=== PATIENT | male | born 1945 | race Caucasian/White ===

== ENCOUNTER 2020-01-19 17:42 | Emergency (ER) | payer MEDICARE, OTHER ==
[2020-01-19] MEDS ORDERED: Ondansetron 4 MG Tab.DIS PO ONE (18:30)
[2020-01-19] MEDS ORDERED: HYDROmorphone 0.5 MG/0.5 ML Syringe IM ONE (18:44)
--- NOTE | 2020-01-19 18:51 | EDM.PDOC ---
ED HPI GENERAL MEDICAL PROBLEM - General Chief Complaint: Gastrointestinal Problem Stated Complaint: VOMITING Time Seen by Provider: 01/19/20 18:29 Source of Information: Reports: Patient, RN Notes Reviewed History Limitations: Reports: No Limitations - History of Present Illness INITIAL COMMENTS - FREE TEXT/NARRATIVE: Patient is a 74-year-old male who presents to the ED for his dizziness and vomiting. Patient was in [place] and had a prostate biopsy done by Dr. Ann today. He states that he ate a little bit of food on the way home, and then developed nausea and a sense of dizziness, so he laid himself back into the seat, and he must have vomited. He did not know that he actively vomited, he states when he woke up, he had vomit in his lap. He states he had another episode of vomiting shortly after that. He notes that the biopsy must have went well, he has no fevers or chills, cough or shortness of breath. He notes he has some pain in his rectum from the prostate biopsy site, and there is some blood present. Rectal Pain Score (Numeric/FACES): 7 - Related Data Allergies Allergy/AdvReac Type Severity Reaction Status Date / Time animal dander Allergy Cannot Verified 01/19/20 18:26 Remember apple Allergy Cannot Verified 01/19/20 18:26 Remember banana Allergy Swelling Verified 01/19/20 18:26 bee pollen Allergy Cannot Verified 01/19/20 18:26 Remember kiwi Allergy Swelling Verified 01/19/20 18:26 lisinopril Allergy Cough Verified 01/19/20 18:14 Home Meds: Home Meds Acetaminophen/HYDROcodone [[place] 325-5 MG] 2 tab PO Q6H PRN 01/19/20 [History] Aspirin [Ecotrin EC] 81 mg PO DAILY 01/19/20 [History] Cholecalciferol (Vitamin D3) [Vitamin D3] 2,000 unit PO DAILY 01/19/20 [History] Doxazosin Mesylate [Cardura] 6 mg PO DAILY 01/19/20 [History] Hydrocodone/Acetaminophen [Hydrocodone-Acetamin 5-325 mg] 1 each PO Q6H PRN #12 tablet 01/19/20 [Rx] Ibuprofen [Motrin] 800 mg PO TID 01/19/20 [History] Ondansetron [Zofran ODT] 4 mg PO Q8H PRN #15 tab.dis 01/19/20 [Rx] Pantoprazole Sodium [Protonix] 20 mg PO DAILY 01/19/20 [History] atorvaSTATin Calcium [Atorvastatin Calcium] 10 mg PO DAILY 01/19/20 [History] Past Medical History HEENT History: Reports: Impaired Vision Cardiovascular History: Reports: High Cholesterol, Stents Gastrointestinal History: Reports: GERD Genitourinary History: Reports: Other (See Below) Other Genitourinary History: prostate biopsy on 01-19-20 - Infectious Disease History Infectious Disease History: Reports: Measles, Mumps - Past Surgical History Cardiovascular Surgical History: Reports: Coronary Artery Stent Male Surgical History: Reports: Prostate Biopsy (01/19/2020) Social & Family History - Tobacco Use Tobacco Use Status *Q: Never Tobacco User - Caffeine Use Caffeine Use: Reports: Coffee, Tea - Recreational Drug Use Recreational Drug Use: No ED ROS GENERAL - Review of Systems Review Of Systems: Comprehensive ROS is negative, except as noted in HPI. ED EXAM, GI/ABD - Physical Exam Exam: See Below Exam Limited By: No Limitations General Appearance: Alert, WD/WN, No Apparent Distress Eyes: Bilateral: Normal Appearance Respiratory/Chest: No Respiratory Distress, Lungs Clear, Normal Breath Sounds, No Accessory Muscle Use, Chest Non-Tender Cardiovascular: Normal Peripheral Pulses, Regular Rate, Rhythm, No Murmur GI/Abdominal Exam: Normal Bowel Sounds, Soft, Non-Tender, No Distention, No Mass Rectal (Males) Exam: Deferred (reports there is some blood in underwear) Neurological: Alert, Oriented, Normal Cognition, No Motor/Sensory Deficits Psychiatric: Normal Affect, Normal Mood Skin Exam: Warm, Dry, Intact, Normal Color, No Rash Course - Vital Signs Last Recorded V/S: Last Vital Signs Temp 96.5 F L 01/19/20 18:17 Pulse 52 L 01/19/20 18:17 Resp 18 01/19/20 18:17 BP 138/78 01/19/20 18:17 Pulse Ox 94 L 01/19/20 18:17 - Orders/Labs/Meds Orders: Active Orders 24 hr Category Date Time Status Influenza Vaccine Charge [RC] .DISCHARGE Care 01/19/20 18:23 Active CBC WITH AUTO DIFF [HEME] Stat Lab 01/19/20 18:44 Ordered Labs: Laboratory Tests 01/19/20 01/19/20 Range/Units 19:20 19:20 WBC 12.73 H (4.23-9.07) K/mm3 RBC 4.90 (4.63-6.08) M/mm3 Hgb 14.2 (13.7-17.5) gm/dl Hct 42.8 (40.1-51.0) % MCV 87.3 (79.0-92.2) fl MCH 29.0 (25.7-32.2) pg MCHC 33.2 (32.2-35.5) g/dl RDW Std Deviation 43.6 (35.1-43.9) fL Plt Count 210 (163-337) K/mm3 MPV 9.8 (9.4-12.3) fl Neut % (Auto) 88.7 H (34.0-67.9) % Lymph % (Auto) 4.9 L (21.8-53.1) % [place] % (Auto) 5.8 (5.3-12.2) % Eos % (Auto) 0.2 L (0.8-7.0) Baso % (Auto) 0.2 (0.1-1.2) % Neut # (Auto) 11.28 H (1.78-5.38) K/mm3 Lymph # (Auto) 0.63 L (1.32-3.57) K/mm3 [place] # (Auto) 0.74 (0.30-0.82) K/mm3 Eos # (Auto) 0.03 L (0.04-0.54) K/mm3 Baso # (Auto) 0.03 (0.01-0.08) K/mm3 Sodium 141 (136-145) mEq/L Potassium 4.1 (3.5-5.1) mEq/L Chloride 106 (98-107) mEq/L Carbon Dioxide 27 (21-32) mEq/L Anion Gap 12.1 (5-15) BUN 14 (7-18) mg/dL Creatinine 1.3 (0.7-1.3) mg/dL Est Cr Clr Drug Dosing 53.10 mL/min Estimated GFR (MDRD) 54 (>60) mL/min BUN/Creatinine Ratio 10.8 L (14-18) Glucose 135 H (83-115) mg/dL Calcium 8.6 (8.5-10.1) mg/dL Total Bilirubin 0.6 (0.2-1.0) mg/dL AST 21 (15-37) U/L ALT 30 (16-63) U/L Alkaline Phosphatase 106 (46-116) U/L Total Protein 6.7 (6.4-8.2) g/dl Albumin 3.4 (3.4-5.0) g/dl Globulin 3.3 gm/dL Albumin/Globulin Ratio 1.0 (1-2) Meds: Medications Discontinued Medications Generic Name Dose Route Start Last Admin Trade Name Freq PRN Reason Stop Dose Admin Hydromorphone HCl 0.5 mg 01/19/20 18:44 01/19/20 18:56 Dilaudid IM 01/19/20 18:45 0.5 mg ONETIME ONE Administration Influenza Virus Vaccine 1 each 01/19/20 18:23 Pharmacy To Dose - Influenza Vaccine IM 01/19/20 18:24 ONETIME ONE Influenza Virus Vaccine 240 mcg 01/19/20 19:00 01/19/20 18:54 Fluzone High-Dose Quad 2020-21 IM 01/19/20 19:01 240 mcg .ONCE ONE Administration Ondansetron HCl 4 mg 01/19/20 18:30 01/19/20 18:35 Zofran Odt PO 01/19/20 18:31 4 mg ONETIME ONE Administration - Re-Assessments/Exams Free Text/Narrative Re-Assessment/Exam: 01/19/20 18:50 Patient presents to the ED for evaluation of his nausea and vomiting after a surgical procedure today. We will give him some Zofran, and 0.5 mg of IM Dilaudid, get some basic labs to evaluate electrolytes, and hopefully get him discharged home with general recommendations. I will likely send him home with a few tablets of pain medication along with some nausea medication. 01/19/20 19:58 The patient states he is feeling better. We will get him a prescription for nausea medications and pain medications, I did educate him on return precautions due to the recent prostate biopsy. He verbalized understanding. Departure - Departure Time of Disposition: 19:58 Disposition: Home, Self-Care 01 Condition: Good Clinical Impression: Nausea and vomiting Qualifiers: Vomiting type: unspecified Vomiting Intractability: non-intractable Qualified Code(s): R11.2 - Nausea with vomiting, unspecified - Discharge Information *PRESCRIPTION DRUG MONITORING PROGRAM REVIEWED*: Yes *COPY OF PRESCRIPTION DRUG MONITORING REPORT IN PATIENT STEVEN: No Prescriptions: Hydrocodone/Acetaminophen [Hydrocodone-Acetamin 5-325 mg] 1 each PO Q6H PRN #12 tablet PRN Reason: Pain Ondansetron [Zofran ODT] 4 mg PO Q8H PRN #15 tab.dis PRN Reason: Nausea Instructions: Nausea and Vomiting, Adult, [id number] Referrals: Nano Guzman [employer] INFORMATION SYSTEMS DIRECTOR [Primary Care Provider] - Forms: ED Department Discharge Additional Instructions: You were evaluated in the ER today for your nausea and vomiting. Your labs were unremarkable, there are no electrolyte abnormalities that would have been the cause of this at today's visit. You were given a dose of antinausea medications and pain medications, this seemed to help relieve most of your symptoms. You were given a prescription for a strong pain medication, hydrocodone/acetaminophen 5/325 mg, please take 1 tab every 6 hours as needed for pain not relieved by Tylenol or ibuprofen alone. Please note this medication does contain Tylenol in it, so do not take more than 4000 mg in a 24- hour time span. These medications can be addictive, so please take as few as possible to achieve adequate pain control. These meds can also be quite constipating, recommend that you increase your oral fluid intake and take a stool softener like MiraLAX while taking these medications. Do not drive while taking this medication. You were also given a prescription for Zofran you will need to take 1 tablet dissolvable under your tongue every 8 hours as needed for further nausea symptoms. Please continue to monitor the bleeding from the biopsy today, if you notice an increase in red blood in your underwear, or while having bowel movements, and you begin to feel dizzy/lightheaded, or notice a more pale color in your skin tone, this to be cause for concern to return to the ER for further management. Otherwise please continue to increase your oral fluid intake, I would recommend small, bland meals for the next 24 to 48 hours to make sure that you do not get sick again. Highly recommend that you start using a stool softener to soften your stools as I expect that the hard stools will not feel well passing after the prostate biopsy. Sepsis Event Note (ED) - Evaluation Sepsis Screening Result: No Definite Risk - Focused Exam Vital Signs: Vital Signs Temp Pulse Resp BP Pulse Ox 01/19/20 18:17 96.5 F L 52 L 18 138/78 94 L - My Orders Last 24 Hours: My Active Orders 01/19/20 18:23 Influenza Vaccine Charge [RC] .DISCHARGE 01/19/20 18:44 CBC WITH AUTO DIFF [HEME] Stat - Assessment/Plan Last 24 Hours: My Active Orders 01/19/20 18:23 Influenza Vaccine Charge [RC] .DISCHARGE 01/19/20 18:44 CBC WITH AUTO DIFF [HEME] Stat
[2020-01-19] MEDS ORDERED: FLU Vacc QV2020-21(65YR UP)/PF 240 MCG/0.7 ML Syringe IM ONE (19:00)
== END 2020-01-19 20:15 | disposition home or self-care (01) ==
LOC: JD.ED 17:42
DX: R11.2 Nausea with vomiting, unspecified (principal); E78.00 Pure hypercholesterolemia, unspecified; K21.9 Gastro-esophageal reflux disease without esophagitis; Z79.82 Long term (current) use of aspirin; Z79.899 Other long term (current) drug therapy; Z23 Encounter for immunization; Z91.048 Other nonmedicinal substance allergy status; Z91.030 Bee allergy status; Z91.018 Allergy to other foods; Z88.8 Allergy status to other drugs, medicaments and biological substances
CPT/HCPCS: 36415; 80053; 85025; 90662; 96372; 99284; A9270-GY; G0008; J1170

== ENCOUNTER 2020-04-25 10:48 | Inpatient (IN) | payer MEDICARE, OTHER ==
[2020-04-25] MEDS ORDERED: Sodium Chloride 0.9% 10 ML Syringe FLUSH PRN (11:14)
[2020-04-25] MEDS ORDERED: Dexamethasone 4 MG Tab PO ONE (11:56)
--- NOTE | 2020-04-25 12:18 | EDM.PDOC ---
ED HPI GENERAL MEDICAL PROBLEM - General Chief Complaint: Respiratory Problem Stated Complaint: [facility] Time Seen by Provider: 04/25/20 11:15 Source of Information: Reports: Patient, RN Notes Reviewed History Limitations: Reports: No Limitations - History of Present Illness INITIAL COMMENTS - FREE TEXT/NARRATIVE: Patient is a 74-year-old female presenting to the emergency department by [facility] with complaints of cough and shortness of breath with a known diagnosis of COVID-19. He states his symptoms began on April 15 with headache and generalized body aches. He developed cough and shortness of breath on April 17. He was diagnosed as Covid positive on April 22. He complains of intense cough, body aches, headache, and shortness of breath. Denies any chest pain. He feels that he has been febrile, however he does not have a working thermometer at home. Denies any nausea, vomiting, or diarrhea. He has been using ibuprofen to treat the symptoms. Patient has a past medical history significant for DE with stents. Denies any underlying lung pathology. He is not diabetic. Chest Pain Score (Numeric/FACES): 6 - Related Data Allergies Allergy/AdvReac Type Severity Reaction Status Date / Time animal dander Allergy Severe Cannot Verified 04/25/20 10:58 Remember apple Allergy Severe Cannot Verified 04/25/20 10:58 Remember banana Allergy Severe Swelling Verified 04/25/20 10:58 bee pollen Allergy Severe Cannot Verified 04/25/20 10:58 Remember kiwi Allergy Severe Swelling Verified 04/25/20 10:58 lisinopril Allergy Severe Cough Verified 04/25/20 10:58 Home Meds: Home Meds Acetaminophen/HYDROcodone [[place] 325-5 MG] 2 tab PO Q6H PRN 01/19/20 [History] Aspirin [Ecotrin EC] 81 mg PO DAILY 01/19/20 [History] Cholecalciferol (Vitamin D3) [Vitamin D3] 2,000 unit PO DAILY 01/19/20 [History] Doxazosin Mesylate [Cardura] 6 mg PO DAILY 01/19/20 [History] Hydrocodone/Acetaminophen [Hydrocodone-Acetamin 5-325 mg] 1 each PO Q6H PRN #12 tablet 01/19/20 [Rx] Ibuprofen [Motrin] 800 mg PO TID 01/19/20 [History] Ondansetron [Zofran ODT] 4 mg PO Q8H PRN #15 tab.dis 01/19/20 [Rx] Pantoprazole Sodium [Protonix] 20 mg PO DAILY 01/19/20 [History] atorvaSTATin Calcium [Atorvastatin Calcium] 10 mg PO DAILY 01/19/20 [History] Past Medical History HEENT History: Reports: Impaired Vision Cardiovascular History: Reports: High Cholesterol, Hypertension, Stents Gastrointestinal History: Reports: GERD Genitourinary History: Reports: Other (See Below) Other Genitourinary History: prostate biopsy on 01-19-20 - Infectious Disease History Infectious Disease History: Reports: Measles, Mumps, Novel Coronavirus - Past Surgical History Cardiovascular Surgical History: Reports: Coronary Artery Stent Male Surgical History: Reports: Prostate Biopsy Social & Family History - Tobacco Use Tobacco Use Status *Q: Never Tobacco User - Caffeine Use Caffeine Use: Reports: Coffee - Recreational Drug Use Recreational Drug Use: No ED ROS GENERAL - Review of Systems Review Of Systems: See Below Constitutional: Reports: Fever, Fatigue HEENT: Reports: No Symptoms Respiratory: Reports: Shortness of Breath, Cough. Denies: Wheezing Cardiovascular: Reports: No Symptoms. Denies: Chest Pain, Lightheadedness, Palpitations, Syncope Endocrine: Reports: No Symptoms GI/Abdominal: Reports: No Symptoms. Denies: Abdominal Pain, Diarrhea, Nausea, Vomiting : Reports: No Symptoms Musculoskeletal: Reports: Other (Generalized body aches) Skin: Reports: No Symptoms Neurological: Reports: Headache. Denies: Confusion, Dizziness Psychiatric: Reports: No Symptoms Hematologic/Lymphatic: Reports: No Symptoms Immunologic: Reports: No Symptoms ED EXAM, GENERAL - Physical Exam Exam: See Below Exam Limited By: No Limitations General Appearance: Alert, WD/WN, No Apparent Distress Respiratory/Chest: No Respiratory Distress, Lungs Clear, Normal Breath Sounds, No Accessory Muscle Use, Chest Non-Tender Cardiovascular: Normal Peripheral Pulses, Regular Rate, Rhythm, No Edema, No Gallop, No JVD, No Murmur, No Rub Neurological: Alert, Oriented, CN II-XII Intact, Normal Cognition, Normal Gait, Normal Reflexes, No Motor/Sensory Deficits Psychiatric: Normal Affect, Normal Mood Skin Exam: Warm, Dry, Intact, Normal Color, No Rash #1 Interpretation EKG Date: 04/25/20 Time: 11:01 Rhythm: NSR Rate (Beats/Min): 68 [place]: Normal P-Wave: Present QRS: RBBB ST-T: Normal QT: Normal Course - Vital Signs Last Recorded V/S: Last Vital Signs Temp 97.4 F 04/25/20 10:54 Pulse 65 04/25/20 14:18 Resp 20 04/25/20 13:43 BP 136/85 04/25/20 13:43 Pulse Ox 92 L 04/25/20 14:18 - Orders/Labs/Meds Orders: Active Orders 24 hr Category Date Time Status EKG Documentation Completion [RC] STAT Care 04/25/20 11:15 Active Peripheral IV Care [RC] . DIRECTED Care 04/25/20 11:15 Active Azithromycin [Zithromax] 500 mg Med 04/25/20 14:47 Active Sodium Chloride 0.9% [Normal Saline (AdvBag)] 250 ml IV ONETIME Sodium Chloride 0.9% [Normal Saline] 100 ml Med 04/25/20 13:15 Active IV ASDIRECTED Sodium Chloride 0.9% [Saline Flush] Med 04/25/20 11:14 Active 10 ml FLUSH ASDIRECTED PRN Peripheral IV Insertion Adult [OM.PC] Stat Oth 04/25/20 11:14 Ordered Labs: Laboratory Tests 04/25/20 04/25/20 04/25/20 Range/Units 11:08 11:08 11:08 WBC 4.97 (4.23-9.07) K/mm3 RBC 5.12 (4.63-6.08) M/mm3 Hgb 14.4 (13.7-17.5) gm/dl Hct 44.3 (40.1-51.0) % MCV 86.5 (79.0-92.2) fl MCH 28.1 (25.7-32.2) pg MCHC 32.5 (32.2-35.5) g/dl RDW Std Deviation 44.0 H (35.1-43.9) fL Plt Count 179 (163-337) K/mm3 MPV 10.5 (9.4-12.3) fl Neut % (Auto) 82.9 H (34.0-67.9) % Lymph % (Auto) 9.3 L (21.8-53.1) % [place] % (Auto) 7.8 (5.3-12.2) % Eos % (Auto) 0 L (0.8-7.0) Baso % (Auto) 0.0 L (0.1-1.2) % Neut # (Auto) 4.12 (1.78-5.38) K/mm3 Lymph # (Auto) 0.46 L (1.32-3.57) K/mm3 [place] # (Auto) 0.39 (0.30-0.82) K/mm3 Eos # (Auto) 0.00 L (0.04-0.54) K/mm3 Baso # (Auto) 0.00 L (0.01-0.08) K/mm3 Manual Slide Review Abnormal smear D-Dimer, Quantitative 1.48 H (0.19-0.50) mg/L Puncture Site ABG pH (7.35-7.45) ABG pCO2 (35.0-45.0) mmHg ABG pO2 (80.0-100.0) mmHg ABG HCO3 (22.0-26.0) meq/L ABG O2 Saturation (96.0-97.0) % ABG Base Excess (-2-2.0) Tree Test O2 Delivery Device Oxygen Flow Rate Sodium 144 (136-145) mEq/L Potassium 3.5 (3.5-5.1) mEq/L Chloride 105 (98-107) mEq/L Carbon Dioxide 26 (21-32) mEq/L Anion Gap 16.5 H (5-15) BUN 19 H (7-18) mg/dL Creatinine 1.3 (0.7-1.3) mg/dL Est Cr Clr Drug Dosing 53.10 mL/min Estimated GFR (MDRD) 54 (>60) mL/min BUN/Creatinine Ratio 14.6 (14-18) Glucose 101 (83-115) mg/dL Lactic Acid (0.4-2.0) mmol/L Calcium 8.5 (8.5-10.1) mg/dL Total Bilirubin 0.6 (0.2-1.0) mg/dL AST 48 H (15-37) U/L ALT 34 (16-63) U/L Alkaline Phosphatase 135 H (46-116) U/L Troponin I < 0.017 (0.00-0.056) ng/mL C-Reactive Protein 11.3 H* (<1.0) mg/dL Total Protein 6.8 (6.4-8.2) g/dl Albumin 2.9 L (3.4-5.0) g/dl Globulin 3.9 gm/dL Albumin/Globulin Ratio 0.7 L (1-2) 04/25/20 04/25/20 04/25/20 Range/Units 11:08 11:29 13:28 WBC (4.23-9.07) K/mm3 RBC (4.63-6.08) M/mm3 Hgb (13.7-17.5) gm/dl Hct (40.1-51.0) % MCV (79.0-92.2) fl MCH (25.7-32.2) pg MCHC (32.2-35.5) g/dl RDW Std Deviation (35.1-43.9) fL Plt Count (163-337) K/mm3 MPV (9.4-12.3) fl Neut % (Auto) (34.0-67.9) % Lymph % (Auto) (21.8-53.1) % [place] % (Auto) (5.3-12.2) % Eos % (Auto) (0.8-7.0) Baso % (Auto) (0.1-1.2) % Neut # (Auto) (1.78-5.38) K/mm3 Lymph # (Auto) (1.32-3.57) K/mm3 [place] # (Auto) (0.30-0.82) K/mm3 Eos # (Auto) (0.04-0.54) K/mm3 Baso # (Auto) (0.01-0.08) K/mm3 Manual Slide Review D-Dimer, Quantitative (0.19-0.50) mg/L Puncture Site Rt radial ABG pH 7.45 7.45 (7.35-7.45) ABG pCO2 30.3 L 30.2 L (35.0-45.0) mmHg ABG pO2 78.0 L 57.0 L (80.0-100.0) mmHg ABG HCO3 20.7 L 20.8 L (22.0-26.0) meq/L ABG O2 Saturation 96.7 90.3 L (96.0-97.0) % ABG Base Excess -1.8 -1.6 (-2-2.0) Tree Test Positive Positive O2 Delivery Device Nasal cannula Room air Oxygen Flow Rate 1.0 Sodium (136-145) mEq/L Potassium (3.5-5.1) mEq/L Chloride (98-107) mEq/L Carbon Dioxide (21-32) mEq/L Anion Gap (5-15) BUN (7-18) mg/dL Creatinine (0.7-1.3) mg/dL Est Cr Clr Drug Dosing mL/min Estimated GFR (MDRD) (>60) mL/min BUN/Creatinine Ratio (14-18) Glucose (83-115) mg/dL Lactic Acid 1.4 (0.4-2.0) mmol/L Calcium (8.5-10.1) mg/dL Total Bilirubin (0.2-1.0) mg/dL AST (15-37) U/L ALT (16-63) U/L Alkaline Phosphatase (46-116) U/L Troponin I (0.00-0.056) ng/mL C-Reactive Protein (<1.0) mg/dL Total Protein (6.4-8.2) g/dl Albumin (3.4-5.0) g/dl Globulin gm/dL Albumin/Globulin Ratio (1-2) - Re-Assessments/Exams Free Text/Narrative Re-Assessment/Exam: Patient is a 74-year-old female presenting to the emergency department via [facility] with complaints of cough and shortness of breath with a known diagnosis of COVID-19. His symptoms began on 15 April and he developed cough and shortness of breath on 17 April. He tested positive for Covid on April 22. Today, the cough and shortness of breath worsened causing him to summon EMS. He denies any underlying respiratory conditions but states he does have a history of DE with stents. He denies any significant chest pain. On arrival to ER, he was found to be 85% on room air. Is currently on 2 L of O2 satting in the mid to upper 90s. On exam, he does have some very faint crackles to the bilateral bases but lung sounds are otherwise clear. There is no audible wheezing. I have ordered blood work including CBC, CMP, CRP, troponin, D-dimer, EKG, chest x-ray. I will also plan to remove the patient from O2 and complete an ABG on room air. I will order dexamethasone 6 mg p.o. to be given. 04/25/20 1300 Hematology is significant for D-dimer elevated at 1.48, anion gap 16.5, BUN 19, AST 48, alkaline phosphatase 135, CRP 11.3. Troponin is negative. ABG was unfortunately collected while he was on 1 L of O2. On 1 L of oxygen, his PCO2 was 30.3, PO2 78, HCO3 20.7. Chest x-ray is read as minimal areas of presumed scarring and atelectasis, heart size is slightly prominent, no other acute findings.I have ordered a CT angiogram of the chest. I will also have nursing take him off of O2 and we will repeat the ABG once he has been on room air for at least 15 minutes. 04/25/20 15:01 CT angiogram of the chest impression as follows: 1. No findings of pulmonary embolism. 2. Diffuse interstitial changes seen within the upper and lower lungs which has the appearance of diffuse interstitial fibrosis. 3. Mild emphysematous changes present. 3. Stable cardiomegaly. 4. Slightly prominent right hilar lymph nodes which are most likely incidental given that no abnormal lymph nodes are seen within the mediastinum. ABG completed on room air shows pH of 7.45, PCO2 is low at 30.2, PO2 low at 57, bicarb low at 20.8, ABG O2 saturation 90.3. ABG is consistent with a fully compensated respiratory alkalosis. Case was discussed with the hospitalist, Dr. Zabala. She has accepted the patient for admission. She would like me to start azithromycin in addition to the dexamethasone he is already received. Discussed this with the patient and he is in agreement. He is complaining of body aches. Have ordered Toradol 30 mg IV. Departure - Departure Time of Disposition: 15:01 Disposition: Home, Self-Care 01 Condition: Good Clinical Impression: COVID-19, Hypoxia - Discharge Information Sepsis Event Note (ED) - Evaluation Sepsis Screening Result: No Definite Risk - Focused Exam Vital Signs: Vital Signs Temp Pulse Resp BP Pulse Ox 04/25/20 14:18 65 92 L 04/25/20 13:43 66 20 136/85 92 L 04/25/20 13:15 63 20 139/84 90 L 04/25/20 12:14 97 04/25/20 12:00 61 135/82 97 04/25/20 11:55 63 127/85 100 04/25/20 10:54 97.4 F 82 24 H 136/84 85 L - My Orders Last 24 Hours: My Active Orders 04/25/20 11:14 Sodium Chloride 0.9% [Saline Flush] 10 ml FLUSH ASDIRECTED PRN Peripheral IV Insertion Adult [OM.PC] Stat 04/25/20 11:15 EKG Documentation Completion [RC] STAT Peripheral IV Care [RC] . DIRECTED 04/25/20 13:15 Sodium Chloride 0.9% [Normal Saline] 100 ml IV ASDIRECTED 04/25/20 14:47 Azithromycin [Zithromax] 500 mg Sodium Chloride 0.9% [Normal Saline (AdvBag)] 250 ml IV ONETIME - Assessment/Plan Last 24 Hours: My Active Orders 04/25/20 11:14 Sodium Chloride 0.9% [Saline Flush] 10 ml FLUSH ASDIRECTED PRN Peripheral IV Insertion Adult [OM.PC] Stat 04/25/20 11:15 EKG Documentation Completion [RC] STAT Peripheral IV Care [RC] . DIRECTED 04/25/20 13:15 Sodium Chloride 0.9% [Normal Saline] 100 ml IV ASDIRECTED 04/25/20 14:47 Azithromycin [Zithromax] 500 mg Sodium Chloride 0.9% [Normal Saline (AdvBag)] 250 ml IV ONETIME
--- NOTE | 2020-04-25 12:33 | CR ---
Chest: Portable view of the chest was obtained. Comparison: No previous chest imaging is available. Findings: Heart size is felt to be minimally enlarged. Tortuous thoracic aorta is seen. Minimal areas of presumed scarring and atelectasis are noted. No acute parenchymal process is seen. Bony structures are grossly intact. Impression: 1. Minimal areas of presumed scarring and atelectasis. 2. Heart size is slightly prominent. 3. Nothing acute is otherwise seen on portable chest x-ray. Diagnostic code #2
[2020-04-25] MEDS ORDERED: Iopamidol 755 Mg/ML 100 ML Bottle IVPUSH ONE (13:04)
[2020-04-25] MEDS ORDERED: Sodium Chloride 0.9% 10 ML Syringe FLUSH ONE (13:04)
[2020-04-25] MEDS ORDERED: Sodium Chloride 0.9% 100 ML IV SCH (13:15)
--- NOTE | 2020-04-25 14:33 | CT ---
CT chest Technique: Multiple axial sections through the chest were obtained. Study performed as a pulmonary angiogram protocol and intravenous contrast was utilized. Comparison: Prior chest x-ray performed earlier on the same day (11:09 AM) Findings: Pulmonary arteries are mildly well opacified. No filling defects are seen to indicate pulmonary embolism. Small normal sized mediastinal lymph nodes are seen. Slightly prominent lymph nodes within the right hilum are seen. Left hilum is unremarkable. Heart is enlarged. Small portion of the visualized upper abdominal structures show a small cyst within the left kidney and a slightly larger cyst measuring 4.0 cm within the right kidney. Lung window settings were reviewed and show scattered interstitial change within the left upper and right upper lung as well as within the right lower lung and left lower lung. No pleural effusions are seen. Emphysematous change is present. Bone window settings were reviewed which show mild degenerative change within the spine. No acute osseous finding is appreciated. Impression: 1. No findings of pulmonary embolism. 2. Diffuse interstitial change is seen within the upper and lower lungs which has the appearance of diffuse interstitial fibrosis. 3. Mild emphysematous change is present. 3. Stable cardiomegaly. 4. Slightly prominent right hilar lymph nodes which most likely are incidental given that no abnormal lymph nodes are seen within the mediastinum. Diagnostic code #3
[2020-04-25] MEDS ORDERED: Azithromycin 500 MG in Sodium Chloride 0.9% 250 ML IV ONE (14:47)
[2020-04-25] MEDS ORDERED: Ketorolac 30 MG/ML SDV IVPUSH ONE (14:48)
--- NOTE | 2020-04-25 16:09 | PCM.HP.2 ---
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 But feels SOB, weak. He will be started on ATBs and steroids. Remdesivir may be added if needed as per protocol. The patient Also complained of a headache but denied changes in sense of smell or appetite. A CTA of the chest was negative for PE, but did reveal interstitial fibrosis. it was not suggestive of COVID-19 PNA. Onset of Symptoms: Reports: Gradual Duration of Symptoms: Reports: Day(s):, Getting Worse Location: Reports: Head, Chest, Generalized Quality: Reports: Ache, Pressure Severity: Moderate Improves with: Reports: Medication Worsens with: Reports: None Context: Reports: Sick Contact Associated Symptoms: Reports: Cough, Malaise, Shortness of Breath, Weakness Chest Pain Score (Numeric/FACES): 6 - Related Data Allergies/Adverse Reactions: Allergies Allergy/AdvReac Type Severity Reaction Status Date / Time banana Allergy Severe Swelling Verified 04/25/20 10:58 kiwi Allergy Severe Swelling Verified 04/25/20 10:58 animal dander Allergy Unknown Cannot Verified 04/25/20 16:12 Remember apple Allergy Unknown Cannot Verified 04/25/20 16:12 Remember bee pollen Allergy Unknown Cannot Verified 04/25/20 16:12 Remember lisinopril AdvReac Mild Cough Verified 04/25/20 16:12 Home Medications: Home Meds Aspirin [Ecotrin EC] 81 mg PO DAILY 01/19/20 [History] Cholecalciferol (Vitamin D3) [Vitamin D3] 2,000 unit PO DAILY 01/19/20 [History] Doxazosin Mesylate [Cardura] 6 mg PO DAILY 01/19/20 [History] Hydrocodone/Acetaminophen [Hydrocodone-Acetamin 5-325 mg] 1 each PO Q6H PRN #12 tablet 01/19/20 [Rx] Ibuprofen [Motrin] 800 mg PO PRN 01/19/20 [History] Pantoprazole Sodium [Protonix] 20 mg PO DAILY 01/19/20 [History] atorvaSTATin Calcium [Atorvastatin Calcium] 10 mg PO DAILY 01/19/20 [History] Past Medical History HEENT History: Reports: Impaired Vision Cardiovascular History: Reports: High Cholesterol, Hypertension, Stents Gastrointestinal History: Reports: GERD Genitourinary History: Reports: Other (See Below) Other Genitourinary History: prostate biopsy on 01-19-20 - Infectious Disease History Infectious Disease History: Reports: Measles, Mumps, Novel Coronavirus - Past Surgical History Cardiovascular Surgical History: Reports: Coronary Artery Stent Male Surgical History: Reports: Prostate Biopsy Social & Family History - Tobacco Use Tobacco Use Status *Q: Never Tobacco User - Caffeine Use Caffeine Use: Reports: Coffee - Recreational Drug Use Recreational Drug Use: No H&P Review of Systems - Review of Systems: Review Of Systems: See Below General: Reports: Fever, Chills, Malaise, Weakness, Fatigue HEENT: Reports: No Symptoms Pulmonary: Reports: Shortness of Breath Cardiovascular: Reports: No Symptoms Gastrointestinal: Reports: No Symptoms, Decreased Appetite, Nausea Genitourinary: Reports: No Symptoms Musculoskeletal: Reports: No Symptoms Skin: Reports: No Symptoms Psychiatric: Reports: No Symptoms Neurological: Reports: Headache Hematologic/Lymphatic: Reports: No Symptoms Immunologic: Reports: No Symptoms Exam - Exam Exam: See Below - Vital Signs Vital Signs: Last Vital Signs Temp 36.8 C 04/25/20 16:00 Pulse 61 04/25/20 16:00 Resp 20 04/25/20 16:00 BP 128/85 04/25/20 16:00 Pulse Ox 97 04/25/20 16:00 Weight: 90.718 kg - Exam Quality Assessment: Supplemental Oxygen, DVT Prophylaxis General: Alert, Oriented, Cooperative, Mild Distress HEENT: EOMI, Hearing Intact, Nares Patent, Normal Nasal Septum, Pupils Equal, Pupils Reactive Neck: Trachea Midline Lungs: Normal Respiratory Effort, Decreased Breath Sounds Cardiovascular: Regular Rate, Regular Rhythm GI/Abdominal Exam: Normal Bowel Sounds, Soft, Non-Tender, No Distention (Male) Exam: Deferred Rectal (Males) Exam: Deferred Back Exam: Normal Inspection Extremities: Normal Inspection Skin: Warm Neurological: Cranial Nerves Intact, Babinski Absent Neuro Extensive - Mental Status: Alert, Oriented x3, Normal Mood/Affect, Memory Intact Neuro Extensive - Motor, Sensory, Reflexes: CN II-XII Intact Psychiatric: Alert, Normal Affect, Normal Mood - Patient Data Lab Results Last 24 hrs: Laboratory Results - last 24 hr 04/25/20 04/25/20 04/25/20 Range/Units 11:08 11:08 11:08 WBC 4.97 (4.23-9.07) K/mm3 RBC 5.12 (4.63-6.08) M/mm3 Hgb 14.4 (13.7-17.5) gm/dl Hct 44.3 (40.1-51.0) % MCV 86.5 (79.0-92.2) fl MCH 28.1 (25.7-32.2) pg MCHC 32.5 (32.2-35.5) g/dl RDW Std Deviation 44.0 H (35.1-43.9) fL Plt Count 179 (163-337) K/mm3 MPV 10.5 (9.4-12.3) fl Neut % (Auto) 82.9 H (34.0-67.9) % Lymph % (Auto) 9.3 L (21.8-53.1) % Merrick % (Auto) 7.8 (5.3-12.2) % Eos % (Auto) 0 L (0.8-7.0) Baso % (Auto) 0.0 L (0.1-1.2) % Neut # (Auto) 4.12 (1.78-5.38) K/mm3 Lymph # (Auto) 0.46 L (1.32-3.57) K/mm3 Merrick # (Auto) 0.39 (0.30-0.82) K/mm3 Eos # (Auto) 0.00 L (0.04-0.54) K/mm3 Baso # (Auto) 0.00 L (0.01-0.08) K/mm3 Manual Slide Review Abnormal smear D-Dimer, Quantitative 1.48 H (0.19-0.50) mg/L Puncture Site ABG pH (7.35-7.45) ABG pCO2 (35.0-45.0) mmHg ABG pO2 (80.0-100.0) mmHg ABG HCO3 (22.0-26.0) meq/L ABG O2 Saturation (96.0-97.0) % ABG Base Excess (-2-2.0) Tree Test O2 Delivery Device Oxygen Flow Rate Sodium 144 (136-145) mEq/L Potassium 3.5 (3.5-5.1) mEq/L Chloride 105 (98-107) mEq/L Carbon Dioxide 26 (21-32) mEq/L Anion Gap 16.5 H (5-15) BUN 19 H (7-18) mg/dL Creatinine 1.3 (0.7-1.3) mg/dL Est Cr Clr Drug Dosing 53.10 mL/min Estimated GFR (MDRD) 54 (>60) mL/min BUN/Creatinine Ratio 14.6 (14-18) Glucose 101 (83-115) mg/dL Lactic Acid (0.4-2.0) mmol/L Calcium 8.5 (8.5-10.1) mg/dL Total Bilirubin 0.6 (0.2-1.0) mg/dL AST 48 H (15-37) U/L ALT 34 (16-63) U/L Alkaline Phosphatase 135 H (46-116) U/L Troponin I < 0.017 (0.00-0.056) ng/mL C-Reactive Protein 11.3 H* (<1.0) mg/dL Total Protein 6.8 (6.4-8.2) g/dl Albumin 2.9 L (3.4-5.0) g/dl Globulin 3.9 gm/dL Albumin/Globulin Ratio 0.7 L (1-2) 04/25/20 04/25/20 04/25/20 Range/Units 11:08 11:29 13:28 WBC (4.23-9.07) K/mm3 RBC (4.63-6.08) M/mm3 Hgb (13.7-17.5) gm/dl Hct (40.1-51.0) % MCV (79.0-92.2) fl MCH (25.7-32.2) pg MCHC (32.2-35.5) g/dl RDW Std Deviation (35.1-43.9) fL Plt Count (163-337) K/mm3 MPV (9.4-12.3) fl Neut % (Auto) (34.0-67.9) % Lymph % (Auto) (21.8-53.1) % Merrick % (Auto) (5.3-12.2) % Eos % (Auto) (0.8-7.0) Baso % (Auto) (0.1-1.2) % Neut # (Auto) (1.78-5.38) K/mm3 Lymph # (Auto) (1.32-3.57) K/mm3 Merrick # (Auto) (0.30-0.82) K/mm3 Eos # (Auto) (0.04-0.54) K/mm3 Baso # (Auto) (0.01-0.08) K/mm3 Manual Slide Review D-Dimer, Quantitative (0.19-0.50) mg/L Puncture Site Rt radial ABG pH 7.45 7.45 (7.35-7.45) ABG pCO2 30.3 L 30.2 L (35.0-45.0) mmHg ABG pO2 78.0 L 57.0 L (80.0-100.0) mmHg ABG HCO3 20.7 L 20.8 L (22.0-26.0) meq/L ABG O2 Saturation 96.7 90.3 L (96.0-97.0) % ABG Base Excess -1.8 -1.6 (-2-2.0) Tree Test Positive Positive O2 Delivery Device Nasal cannula Room air Oxygen Flow Rate 1.0 Sodium (136-145) mEq/L Potassium (3.5-5.1) mEq/L Chloride (98-107) mEq/L Carbon Dioxide (21-32) mEq/L Anion Gap (5-15) BUN (7-18) mg/dL Creatinine (0.7-1.3) mg/dL Est Cr Clr Drug Dosing mL/min Estimated GFR (MDRD) (>60) mL/min BUN/Creatinine Ratio (14-18) Glucose (83-115) mg/dL Lactic Acid 1.4 (0.4-2.0) mmol/L Calcium (8.5-10.1) mg/dL Total Bilirubin (0.2-1.0) mg/dL AST (15-37) U/L ALT (16-63) U/L Alkaline Phosphatase (46-116) U/L Troponin I (0.00-0.056) ng/mL C-Reactive Protein (<1.0) mg/dL Total Protein (6.4-8.2) g/dl Albumin (3.4-5.0) g/dl Globulin gm/dL Albumin/Globulin Ratio (1-2) Result Diagrams: 04/26/20 05:01 04/26/20 05:01 Sepsis Event Note - Evaluation Sepsis Screening Result: No Definite Risk - Focused Exam Vital Signs: Vital Signs Temp Temp Pulse Pulse Resp BP BP 04/25/20 16:00 36.8 C 61 20 128/85 04/25/20 15:18 53 L 20 159/98 H 04/25/20 14:18 65 04/25/20 13:43 66 20 136/85 04/25/20 13:15 63 20 139/84 04/25/20 12:14 04/25/20 12:00 61 135/82 04/25/20 11:55 63 127/85 04/25/20 10:54 36.3 C 82 24 H 136/84 Pulse Ox 04/25/20 16:00 97 04/25/20 15:18 97 04/25/20 14:18 92 L 04/25/20 13:43 92 L 04/25/20 13:15 90 L 04/25/20 12:14 97 04/25/20 12:00 97 04/25/20 11:55 100 04/25/20 10:54 85 L Problem List Initiated/Reviewed/Updated: Yes Orders Last 24hrs: Active Orders 24 hr Category Date Time Status Patient Status [ADT] Routine ADT 04/25/20 14:57 Active EKG Documentation Completion [RC] STAT Care 04/25/20 11:15 Active Peripheral IV Care [RC] . DIRECTED Care 04/25/20 11:15 Active Sodium Chloride 0.9% [Normal Saline] 100 ml Med 04/25/20 13:15 Active IV ASDIRECTED Sodium Chloride 0.9% [Saline Flush] Med 04/25/20 11:14 Active 10 ml FLUSH ASDIRECTED PRN Peripheral IV Insertion Adult [OM.PC] Stat Oth 04/25/20 11:14 Ordered Assessment/Plan Comment:: Impression: COVID-19 PNA Interstitial fibrosis Chronic HTN HLD CAD/DE (PCI) Plan: Zithromax Rocephin Duonebs every 6 hours Albuterol Nebs every 4 hours O2 if needed, keep sat>92% Remdesivir if O2 needed. Home meds DVT prophylaxis - Mortality Measure Prognosis:: Good
[2020-04-25] MEDS ORDERED: Acetaminophen 325 MG Tab PO PRN (16:21)
[2020-04-25] MEDS: cefTRIAXone 2 GM in Sodium Chloride 0.9% 100 ML IV SCH (16:49)
[2020-04-25] MEDS: Enoxaparin 40 MG/0.4 ML Syringe SUBCUT SCH (17:47)
[2020-04-26] MEDS: Enoxaparin 40 MG/0.4 ML Syringe SUBCUT SCH ×2 (05:59→17:28)
--- NOTE | 2020-04-26 07:59 | PCM.PN ---
- General Info Date of Service: 04/26/20 Admission Dx/Problem (Free Text): Admission Diagnosis/Problem Admission Diagnosis/Problem Hypoxia Functional Status: Reports: Pain Controlled, Tolerating Diet, Ambulating, Urinating, Incentive Spirometry, Other (Acapella ). Denies: New Symptoms - Review of Systems General: Reports: Weakness, Fatigue, Malaise. Denies: Fever, Chills HEENT: Reports: No Symptoms. Denies: Headaches, Sore Throat Pulmonary: Reports: Cough (dry). Denies: Shortness of Breath, Pleuritic Chest Pain, Sputum, Wheezing Cardiovascular: Reports: Dyspnea on Exertion. Denies: Chest Pain, Palpitations, Edema Gastrointestinal: Reports: No Symptoms. Denies: Abdominal Pain, Constipation, Diarrhea, Nausea, Vomiting Genitourinary: Reports: No Symptoms. Denies: Pain Musculoskeletal: Reports: Neck Pain (chronic ) Skin: Reports: No Symptoms. Denies: Cyanosis Neurological: Reports: Weakness. Denies: Confusion, Difficulty Walking, Gait Disturbance Psychiatric: Reports: No Symptoms - Patient Data Vitals - Most Recent: Last Vital Signs Temp 98.1 F 04/26/20 01:40 Pulse 57 L 04/26/20 01:40 Resp 14 04/26/20 01:40 BP 139/90 04/26/20 01:40 Pulse Ox 91 L 04/26/20 06:23 Weight - Most Recent: 191 lb I&O - Last 24 Hours: Intake & Output 04/25/20 04/26/20 04/26/20 22:59 06:59 14:59 Intake Total 100 425 Output Total 100 400 Balance 0 25 Lab Results Last 24 Hours: Laboratory Results - last 24 hr 04/25/20 04/25/20 04/25/20 Range/Units 11:08 11:08 11:08 WBC 4.97 (4.23-9.07) K/mm3 RBC 5.12 (4.63-6.08) M/mm3 Hgb 14.4 (13.7-17.5) gm/dl Hct 44.3 (40.1-51.0) % MCV 86.5 (79.0-92.2) fl MCH 28.1 (25.7-32.2) pg MCHC 32.5 (32.2-35.5) g/dl RDW Std Deviation 44.0 H (35.1-43.9) fL Plt Count 179 (163-337) K/mm3 MPV 10.5 (9.4-12.3) fl Neut % (Auto) 82.9 H (34.0-67.9) % Lymph % (Auto) 9.3 L (21.8-53.1) % [place] % (Auto) 7.8 (5.3-12.2) % Eos % (Auto) 0 L (0.8-7.0) Baso % (Auto) 0.0 L (0.1-1.2) % Neut # (Auto) 4.12 (1.78-5.38) K/mm3 Lymph # (Auto) 0.46 L (1.32-3.57) K/mm3 [place] # (Auto) 0.39 (0.30-0.82) K/mm3 Eos # (Auto) 0.00 L (0.04-0.54) K/mm3 Baso # (Auto) 0.00 L (0.01-0.08) K/mm3 Manual Slide Review Abnormal smear D-Dimer, Quantitative 1.48 H (0.19-0.50) mg/L Puncture Site ABG pH (7.35-7.45) ABG pCO2 (35.0-45.0) mmHg ABG pO2 (80.0-100.0) mmHg ABG HCO3 (22.0-26.0) meq/L ABG O2 Saturation (96.0-97.0) % ABG Base Excess (-2-2.0) Tree Test O2 Delivery Device Oxygen Flow Rate Sodium 144 (136-145) mEq/L Potassium 3.5 (3.5-5.1) mEq/L Chloride 105 (98-107) mEq/L Carbon Dioxide 26 (21-32) mEq/L Anion Gap 16.5 H (5-15) BUN 19 H (7-18) mg/dL Creatinine 1.3 (0.7-1.3) mg/dL Est Cr Clr Drug Dosing 53.10 mL/min Estimated GFR (MDRD) 54 (>60) mL/min BUN/Creatinine Ratio 14.6 (14-18) Glucose 101 (83-115) mg/dL Lactic Acid (0.4-2.0) mmol/L Calcium 8.5 (8.5-10.1) mg/dL Magnesium (1.8-2.4) mg/dl Total Bilirubin 0.6 (0.2-1.0) mg/dL AST 48 H (15-37) U/L ALT 34 (16-63) U/L Alkaline Phosphatase 135 H (46-116) U/L Troponin I < 0.017 (0.00-0.056) ng/mL C-Reactive Protein 11.3 H* (<1.0) mg/dL Total Protein 6.8 (6.4-8.2) g/dl Albumin 2.9 L (3.4-5.0) g/dl Globulin 3.9 gm/dL Albumin/Globulin Ratio 0.7 L (1-2) 04/25/20 04/25/20 04/25/20 Range/Units 11:08 11:29 13:28 WBC (4.23-9.07) K/mm3 RBC (4.63-6.08) M/mm3 Hgb (13.7-17.5) gm/dl Hct (40.1-51.0) % MCV (79.0-92.2) fl MCH (25.7-32.2) pg MCHC (32.2-35.5) g/dl RDW Std Deviation (35.1-43.9) fL Plt Count (163-337) K/mm3 MPV (9.4-12.3) fl Neut % (Auto) (34.0-67.9) % Lymph % (Auto) (21.8-53.1) % [place] % (Auto) (5.3-12.2) % Eos % (Auto) (0.8-7.0) Baso % (Auto) (0.1-1.2) % Neut # (Auto) (1.78-5.38) K/mm3 Lymph # (Auto) (1.32-3.57) K/mm3 [place] # (Auto) (0.30-0.82) K/mm3 Eos # (Auto) (0.04-0.54) K/mm3 Baso # (Auto) (0.01-0.08) K/mm3 Manual Slide Review D-Dimer, Quantitative (0.19-0.50) mg/L Puncture Site Rt radial ABG pH 7.45 7.45 (7.35-7.45) ABG pCO2 30.3 L 30.2 L (35.0-45.0) mmHg ABG pO2 78.0 L 57.0 L (80.0-100.0) mmHg ABG HCO3 20.7 L 20.8 L (22.0-26.0) meq/L ABG O2 Saturation 96.7 90.3 L (96.0-97.0) % ABG Base Excess -1.8 -1.6 (-2-2.0) Tree Test Positive Positive O2 Delivery Device Nasal cannula Room air Oxygen Flow Rate 1.0 Sodium (136-145) mEq/L Potassium (3.5-5.1) mEq/L Chloride (98-107) mEq/L Carbon Dioxide (21-32) mEq/L Anion Gap (5-15) BUN (7-18) mg/dL Creatinine (0.7-1.3) mg/dL Est Cr Clr Drug Dosing mL/min Estimated GFR (MDRD) (>60) mL/min BUN/Creatinine Ratio (14-18) Glucose (83-115) mg/dL Lactic Acid 1.4 (0.4-2.0) mmol/L Calcium (8.5-10.1) mg/dL Magnesium (1.8-2.4) mg/dl Total Bilirubin (0.2-1.0) mg/dL AST (15-37) U/L ALT (16-63) U/L Alkaline Phosphatase (46-116) U/L Troponin I (0.00-0.056) ng/mL C-Reactive Protein (<1.0) mg/dL Total Protein (6.4-8.2) g/dl Albumin (3.4-5.0) g/dl Globulin gm/dL Albumin/Globulin Ratio (1-2) 04/26/20 04/26/20 04/26/20 Range/Units 05:01 05:01 05:01 WBC 2.74 L (4.23-9.07) K/mm3 RBC 4.79 (4.63-6.08) M/mm3 Hgb 13.8 (13.7-17.5) gm/dl Hct 41.4 (40.1-51.0) % MCV 86.4 (79.0-92.2) fl MCH 28.8 (25.7-32.2) pg MCHC 33.3 (32.2-35.5) g/dl RDW Std Deviation 42.5 (35.1-43.9) fL Plt Count 166 (163-337) K/mm3 MPV 10.5 (9.4-12.3) fl Neut % (Auto) 71.1 H (34.0-67.9) % Lymph % (Auto) 17.2 L (21.8-53.1) % [place] % (Auto) 11.3 (5.3-12.2) % Eos % (Auto) 0 L (0.8-7.0) Baso % (Auto) 0.4 (0.1-1.2) % Neut # (Auto) 1.95 (1.78-5.38) K/mm3 Lymph # (Auto) 0.47 L (1.32-3.57) K/mm3 [place] # (Auto) 0.31 (0.30-0.82) K/mm3 Eos # (Auto) 0.00 L (0.04-0.54) K/mm3 Baso # (Auto) 0.01 (0.01-0.08) K/mm3 Manual Slide Review Abnormal smear D-Dimer, Quantitative 1.04 H (0.19-0.50) mg/L Puncture Site ABG pH (7.35-7.45) ABG pCO2 (35.0-45.0) mmHg ABG pO2 (80.0-100.0) mmHg ABG HCO3 (22.0-26.0) meq/L ABG O2 Saturation (96.0-97.0) % ABG Base Excess (-2-2.0) Tree Test O2 Delivery Device Oxygen Flow Rate Sodium 136 (136-145) mEq/L Potassium 3.6 (3.5-5.1) mEq/L Chloride 104 (98-107) mEq/L Carbon Dioxide 22 (21-32) mEq/L Anion Gap 13.6 (5-15) BUN 20 H (7-18) mg/dL Creatinine 1.0 (0.7-1.3) mg/dL Est Cr Clr Drug Dosing 69.03 mL/min Estimated GFR (MDRD) > 60 (>60) mL/min BUN/Creatinine Ratio 20.0 H (14-18) Glucose 128 H (83-115) mg/dL Lactic Acid (0.4-2.0) mmol/L Calcium 8.4 L (8.5-10.1) mg/dL Magnesium 2.2 (1.8-2.4) mg/dl Total Bilirubin (0.2-1.0) mg/dL AST (15-37) U/L ALT (16-63) U/L Alkaline Phosphatase (46-116) U/L Troponin I (0.00-0.056) ng/mL C-Reactive Protein 9.6 H* (<1.0) mg/dL Total Protein (6.4-8.2) g/dl Albumin (3.4-5.0) g/dl Globulin gm/dL Albumin/Globulin Ratio (1-2) 04/26/20 Range/Units 05:01 WBC (4.23-9.07) K/mm3 RBC (4.63-6.08) M/mm3 Hgb (13.7-17.5) gm/dl Hct (40.1-51.0) % MCV (79.0-92.2) fl MCH (25.7-32.2) pg MCHC (32.2-35.5) g/dl RDW Std Deviation (35.1-43.9) fL Plt Count (163-337) K/mm3 MPV (9.4-12.3) fl Neut % (Auto) (34.0-67.9) % Lymph % (Auto) (21.8-53.1) % [place] % (Auto) (5.3-12.2) % Eos % (Auto) (0.8-7.0) Baso % (Auto) (0.1-1.2) % Neut # (Auto) (1.78-5.38) K/mm3 Lymph # (Auto) (1.32-3.57) K/mm3 [place] # (Auto) (0.30-0.82) K/mm3 Eos # (Auto) (0.04-0.54) K/mm3 Baso # (Auto) (0.01-0.08) K/mm3 Manual Slide Review D-Dimer, Quantitative (0.19-0.50) mg/L Puncture Site ABG pH (7.35-7.45) ABG pCO2 (35.0-45.0) mmHg ABG pO2 (80.0-100.0) mmHg ABG HCO3 (22.0-26.0) meq/L ABG O2 Saturation (96.0-97.0) % ABG Base Excess (-2-2.0) Tree Test O2 Delivery Device Oxygen Flow Rate Sodium (136-145) mEq/L Potassium (3.5-5.1) mEq/L Chloride (98-107) mEq/L Carbon Dioxide (21-32) mEq/L Anion Gap (5-15) BUN (7-18) mg/dL Creatinine (0.7-1.3) mg/dL Est Cr Clr Drug Dosing mL/min Estimated GFR (MDRD) (>60) mL/min BUN/Creatinine Ratio (14-18) Glucose (83-115) mg/dL Lactic Acid 1.2 (0.4-2.0) mmol/L Calcium (8.5-10.1) mg/dL Magnesium (1.8-2.4) mg/dl Total Bilirubin (0.2-1.0) mg/dL AST (15-37) U/L ALT (16-63) U/L Alkaline Phosphatase (46-116) U/L Troponin I (0.00-0.056) ng/mL C-Reactive Protein (<1.0) mg/dL Total Protein (6.4-8.2) g/dl Albumin (3.4-5.0) g/dl Globulin gm/dL Albumin/Globulin Ratio (1-2) - Exam Quality Assessment: Supplemental Oxygen (3L), DVT Prophylaxis. No: Urine Catheter General: Alert, Oriented, Cooperative, No Acute Distress HEENT: Pupils Equal, Pupils Reactive, Mucous Membr. Moist/[place] Neck: Supple, Trachea Midline Lungs: Clear to Auscultation, Normal Respiratory Effort, Decreased Breath Sounds Cardiovascular: Regular Rate, Regular Rhythm GI/Abdominal Exam: Normal Bowel Sounds, Soft, Non-Tender, No Distention (Male) Exam: Deferred Back Exam: Normal Inspection, Full Range of Motion Extremities: Normal Inspection, Normal Range of Motion, Non-Tender, No Pedal Edema, Normal Capillary Refill Peripheral Pulses: 2+: Radial (L), Radial (R), Dorsalis Pedis (L), Dorsalis Pedis (R) Skin: Warm, Dry, Intact Neurological: No New Focal Deficit Psy/Mental Status: Alert, Normal Affect, Normal Mood - Patient Data Lab Results Last 24 hrs: Laboratory Results - last 24 hr 04/25/20 04/25/20 04/25/20 Range/Units 11:08 11:08 11:08 WBC 4.97 (4.23-9.07) K/mm3 RBC 5.12 (4.63-6.08) M/mm3 Hgb 14.4 (13.7-17.5) gm/dl Hct 44.3 (40.1-51.0) % MCV 86.5 (79.0-92.2) fl MCH 28.1 (25.7-32.2) pg MCHC 32.5 (32.2-35.5) g/dl RDW Std Deviation 44.0 H (35.1-43.9) fL Plt Count 179 (163-337) K/mm3 MPV 10.5 (9.4-12.3) fl Neut % (Auto) 82.9 H (34.0-67.9) % Lymph % (Auto) 9.3 L (21.8-53.1) % [place] % (Auto) 7.8 (5.3-12.2) % Eos % (Auto) 0 L (0.8-7.0) Baso % (Auto) 0.0 L (0.1-1.2) % Neut # (Auto) 4.12 (1.78-5.38) K/mm3 Lymph # (Auto) 0.46 L (1.32-3.57) K/mm3 [place] # (Auto) 0.39 (0.30-0.82) K/mm3 Eos # (Auto) 0.00 L (0.04-0.54) K/mm3 Baso # (Auto) 0.00 L (0.01-0.08) K/mm3 Manual Slide Review Abnormal smear D-Dimer, Quantitative 1.48 H (0.19-0.50) mg/L Puncture Site ABG pH (7.35-7.45) ABG pCO2 (35.0-45.0) mmHg ABG pO2 (80.0-100.0) mmHg ABG HCO3 (22.0-26.0) meq/L ABG O2 Saturation (96.0-97.0) % ABG Base Excess (-2-2.0) Tree Test O2 Delivery Device Oxygen Flow Rate Sodium 144 (136-145) mEq/L Potassium 3.5 (3.5-5.1) mEq/L Chloride 105 (98-107) mEq/L Carbon Dioxide 26 (21-32) mEq/L Anion Gap 16.5 H (5-15) BUN 19 H (7-18) mg/dL Creatinine 1.3 (0.7-1.3) mg/dL Est Cr Clr Drug Dosing 53.10 mL/min Estimated GFR (MDRD) 54 (>60) mL/min BUN/Creatinine Ratio 14.6 (14-18) Glucose 101 (83-115) mg/dL Lactic Acid (0.4-2.0) mmol/L Calcium 8.5 (8.5-10.1) mg/dL Magnesium (1.8-2.4) mg/dl Total Bilirubin 0.6 (0.2-1.0) mg/dL AST 48 H (15-37) U/L ALT 34 (16-63) U/L Alkaline Phosphatase 135 H (46-116) U/L Troponin I < 0.017 (0.00-0.056) ng/mL C-Reactive Protein 11.3 H* (<1.0) mg/dL Total Protein 6.8 (6.4-8.2) g/dl Albumin 2.9 L (3.4-5.0) g/dl Globulin 3.9 gm/dL Albumin/Globulin Ratio 0.7 L (1-2) 04/25/20 04/25/20 04/25/20 Range/Units 11:08 11:29 13:28 WBC (4.23-9.07) K/mm3 RBC (4.63-6.08) M/mm3 Hgb (13.7-17.5) gm/dl Hct (40.1-51.0) % MCV (79.0-92.2) fl MCH (25.7-32.2) pg MCHC (32.2-35.5) g/dl RDW Std Deviation (35.1-43.9) fL Plt Count (163-337) K/mm3 MPV (9.4-12.3) fl Neut % (Auto) (34.0-67.9) % Lymph % (Auto) (21.8-53.1) % [place] % (Auto) (5.3-12.2) % Eos % (Auto) (0.8-7.0) Baso % (Auto) (0.1-1.2) % Neut # (Auto) (1.78-5.38) K/mm3 Lymph # (Auto) (1.32-3.57) K/mm3 [place] # (Auto) (0.30-0.82) K/mm3 Eos # (Auto) (0.04-0.54) K/mm3 Baso # (Auto) (0.01-0.08) K/mm3 Manual Slide Review D-Dimer, Quantitative (0.19-0.50) mg/L Puncture Site Rt radial ABG pH 7.45 7.45 (7.35-7.45) ABG pCO2 30.3 L 30.2 L (35.0-45.0) mmHg ABG pO2 78.0 L 57.0 L (80.0-100.0) mmHg ABG HCO3 20.7 L 20.8 L (22.0-26.0) meq/L ABG O2 Saturation 96.7 90.3 L (96.0-97.0) % ABG Base Excess -1.8 -1.6 (-2-2.0) Tree Test Positive Positive O2 Delivery Device Nasal cannula Room air Oxygen Flow Rate 1.0 Sodium (136-145) mEq/L Potassium (3.5-5.1) mEq/L Chloride (98-107) mEq/L Carbon Dioxide (21-32) mEq/L Anion Gap (5-15) BUN (7-18) mg/dL Creatinine (0.7-1.3) mg/dL Est Cr Clr Drug Dosing mL/min Estimated GFR (MDRD) (>60) mL/min BUN/Creatinine Ratio (14-18) Glucose (83-115) mg/dL Lactic Acid 1.4 (0.4-2.0) mmol/L Calcium (8.5-10.1) mg/dL Magnesium (1.8-2.4) mg/dl Total Bilirubin (0.2-1.0) mg/dL AST (15-37) U/L ALT (16-63) U/L Alkaline Phosphatase (46-116) U/L Troponin I (0.00-0.056) ng/mL C-Reactive Protein (<1.0) mg/dL Total Protein (6.4-8.2) g/dl Albumin (3.4-5.0) g/dl Globulin gm/dL Albumin/Globulin Ratio (1-2) 04/26/20 04/26/20 04/26/20 Range/Units 05:01 05:01 05:01 WBC 2.74 L (4.23-9.07) K/mm3 RBC 4.79 (4.63-6.08) M/mm3 Hgb 13.8 (13.7-17.5) gm/dl Hct 41.4 (40.1-51.0) % MCV 86.4 (79.0-92.2) fl MCH 28.8 (25.7-32.2) pg MCHC 33.3 (32.2-35.5) g/dl RDW Std Deviation 42.5 (35.1-43.9) fL Plt Count 166 (163-337) K/mm3 MPV 10.5 (9.4-12.3) fl Neut % (Auto) 71.1 H (34.0-67.9) % Lymph % (Auto) 17.2 L (21.8-53.1) % [place] % (Auto) 11.3 (5.3-12.2) % Eos % (Auto) 0 L (0.8-7.0) Baso % (Auto) 0.4 (0.1-1.2) % Neut # (Auto) 1.95 (1.78-5.38) K/mm3 Lymph # (Auto) 0.47 L (1.32-3.57) K/mm3 [place] # (Auto) 0.31 (0.30-0.82) K/mm3 Eos # (Auto) 0.00 L (0.04-0.54) K/mm3 Baso # (Auto) 0.01 (0.01-0.08) K/mm3 Manual Slide Review Abnormal smear D-Dimer, Quantitative 1.04 H (0.19-0.50) mg/L Puncture Site ABG pH (7.35-7.45) ABG pCO2 (35.0-45.0) mmHg ABG pO2 (80.0-100.0) mmHg ABG HCO3 (22.0-26.0) meq/L ABG O2 Saturation (96.0-97.0) % ABG Base Excess (-2-2.0) Tree Test O2 Delivery Device Oxygen Flow Rate Sodium 136 (136-145) mEq/L Potassium 3.6 (3.5-5.1) mEq/L Chloride 104 (98-107) mEq/L Carbon Dioxide 22 (21-32) mEq/L Anion Gap 13.6 (5-15) BUN 20 H (7-18) mg/dL Creatinine 1.0 (0.7-1.3) mg/dL Est Cr Clr Drug Dosing 69.03 mL/min Estimated GFR (MDRD) > 60 (>60) mL/min BUN/Creatinine Ratio 20.0 H (14-18) Glucose 128 H (83-115) mg/dL Lactic Acid (0.4-2.0) mmol/L Calcium 8.4 L (8.5-10.1) mg/dL Magnesium 2.2 (1.8-2.4) mg/dl Total Bilirubin (0.2-1.0) mg/dL AST (15-37) U/L ALT (16-63) U/L Alkaline Phosphatase (46-116) U/L Troponin I (0.00-0.056) ng/mL C-Reactive Protein 9.6 H* (<1.0) mg/dL Total Protein (6.4-8.2) g/dl Albumin (3.4-5.0) g/dl Globulin gm/dL Albumin/Globulin Ratio (1-2) 04/26/20 Range/Units 05:01 WBC (4.23-9.07) K/mm3 RBC (4.63-6.08) M/mm3 Hgb (13.7-17.5) gm/dl Hct (40.1-51.0) % MCV (79.0-92.2) fl MCH (25.7-32.2) pg MCHC (32.2-35.5) g/dl RDW Std Deviation (35.1-43.9) fL Plt Count (163-337) K/mm3 MPV (9.4-12.3) fl Neut % (Auto) (34.0-67.9) % Lymph % (Auto) (21.8-53.1) % [place] % (Auto) (5.3-12.2) % Eos % (Auto) (0.8-7.0) Baso % (Auto) (0.1-1.2) % Neut # (Auto) (1.78-5.38) K/mm3 Lymph # (Auto) (1.32-3.57) K/mm3 [place] # (Auto) (0.30-0.82) K/mm3 Eos # (Auto) (0.04-0.54) K/mm3 Baso # (Auto) (0.01-0.08) K/mm3 Manual Slide Review D-Dimer, Quantitative (0.19-0.50) mg/L Puncture Site ABG pH (7.35-7.45) ABG pCO2 (35.0-45.0) mmHg ABG pO2 (80.0-100.0) mmHg ABG HCO3 (22.0-26.0) meq/L ABG O2 Saturation (96.0-97.0) % ABG Base Excess (-2-2.0) Tree Test O2 Delivery Device Oxygen Flow Rate Sodium (136-145) mEq/L Potassium (3.5-5.1) mEq/L Chloride (98-107) mEq/L Carbon Dioxide (21-32) mEq/L Anion Gap (5-15) BUN (7-18) mg/dL Creatinine (0.7-1.3) mg/dL Est Cr Clr Drug Dosing mL/min Estimated GFR (MDRD) (>60) mL/min BUN/Creatinine Ratio (14-18) Glucose (83-115) mg/dL Lactic Acid 1.2 (0.4-2.0) mmol/L Calcium (8.5-10.1) mg/dL Magnesium (1.8-2.4) mg/dl Total Bilirubin (0.2-1.0) mg/dL AST (15-37) U/L ALT (16-63) U/L Alkaline Phosphatase (46-116) U/L Troponin I (0.00-0.056) ng/mL C-Reactive Protein (<1.0) mg/dL Total Protein (6.4-8.2) g/dl Albumin (3.4-5.0) g/dl Globulin gm/dL Albumin/Globulin Ratio (1-2) Result Diagrams: 04/26/20 05:01 04/26/20 05:01 Sepsis Event Note - Evaluation Sepsis Screening Result: No Definite Risk - Focused Exam Vital Signs: Vital Signs Temp Pulse Resp BP Pulse Ox Pulse Ox 04/26/20 06:23 91 L 04/26/20 01:40 98.1 F 57 L 14 139/90 97 04/25/20 22:01 98.2 F 58 L 14 127/73 94 L 04/25/20 21:38 95 - Problem List & Annotations (1) HLD (hyperlipidemia) SNOMED Code(s): 14150064 Code(s): E78.5 - HYPERLIPIDEMIA, UNSPECIFIED Status: Chronic Priority: Low Current Visit: No Qualifiers: Hyperlipidemia type: unspecified Qualified Code(s): E78.5 - Hyperlipidemia, unspecified (2) HTN (hypertension) SNOMED Code(s): 14050376 Code(s): I10 - ESSENTIAL (PRIMARY) HYPERTENSION Status: Chronic Priority: Medium Current Visit: No Qualifiers: Hypertension type: unspecified Qualified Code(s): I10 - Essential (primary) hypertension (3) History of coronary artery stent placement SNOMED Code(s): 698941791, 119137394 Code(s): Z95.5 - PRESENCE OF CORONARY ANGIOPLASTY IMPLANT AND GRAFT Status: Chronic Priority: Medium Current Visit: No (4) CAD (coronary artery disease) SNOMED Code(s): 62407165 Code(s): I25.10 - ATHSCL HEART DISEASE OF [place] CORONARY ARTERY W/O ANG PCTRS Status: Chronic Priority: Medium Current Visit: No Qualifiers: Coronary Disease-Associated Artery/Lesion type: [place] artery [place] vs. transplanted heart: [place] heart Associated angina: angina presence unspecified Qualified Code(s): I25.10 - Atherosclerotic heart disease of [place] coronary artery without angina pectoris (5) COVID-19 SNOMED Code(s): 942350053 Code(s): U07.1 - COVID-19 Status: Acute Priority: High Current Visit: Yes (6) Hypoxia SNOMED Code(s): 348577048 Code(s): R09.02 - HYPOXEMIA Status: Acute Priority: High Current Visit: Yes (7) Elevated d-dimer SNOMED Code(s): 905102791 Code(s): R79.89 - OTHER SPECIFIED ABNORMAL FINDINGS OF BLOOD CHEMISTRY Status: Acute Priority: High Current Visit: Yes (8) Cardiomegaly SNOMED Code(s): 3759431 Code(s): I51.7 - CARDIOMEGALY Status: Chronic Priority: Low Current Visit: No - Problem List Review Problem List Initiated/Reviewed/Updated: Yes - Assessment Assessment:: 04/26/20 In to see Mao. He is laying in bed and is now on 2 L of oxygen. He reports he is feeling pretty good and only notes dyspnea when he is up moving around. He said he will occasionally cough and that will cause his saturations to drop as well. Reports it is a dry cough. He has no current concerns. We discussed plan of care and how he will likely need to remain hospitalized for the next 5 days to complete treatment. We discussed proning and patient reports that this is impossible for him because he has had neck surgery. We did discuss Acapella and incentive spirometry and he reports that he will continue working with this. Otherwise labs continue to look good. CRP has decreased and kidney function has improved. D-dimer remained stable. Leukopenia noted. we will continue current treatment plan. Likely discharge Wednesday pending continued improvement as I will be the day he completes treatment. - Plan Plan:: COVID-19 Hypoxia Elevated D-Dimer * O2 as needed to keep saturations 88-96% * Continue azithromycin - day 2 of 3 * Continue rocephin - day 2 of 5 * Start Remdisivir - day 1 of 5 * Continue dexamethasone 6mg PO * PRN albuterol inhaler * Consult RT * IS/Acapella * Prone whenever able * Airborne/contact precautions * Monitor labs * OT/PT consult * Start zinc supplementation * Check vitamin D level * Telemetry/continuous pulse oximeter * Lovenox 40mg BID HLD (hyperlipidemia) HTN (hypertension) History of coronary artery stent placement CAD (coronary artery disease) Cardiomegaly * Continue home medications as directed * Telemetry Code status: Full Code PCP: Nano Guzman NP DVT prophylaxis: Lovenox Social: Patient resides in [facility] [place] alone Disposition: Patient will remain admitted on floor with telemetry for management of COVID-19 LOS >96 Hrs. due to COVID-19 Treatment
[2020-04-26] MEDS: atorvaSTATin 20 MG Tab PO SCH (08:22)
[2020-04-26] MEDS: Aspirin 81 MG Tab.EC PO SCH (08:22)
[2020-04-26] MEDS: Cholecalciferol (Vitamin D3) 25 MCG Tab PO SCH (08:22)
[2020-04-26] MEDS: Pantoprazole 40 MG Tab.CR PO SCH (08:22)
[2020-04-26] MEDS: Dexamethasone 4 MG Tab PO SCH (08:23)
[2020-04-26] MEDS ORDERED: Doxazosin 2 MG Tab PO SCH (09:00)
[2020-04-26] MEDS ORDERED: Albuterol 6.7 GM Inhaler INH PRN (11:42)
[2020-04-26] MEDS ORDERED: REMDESIVIR 200 MG in Sodium Chloride 0.9% 250 ML IV ONE (12:00)
[2020-04-26] MEDS: Zinc Sulfate 220 MG Cap PO SCH (12:47)
[2020-04-26] MEDS: Doxazosin 2 MG Tab PO SCH (13:02)
[2020-04-26] MEDS: Azithromycin 500 MG in Sodium Chloride 0.9% 250 ML IV SCH (14:16)
[2020-04-26] MEDS: cefTRIAXone 2 GM in Sodium Chloride 0.9% 100 ML IV SCH (17:24)
[2020-04-27] MEDS: Enoxaparin 40 MG/0.4 ML Syringe SUBCUT SCH ×2 (05:23→20:02)
[2020-04-27] MEDS: Doxazosin 2 MG Tab PO SCH (08:19)
[2020-04-27] MEDS: Dexamethasone 4 MG Tab PO SCH (08:20)
[2020-04-27] MEDS: Aspirin 81 MG Tab.EC PO SCH (08:20)
[2020-04-27] MEDS: Cholecalciferol (Vitamin D3) 25 MCG Tab PO SCH (08:20)
[2020-04-27] MEDS: atorvaSTATin 20 MG Tab PO SCH (08:21)
[2020-04-27] MEDS: Zinc Sulfate 220 MG Cap PO SCH (08:21)
[2020-04-27] MEDS: Pantoprazole 40 MG Tab.CR PO SCH (08:21)
--- NOTE | 2020-04-27 08:27 | PCM.PN ---
- General Info Date of Service: 04/27/20 Subjective Update: Patient has become tachycardic, tachypneic and will be transferred d/t acute respiratory distress. CXR has been ordered along with an ABG. Albuterol/Duonebs have been ordered. He will be transferred to the ICU Functional Status: Reports: Tolerating Diet, Urinating, New Symptoms - Review of Systems General: Reports: Weakness, Fatigue, Malaise HEENT: Reports: No Symptoms Pulmonary: Reports: Shortness of Breath, Pleuritic Chest Pain Cardiovascular: Reports: No Symptoms Gastrointestinal: Reports: No Symptoms Genitourinary: Reports: No Symptoms Musculoskeletal: Reports: No Symptoms Skin: Reports: No Symptoms Neurological: Reports: No Symptoms Psychiatric: Reports: No Symptoms - Patient Data Vitals - Most Recent: Last Vital Signs Temp 36.8 C 04/27/20 05:26 Pulse 51 L 04/27/20 05:28 Resp 14 04/27/20 05:26 BP 141/69 H 04/27/20 08:19 Pulse Ox 95 04/27/20 05:28 Weight - Most Recent: 87.226 kg I&O - Last 24 Hours: Intake & Output 04/26/20 04/27/20 04/27/20 22:59 06:59 14:59 Intake Total 890 750 Balance 890 750 Lab Results Last 24 Hours: Laboratory Results - last 24 hr 04/26/20 04/27/20 04/27/20 Range/Units 05:01 05:44 05:44 WBC 6.44 (4.23-9.07) K/mm3 RBC 4.72 (4.63-6.08) M/mm3 Hgb 13.5 L (13.7-17.5) gm/dl Hct 40.8 (40.1-51.0) % MCV 86.4 (79.0-92.2) fl MCH 28.6 (25.7-32.2) pg MCHC 33.1 (32.2-35.5) g/dl RDW Std Deviation 42.5 (35.1-43.9) fL Plt Count 182 (163-337) K/mm3 MPV 10.2 (9.4-12.3) fl Neut % (Auto) 81.2 H (34.0-67.9) % Lymph % (Auto) 8.2 L (21.8-53.1) % Gregg % (Auto) 10.2 (5.3-12.2) % Eos % (Auto) 0 L (0.8-7.0) Baso % (Auto) 0.2 (0.1-1.2) % Neut # (Auto) 5.23 (1.78-5.38) K/mm3 Lymph # (Auto) 0.53 L (1.32-3.57) K/mm3 Gregg # (Auto) 0.66 (0.30-0.82) K/mm3 Eos # (Auto) 0.00 L (0.04-0.54) K/mm3 Baso # (Auto) 0.01 (0.01-0.08) K/mm3 Manual Slide Review Abnormal smear Sodium (136-145) mEq/L Potassium (3.5-5.1) mEq/L Chloride (98-107) mEq/L Carbon Dioxide (21-32) mEq/L Anion Gap (5-15) BUN (7-18) mg/dL Creatinine (0.7-1.3) mg/dL Est Cr Clr Drug Dosing mL/min Estimated GFR (MDRD) (>60) mL/min BUN/Creatinine Ratio (14-18) Glucose (83-115) mg/dL Lactic Acid 1.5 (0.4-2.0) mmol/L Calcium (8.5-10.1) mg/dL Total Bilirubin (0.2-1.0) mg/dL AST (15-37) U/L ALT (16-63) U/L Alkaline Phosphatase (46-116) U/L C-Reactive Protein (<1.0) mg/dL Total Protein (6.4-8.2) g/dl Albumin (3.4-5.0) g/dl Globulin gm/dL Albumin/Globulin Ratio (1-2) Vitamin D 25-Hydroxy 44.1 (30.0-100.0) ng/ml 04/27/20 04/27/20 Range/Units 05:44 05:44 WBC (4.23-9.07) K/mm3 RBC (4.63-6.08) M/mm3 Hgb (13.7-17.5) gm/dl Hct (40.1-51.0) % MCV (79.0-92.2) fl MCH (25.7-32.2) pg MCHC (32.2-35.5) g/dl RDW Std Deviation (35.1-43.9) fL Plt Count (163-337) K/mm3 MPV (9.4-12.3) fl Neut % (Auto) (34.0-67.9) % Lymph % (Auto) (21.8-53.1) % Gregg % (Auto) (5.3-12.2) % Eos % (Auto) (0.8-7.0) Baso % (Auto) (0.1-1.2) % Neut # (Auto) (1.78-5.38) K/mm3 Lymph # (Auto) (1.32-3.57) K/mm3 Gregg # (Auto) (0.30-0.82) K/mm3 Eos # (Auto) (0.04-0.54) K/mm3 Baso # (Auto) (0.01-0.08) K/mm3 Manual Slide Review Sodium 146 H D (136-145) mEq/L Potassium 3.8 (3.5-5.1) mEq/L Chloride 111 H (98-107) mEq/L Carbon Dioxide 23 (21-32) mEq/L Anion Gap 15.8 H (5-15) BUN 26 H (7-18) mg/dL Creatinine 1.0 (0.7-1.3) mg/dL Est Cr Clr Drug Dosing 69.03 mL/min Estimated GFR (MDRD) > 60 (>60) mL/min BUN/Creatinine Ratio 26.0 H (14-18) Glucose 114 (83-115) mg/dL Lactic Acid (0.4-2.0) mmol/L Calcium 8.3 L (8.5-10.1) mg/dL Total Bilirubin 0.3 (0.2-1.0) mg/dL AST 75 H (15-37) U/L ALT 67 H (16-63) U/L Alkaline Phosphatase 119 H (46-116) U/L C-Reactive Protein 3.9 H* (<1.0) mg/dL Total Protein 5.9 L (6.4-8.2) g/dl Albumin 2.3 L (3.4-5.0) g/dl Globulin 3.6 gm/dL Albumin/Globulin Ratio 0.6 L (1-2) Vitamin D 25-Hydroxy (30.0-100.0) ng/ml Med Orders - Current: Current Medications Acetaminophen (Acetaminophen 325 Mg Tab) 650 mg PO Q6H PRN PRN Reason: Pain/Fever Last Admin: 04/26/20 19:23 Dose: 650 mg Documented by: Albuterol (Albuterol 6.7 Gm Inhaler) 0 gm INH Q4H PRN PRN Reason: SOB/Wheezing Albuterol (Albuterol 0.083% 2.5 Mg/3 Ml Neb Soln) 2.5 mg NEB Q4HRRT PRN PRN Reason: Shortness of Breath Albuterol/Ipratropium (Albuterol/Ipratropium 3.0-0.5 Mg/3 Ml Neb Soln) 3 ml NEB Q6HRRT [facility] Aspirin (Aspirin 81 Mg Tab.Ec) 81 mg PO DAILY [facility] Last Admin: 04/27/20 08:20 Dose: 81 mg Documented by: Atorvastatin Calcium (Atorvastatin 20 Mg Tab) 10 mg PO DAILY [facility] Last Admin: 04/27/20 08:21 Dose: 10 mg Documented by: Cholecalciferol (Cholecalciferol (Vitamin D3) 25 Mcg Tab) 50 mcg PO DAILY [facility] Last Admin: 04/27/20 08:20 Dose: 50 mcg Documented by: Dexamethasone (Dexamethasone 4 Mg Tab) 6 mg PO DAILY [facility] Last Admin: 04/27/20 08:20 Dose: 6 mg Documented by: Doxazosin Mesylate (Doxazosin 2 Mg Tab) 6 mg PO DAILY [facility] Last Admin: 04/27/20 08:19 Dose: 6 mg Documented by: Enoxaparin Sodium (Enoxaparin 40 Mg/0.4 Ml Syringe) 40 mg SUBCUT Q12H [facility] Last Admin: 04/27/20 05:23 Dose: 40 mg Documented by: Ceftriaxone Sodium 2 gm/ (Sodium Chloride) 100 mls @ 200 mls/hr IV Q24H [facility] Stop: 04/29/20 17:29 Last Admin: 04/26/20 17:24 Dose: 200 mls/hr Documented by: Azithromycin 500 mg/ Sodium (Chloride) 250 mls @ 250 mls/hr IV Q24H [facility] Stop: 04/27/20 15:59 Last Admin: 04/26/20 14:16 Dose: 250 mls/hr Documented by: Remdesivir 100 mg/ Sodium (Chloride) 100 mls @ 100 mls/hr IV Q24H [facility] Stop: 04/30/20 12:59 Pantoprazole Sodium (Pantoprazole 40 Mg Tab.Cr) 40 mg PO DAILY [facility] Last Admin: 04/27/20 08:21 Dose: 40 mg Documented by: Sodium Chloride (Sodium Chloride 0.9% 10 Ml Syringe) 10 ml FLUSH ASDIRECTED PRN PRN Reason: Keep Vein Open Last Admin: 04/25/20 11:17 Dose: 10 ml Documented by: Zinc Sulfate (Zinc Sulfate 220 Mg Cap) 220 mg PO DAILY [facility] Last Admin: 04/27/20 08:21 Dose: 220 mg Documented by: Discontinued Medications Dexamethasone (Dexamethasone 4 Mg Tab) 6 mg PO ONETIME ONE Stop: 04/25/20 11:57 Last Admin: 04/25/20 12:14 Dose: 6 mg Documented by: Doxazosin Mesylate (Doxazosin 2 Mg Tab) 6 mg PO DAILY [facility] Last Admin: 04/26/20 12:16 Dose: Not Given Documented by: Sodium Chloride (Normal Saline) 100 mls @ 60 mls/hr IV ASDIRECTED [facility] Last Admin: 04/25/20 14:12 Dose: 60 mls/hr Documented by: Azithromycin 500 mg/ Sodium (Chloride) 250 mls @ 250 mls/hr IV ONETIME ONE Stop: 04/25/20 15:46 Last Admin: 04/25/20 15:20 Dose: 250 mls/hr Documented by: Remdesivir 200 mg/ Sodium (Chloride) 250 mls @ 250 mls/hr IV ONETIME ONE Stop: 04/26/20 12:59 Last Admin: 04/26/20 12:48 Dose: 250 mls/hr Documented by: Iopamidol (Iopamidol 755 Mg/Ml 100 Ml Bottle) 100 ml IVPUSH ONETIME ONE Stop: 04/25/20 13:05 Last Admin: 04/25/20 14:11 Dose: 100 ml Documented by: Ketorolac Tromethamine (Ketorolac 30 Mg/Ml Sdv) 30 mg IVPUSH ONETIME ONE Stop: 04/25/20 14:49 Last Admin: 04/25/20 15:19 Dose: 30 mg Documented by: Sodium Chloride (Sodium Chloride 0.9% 10 Ml Syringe) 10 ml FLUSH ONETIME ONE Stop: 04/25/20 13:05 Last Admin: 04/25/20 14:11 Dose: 10 ml Documented by: - Exam Quality Assessment: Supplemental Oxygen, DVT Prophylaxis General: Alert, Oriented, Cooperative, Mild Distress HEENT: Pupils Equal, Pupils Reactive, EOMI Neck: Trachea Midline, No JVD Lungs: Normal Respiratory Effort, Decreased Breath Sounds Cardiovascular: Regular Rhythm, Tachycardia GI/Abdominal Exam: Normal Bowel Sounds, Soft, Non-Tender, No Organomegaly (Male) Exam: Deferred Back Exam: Normal Inspection Extremities: Normal Inspection, Normal Capillary Refill Skin: Warm Neurological: No New Focal Deficit, Normal Speech Psy/Mental Status: Alert - Patient Data Lab Results Last 24 hrs: Laboratory Results - last 24 hr 04/26/20 04/27/20 04/27/20 Range/Units 05:01 05:44 05:44 WBC 6.44 (4.23-9.07) K/mm3 RBC 4.72 (4.63-6.08) M/mm3 Hgb 13.5 L (13.7-17.5) gm/dl Hct 40.8 (40.1-51.0) % MCV 86.4 (79.0-92.2) fl MCH 28.6 (25.7-32.2) pg MCHC 33.1 (32.2-35.5) g/dl RDW Std Deviation 42.5 (35.1-43.9) fL Plt Count 182 (163-337) K/mm3 MPV 10.2 (9.4-12.3) fl Neut % (Auto) 81.2 H (34.0-67.9) % Lymph % (Auto) 8.2 L (21.8-53.1) % Gregg % (Auto) 10.2 (5.3-12.2) % Eos % (Auto) 0 L (0.8-7.0) Baso % (Auto) 0.2 (0.1-1.2) % Neut # (Auto) 5.23 (1.78-5.38) K/mm3 Lymph # (Auto) 0.53 L (1.32-3.57) K/mm3 Gregg # (Auto) 0.66 (0.30-0.82) K/mm3 Eos # (Auto) 0.00 L (0.04-0.54) K/mm3 Baso # (Auto) 0.01 (0.01-0.08) K/mm3 Manual Slide Review Abnormal smear Sodium (136-145) mEq/L Potassium (3.5-5.1) mEq/L Chloride (98-107) mEq/L Carbon Dioxide (21-32) mEq/L Anion Gap (5-15) BUN (7-18) mg/dL Creatinine (0.7-1.3) mg/dL Est Cr Clr Drug Dosing mL/min Estimated GFR (MDRD) (>60) mL/min BUN/Creatinine Ratio (14-18) Glucose (83-115) mg/dL Lactic Acid 1.5 (0.4-2.0) mmol/L Calcium (8.5-10.1) mg/dL Total Bilirubin (0.2-1.0) mg/dL AST (15-37) U/L ALT (16-63) U/L Alkaline Phosphatase (46-116) U/L C-Reactive Protein (<1.0) mg/dL Total Protein (6.4-8.2) g/dl Albumin (3.4-5.0) g/dl Globulin gm/dL Albumin/Globulin Ratio (1-2) Vitamin D 25-Hydroxy 44.1 (30.0-100.0) ng/ml 04/27/20 04/27/20 Range/Units 05:44 05:44 WBC (4.23-9.07) K/mm3 RBC (4.63-6.08) M/mm3 Hgb (13.7-17.5) gm/dl Hct (40.1-51.0) % MCV (79.0-92.2) fl MCH (25.7-32.2) pg MCHC (32.2-35.5) g/dl RDW Std Deviation (35.1-43.9) fL Plt Count (163-337) K/mm3 MPV (9.4-12.3) fl Neut % (Auto) (34.0-67.9) % Lymph % (Auto) (21.8-53.1) % Gregg % (Auto) (5.3-12.2) % Eos % (Auto) (0.8-7.0) Baso % (Auto) (0.1-1.2) % Neut # (Auto) (1.78-5.38) K/mm3 Lymph # (Auto) (1.32-3.57) K/mm3 Gregg # (Auto) (0.30-0.82) K/mm3 Eos # (Auto) (0.04-0.54) K/mm3 Baso # (Auto) (0.01-0.08) K/mm3 Manual Slide Review Sodium 146 H D (136-145) mEq/L Potassium 3.8 (3.5-5.1) mEq/L Chloride 111 H (98-107) mEq/L Carbon Dioxide 23 (21-32) mEq/L Anion Gap 15.8 H (5-15) BUN 26 H (7-18) mg/dL Creatinine 1.0 (0.7-1.3) mg/dL Est Cr Clr Drug Dosing 69.03 mL/min Estimated GFR (MDRD) > 60 (>60) mL/min BUN/Creatinine Ratio 26.0 H (14-18) Glucose 114 (83-115) mg/dL Lactic Acid (0.4-2.0) mmol/L Calcium 8.3 L (8.5-10.1) mg/dL Total Bilirubin 0.3 (0.2-1.0) mg/dL AST 75 H (15-37) U/L ALT 67 H (16-63) U/L Alkaline Phosphatase 119 H (46-116) U/L C-Reactive Protein 3.9 H* (<1.0) mg/dL Total Protein 5.9 L (6.4-8.2) g/dl Albumin 2.3 L (3.4-5.0) g/dl Globulin 3.6 gm/dL Albumin/Globulin Ratio 0.6 L (1-2) Vitamin D 25-Hydroxy (30.0-100.0) ng/ml Result Diagrams: 04/27/20 05:44 04/27/20 05:44 Sepsis Event Note - Evaluation Sepsis Screening Result: No Definite Risk - Focused Exam Vital Signs: Vital Signs Temp Pulse Resp BP Pulse Ox Pulse Ox 04/27/20 08:19 141/69 H 04/27/20 05:28 51 L 95 04/27/20 05:26 36.8 C 46 L 14 139/66 95 04/27/20 00:00 99 04/26/20 22:38 36.7 C 47 L 14 126/61 100 04/26/20 20:53 93 L - Problem List Review Problem List Initiated/Reviewed/Updated: Yes - My Orders Last 24 Hours: My Active Orders 04/26/20 09:00 Aspirin [Halfprin] 81 mg PO DAILY Cholecalciferol (Vitamin D3) [Vitamin D3] 50 mcg PO DAILY Pantoprazole [ProTONIX] 40 mg PO DAILY atorvaSTATin [Lipitor] 10 mg PO DAILY dexAMETHasone 6 mg PO DAILY 04/26/20 11:36 Consult to Occupational Therapy [OT Evaluation and Treatment] [CONS] Routine Consult to Physical Therapy [PT Evaluation and Treatment] [CONS] Routine 04/26/20 14:00 Doxazosin [Cardura] 6 mg PO DAILY 04/26/20 15:00 Azithromycin [Zithromax] 500 mg Sodium Chloride 0.9% [Normal Saline (AdvBag)] 250 ml IV Q24H 04/27/20 07:58 RT Aerosol Therapy [RC] ASDIRECTED Albuterol [Proventil Neb Soln] 2.5 mg NEB Q4HRRT PRN 04/27/20 09:00 CXR [Chest 1V Frontal] [CR] Routine Albuterol/Ipratropium [DuoNeb 3.0-0.5 MG/3 ML] 3 ml NEB Q6HRRT 04/28/20 05:00 CBC WITH AUTO DIFF [HEME] DAILY 04/29/20 05:00 CBC WITH AUTO DIFF [HEME] DAILY 04/30/20 05:00 CBC WITH AUTO DIFF [HEME] DAILY - Assessment Assessment:: 04/26/20 In to see Mao. He is laying in bed and is now on 2 L of oxygen. He reports he is feeling pretty good and only notes dyspnea when he is up moving around. He said he will occasionally cough and that will cause his saturations to drop as well. Reports it is a dry cough. He has no current concerns. We discussed plan of care and how he will likely need to remain hospitalized for the next 5 days to complete treatment. We discussed proning and patient reports that this is impossible for him because he has had neck surgery. We did discuss Acapella and incentive spirometry and he reports that he will continue working with this. Otherwise labs continue to look good. CRP has decreased and kidney function has improved. D-dimer remained stable. Leukopenia noted. we will continue current treatment plan. Likely discharge Wednesday pending continued improvement as I will be the day he completes treatment. 04/27/20 Patient is experiencing SOB with pleuritic CP. Will be transferred to ICU; ABG is pending. PCXR documents SARS-COV-2 PNA. - Plan Plan:: Impression: COVID-19 PNA Interstitial fibrosis Chronic HTN HLD CAD/ND (PCI) Plan: Zithromax Rocephin Duonebs every 6 hours; Albuterol Nebs every 4 hours prn Prone position per protocol O2 titrate, keep sat>>92% Remdesivir Home meds DVT prophylaxis
[2020-04-27] MEDS: Albuterol/Ipratropium 3.0-0.5 MG/3 ML Neb Soln NEB SCH ×3 (08:30→20:50)
[2020-04-27] MEDS: Acetaminophen/HYDROcodone 325-5 MG Tab PO PRN ×2 (09:24→22:51)
--- NOTE | 2020-04-27 10:43 | CR ---
Chest: Portable view of the chest was obtained. Comparison: Prior chest CT study of 04/25/20 and chest x-ray of 03/28/20. Interstitial change is seen within both lungs. Most of the change is felt to be stable although there is a focal area of increased density within the right midlung presumably due to acute parenchymal change. Heart is slightly enlarged. Upper mediastinum is normal. Bony structures are grossly intact. Prior cervical spine surgery is noted. Impression: 1. Chronic interstitial change. 2. Slight increase in density within the right midlung most likely representing an area of acute pneumonia (probably COVID). 3. Stable cardiomegaly. Diagnostic code #3
[2020-04-27] MEDS: REMDESIVIR 100 MG in Sodium Chloride 0.9% 100 ML IV SCH (12:07)
[2020-04-27] MEDS: Azithromycin 500 MG in Sodium Chloride 0.9% 250 ML IV SCH (14:54)
[2020-04-27] MEDS: Fluticasone Propionate Nasal Spray 16 GM Bottle NASBOTH SCH (17:41)
[2020-04-27] MEDS: cefTRIAXone 2 GM in Sodium Chloride 0.9% 100 ML IV SCH (20:03)
[2020-04-27] MEDS: guaiFENesin 600 MG Tab.ER PO SCH (20:05)
[2020-04-27] MEDS: traZODone 50 MG Tab PO PRN (21:22)
[2020-04-28] MEDS: Albuterol/Ipratropium 3.0-0.5 MG/3 ML Neb Soln NEB SCH (03:22)
[2020-04-28] MEDS: Cholecalciferol (Vitamin D3) 25 MCG Tab PO SCH (08:01)
[2020-04-28] MEDS: Aspirin 81 MG Tab.EC PO SCH (08:02)
[2020-04-28] MEDS: atorvaSTATin 20 MG Tab PO SCH (08:02)
[2020-04-28] MEDS: Doxazosin 2 MG Tab PO SCH (08:03)
[2020-04-28] MEDS: Zinc Sulfate 220 MG Cap PO SCH (08:04)
[2020-04-28] MEDS: Pantoprazole 40 MG Tab.CR PO SCH (08:04)
[2020-04-28] MEDS: Dexamethasone 4 MG Tab PO SCH (08:04)
[2020-04-28] MEDS: Fluticasone Propionate Nasal Spray 16 GM Bottle NASBOTH SCH (08:05)
[2020-04-28] MEDS: guaiFENesin 600 MG Tab.ER PO SCH ×2 (08:05→21:37)
[2020-04-28] MEDS: Enoxaparin 40 MG/0.4 ML Syringe SUBCUT SCH ×2 (08:05→21:37)
[2020-04-28] MEDS ORDERED: Potassium Chloride 20 MEQ Tab.ER PO ONE ×2 (09:38→12:00)
--- NOTE | 2020-04-28 09:49 | CR ---
Chest: Portable view of the chest was obtained. Comparison: Prior chest x-ray of 04/27/20. Slight increasing density within the right chest and left chest is seen from prior exam compatible with worsening Covid pneumonia. Heart is enlarged. Upper mediastinum is stable. Osseous structures are stable. Impression: 1. Mild increasing density within both lungs compatible with worsening Covid pneumonia. 2. Other portions of the chest are stable. Diagnostic code #3
[2020-04-28] MEDS: Acetaminophen/HYDROcodone 325-5 MG Tab PO PRN ×2 (11:19→22:30)
[2020-04-28] MEDS: REMDESIVIR 100 MG in Sodium Chloride 0.9% 100 ML IV SCH (11:20)
--- NOTE | 2020-04-28 12:13 | PCM.PN ---
- General Info Date of Service: 04/28/20 Admission Dx/Problem (Free Text): Admission Diagnosis/Problem Admission Diagnosis/Problem Hypoxia Subjective Update: Patient is doing well and is even off of oxygen when proning. He denies any significant pain or shortness of breath. Functional Status: Reports: Pain Controlled - Review of Systems General: Reports: No Symptoms HEENT: Reports: No Symptoms Pulmonary: Reports: No Symptoms Cardiovascular: Reports: No Symptoms Gastrointestinal: Reports: No Symptoms Musculoskeletal: Reports: No Symptoms Neurological: Reports: No Symptoms Psychiatric: Reports: No Symptoms - Patient Data Vitals - Most Recent: Last Vital Signs Temp 97.2 F 04/28/20 08:00 Pulse 85 04/28/20 08:00 Resp 20 04/28/20 08:00 BP 158/79 H 04/28/20 08:03 Pulse Ox 95 04/28/20 10:37 Weight - Most Recent: 190 lb I&O - Last 24 Hours: Intake & Output 04/27/20 04/28/20 04/28/20 21:59 06:59 14:59 Intake Total 480 Output Total Balance 480 Lab Results Last 24 Hours: Laboratory Results - last 24 hr 04/28/20 04/28/20 04/28/20 Range/Units 06:06 06:26 06:26 WBC 8.88 (4.23-9.07) K/mm3 RBC 4.53 L (4.63-6.08) M/mm3 Hgb 12.9 L (13.7-17.5) gm/dl Hct 39.4 L (40.1-51.0) % MCV 87.0 (79.0-92.2) fl MCH 28.5 (25.7-32.2) pg MCHC 32.7 (32.2-35.5) g/dl RDW Std Deviation 44.2 H (35.1-43.9) fL Plt Count 186 (163-337) K/mm3 MPV 10.6 (9.4-12.3) fl Neut % (Auto) 89.0 H (34.0-67.9) % Lymph % (Auto) 3.8 L (21.8-53.1) % [place] % (Auto) 6.9 (5.3-12.2) % Eos % (Auto) 0 L (0.8-7.0) Baso % (Auto) 0.1 (0.1-1.2) % Neut # (Auto) 7.90 H (1.78-5.38) K/mm3 Lymph # (Auto) 0.34 L (1.32-3.57) K/mm3 [place] # (Auto) 0.61 (0.30-0.82) K/mm3 Eos # (Auto) 0.00 L (0.04-0.54) K/mm3 Baso # (Auto) 0.01 (0.01-0.08) K/mm3 Manual Slide Review Abnormal smear D-Dimer, Quantitative 2.78 H (0.19-0.50) mg/L Sodium 146 H (136-145) mEq/L Potassium 3.4 L (3.5-5.1) mEq/L Chloride 111 H (98-107) mEq/L Carbon Dioxide 22 (21-32) mEq/L Anion Gap 16.4 H (5-15) BUN 23 H (7-18) mg/dL Creatinine 1.1 (0.7-1.3) mg/dL Est Cr Clr Drug Dosing 62.75 mL/min Estimated GFR (MDRD) > 60 (>60) mL/min BUN/Creatinine Ratio 20.9 H (14-18) Glucose 160 H (83-115) mg/dL Calcium 8.2 L (8.5-10.1) mg/dL Total Bilirubin 0.3 (0.2-1.0) mg/dL AST 40 H (15-37) U/L ALT 57 (16-63) U/L Alkaline Phosphatase 113 (46-116) U/L Total Protein 5.7 L (6.4-8.2) g/dl Albumin 2.3 L (3.4-5.0) g/dl Globulin 3.4 gm/dL Albumin/Globulin Ratio 0.7 L (1-2) Med Orders - Current: Current Medications Acetaminophen (Acetaminophen 325 Mg Tab) 650 mg PO Q6H PRN PRN Reason: Pain/Fever Last Admin: 04/26/20 19:23 Dose: 650 mg Documented by: Hydrocodone Bitart/Acetaminophen (Acetaminophen/Hydrocodone 325-5 Mg Tab) 2 tab PO Q12H PRN PRN Reason: Pain Last Admin: 04/28/20 11:19 Dose: 2 tab Documented by: Albuterol (Albuterol 0.083% 2.5 Mg/3 Ml Neb Soln) 2.5 mg NEB Q4HRRT PRN PRN Reason: Shortness of Breath Aspirin (Aspirin 81 Mg Tab.Ec) 81 mg PO DAILY [facility] Last Admin: 04/28/20 08:02 Dose: 81 mg Documented by: Atorvastatin Calcium (Atorvastatin 20 Mg Tab) 10 mg PO DAILY [facility] Last Admin: 04/28/20 08:02 Dose: 10 mg Documented by: Cholecalciferol (Cholecalciferol (Vitamin D3) 25 Mcg Tab) 50 mcg PO DAILY [facility] Last Admin: 04/28/20 08:01 Dose: 50 mcg Documented by: Dexamethasone (Dexamethasone 4 Mg Tab) 6 mg PO DAILY [facility] Last Admin: 04/28/20 08:04 Dose: 6 mg Documented by: Doxazosin Mesylate (Doxazosin 2 Mg Tab) 6 mg PO DAILY [facility] Last Admin: 04/28/20 08:03 Dose: 6 mg Documented by: Enoxaparin Sodium (Enoxaparin 40 Mg/0.4 Ml Syringe) 40 mg SUBCUT BID [facility] Last Admin: 04/28/20 08:05 Dose: 40 mg Documented by: Fluticasone Propionate (Fluticasone Propionate Nasal [place] 16 Gm Bottle) 0 gm NASBOTH DAILY [facility] Last Admin: 04/28/20 08:05 Dose: 1 spray Documented by: Guaifenesin (Guaifenesin 600 Mg Tab.Er) 600 mg PO BID [facility] Last Admin: 04/28/20 08:05 Dose: 600 mg Documented by: Remdesivir 100 mg/ Sodium (Chloride) 100 mls @ 100 mls/hr IV Q24H [facility] Stop: 04/30/20 12:59 Last Admin: 04/28/20 11:20 Dose: 100 mls/hr Documented by: Ceftriaxone Sodium 2 gm/ (Sodium Chloride) 100 mls @ 200 mls/hr IV Q24H [facility] Stop: 04/29/20 21:29 Last Admin: 04/27/20 20:03 Dose: 200 mls/hr Documented by: Pantoprazole Sodium (Pantoprazole 40 Mg Tab.Cr) 40 mg PO DAILY [facility] Last Admin: 04/28/20 08:04 Dose: 40 mg Documented by: Sodium Chloride (Sodium Chloride 0.9% 10 Ml Syringe) 10 ml FLUSH ASDIRECTED PRN PRN Reason: Keep Vein Open Last Admin: 04/25/20 11:17 Dose: 10 ml Documented by: Trazodone HCl (Trazodone 50 Mg Tab) 50 mg PO BEDTIME PRN PRN Reason: Sleep Last Admin: 04/27/20 21:22 Dose: 50 mg Documented by: Zinc Sulfate (Zinc Sulfate 220 Mg Cap) 220 mg PO DAILY [facility] Last Admin: 04/28/20 08:04 Dose: 220 mg Documented by: Discontinued Medications Albuterol (Albuterol 6.7 Gm Inhaler) 0 gm INH Q4H PRN PRN Reason: SOB/Wheezing Albuterol/Ipratropium (Albuterol/Ipratropium 3.0-0.5 Mg/3 Ml Neb Soln) 3 ml NEB Q6HRRT [facility] Last Admin: 04/28/20 03:22 Dose: 3 ml Documented by: Dexamethasone (Dexamethasone 4 Mg Tab) 6 mg PO ONETIME ONE Stop: 04/25/20 11:57 Last Admin: 04/25/20 12:14 Dose: 6 mg Documented by: Doxazosin Mesylate (Doxazosin 2 Mg Tab) 6 mg PO DAILY [facility] Last Admin: 04/26/20 12:16 Dose: Not Given Documented by: Enoxaparin Sodium (Enoxaparin 40 Mg/0.4 Ml Syringe) 40 mg SUBCUT Q12H [facility] Last Admin: 04/27/20 05:23 Dose: 40 mg Documented by: Sodium Chloride (Normal Saline) 100 mls @ 60 mls/hr IV ASDIRECTED [facility] Last Admin: 04/25/20 14:12 Dose: 60 mls/hr Documented by: Azithromycin 500 mg/ Sodium (Chloride) 250 mls @ 250 mls/hr IV ONETIME ONE Stop: 04/25/20 15:46 Last Admin: 04/25/20 15:20 Dose: 250 mls/hr Documented by: Ceftriaxone Sodium 2 gm/ (Sodium Chloride) 100 mls @ 200 mls/hr IV Q24H [facility] Stop: 04/29/20 17:29 Last Admin: 04/26/20 17:24 Dose: 200 mls/hr Documented by: Azithromycin 500 mg/ Sodium (Chloride) 250 mls @ 250 mls/hr IV Q24H [facility] Stop: 04/27/20 15:59 Last Admin: 04/27/20 14:54 Dose: 250 mls/hr Documented by: Remdesivir 200 mg/ Sodium (Chloride) 250 mls @ 250 mls/hr IV ONETIME ONE Stop: 04/26/20 12:59 Last Admin: 04/26/20 12:48 Dose: 250 mls/hr Documented by: Iopamidol (Iopamidol 755 Mg/Ml 100 Ml Bottle) 100 ml IVPUSH ONETIME ONE Stop: 04/25/20 13:05 Last Admin: 04/25/20 14:11 Dose: 100 ml Documented by: Ketorolac Tromethamine (Ketorolac 30 Mg/Ml Sdv) 30 mg IVPUSH ONETIME ONE Stop: 04/25/20 14:49 Last Admin: 04/25/20 15:19 Dose: 30 mg Documented by: Potassium Chloride (Potassium Chloride 20 Meq Tab.Er) 40 meq PO ONETIME ONE Stop: 04/28/20 12:01 Last Admin: 04/28/20 11:20 Dose: 40 meq Documented by: Sodium Chloride (Sodium Chloride 0.9% 10 Ml Syringe) 10 ml FLUSH ONETIME ONE Stop: 04/25/20 13:05 Last Admin: 04/25/20 14:11 Dose: 10 ml Documented by: - Exam General: Alert, Oriented HEENT: Pupils Equal, Mucous Membr. Moist/[place] Neck: Supple Lungs: Clear to Auscultation, Normal Respiratory Effort Cardiovascular: Regular Rate, Regular Rhythm GI/Abdominal Exam: Soft, Non-Tender, No Distention Extremities: Normal Inspection, Normal Range of Motion, Non-Tender, No Pedal Edema, Normal Capillary Refill - Patient Data Lab Results Last 24 hrs: Laboratory Results - last 24 hr 04/28/20 04/28/20 04/28/20 Range/Units 06:06 06:26 06:26 WBC 8.88 (4.23-9.07) K/mm3 RBC 4.53 L (4.63-6.08) M/mm3 Hgb 12.9 L (13.7-17.5) gm/dl Hct 39.4 L (40.1-51.0) % MCV 87.0 (79.0-92.2) fl MCH 28.5 (25.7-32.2) pg MCHC 32.7 (32.2-35.5) g/dl RDW Std Deviation 44.2 H (35.1-43.9) fL Plt Count 186 (163-337) K/mm3 MPV 10.6 (9.4-12.3) fl Neut % (Auto) 89.0 H (34.0-67.9) % Lymph % (Auto) 3.8 L (21.8-53.1) % [place] % (Auto) 6.9 (5.3-12.2) % Eos % (Auto) 0 L (0.8-7.0) Baso % (Auto) 0.1 (0.1-1.2) % Neut # (Auto) 7.90 H (1.78-5.38) K/mm3 Lymph # (Auto) 0.34 L (1.32-3.57) K/mm3 [place] # (Auto) 0.61 (0.30-0.82) K/mm3 Eos # (Auto) 0.00 L (0.04-0.54) K/mm3 Baso # (Auto) 0.01 (0.01-0.08) K/mm3 Manual Slide Review Abnormal smear D-Dimer, Quantitative 2.78 H (0.19-0.50) mg/L Sodium 146 H (136-145) mEq/L Potassium 3.4 L (3.5-5.1) mEq/L Chloride 111 H (98-107) mEq/L Carbon Dioxide 22 (21-32) mEq/L Anion Gap 16.4 H (5-15) BUN 23 H (7-18) mg/dL Creatinine 1.1 (0.7-1.3) mg/dL Est Cr Clr Drug Dosing 62.75 mL/min Estimated GFR (MDRD) > 60 (>60) mL/min BUN/Creatinine Ratio 20.9 H (14-18) Glucose 160 H (83-115) mg/dL Calcium 8.2 L (8.5-10.1) mg/dL Total Bilirubin 0.3 (0.2-1.0) mg/dL AST 40 H (15-37) U/L ALT 57 (16-63) U/L Alkaline Phosphatase 113 (46-116) U/L Total Protein 5.7 L (6.4-8.2) g/dl Albumin 2.3 L (3.4-5.0) g/dl Globulin 3.4 gm/dL Albumin/Globulin Ratio 0.7 L (1-2) Result Diagrams: 04/28/20 06:26 04/28/20 06:26 Sepsis Event Note - Evaluation Sepsis Screening Result: No Definite Risk - Focused Exam Vital Signs: Vital Signs Temp Pulse Resp BP BP BP Pulse Ox 04/28/20 10:37 95 04/28/20 08:03 158/79 H 04/28/20 08:00 97.2 F 85 20 158/79 H 88 L 04/28/20 03:24 04/28/20 03:23 97.3 F 20 138/57 L 93 L 04/27/20 23:30 97.6 F 24 H 144/64 H 94 L Pulse Ox 04/28/20 10:37 04/28/20 08:03 04/28/20 08:00 04/28/20 03:24 94 L 04/28/20 03:23 04/27/20 23:30 - Problem List & Annotations (1) Pneumonia due to COVID-19 virus SNOMED Code(s): 370836688192804807 Code(s): U07.1 - COVID-19; J12.82 - PNEUMONIA DUE TO CORONAVIRUS DISEASE 2019 Status: Acute Current Visit: Yes (2) COVID-19 SNOMED Code(s): 350992604 Code(s): U07.1 - COVID-19 Status: Acute Priority: High Current Visit: Yes (3) Hypoxia SNOMED Code(s): 314121541 Code(s): R09.02 - HYPOXEMIA Status: Acute Priority: High Current Visit: Yes (4) CAD (coronary artery disease) SNOMED Code(s): 01614497 Code(s): I25.10 - ATHSCL HEART DISEASE OF [place] CORONARY ARTERY W/O ANG PCTRS Status: Chronic Priority: Medium Current Visit: No Qualifiers: Coronary Disease-Associated Artery/Lesion type: [place] artery [place] vs. transplanted heart: [place] heart Associated angina: angina presence unspecified Qualified Code(s): I25.10 - Atherosclerotic heart disease of [place] coronary artery without angina pectoris (5) HTN (hypertension) SNOMED Code(s): 03439469 Code(s): I10 - ESSENTIAL (PRIMARY) HYPERTENSION Status: Chronic Priority: Medium Current Visit: No Qualifiers: Hypertension type: unspecified Qualified Code(s): I10 - Essential (primary) hypertension - Problem List Review Problem List Initiated/Reviewed/Updated: Yes - My Orders Last 24 Hours: My Active Orders 04/29/20 05:11 C-REACTIVE PROTEIN [CHEM] AM MAGNESIUM [CHEM] AM PHOSPHORUS [CHEM] AM 04/30/20 05:11 C-REACTIVE PROTEIN [CHEM] AM MAGNESIUM [CHEM] AM PHOSPHORUS [CHEM] AM - Assessment Assessment:: 04/26/20 In to see Mao. He is laying in bed and is now on 2 L of oxygen. He reports he is feeling pretty good and only notes dyspnea when he is up moving around. He said he will occasionally cough and that will cause his saturations to drop as well. Reports it is a dry cough. He has no current concerns. We discussed plan of care and how he will likely need to remain hospitalized for the next 5 days to complete treatment. We discussed proning and patient reports that this is impossible for him because he has had neck surgery. We did discuss Acapella and incentive spirometry and he reports that he will continue working with this. Otherwise labs continue to look good. CRP has decreased and kidney function has improved. D-dimer remained stable. Leukopenia noted. we will continue current treatment plan. Likely discharge Wednesday pending continued improvement as I will be the day he completes treatment. 04/27/20 Patient is experiencing SOB with pleuritic CP. Will be transferred to ICU; ABG is pending. PCXR documents SARS-COV-2 PNA. 04/28/2020 Patient is improving. He was on room air with oxygen saturations in the low 90s while proning today. Otherwise he is on 3 L. D-dimer did increase up to 2.78 which is a significant change. He is on Lovenox 40 mg twice daily. We will continue to monitor D-dimer, shortness of breath, lower extremity signs and symptoms. Since he is improving I would not get a CTA at this time. Blood sugars this morning are up to 160, therefore will start fingerstick blood sugars and sliding scale insulin to keep his blood sugars less than 200 if possible. This is likely secondary to dexamethasone. Mild hypokalemia and given 40 mEq of potassium orally. Blood pressure is well controlled with blood pressures mostly less than 150 except for an occasional systolic blood pressure in the 150s. Patient has not received Actemra, but will hold off on treatment unless he has significant worsening in oxygen requirements. - Plan Plan:: Impression: COVID-19 PNA Interstitial fibrosis Hypoxemia Chronic HTN HLD CAD/AK (PCI) Plan: Continue current plan Zithromax Rocephin Duonebs every 6 hours as needed; Albuterol Nebs every 4 hours prn Prone position per protocol O2 titrate, keep sat>> 88% Remdesivir Home meds DVT prophylaxis: Lovenox 40 mg twice daily
[2020-04-28] MEDS: Albuterol 0.083% 2.5 MG/3 ML Neb Soln NEB PRN (21:11)
[2020-04-28] MEDS: cefTRIAXone 2 GM in Sodium Chloride 0.9% 100 ML IV SCH (21:37)
--- NOTE | 2020-04-29 07:54 | PCM.PN ---
- General Info Date of Service: 04/29/20 Admission Dx/Problem (Free Text): Admission Diagnosis/Problem Admission Diagnosis/Problem Hypoxia Functional Status: Reports: Pain Controlled, Tolerating Diet, Ambulating, Urinating, Incentive Spirometry, Other (Acapella ). Denies: New Symptoms - Review of Systems General: Reports: Weakness. Denies: Fever, Fatigue, Malaise, Chills HEENT: Reports: No Symptoms. Denies: Headaches, Sore Throat Pulmonary: Reports: Shortness of Breath, Cough. Denies: Pleuritic Chest Pain, Sputum, Wheezing Cardiovascular: Reports: Dyspnea on Exertion. Denies: Chest Pain, Palpitations, Edema Gastrointestinal: Reports: No Symptoms. Denies: Abdominal Pain, Constipation, Diarrhea, Difficulty Swallowing, Nausea, Vomiting Genitourinary: Reports: No Symptoms. Denies: Pain Musculoskeletal: Reports: Back Pain (chronic ) Skin: Reports: No Symptoms. Denies: Cyanosis Neurological: Reports: Difficulty Walking, Weakness. Denies: Confusion, Pre- Existing Deficit, Gait Disturbance Psychiatric: Reports: No Symptoms - Patient Data Vitals - Most Recent: Last Vital Signs Temp 97.2 F 04/29/20 04:00 Pulse 64 04/28/20 15:46 Resp 20 04/29/20 04:00 BP 167/74 H 04/29/20 04:00 Pulse Ox 90 L 04/29/20 04:00 Weight - Most Recent: 192 lb 11.2 oz I&O - Last 24 Hours: Intake & Output 04/28/20 04/29/20 04/29/20 22:59 06:59 14:59 Intake Total 1180 600 Output Total 700 Balance 1180 -100 Lab Results Last 24 Hours: Laboratory Results - last 24 hr 04/28/20 04/28/20 04/28/20 Range/Units 06:26 15:37 20:48 WBC (4.23-9.07) K/mm3 RBC (4.63-6.08) M/mm3 Hgb (13.7-17.5) gm/dl Hct (40.1-51.0) % MCV (79.0-92.2) fl MCH (25.7-32.2) pg MCHC (32.2-35.5) g/dl RDW Std Deviation (35.1-43.9) fL Plt Count (163-337) K/mm3 MPV (9.4-12.3) fl Neut % (Auto) (34.0-67.9) % Lymph % (Auto) (21.8-53.1) % [place] % (Auto) (5.3-12.2) % Eos % (Auto) (0.8-7.0) Baso % (Auto) (0.1-1.2) % Neut # (Auto) (1.78-5.38) K/mm3 Lymph # (Auto) (1.32-3.57) K/mm3 [place] # (Auto) (0.30-0.82) K/mm3 Eos # (Auto) (0.04-0.54) K/mm3 Baso # (Auto) (0.01-0.08) K/mm3 Manual Slide Review Abnormal smear Sodium (136-145) mEq/L Potassium (3.5-5.1) mEq/L Chloride (98-107) mEq/L Carbon Dioxide (21-32) mEq/L Anion Gap (5-15) BUN (7-18) mg/dL Creatinine (0.7-1.3) mg/dL Est Cr Clr Drug Dosing mL/min Estimated GFR (MDRD) (>60) mL/min BUN/Creatinine Ratio (14-18) Glucose (83-115) mg/dL POC Glucose 217 H 165 H (83-110) mg/dL Calcium (8.5-10.1) mg/dL Phosphorus (2.6-4.7) mg/dL Magnesium (1.8-2.4) mg/dl Total Bilirubin (0.2-1.0) mg/dL AST (15-37) U/L ALT (16-63) U/L Alkaline Phosphatase (46-116) U/L C-Reactive Protein (<1.0) mg/dL Total Protein (6.4-8.2) g/dl Albumin (3.4-5.0) g/dl Globulin gm/dL Albumin/Globulin Ratio (1-2) 04/29/20 04/29/20 04/29/20 Range/Units 05:54 05:54 06:29 WBC 11.51 H (4.23-9.07) K/mm3 RBC 4.61 L (4.63-6.08) M/mm3 Hgb 13.3 L (13.7-17.5) gm/dl Hct 40.3 (40.1-51.0) % MCV 87.4 (79.0-92.2) fl MCH 28.9 (25.7-32.2) pg MCHC 33.0 (32.2-35.5) g/dl RDW Std Deviation 44.6 H (35.1-43.9) fL Plt Count 207 (163-337) K/mm3 MPV 10.7 (9.4-12.3) fl Neut % (Auto) 87.7 H (34.0-67.9) % Lymph % (Auto) 5.3 L (21.8-53.1) % [place] % (Auto) 6.6 (5.3-12.2) % Eos % (Auto) 0 L (0.8-7.0) Baso % (Auto) 0.1 (0.1-1.2) % Neut # (Auto) 10.10 H (1.78-5.38) K/mm3 Lymph # (Auto) 0.61 L (1.32-3.57) K/mm3 [place] # (Auto) 0.76 (0.30-0.82) K/mm3 Eos # (Auto) 0.00 L (0.04-0.54) K/mm3 Baso # (Auto) 0.01 (0.01-0.08) K/mm3 Manual Slide Review Sodium 143 (136-145) mEq/L Potassium 3.7 (3.5-5.1) mEq/L Chloride 109 H (98-107) mEq/L Carbon Dioxide 23 (21-32) mEq/L Anion Gap 14.7 (5-15) BUN 27 H (7-18) mg/dL Creatinine 1.0 (0.7-1.3) mg/dL Est Cr Clr Drug Dosing 69.03 mL/min Estimated GFR (MDRD) > 60 (>60) mL/min BUN/Creatinine Ratio 27.0 H (14-18) Glucose 135 H (83-115) mg/dL POC Glucose 141 H (83-110) mg/dL Calcium 8.2 L (8.5-10.1) mg/dL Phosphorus 2.9 (2.6-4.7) mg/dL Magnesium 2.0 (1.8-2.4) mg/dl Total Bilirubin 0.4 (0.2-1.0) mg/dL AST 44 H (15-37) U/L ALT 70 H (16-63) U/L Alkaline Phosphatase 124 H (46-116) U/L C-Reactive Protein 1.7 H* (<1.0) mg/dL Total Protein 5.7 L (6.4-8.2) g/dl Albumin 2.3 L (3.4-5.0) g/dl Globulin 3.4 gm/dL Albumin/Globulin Ratio 0.7 L (1-2) Med Orders - Current: Current Medications Acetaminophen (Acetaminophen 325 Mg Tab) 650 mg PO Q6H PRN PRN Reason: Pain/Fever Last Admin: 04/26/20 19:23 Dose: 650 mg Documented by: Hydrocodone Bitart/Acetaminophen (Acetaminophen/Hydrocodone 325-5 Mg Tab) 2 tab PO Q12H PRN PRN Reason: Pain Last Admin: 04/28/20 22:30 Dose: 2 tab Documented by: Albuterol (Albuterol 0.083% 2.5 Mg/3 Ml Neb Soln) 2.5 mg NEB Q4HRRT PRN PRN Reason: Shortness of Breath Last Admin: 04/28/20 21:11 Dose: 2.5 mg Documented by: Aspirin (Aspirin 81 Mg Tab.Ec) 81 mg PO DAILY [facility] Last Admin: 04/28/20 08:02 Dose: 81 mg Documented by: Atorvastatin Calcium (Atorvastatin 20 Mg Tab) 10 mg PO DAILY [facility] Last Admin: 04/28/20 08:02 Dose: 10 mg Documented by: Cholecalciferol (Cholecalciferol (Vitamin D3) 25 Mcg Tab) 50 mcg PO DAILY [facility] Last Admin: 04/28/20 08:01 Dose: 50 mcg Documented by: Dexamethasone (Dexamethasone 4 Mg Tab) 6 mg PO DAILY [facility] Last Admin: 04/28/20 08:04 Dose: 6 mg Documented by: Doxazosin Mesylate (Doxazosin 2 Mg Tab) 6 mg PO DAILY [facility] Last Admin: 04/28/20 08:03 Dose: 6 mg Documented by: Enoxaparin Sodium (Enoxaparin 40 Mg/0.4 Ml Syringe) 40 mg SUBCUT BID [facility] Last Admin: 04/28/20 21:37 Dose: 40 mg Documented by: Fluticasone Propionate (Fluticasone Propionate Nasal [place] 16 Gm Bottle) 0 gm NASBOTH DAILY [facility] Last Admin: 04/28/20 08:05 Dose: 1 spray Documented by: Guaifenesin (Guaifenesin 600 Mg Tab.Er) 600 mg PO BID [facility] Last Admin: 04/28/20 21:37 Dose: 600 mg Documented by: Remdesivir 100 mg/ Sodium (Chloride) 100 mls @ 100 mls/hr IV Q24H [facility] Stop: 04/30/20 12:59 Last Admin: 04/28/20 11:20 Dose: 100 mls/hr Documented by: Ceftriaxone Sodium 2 gm/ (Sodium Chloride) 100 mls @ 200 mls/hr IV Q24H [facility] Stop: 04/29/20 21:29 Last Admin: 04/28/20 21:37 Dose: 200 mls/hr Documented by: Insulin Human Lispro (Insulin Lispro 100 Unit/Ml) 0 unit SUBCUT QIDACANDBED [facility]; Protocol Last Admin: 04/29/20 07:16 Dose: Not Given Documented by: Pantoprazole Sodium (Pantoprazole 40 Mg Tab.Cr) 40 mg PO DAILY [facility] Last Admin: 04/28/20 08:04 Dose: 40 mg Documented by: Sodium Chloride (Sodium Chloride 0.9% 10 Ml Syringe) 10 ml FLUSH ASDIRECTED PRN PRN Reason: Keep Vein Open Last Admin: 04/25/20 11:17 Dose: 10 ml Documented by: Trazodone HCl (Trazodone 50 Mg Tab) 50 mg PO BEDTIME PRN PRN Reason: Sleep Last Admin: 04/27/20 21:22 Dose: 50 mg Documented by: Zinc Sulfate (Zinc Sulfate 220 Mg Cap) 220 mg PO DAILY [facility] Last Admin: 04/28/20 08:04 Dose: 220 mg Documented by: Discontinued Medications Albuterol (Albuterol 6.7 Gm Inhaler) 0 gm INH Q4H PRN PRN Reason: SOB/Wheezing Albuterol/Ipratropium (Albuterol/Ipratropium 3.0-0.5 Mg/3 Ml Neb Soln) 3 ml NEB Q6HRRT [facility] Last Admin: 04/28/20 03:22 Dose: 3 ml Documented by: Dexamethasone (Dexamethasone 4 Mg Tab) 6 mg PO ONETIME ONE Stop: 04/25/20 11:57 Last Admin: 04/25/20 12:14 Dose: 6 mg Documented by: Doxazosin Mesylate (Doxazosin 2 Mg Tab) 6 mg PO DAILY [facility] Last Admin: 04/26/20 12:16 Dose: Not Given Documented by: Enoxaparin Sodium (Enoxaparin 40 Mg/0.4 Ml Syringe) 40 mg SUBCUT Q12H [facility] Last Admin: 04/27/20 05:23 Dose: 40 mg Documented by: Sodium Chloride (Normal Saline) 100 mls @ 60 mls/hr IV ASDIRECTED [facility] Last Admin: 04/25/20 14:12 Dose: 60 mls/hr Documented by: Azithromycin 500 mg/ Sodium (Chloride) 250 mls @ 250 mls/hr IV ONETIME ONE Stop: 04/25/20 15:46 Last Admin: 04/25/20 15:20 Dose: 250 mls/hr Documented by: Ceftriaxone Sodium 2 gm/ (Sodium Chloride) 100 mls @ 200 mls/hr IV Q24H [facility] Stop: 04/29/20 17:29 Last Admin: 04/26/20 17:24 Dose: 200 mls/hr Documented by: Azithromycin 500 mg/ Sodium (Chloride) 250 mls @ 250 mls/hr IV Q24H [facility] Stop: 04/27/20 15:59 Last Admin: 04/27/20 14:54 Dose: 250 mls/hr Documented by: Remdesivir 200 mg/ Sodium (Chloride) 250 mls @ 250 mls/hr IV ONETIME ONE Stop: 04/26/20 12:59 Last Admin: 04/26/20 12:48 Dose: 250 mls/hr Documented by: Iopamidol (Iopamidol 755 Mg/Ml 100 Ml Bottle) 100 ml IVPUSH ONETIME ONE Stop: 04/25/20 13:05 Last Admin: 04/25/20 14:11 Dose: 100 ml Documented by: Ketorolac Tromethamine (Ketorolac 30 Mg/Ml Sdv) 30 mg IVPUSH ONETIME ONE Stop: 04/25/20 14:49 Last Admin: 04/25/20 15:19 Dose: 30 mg Documented by: Potassium Chloride (Potassium Chloride 20 Meq Tab.Er) 40 meq PO ONETIME ONE Stop: 04/28/20 12:01 Last Admin: 04/28/20 11:20 Dose: 40 meq Documented by: Sodium Chloride (Sodium Chloride 0.9% 10 Ml Syringe) 10 ml FLUSH ONETIME ONE Stop: 04/25/20 13:05 Last Admin: 04/25/20 14:11 Dose: 10 ml Documented by: - Exam Quality Assessment: Supplemental Oxygen (3L), DVT Prophylaxis General: Alert, Oriented, Cooperative, No Acute Distress HEENT: Pupils Equal, Pupils Reactive, Mucous Membr. Moist/[place] Neck: Supple, Trachea Midline Lungs: Normal Respiratory Effort, Decreased Breath Sounds Cardiovascular: Regular Rate, Regular Rhythm, Other (Occasional PVC) GI/Abdominal Exam: Normal Bowel Sounds, Soft, Non-Tender, No Distention (Male) Exam: Deferred Back Exam: Normal Inspection, Full Range of Motion Extremities: Normal Inspection, Normal Range of Motion, Non-Tender, No Pedal Edema, Normal Capillary Refill Peripheral Pulses: 2+: Radial (L), Radial (R), Dorsalis Pedis (L), Dorsalis Pedis (R) Skin: Warm, Dry, Intact Neurological: No New Focal Deficit Psy/Mental Status: Alert, Normal Affect, Normal Mood - Patient Data Lab Results Last 24 hrs: Laboratory Results - last 24 hr 04/28/20 04/28/20 04/28/20 Range/Units 06:26 15:37 20:48 WBC (4.23-9.07) K/mm3 RBC (4.63-6.08) M/mm3 Hgb (13.7-17.5) gm/dl Hct (40.1-51.0) % MCV (79.0-92.2) fl MCH (25.7-32.2) pg MCHC (32.2-35.5) g/dl RDW Std Deviation (35.1-43.9) fL Plt Count (163-337) K/mm3 MPV (9.4-12.3) fl Neut % (Auto) (34.0-67.9) % Lymph % (Auto) (21.8-53.1) % [place] % (Auto) (5.3-12.2) % Eos % (Auto) (0.8-7.0) Baso % (Auto) (0.1-1.2) % Neut # (Auto) (1.78-5.38) K/mm3 Lymph # (Auto) (1.32-3.57) K/mm3 [place]ie # (Auto) (0.30-0.82) K/mm3 Eos # (Auto) (0.04-0.54) K/mm3 Baso # (Auto) (0.01-0.08) K/mm3 Manual Slide Review Abnormal smear Sodium (136-145) mEq/L Potassium (3.5-5.1) mEq/L Chloride (98-107) mEq/L Carbon Dioxide (21-32) mEq/L Anion Gap (5-15) BUN (7-18) mg/dL Creatinine (0.7-1.3) mg/dL Est Cr Clr Drug Dosing mL/min Estimated GFR (MDRD) (>60) mL/min BUN/Creatinine Ratio (14-18) Glucose (83-115) mg/dL POC Glucose 217 H 165 H (83-110) mg/dL Calcium (8.5-10.1) mg/dL Phosphorus (2.6-4.7) mg/dL Magnesium (1.8-2.4) mg/dl Total Bilirubin (0.2-1.0) mg/dL AST (15-37) U/L ALT (16-63) U/L Alkaline Phosphatase (46-116) U/L C-Reactive Protein (<1.0) mg/dL Total Protein (6.4-8.2) g/dl Albumin (3.4-5.0) g/dl Globulin gm/dL Albumin/Globulin Ratio (1-2) 04/29/20 04/29/20 04/29/20 Range/Units 05:54 05:54 06:29 WBC 11.51 H (4.23-9.07) K/mm3 RBC 4.61 L (4.63-6.08) M/mm3 Hgb 13.3 L (13.7-17.5) gm/dl Hct 40.3 (40.1-51.0) % MCV 87.4 (79.0-92.2) fl MCH 28.9 (25.7-32.2) pg MCHC 33.0 (32.2-35.5) g/dl RDW Std Deviation 44.6 H (35.1-43.9) fL Plt Count 207 (163-337) K/mm3 MPV 10.7 (9.4-12.3) fl Neut % (Auto) 87.7 H (34.0-67.9) % Lymph % (Auto) 5.3 L (21.8-53.1) % [place]ie % (Auto) 6.6 (5.3-12.2) % Eos % (Auto) 0 L (0.8-7.0) Baso % (Auto) 0.1 (0.1-1.2) % Neut # (Auto) 10.10 H (1.78-5.38) K/mm3 Lymph # (Auto) 0.61 L (1.32-3.57) K/mm3 [place]ie # (Auto) 0.76 (0.30-0.82) K/mm3 Eos # (Auto) 0.00 L (0.04-0.54) K/mm3 Baso # (Auto) 0.01 (0.01-0.08) K/mm3 Manual Slide Review Sodium 143 (136-145) mEq/L Potassium 3.7 (3.5-5.1) mEq/L Chloride 109 H (98-107) mEq/L Carbon Dioxide 23 (21-32) mEq/L Anion Gap 14.7 (5-15) BUN 27 H (7-18) mg/dL Creatinine 1.0 (0.7-1.3) mg/dL Est Cr Clr Drug Dosing 69.03 mL/min Estimated GFR (MDRD) > 60 (>60) mL/min BUN/Creatinine Ratio 27.0 H (14-18) Glucose 135 H (83-115) mg/dL POC Glucose 141 H (83-110) mg/dL Calcium 8.2 L (8.5-10.1) mg/dL Phosphorus 2.9 (2.6-4.7) mg/dL Magnesium 2.0 (1.8-2.4) mg/dl Total Bilirubin 0.4 (0.2-1.0) mg/dL AST 44 H (15-37) U/L ALT 70 H (16-63) U/L Alkaline Phosphatase 124 H (46-116) U/L C-Reactive Protein 1.7 H* (<1.0) mg/dL Total Protein 5.7 L (6.4-8.2) g/dl Albumin 2.3 L (3.4-5.0) g/dl Globulin 3.4 gm/dL Albumin/Globulin Ratio 0.7 L (1-2) Result Diagrams: 04/29/20 05:54 04/29/20 05:54 Sepsis Event Note - Evaluation Sepsis Screening Result: No Definite Risk - Focused Exam Vital Signs: Vital Signs Temp Resp BP Pulse Ox Pulse Ox 04/29/20 04:00 97.2 F 20 167/74 H 90 L 04/29/20 00:00 97.7 F 20 149/74 H 98 04/28/20 21:11 96 04/28/20 20:00 96.9 F 20 126/71 89 L - Problem List & Annotations (1) HLD (hyperlipidemia) SNOMED Code(s): 72469994 Code(s): E78.5 - HYPERLIPIDEMIA, UNSPECIFIED Status: Chronic Priority: Low Current Visit: No Qualifiers: Hyperlipidemia type: unspecified Qualified Code(s): E78.5 - Hyperlipidemia, unspecified (2) HTN (hypertension) SNOMED Code(s): 08880582 Code(s): I10 - ESSENTIAL (PRIMARY) HYPERTENSION Status: Chronic Priority: Medium Current Visit: No Qualifiers: Hypertension type: unspecified Qualified Code(s): I10 - Essential (primary) hypertension (3) History of coronary artery stent placement SNOMED Code(s): 639082637, 234484261 Code(s): Z95.5 - PRESENCE OF CORONARY ANGIOPLASTY IMPLANT AND GRAFT Status: Chronic Priority: Medium Current Visit: No (4) CAD (coronary artery disease) SNOMED Code(s): 04130097 Code(s): I25.10 - ATHSCL HEART DISEASE OF [place] CORONARY ARTERY W/O ANG PCTRS Status: Chronic Priority: Medium Current Visit: No Qualifiers: Coronary Disease-Associated Artery/Lesion type: [place] artery [place] vs. transplanted heart: [place] heart Associated angina: angina presence unspecified Qualified Code(s): I25.10 - Atherosclerotic heart disease of [place] coronary artery without angina pectoris (5) COVID-19 SNOMED Code(s): 621870802 Code(s): U07.1 - COVID-19 Status: Acute Priority: High Current Visit: Yes (6) Hypoxia SNOMED Code(s): 431678510 Code(s): R09.02 - HYPOXEMIA Status: Acute Priority: High Current Visit: Yes (7) Elevated d-dimer SNOMED Code(s): 872501139 Code(s): R79.89 - OTHER SPECIFIED ABNORMAL FINDINGS OF BLOOD CHEMISTRY Status: Acute Priority: High Current Visit: Yes (8) Cardiomegaly SNOMED Code(s): 4168958 Code(s): I51.7 - CARDIOMEGALY Status: Chronic Priority: Low Current Visit: No - Problem List Review Problem List Initiated/Reviewed/Updated: Yes - My Orders Last 24 Hours: My Active Orders 04/30/20 05:11 CMP [COMPREHENSIVE METABOLIC PN,CMP] [CHEM] AM - Assessment Assessment:: 04/26/20 In to see Mao. He is laying in bed and is now on 2 L of oxygen. He reports he is feeling pretty good and only notes dyspnea when he is up moving around. He said he will occasionally cough and that will cause his saturations to drop as well. Reports it is a dry cough. He has no current concerns. We discussed plan of care and how he will likely need to remain hospitalized for the next 5 days to complete treatment. We discussed proning and patient reports that this is impossible for him because he has had neck surgery. We did discuss Acapella and incentive spirometry and he reports that he will continue working with this. Otherwise labs continue to look good. CRP has decreased and kidney function has improved. D-dimer remained stable. Leukopenia noted. we will continue current treatment plan. Likely discharge Wednesday pending continued improvement as I will be the day he completes treatment. 04/27/20 Patient is experiencing SOB with pleuritic CP. Will be transferred to ICU; ABG is pending. PCXR documents SARS-COV-2 PNA. 04/28/2020 Patient is improving. He was on room air with oxygen saturations in the low 90s while proning today. Otherwise he is on 3 L. D-dimer did increase up to 2.78 which is a significant change. He is on Lovenox 40 mg twice daily. We will continue to monitor D-dimer, shortness of breath, lower extremity signs and symptoms. Since he is improving I would not get a CTA at this time. Blood sugars this morning are up to 160, therefore will start fingerstick blood sugars and sliding scale insulin to keep his blood sugars less than 200 if possible. This is likely secondary to dexamethasone. Mild hypokalemia and given 40 mEq of potassium orally. Blood pressure is well controlled with blood pressures mostly less than 150 except for an occasional systolic blood pressure in the 150s. Patient has not received Actemra, but will hold off on treatment unless he has significant worsening in oxygen requirements. 04/29/20 In to see Mao. He is currently on 4 L. He continues to work on proning and utilize his incentive spirometer and Acapella. Potassium is improved. WBC is increasing but this is likely secondary to steroid use. Otherwise he remained stable. He states he gets very short of breath when he gets up to use the restroom and has been having coughing fits. We will add dextromethorphan/guaifenesin as needed. No other nursing or patient concerns. Patient will remain hospitalized till he finishes his Covid treatment and is weaned down on oxygen. - Plan Plan:: COVID-19 Hypoxia Elevated D-Dimer * O2 as needed to keep saturations 88-96% * Completed azithromycin * Continue rocephin - day 5 of 5 * Continue Remdisivir - day 3 of 5 * Continue dexamethasone 6mg PO * PRN albuterol inhaler * Consult RT * IS/Acapella * Prone whenever able * Airborne/contact precautions * Monitor labs * OT/PT consult * Start zinc supplementation * Check vitamin D level * Telemetry/continuous pulse oximeter * Lovenox 40mg BID HLD (hyperlipidemia) HTN (hypertension) History of coronary artery stent placement CAD (coronary artery disease) Cardiomegaly * Continue home medications as directed * Telemetry Code status: Full Code PCP: Nano Guzman NP DVT prophylaxis: Lovenox Social: Patient resides in [facility] Disposition: Patient will remain admitted on floor with telemetry for management of COVID-19 LOS>96 Hrs due to need for continued COVID-19 treatment, Hypoxia.
[2020-04-29] MEDS: Doxazosin 2 MG Tab PO SCH (08:22)
[2020-04-29] MEDS: Aspirin 81 MG Tab.EC PO SCH (08:22)
[2020-04-29] MEDS: Enoxaparin 40 MG/0.4 ML Syringe SUBCUT SCH ×2 (08:22→20:23)
[2020-04-29] MEDS: Cholecalciferol (Vitamin D3) 25 MCG Tab PO SCH (08:23)
[2020-04-29] MEDS: atorvaSTATin 20 MG Tab PO SCH (08:24)
[2020-04-29] MEDS: guaiFENesin 600 MG Tab.ER PO SCH ×2 (08:24→20:24)
[2020-04-29] MEDS: Pantoprazole 40 MG Tab.CR PO SCH (08:24)
[2020-04-29] MEDS: Zinc Sulfate 220 MG Cap PO SCH (08:25)
[2020-04-29] MEDS: Dexamethasone 4 MG Tab PO SCH (08:25)
[2020-04-29] MEDS: Fluticasone Propionate Nasal Spray 16 GM Bottle NASBOTH SCH (08:26)
[2020-04-29] MEDS: REMDESIVIR 100 MG in Sodium Chloride 0.9% 100 ML IV SCH (12:17)
[2020-04-29] MEDS: Acetaminophen/HYDROcodone 325-5 MG Tab PO PRN (16:19)
[2020-04-29] MEDS: cefTRIAXone 2 GM in Sodium Chloride 0.9% 100 ML IV SCH (20:23)
[2020-04-30] MEDS: guaiFENesin/Dextromethorphan 100-10 MG/5 ML Soln 5 ML Cup PO PRN ×2 (00:43→20:00)
[2020-04-30] MEDS ORDERED: Sodium Chloride 0.9% 10 ML Syringe FLUSH PRN (07:31)
[2020-04-30] MEDS ORDERED: Iopamidol 755 Mg/ML 100 ML Bottle IVPUSH ONE (07:31)
[2020-04-30] MEDS ORDERED: Sodium Chloride 0.9% 100 ML IV SCH (07:45)
[2020-04-30] MEDS: Aspirin 81 MG Tab.EC PO SCH (07:59)
[2020-04-30] MEDS: Cholecalciferol (Vitamin D3) 25 MCG Tab PO SCH (07:59)
[2020-04-30] MEDS: Doxazosin 2 MG Tab PO SCH (08:00)
[2020-04-30] MEDS: guaiFENesin 600 MG Tab.ER PO SCH ×2 (08:01→20:01)
[2020-04-30] MEDS: Pantoprazole 40 MG Tab.CR PO SCH (08:01)
[2020-04-30] MEDS: Dexamethasone 4 MG Tab PO SCH (08:01)
[2020-04-30] MEDS: Zinc Sulfate 220 MG Cap PO SCH (08:01)
[2020-04-30] MEDS: atorvaSTATin 20 MG Tab PO SCH (08:01)
[2020-04-30] MEDS: Enoxaparin 100 MG/1 ML Syringe SUBCUT SCH ×2 (08:08→20:00)
--- NOTE | 2020-04-30 08:12 | PCM.PN ---
- General Info Date of Service: 04/30/20 Admission Dx/Problem (Free Text): Admission Diagnosis/Problem Admission Diagnosis/Problem Hypoxia Subjective Update: In to see Mao. He has been proning occasionally and is noted to have saturations in the upper 90s when he does this. He has been utilizing his I-S and Acapella occasionally. Discussed with him the importance of proning whenever possible. His D-dimer today has increased to 10 from 2. Because of this patient sent for CTA and he is noted to have several small subsegmental branch emboli noted. Will treat with 1 mg/kg twice daily Lovenox given patient's worsening symptoms, increasing oxygen demand, and increase in D-dimer. Ordered Doppler ultrasound of bilateral lower extremities to assess for DVT and this is yet to be obtained. Patient is requiring up to 6 L of oxygen while awake and resting. Saturations noted to drop into the 70s with activity. Will give single dose of Actemra. Otherwise continue treatment plan. Patient upgraded to ICU status. Functional Status: Reports: Pain Controlled, Tolerating Diet, Ambulating, Urinating, New Symptoms (Worsening SOB and oxygen demand ), Incentive Spirometry, Other (Acapella ) - Review of Systems General: Reports: Weakness, Fatigue, Malaise. Denies: Fever, Chills HEENT: Reports: No Symptoms. Denies: Headaches, Visual Changes Pulmonary: Reports: Shortness of Breath, Cough. Denies: Pleuritic Chest Pain, Sputum, Wheezing Cardiovascular: Reports: Dyspnea on Exertion. Denies: Chest Pain, Palpitations, Edema Gastrointestinal: Reports: No Symptoms. Denies: Abdominal Pain, Constipation, Diarrhea, Nausea, Vomiting Genitourinary: Reports: No Symptoms. Denies: Pain Musculoskeletal: Reports: Back Pain (chronic ) Skin: Reports: No Symptoms Neurological: Reports: Difficulty Walking, Weakness. Denies: Confusion, Pre- Existing Deficit, Gait Disturbance Psychiatric: Reports: No Symptoms - Patient Data Vitals - Most Recent: Last Vital Signs Temp 97.4 F 04/30/20 04:00 Pulse 53 L 04/29/20 20:00 Resp 16 04/30/20 04:00 BP 139/84 04/30/20 08:00 Pulse Ox 91 L 04/30/20 06:05 Weight - Most Recent: 11 lb 15.6 oz I&O - Last 24 Hours: Intake & Output 04/29/20 04/30/20 04/30/20 22:59 06:59 14:59 Intake Total 1330 400 Output Total 1000 1000 Balance 330 -600 Lab Results Last 24 Hours: Laboratory Results - last 24 hr 04/29/20 04/29/20 04/29/20 Range/Units 05:54 14:22 18:10 WBC (4.23-9.07) K/mm3 RBC (4.63-6.08) M/mm3 Hgb (13.7-17.5) gm/dl Hct (40.1-51.0) % MCV (79.0-92.2) fl MCH (25.7-32.2) pg MCHC (32.2-35.5) g/dl RDW Std Deviation (35.1-43.9) fL Plt Count (163-337) K/mm3 MPV (9.4-12.3) fl Neut % (Auto) (34.0-67.9) % Lymph % (Auto) (21.8-53.1) % [place] % (Auto) (5.3-12.2) % Eos % (Auto) (0.8-7.0) Baso % (Auto) (0.1-1.2) % Neut # (Auto) (1.78-5.38) K/mm3 Lymph # (Auto) (1.32-3.57) K/mm3 [place] # (Auto) (0.30-0.82) K/mm3 Eos # (Auto) (0.04-0.54) K/mm3 Baso # (Auto) (0.01-0.08) K/mm3 Manual Slide Review Abnormal smear D-Dimer, Quantitative (0.19-0.50) mg/L Sodium (136-145) mEq/L Potassium (3.5-5.1) mEq/L Chloride (98-107) mEq/L Carbon Dioxide (21-32) mEq/L Anion Gap (5-15) BUN (7-18) mg/dL Creatinine (0.7-1.3) mg/dL Est Cr Clr Drug Dosing mL/min Estimated GFR (MDRD) (>60) mL/min BUN/Creatinine Ratio (14-18) Glucose (83-115) mg/dL POC Glucose 152 H 129 H (83-110) mg/dL Calcium (8.5-10.1) mg/dL Phosphorus (2.6-4.7) mg/dL Magnesium (1.8-2.4) mg/dl Total Bilirubin (0.2-1.0) mg/dL AST (15-37) U/L ALT (16-63) U/L Alkaline Phosphatase (46-116) U/L C-Reactive Protein (<1.0) mg/dL Total Protein (6.4-8.2) g/dl Albumin (3.4-5.0) g/dl Globulin gm/dL Albumin/Globulin Ratio (1-2) 04/29/20 04/30/20 04/30/20 Range/Units 21:03 05:13 05:13 WBC 9.59 H (4.23-9.07) K/mm3 RBC 4.82 (4.63-6.08) M/mm3 Hgb 13.8 (13.7-17.5) gm/dl Hct 41.5 (40.1-51.0) % MCV 86.1 (79.0-92.2) fl MCH 28.6 (25.7-32.2) pg MCHC 33.3 (32.2-35.5) g/dl RDW Std Deviation 42.4 (35.1-43.9) fL Plt Count 205 (163-337) K/mm3 MPV 10.7 (9.4-12.3) fl Neut % (Auto) 86.7 H (34.0-67.9) % Lymph % (Auto) 5.9 L (21.8-53.1) % [place] % (Auto) 6.7 (5.3-12.2) % Eos % (Auto) 0 L (0.8-7.0) Baso % (Auto) 0.1 (0.1-1.2) % Neut # (Auto) 8.31 H (1.78-5.38) K/mm3 Lymph # (Auto) 0.57 L (1.32-3.57) K/mm3 [place] # (Auto) 0.64 (0.30-0.82) K/mm3 Eos # (Auto) 0.00 L (0.04-0.54) K/mm3 Baso # (Auto) 0.01 (0.01-0.08) K/mm3 Manual Slide Review Abnormal smear D-Dimer, Quantitative (0.19-0.50) mg/L Sodium 142 (136-145) mEq/L Potassium 3.9 (3.5-5.1) mEq/L Chloride 109 H (98-107) mEq/L Carbon Dioxide 25 (21-32) mEq/L Anion Gap 11.9 (5-15) BUN 25 H (7-18) mg/dL Creatinine 0.9 (0.7-1.3) mg/dL Est Cr Clr Drug Dosing 76.69 mL/min Estimated GFR (MDRD) > 60 (>60) mL/min BUN/Creatinine Ratio 27.8 H (14-18) Glucose 111 (83-115) mg/dL POC Glucose 135 H (83-110) mg/dL Calcium 8.9 (8.5-10.1) mg/dL Phosphorus 3.2 (2.6-4.7) mg/dL Magnesium 2.0 (1.8-2.4) mg/dl Total Bilirubin 0.5 (0.2-1.0) mg/dL AST 35 (15-37) U/L ALT 75 H (16-63) U/L Alkaline Phosphatase 131 H (46-116) U/L C-Reactive Protein 4.2 H* (<1.0) mg/dL Total Protein 5.7 L (6.4-8.2) g/dl Albumin 2.3 L (3.4-5.0) g/dl Globulin 3.4 gm/dL Albumin/Globulin Ratio 0.7 L (1-2) 04/30/20 04/30/20 Range/Units 05:13 07:58 WBC (4.23-9.07) K/mm3 RBC (4.63-6.08) M/mm3 Hgb (13.7-17.5) gm/dl Hct (40.1-51.0) % MCV (79.0-92.2) fl MCH (25.7-32.2) pg MCHC (32.2-35.5) g/dl RDW Std Deviation (35.1-43.9) fL Plt Count (163-337) K/mm3 MPV (9.4-12.3) fl Neut % (Auto) (34.0-67.9) % Lymph % (Auto) (21.8-53.1) % [place] % (Auto) (5.3-12.2) % Eos % (Auto) (0.8-7.0) Baso % (Auto) (0.1-1.2) % Neut # (Auto) (1.78-5.38) K/mm3 Lymph # (Auto) (1.32-3.57) K/mm3 [place] # (Auto) (0.30-0.82) K/mm3 Eos # (Auto) (0.04-0.54) K/mm3 Baso # (Auto) (0.01-0.08) K/mm3 Manual Slide Review D-Dimer, Quantitative 10.29 H (0.19-0.50) mg/L Sodium (136-145) mEq/L Potassium (3.5-5.1) mEq/L Chloride (98-107) mEq/L Carbon Dioxide (21-32) mEq/L Anion Gap (5-15) BUN (7-18) mg/dL Creatinine (0.7-1.3) mg/dL Est Cr Clr Drug Dosing mL/min Estimated GFR (MDRD) (>60) mL/min BUN/Creatinine Ratio (14-18) Glucose (83-115) mg/dL POC Glucose 96 (83-110) mg/dL Calcium (8.5-10.1) mg/dL Phosphorus (2.6-4.7) mg/dL Magnesium (1.8-2.4) mg/dl Total Bilirubin (0.2-1.0) mg/dL AST (15-37) U/L ALT (16-63) U/L Alkaline Phosphatase (46-116) U/L C-Reactive Protein (<1.0) mg/dL Total Protein (6.4-8.2) g/dl Albumin (3.4-5.0) g/dl Globulin gm/dL Albumin/Globulin Ratio (1-2) Med Orders - Current: Current Medications Acetaminophen (Acetaminophen 325 Mg Tab) 650 mg PO Q6H PRN PRN Reason: Pain/Fever Last Admin: 04/26/20 19:23 Dose: 650 mg Documented by: Hydrocodone Bitart/Acetaminophen (Acetaminophen/Hydrocodone 325-5 Mg Tab) 2 tab PO Q12H PRN PRN Reason: Pain Last Admin: 04/29/20 16:19 Dose: 2 tab Documented by: Albuterol (Albuterol 0.083% 2.5 Mg/3 Ml Neb Soln) 2.5 mg NEB Q4HRRT PRN PRN Reason: Shortness of Breath Last Admin: 04/28/20 21:11 Dose: 2.5 mg Documented by: Aspirin (Aspirin 81 Mg Tab.Ec) 81 mg PO DAILY [facility] Last Admin: 04/30/20 07:59 Dose: 81 mg Documented by: Atorvastatin Calcium (Atorvastatin 20 Mg Tab) 10 mg PO DAILY [facility] Last Admin: 04/30/20 08:01 Dose: 10 mg Documented by: Cholecalciferol (Cholecalciferol (Vitamin D3) 25 Mcg Tab) 50 mcg PO DAILY [facility] Last Admin: 04/30/20 07:59 Dose: 50 mcg Documented by: Dexamethasone (Dexamethasone 4 Mg Tab) 6 mg PO DAILY [facility] Last Admin: 04/30/20 08:01 Dose: 6 mg Documented by: Doxazosin Mesylate (Doxazosin 2 Mg Tab) 6 mg PO DAILY [facility] Last Admin: 04/30/20 08:00 Dose: 6 mg Documented by: Enoxaparin Sodium (Enoxaparin 100 Mg/1 Ml Syringe) 88 mg SUBCUT Q12H [facility] Fluticasone Propionate (Fluticasone Propionate Nasal [place] 16 Gm Bottle) 0 gm NASBOTH DAILY [facility] Last Admin: 04/29/20 08:26 Dose: 1 spray Documented by: Guaifenesin (Guaifenesin 600 Mg Tab.Er) 600 mg PO BID [facility] Last Admin: 04/30/20 08:01 Dose: 600 mg Documented by: Guaifenesin/Phenylephrine HCl (Guaifenesin/Dextromethorphan 100-10 Mg/5 Ml Soln 5 Ml Cup) 10 ml PO Q6H PRN PRN Reason: Cough Last Admin: 04/30/20 00:43 Dose: 10 ml Documented by: Remdesivir 100 mg/ Sodium (Chloride) 100 mls @ 100 mls/hr IV Q24H [facility] Stop: 04/30/20 12:59 Last Admin: 04/29/20 12:17 Dose: 100 mls/hr Documented by: Sodium Chloride (Normal Saline) 100 mls @ 75 mls/hr IV ASDIRECTED [facility] Stop: 04/30/20 11:00 Tocilizumab 800 mg/ Sodium (Chloride) 100 mls @ 100 mls/hr IV ONETIME ONE Stop: 04/30/20 09:29 Last Admin: 04/30/20 08:03 Dose: 100 mls/hr Documented by: Insulin Human Lispro (Insulin Lispro 100 Unit/Ml) 0 unit SUBCUT QIDACANDBED [facility]; Protocol Last Admin: 04/30/20 08:03 Dose: Not Given Documented by: Pantoprazole Sodium (Pantoprazole 40 Mg Tab.Cr) 40 mg PO DAILY [facility] Last Admin: 04/30/20 08:01 Dose: 40 mg Documented by: Sodium Chloride (Sodium Chloride 0.9% 10 Ml Syringe) 10 ml FLUSH ASDIRECTED PRN PRN Reason: Keep Vein Open Last Admin: 04/25/20 11:17 Dose: 10 ml Documented by: Sodium Chloride (Sodium Chloride 0.9% 10 Ml Syringe) 10 ml FLUSH ONETIME PRN PRN Reason: IV FLUSH Trazodone HCl (Trazodone 50 Mg Tab) 50 mg PO BEDTIME PRN PRN Reason: Sleep Last Admin: 04/27/20 21:22 Dose: 50 mg Documented by: Zinc Sulfate (Zinc Sulfate 220 Mg Cap) 220 mg PO DAILY [facility] Last Admin: 04/30/20 08:01 Dose: 220 mg Documented by: Discontinued Medications Albuterol (Albuterol 6.7 Gm Inhaler) 0 gm INH Q4H PRN PRN Reason: SOB/Wheezing Albuterol/Ipratropium (Albuterol/Ipratropium 3.0-0.5 Mg/3 Ml Neb Soln) 3 ml NEB Q6HRRT [facility] Last Admin: 04/28/20 03:22 Dose: 3 ml Documented by: Dexamethasone (Dexamethasone 4 Mg Tab) 6 mg PO ONETIME ONE Stop: 04/25/20 11:57 Last Admin: 04/25/20 12:14 Dose: 6 mg Documented by: Doxazosin Mesylate (Doxazosin 2 Mg Tab) 6 mg PO DAILY [facility] Last Admin: 04/26/20 12:16 Dose: Not Given Documented by: Enoxaparin Sodium (Enoxaparin 40 Mg/0.4 Ml Syringe) 40 mg SUBCUT Q12H [facility] Last Admin: 04/27/20 05:23 Dose: 40 mg Documented by: Enoxaparin Sodium (Enoxaparin 40 Mg/0.4 Ml Syringe) 40 mg SUBCUT BID [facility] Last Admin: 04/29/20 20:23 Dose: 40 mg Documented by: Sodium Chloride (Normal Saline) 100 mls @ 60 mls/hr IV ASDIRECTED [facility] Last Admin: 04/25/20 14:12 Dose: 60 mls/hr Documented by: Azithromycin 500 mg/ Sodium (Chloride) 250 mls @ 250 mls/hr IV ONETIME ONE Stop: 04/25/20 15:46 Last Admin: 04/25/20 15:20 Dose: 250 mls/hr Documented by: Ceftriaxone Sodium 2 gm/ (Sodium Chloride) 100 mls @ 200 mls/hr IV Q24H [facility] Stop: 04/29/20 17:29 Last Admin: 04/26/20 17:24 Dose: 200 mls/hr Documented by: Azithromycin 500 mg/ Sodium (Chloride) 250 mls @ 250 mls/hr IV Q24H [facility] Stop: 04/27/20 15:59 Last Admin: 04/27/20 14:54 Dose: 250 mls/hr Documented by: Remdesivir 200 mg/ Sodium (Chloride) 250 mls @ 250 mls/hr IV ONETIME ONE Stop: 04/26/20 12:59 Last Admin: 04/26/20 12:48 Dose: 250 mls/hr Documented by: Ceftriaxone Sodium 2 gm/ (Sodium Chloride) 100 mls @ 200 mls/hr IV Q24H [facility] Stop: 04/29/20 21:29 Last Admin: 04/29/20 20:23 Dose: 200 mls/hr Documented by: Iopamidol (Iopamidol 755 Mg/Ml 100 Ml Bottle) 100 ml IVPUSH ONETIME ONE Stop: 04/25/20 13:05 Last Admin: 04/25/20 14:11 Dose: 100 ml Documented by: Iopamidol (Iopamidol 755 Mg/Ml 100 Ml Bottle) 100 ml IVPUSH ONETIME ONE Stop: 04/30/20 07:32 Ketorolac Tromethamine (Ketorolac 30 Mg/Ml Sdv) 30 mg IVPUSH ONETIME ONE Stop: 04/25/20 14:49 Last Admin: 04/25/20 15:19 Dose: 30 mg Documented by: Potassium Chloride (Potassium Chloride 20 Meq Tab.Er) 40 meq PO ONETIME ONE Stop: 04/28/20 12:01 Last Admin: 04/28/20 11:20 Dose: 40 meq Documented by: Sodium Chloride (Sodium Chloride 0.9% 10 Ml Syringe) 10 ml FLUSH ONETIME ONE Stop: 04/25/20 13:05 Last Admin: 04/25/20 14:11 Dose: 10 ml Documented by: - Exam Quality Assessment: Supplemental Oxygen (4L when awake ), DVT Prophylaxis. No: Urine Catheter General: Alert, Oriented, Cooperative, No Acute Distress HEENT: Pupils Equal, Pupils Reactive, Mucous Membr. Moist/[place] Neck: Supple, Trachea Midline Lungs: Normal Respiratory Effort, Decreased Breath Sounds, Crackles (bases ) Cardiovascular: Regular Rate, Regular Rhythm GI/Abdominal Exam: Normal Bowel Sounds, Soft, Non-Tender, No Distention (Male) Exam: Deferred Back Exam: Normal Inspection, Full Range of Motion Extremities: Normal Inspection, Normal Range of Motion, Non-Tender, No Pedal Edema, Normal Capillary Refill Peripheral Pulses: 2+: Radial (L), Radial (R), Dorsalis Pedis (L), Dorsalis Pedis (R) Skin: Warm, Dry, Intact Neurological: No New Focal Deficit Psy/Mental Status: Alert, Normal Affect, Normal Mood - Patient Data Lab Results Last 24 hrs: Laboratory Results - last 24 hr 04/29/20 04/29/20 04/29/20 Range/Units 05:54 14:22 18:10 WBC (4.23-9.07) K/mm3 RBC (4.63-6.08) M/mm3 Hgb (13.7-17.5) gm/dl Hct (40.1-51.0) % MCV (79.0-92.2) fl MCH (25.7-32.2) pg MCHC (32.2-35.5) g/dl RDW Std Deviation (35.1-43.9) fL Plt Count (163-337) K/mm3 MPV (9.4-12.3) fl Neut % (Auto) (34.0-67.9) % Lymph % (Auto) (21.8-53.1) % [place] % (Auto) (5.3-12.2) % Eos % (Auto) (0.8-7.0) Baso % (Auto) (0.1-1.2) % Neut # (Auto) (1.78-5.38) K/mm3 Lymph # (Auto) (1.32-3.57) K/mm3 [place] # (Auto) (0.30-0.82) K/mm3 Eos # (Auto) (0.04-0.54) K/mm3 Baso # (Auto) (0.01-0.08) K/mm3 Manual Slide Review Abnormal smear D-Dimer, Quantitative (0.19-0.50) mg/L Sodium (136-145) mEq/L Potassium (3.5-5.1) mEq/L Chloride (98-107) mEq/L Carbon Dioxide (21-32) mEq/L Anion Gap (5-15) BUN (7-18) mg/dL Creatinine (0.7-1.3) mg/dL Est Cr Clr Drug Dosing mL/min Estimated GFR (MDRD) (>60) mL/min BUN/Creatinine Ratio (14-18) Glucose (83-115) mg/dL POC Glucose 152 H 129 H (83-110) mg/dL Calcium (8.5-10.1) mg/dL Phosphorus (2.6-4.7) mg/dL Magnesium (1.8-2.4) mg/dl Total Bilirubin (0.2-1.0) mg/dL AST (15-37) U/L ALT (16-63) U/L Alkaline Phosphatase (46-116) U/L C-Reactive Protein (<1.0) mg/dL Total Protein (6.4-8.2) g/dl Albumin (3.4-5.0) g/dl Globulin gm/dL Albumin/Globulin Ratio (1-2) 04/29/20 04/30/20 04/30/20 Range/Units 21:03 05:13 05:13 WBC 9.59 H (4.23-9.07) K/mm3 RBC 4.82 (4.63-6.08) M/mm3 Hgb 13.8 (13.7-17.5) gm/dl Hct 41.5 (40.1-51.0) % MCV 86.1 (79.0-92.2) fl MCH 28.6 (25.7-32.2) pg MCHC 33.3 (32.2-35.5) g/dl RDW Std Deviation 42.4 (35.1-43.9) fL Plt Count 205 (163-337) K/mm3 MPV 10.7 (9.4-12.3) fl Neut % (Auto) 86.7 H (34.0-67.9) % Lymph % (Auto) 5.9 L (21.8-53.1) % [place] % (Auto) 6.7 (5.3-12.2) % Eos % (Auto) 0 L (0.8-7.0) Baso % (Auto) 0.1 (0.1-1.2) % Neut # (Auto) 8.31 H (1.78-5.38) K/mm3 Lymph # (Auto) 0.57 L (1.32-3.57) K/mm3 [place] # (Auto) 0.64 (0.30-0.82) K/mm3 Eos # (Auto) 0.00 L (0.04-0.54) K/mm3 Baso # (Auto) 0.01 (0.01-0.08) K/mm3 Manual Slide Review Abnormal smear D-Dimer, Quantitative (0.19-0.50) mg/L Sodium 142 (136-145) mEq/L Potassium 3.9 (3.5-5.1) mEq/L Chloride 109 H (98-107) mEq/L Carbon Dioxide 25 (21-32) mEq/L Anion Gap 11.9 (5-15) BUN 25 H (7-18) mg/dL Creatinine 0.9 (0.7-1.3) mg/dL Est Cr Clr Drug Dosing 76.69 mL/min Estimated GFR (MDRD) > 60 (>60) mL/min BUN/Creatinine Ratio 27.8 H (14-18) Glucose 111 (83-115) mg/dL POC Glucose 135 H (83-110) mg/dL Calcium 8.9 (8.5-10.1) mg/dL Phosphorus 3.2 (2.6-4.7) mg/dL Magnesium 2.0 (1.8-2.4) mg/dl Total Bilirubin 0.5 (0.2-1.0) mg/dL AST 35 (15-37) U/L ALT 75 H (16-63) U/L Alkaline Phosphatase 131 H (46-116) U/L C-Reactive Protein 4.2 H* (<1.0) mg/dL Total Protein 5.7 L (6.4-8.2) g/dl Albumin 2.3 L (3.4-5.0) g/dl Globulin 3.4 gm/dL Albumin/Globulin Ratio 0.7 L (1-2) 04/30/20 04/30/20 Range/Units 05:13 07:58 WBC (4.23-9.07) K/mm3 RBC (4.63-6.08) M/mm3 Hgb (13.7-17.5) gm/dl Hct (40.1-51.0) % MCV (79.0-92.2) fl MCH (25.7-32.2) pg MCHC (32.2-35.5) g/dl RDW Std Deviation (35.1-43.9) fL Plt Count (163-337) K/mm3 MPV (9.4-12.3) fl Neut % (Auto) (34.0-67.9) % Lymph % (Auto) (21.8-53.1) % [place] % (Auto) (5.3-12.2) % Eos % (Auto) (0.8-7.0) Baso % (Auto) (0.1-1.2) % Neut # (Auto) (1.78-5.38) K/mm3 Lymph # (Auto) (1.32-3.57) K/mm3 [place] # (Auto) (0.30-0.82) K/mm3 Eos # (Auto) (0.04-0.54) K/mm3 Baso # (Auto) (0.01-0.08) K/mm3 Manual Slide Review D-Dimer, Quantitative 10.29 H (0.19-0.50) mg/L Sodium (136-145) mEq/L Potassium (3.5-5.1) mEq/L Chloride (98-107) mEq/L Carbon Dioxide (21-32) mEq/L Anion Gap (5-15) BUN (7-18) mg/dL Creatinine (0.7-1.3) mg/dL Est Cr Clr Drug Dosing mL/min Estimated GFR (MDRD) (>60) mL/min BUN/Creatinine Ratio (14-18) Glucose (83-115) mg/dL POC Glucose 96 (83-110) mg/dL Calcium (8.5-10.1) mg/dL Phosphorus (2.6-4.7) mg/dL Magnesium (1.8-2.4) mg/dl Total Bilirubin (0.2-1.0) mg/dL AST (15-37) U/L ALT (16-63) U/L Alkaline Phosphatase (46-116) U/L C-Reactive Protein (<1.0) mg/dL Total Protein (6.4-8.2) g/dl Albumin (3.4-5.0) g/dl Globulin gm/dL Albumin/Globulin Ratio (1-2) Result Diagrams: 04/30/20 05:13 04/30/20 05:13 Sepsis Event Note - Evaluation Sepsis Screening Result: No Definite Risk - Focused Exam Vital Signs: Vital Signs Temp Resp BP BP BP Pulse Ox Pulse Ox 04/30/20 08:00 139/84 04/30/20 06:05 91 L 04/30/20 04:00 97.4 F 16 118/53 L 88 L 04/30/20 00:00 97.0 F 15 161/82 H 167/92 H 92 L 04/29/20 22:40 95 04/29/20 21:30 92 L 04/29/20 20:45 96 - Problem List & Annotations (1) HLD (hyperlipidemia) SNOMED Code(s): 95052880 Code(s): E78.5 - HYPERLIPIDEMIA, UNSPECIFIED Status: Chronic Priority: Low Current Visit: No Qualifiers: Hyperlipidemia type: unspecified Qualified Code(s): E78.5 - Hyperlipidemia, unspecified (2) HTN (hypertension) SNOMED Code(s): 78652746 Code(s): I10 - ESSENTIAL (PRIMARY) HYPERTENSION Status: Chronic Priority: Medium Current Visit: No Qualifiers: Hypertension type: unspecified Qualified Code(s): I10 - Essential (primary) hypertension (3) History of coronary artery stent placement SNOMED Code(s): 114231084, 829420580 Code(s): Z95.5 - PRESENCE OF CORONARY ANGIOPLASTY IMPLANT AND GRAFT Status: Chronic Priority: Medium Current Visit: No (4) CAD (coronary artery disease) SNOMED Code(s): 62987508 Code(s): I25.10 - ATHSCL HEART DISEASE OF [place] CORONARY ARTERY W/O ANG PCTRS Status: Chronic Priority: Medium Current Visit: No Qualifiers: Coronary Disease-Associated Artery/Lesion type: [place] artery [place] vs. transplanted heart: [place] heart Associated angina: angina presence unspecified Qualified Code(s): I25.10 - Atherosclerotic heart disease of [place] coronary artery without angina pectoris (5) COVID-19 SNOMED Code(s): 550929399 Code(s): U07.1 - COVID-19 Status: Acute Priority: High Current Visit: Yes (6) Hypoxia SNOMED Code(s): 469556959 Code(s): R09.02 - HYPOXEMIA Status: Acute Priority: High Current Visit: Yes (7) Elevated d-dimer SNOMED Code(s): 038955283 Code(s): R79.89 - OTHER SPECIFIED ABNORMAL FINDINGS OF BLOOD CHEMISTRY Status: Acute Priority: High Current Visit: Yes (8) Cardiomegaly SNOMED Code(s): 1125006 Code(s): I51.7 - CARDIOMEGALY Status: Chronic Priority: Low Current Visit: No (9) Pulmonary embolism SNOMED Code(s): 70954689 Code(s): I26.99 - OTHER PULMONARY EMBOLISM WITHOUT ACUTE COR PULMONALE St atus: Acute Priority: High Current Visit: Yes Qualifiers: Pulmonary embolism type: multiple subsegmental (without acute cor pulmonale) Qualified Code(s): I26.94 - Multiple subsegmental pulmonary emboli without acute cor pulmonale - Problem List Review Problem List Initiated/Reviewed/Updated: Yes - My Orders Last 24 Hours: My Active Orders 04/29/20 10:32 Dextromethorphan/guaiFENesin [Robitussin DM] 10 ml PO Q6H PRN 04/30/20 07:27 CTA Chest W WO Contrast [Ang Chest] [CT] Routine 04/30/20 07:28 Venous Doppler Lwr Ext Bi [US] Routine 04/30/20 07:29 Patient Status [ADT] Routine 04/30/20 08:00 Enoxaparin [Lovenox] 88 mg SUBCUT Q12H 04/30/20 08:30 Tocilizumab [Actemra] 800 mg Sodium Chloride 0.9% [Normal Saline] 60 ml IV ONETIME - Assessment Assessment:: 04/26/20 In to see Mao. He is laying in bed and is now on 2 L of oxygen. He reports he is feeling pretty good and only notes dyspnea when he is up moving around. He said he will occasionally cough and that will cause his saturations to drop as well. Reports it is a dry cough. He has no current concerns. We discussed plan of care and how he will likely need to remain hospitalized for the next 5 days to complete treatment. We discussed proning and patient reports that this is impossible for him because he has had neck surgery. We did discuss Acapella and incentive spirometry and he reports that he will continue working with this. Otherwise labs continue to look good. CRP has decreased and kidney function has improved. D-dimer remained stable. Leukopenia noted. we will continue current treatment plan. Likely discharge Wednesday pending continued improvement as I will be the day he completes treatment. 04/27/20 Patient is experiencing SOB with pleuritic CP. Will be transferred to ICU; ABG is pending. PCXR documents SARS-COV-2 PNA. 04/28/2020 Patient is improving. He was on room air with oxygen saturations in the low 90s while proning today. Otherwise he is on 3 L. D-dimer did increase up to 2.78 which is a significant change. He is on Lovenox 40 mg twice daily. We will continue to monitor D-dimer, shortness of breath, lower extremity signs and symptoms. Since he is improving I would not get a CTA at this time. Blood sugars this morning are up to 160, therefore will start fingerstick blood sugars and sliding scale insulin to keep his blood sugars less than 200 if possible. This is likely secondary to dexamethasone. Mild hypokalemia and given 40 mEq of potassium orally. Blood pressure is well controlled with blood pressures mostly less than 150 except for an occasional systolic blood pressure in the 150s. Patient has not received Actemra, but will hold off on treatment unless he has significant worsening in oxygen requirements. 04/29/20 In to see Mao. He is currently on 4 L. He continues to work on proning and utilize his incentive spirometer and Acapella. Potassium is improved. WBC is increasing but this is likely secondary to steroid use. Otherwise he remained stable. He states he gets very short of breath when he gets up to use the restroom and has been having coughing fits. We will add dextromethorphan/guaifenesin as needed. No other nursing or patient concerns. Patient will remain hospitalized till he finishes his Covid treatment and is weaned down on oxygen. 04/30/20 - Plan Plan:: COVID-19 Hypoxia Elevated D-Dimer Pulmonary embolism * O2 as needed to keep saturations 88-96% * Completed azithromycin * Completed Rocephin * Continue Remdisivir - day 5 of 5 * Continue dexamethasone 6mg PO - Day 5 of 10 * Start Actemra due to worsening saturations * PRN albuterol inhaler * Consult RT * IS/Acapella * Prone whenever able * Airborne/contact precautions * Monitor labs * OT/PT consult * Zinc supplementation * Telemetry/continuous pulse oximeter * Increase Lovenox to 88mg BID due to D-Dimer of 10/PEs * CTA for elevated D-Dimer * Bilateral lower extremity US HLD (hyperlipidemia) HTN (hypertension) History of coronary artery stent placement CAD (coronary artery disease) Cardiomegaly * Continue home medications as directed * Telemetry Code status: Full Code PCP: Nano Guzman NP DVT prophylaxis: Lovenox Social: Patient resides in [facility] Disposition: Patient upgraded to ICU status due to worsening SOB, Elevated D- dimer, Worsening oxygen saturations. LOS>96 Hrs due to need for continued COVID-19 treatment, Hypoxia.
--- NOTE | 2020-04-30 09:31 | CT ---
CT chest Technique: Multiple axial sections were obtained from above the lung apices inferiorly through the lung bases. Intravenous contrast was utilized. Study was performed as a pulmonary angiogram protocol. Comparison: Prior CT angiogram study of 04/25/20. Findings: Very small filling defects are seen within the subsegmental branches of the right lower lung compatible with minimal pulmonary embolism. This is an interval change from prior exam. Other portions of the pulmonary arteries show no other filling defects. Slight pulmonary lymph nodes are seen within the right hilar region which are stable. Mediastinum shows normal lymph nodes. No axillary adenopathy is identified. Diffuse parenchymal interstitial change is seen within both lungs. Some of these findings have increased from prior exam raising the possibility of worsening parenchymal change from possible areas of pneumonia. No pleural effusions are seen. Emphysematous changes are noted. Bone window settings were reviewed which show no acute osseous abnormality. Impression: 1. Several small pulmonary emboli within subsegmental branches within the right lower lung. This is an interval change. 2. Diffuse interstitial change is noted within both peripheral lungs which show slight increasing prominence on current study as compared to previous exam raising the possibility of mild superimposed areas of pneumonia. 3. Stable emphysematous change. Diagnostic code #3
[2020-04-30] MEDS: Fluticasone Propionate Nasal Spray 16 GM Bottle NASBOTH SCH (11:25)
[2020-04-30] MEDS: REMDESIVIR 100 MG in Sodium Chloride 0.9% 100 ML IV SCH (12:06)
[2020-04-30] MEDS: Acetaminophen/HYDROcodone 325-5 MG Tab PO PRN ×2 (12:06→21:09)
--- NOTE | 2020-04-30 15:40 | US ---
Bilateral deep venous ultrasound: Duplex and color Doppler evaluation was obtained of the right and left common femoral, proximal greater saphenous, superficial femoral, popliteal, posterior tibial and peroneal veins. Comparison: No prior venous imaging is available. Findings: Normal phasic flow, augmentation and compression is seen. Impression: 1. No findings of deep venous thrombosis is seen within the right or left lower extremity. Diagnostic code #1
[2020-04-30] MEDS ORDERED: oxyCODONE 5 MG Tab PO PRN (18:37)
--- NOTE | 2020-05-01 08:21 | PCM.PN ---
- General Info Date of Service: 05/01/20 Admission Dx/Problem (Free Text): Admission Diagnosis/Problem Admission Diagnosis/Problem Hypoxia Subjective Update: In to see Mao. He is proning in the bed currently. He reports he feels a little better and he is down to 3 L on oxygen. He does note that he has significant shortness of breath when getting up to use the bathroom still. We discussed his scan results indicating very small pulmonary embolisms. Discussed how he has shown improvement when he is proning and utilizing his incentive spirometer and Acapella. He agrees to continue to do this. Nursing will push with this as well. He reports back pain due to to compression fractures which is chronic for him and exacerbated by proning. We discussed pain medications to assist with this and how there has to be some [id number]. Otherwise he is doing better today. We will continue current treatment plan with goal to decrease oxygen demand to 2 L or less prior to discharge. Functional Status: Reports: Pain Controlled, Tolerating Diet, Ambulating, Urinating, Incentive Spirometry, Other (Acapella ). Denies: New Symptoms - Review of Systems General: Reports: Weakness. Denies: Fever, Fatigue, Malaise, Chills HEENT: Reports: No Symptoms. Denies: Headaches, Sore Throat Pulmonary: Reports: Shortness of Breath, Cough. Denies: Sputum, Wheezing Cardiovascular: Reports: Dyspnea on Exertion. Denies: Chest Pain, Palpitations, Edema Gastrointestinal: Reports: No Symptoms. Denies: Abdominal Pain, Constipation, Diarrhea, Nausea, Vomiting Genitourinary: Reports: No Symptoms. Denies: Pain Musculoskeletal: Reports: Back Pain (Chronic - worse when proning ) Skin: Reports: No Symptoms. Denies: Cyanosis Neurological: Reports: No Symptoms. Denies: Confusion, Difficulty Walking, Gait Disturbance Psychiatric: Reports: No Symptoms - Patient Data Vitals - Most Recent: Last Vital Signs Temp 97.3 F 05/01/20 04:00 Pulse 55 L 04/30/20 15:54 Resp 20 05/01/20 04:00 BP 143/83 H 05/01/20 04:00 Pulse Ox 91 L 05/01/20 07:39 Weight - Most Recent: 188 lb I&O - Last 24 Hours: Intake & Output 04/30/20 05/01/20 05/01/20 22:59 06:59 14:59 Intake Total 990 600 Output Total 400 800 Balance 590 -200 Lab Results Last 24 Hours: Laboratory Results - last 24 hr 04/30/20 04/30/20 04/30/20 Range/Units 13:10 17:26 20:05 WBC (4.23-9.07) K/mm3 RBC (4.63-6.08) M/mm3 Hgb (13.7-17.5) gm/dl Hct (40.1-51.0) % MCV (79.0-92.2) fl MCH (25.7-32.2) pg MCHC (32.2-35.5) g/dl RDW Std Deviation (35.1-43.9) fL Plt Count (163-337) K/mm3 MPV (9.4-12.3) fl Neut % (Auto) (34.0-67.9) % Lymph % (Auto) (21.8-53.1) % [place] % (Auto) (5.3-12.2) % Eos % (Auto) (0.8-7.0) Baso % (Auto) (0.1-1.2) % Neut # (Auto) (1.78-5.38) K/mm3 Lymph # (Auto) (1.32-3.57) K/mm3 [place] # (Auto) (0.30-0.82) K/mm3 Eos # (Auto) (0.04-0.54) K/mm3 Baso # (Auto) (0.01-0.08) K/mm3 Sodium (136-145) mEq/L Potassium (3.5-5.1) mEq/L Chloride (98-107) mEq/L Carbon Dioxide (21-32) mEq/L Anion Gap (5-15) BUN (7-18) mg/dL Creatinine (0.7-1.3) mg/dL Est Cr Clr Drug Dosing mL/min Estimated GFR (MDRD) (>60) mL/min BUN/Creatinine Ratio (14-18) Glucose (83-115) mg/dL POC Glucose 117 H 159 H 150 H (83-110) mg/dL Calcium (8.5-10.1) mg/dL Magnesium (1.8-2.4) mg/dl Total Bilirubin (0.2-1.0) mg/dL AST (15-37) U/L ALT (16-63) U/L Alkaline Phosphatase (46-116) U/L Total Protein (6.4-8.2) g/dl Albumin (3.4-5.0) g/dl Globulin gm/dL Albumin/Globulin Ratio (1-2) 05/01/20 05/01/20 05/01/20 Range/Units 06:28 07:42 07:42 WBC 9.20 H (4.23-9.07) K/mm3 RBC 4.97 (4.63-6.08) M/mm3 Hgb 14.2 (13.7-17.5) gm/dl Hct 42.8 (40.1-51.0) % MCV 86.1 (79.0-92.2) fl MCH 28.6 (25.7-32.2) pg MCHC 33.2 (32.2-35.5) g/dl RDW Std Deviation 43.2 (35.1-43.9) fL Plt Count 221 (163-337) K/mm3 MPV 10.5 (9.4-12.3) fl Neut % (Auto) 82.0 H (34.0-67.9) % Lymph % (Auto) 8.8 L (21.8-53.1) % [place] % (Auto) 8.2 (5.3-12.2) % Eos % (Auto) 0 L (0.8-7.0) Baso % (Auto) 0.2 (0.1-1.2) % Neut # (Auto) 7.55 H (1.78-5.38) K/mm3 Lymph # (Auto) 0.81 L (1.32-3.57) K/mm3 [place] # (Auto) 0.75 (0.30-0.82) K/mm3 Eos # (Auto) 0.00 L (0.04-0.54) K/mm3 Baso # (Auto) 0.02 (0.01-0.08) K/mm3 Sodium 141 (136-145) mEq/L Potassium 4.0 (3.5-5.1) mEq/L Chloride 108 H (98-107) mEq/L Carbon Dioxide 25 (21-32) mEq/L Anion Gap 12.0 (5-15) BUN 28 H (7-18) mg/dL Creatinine 1.0 (0.7-1.3) mg/dL Est Cr Clr Drug Dosing 69.03 mL/min Estimated GFR (MDRD) > 60 (>60) mL/min BUN/Creatinine Ratio 28.0 H (14-18) Glucose 96 (83-115) mg/dL POC Glucose 104 (83-110) mg/dL Calcium 8.6 (8.5-10.1) mg/dL Magnesium 2.1 (1.8-2.4) mg/dl Total Bilirubin 0.6 (0.2-1.0) mg/dL AST 26 (15-37) U/L ALT 68 H (16-63) U/L Alkaline Phosphatase 128 H (46-116) U/L Total Protein 5.6 L (6.4-8.2) g/dl Albumin 2.3 L (3.4-5.0) g/dl Globulin 3.3 gm/dL Albumin/Globulin Ratio 0.7 L (1-2) Med Orders - Current: Current Medications Acetaminophen (Acetaminophen 325 Mg Tab) 650 mg PO Q6H PRN PRN Reason: Pain/Fever Last Admin: 04/26/20 19:23 Dose: 650 mg Documented by: Hydrocodone Bitart/Acetaminophen (Acetaminophen/Hydrocodone 325-5 Mg Tab) 2 tab PO Q12H PRN PRN Reason: Pain Last Admin: 04/30/20 21:09 Dose: 2 tab Documented by: Albuterol (Albuterol 0.083% 2.5 Mg/3 Ml Neb Soln) 2.5 mg NEB Q4HRRT PRN PRN Reason: Shortness of Breath Last Admin: 04/28/20 21:11 Dose: 2.5 mg Documented by: Aspirin (Aspirin 81 Mg Tab.Ec) 81 mg PO DAILY [facility] Last Admin: 04/30/20 07:59 Dose: 81 mg Documented by: Atorvastatin Calcium (Atorvastatin 20 Mg Tab) 10 mg PO DAILY [facility] Last Admin: 04/30/20 08:01 Dose: 10 mg Documented by: Cholecalciferol (Cholecalciferol (Vitamin D3) 25 Mcg Tab) 50 mcg PO DAILY [facility] Last Admin: 04/30/20 07:59 Dose: 50 mcg Documented by: Dexamethasone (Dexamethasone 4 Mg Tab) 6 mg PO DAILY [facility] Stop: 05/05/20 09:01 Last Admin: 04/30/20 08:01 Dose: 6 mg Documented by: Doxazosin Mesylate (Doxazosin 2 Mg Tab) 6 mg PO DAILY [facility] Last Admin: 04/30/20 08:00 Dose: 6 mg Documented by: Enoxaparin Sodium (Enoxaparin 100 Mg/1 Ml Syringe) 88 mg SUBCUT Q12H [facility] Last Admin: 04/30/20 20:00 Dose: 88 mg Documented by: Fluticasone Propionate (Fluticasone Propionate Nasal [place] 16 Gm Bottle) 0 gm NASBOTH DAILY [facility] Last Admin: 04/30/20 11:25 Dose: Not Given Documented by: Guaifenesin (Guaifenesin 600 Mg Tab.Er) 600 mg PO BID [facility] Last Admin: 04/30/20 20:01 Dose: 600 mg Documented by: Guaifenesin/Phenylephrine HCl (Guaifenesin/Dextromethorphan 100-10 Mg/5 Ml Soln 5 Ml Cup) 10 ml PO Q6H PRN PRN Reason: Cough Last Admin: 04/30/20 20:00 Dose: 10 ml Documented by: Pantoprazole Sodium (Pantoprazole 40 Mg Tab.Cr) 40 mg PO DAILY [facility] Last Admin: 04/30/20 08:01 Dose: 40 mg Documented by: Sodium Chloride (Sodium Chloride 0.9% 10 Ml Syringe) 10 ml FLUSH ASDIRECTED PRN PRN Reason: Keep Vein Open Last Admin: 04/25/20 11:17 Dose: 10 ml Documented by: Trazodone HCl (Trazodone 50 Mg Tab) 50 mg PO BEDTIME PRN PRN Reason: Sleep Last Admin: 04/27/20 21:22 Dose: 50 mg Documented by: Zinc Sulfate (Zinc Sulfate 220 Mg Cap) 220 mg PO DAILY [facility] Last Admin: 04/30/20 08:01 Dose: 220 mg Documented by: Discontinued Medications Albuterol (Albuterol 6.7 Gm Inhaler) 0 gm INH Q4H PRN PRN Reason: SOB/Wheezing Albuterol/Ipratropium (Albuterol/Ipratropium 3.0-0.5 Mg/3 Ml Neb Soln) 3 ml NEB Q6HRRT [facility] Last Admin: 04/28/20 03:22 Dose: 3 ml Documented by: Dexamethasone (Dexamethasone 4 Mg Tab) 6 mg PO ONETIME ONE Stop: 04/25/20 11:57 Last Admin: 04/25/20 12:14 Dose: 6 mg Documented by: Doxazosin Mesylate (Doxazosin 2 Mg Tab) 6 mg PO DAILY [facility] Last Admin: 04/26/20 12:16 Dose: Not Given Documented by: Enoxaparin Sodium (Enoxaparin 40 Mg/0.4 Ml Syringe) 40 mg SUBCUT Q12H [facility] Last Admin: 04/27/20 05:23 Dose: 40 mg Documented by: Enoxaparin Sodium (Enoxaparin 40 Mg/0.4 Ml Syringe) 40 mg SUBCUT BID [facility] Last Admin: 04/29/20 20:23 Dose: 40 mg Documented by: Sodium Chloride (Normal Saline) 100 mls @ 60 mls/hr IV ASDIRECTED [facility] Last Admin: 04/25/20 14:12 Dose: 60 mls/hr Documented by: Azithromycin 500 mg/ Sodium (Chloride) 250 mls @ 250 mls/hr IV ONETIME ONE Stop: 04/25/20 15:46 Last Admin: 04/25/20 15:20 Dose: 250 mls/hr Documented by: Ceftriaxone Sodium 2 gm/ (Sodium Chloride) 100 mls @ 200 mls/hr IV Q24H [facility] Stop: 04/29/20 17:29 Last Admin: 04/26/20 17:24 Dose: 200 mls/hr Documented by: Azithromycin 500 mg/ Sodium (Chloride) 250 mls @ 250 mls/hr IV Q24H [facility] Stop: 04/27/20 15:59 Last Admin: 04/27/20 14:54 Dose: 250 mls/hr Documented by: Remdesivir 200 mg/ Sodium (Chloride) 250 mls @ 250 mls/hr IV ONETIME ONE Stop: 04/26/20 12:59 Last Admin: 04/26/20 12:48 Dose: 250 mls/hr Documented by: Remdesivir 100 mg/ Sodium (Chloride) 100 mls @ 100 mls/hr IV Q24H [facility] Stop: 04/30/20 12:59 Last Admin: 04/30/20 12:06 Dose: 100 mls/hr Documented by: Ceftriaxone Sodium 2 gm/ (Sodium Chloride) 100 mls @ 200 mls/hr IV Q24H [facility] Stop: 04/29/20 21:29 Last Admin: 04/29/20 20:23 Dose: 200 mls/hr Documented by: Sodium Chloride (Normal Saline) 100 mls @ 75 mls/hr IV ASDIRECTED [facility] Stop: 04/30/20 11:00 Last Admin: 04/30/20 09:15 Dose: 75 mls/hr Documented by: Tocilizumab 800 mg/ Sodium (Chloride) 100 mls @ 100 mls/hr IV ONETIME ONE Stop: 04/30/20 09:29 Last Admin: 04/30/20 08:03 Dose: 100 mls/hr Documented by: Insulin Human Lispro (Insulin Lispro 100 Unit/Ml) 0 unit SUBCUT QIDACANDBED [facility]; Protocol Last Admin: 05/01/20 06:37 Dose: Not Given Documented by: Iopamidol (Iopamidol 755 Mg/Ml 100 Ml Bottle) 100 ml IVPUSH ONETIME ONE Stop: 04/25/20 13:05 Last Admin: 04/25/20 14:11 Dose: 100 ml Documented by: Iopamidol (Iopamidol 755 Mg/Ml 100 Ml Bottle) 100 ml IVPUSH ONETIME ONE Stop: 04/30/20 07:32 Last Admin: 04/30/20 09:14 Dose: 100 ml Documented by: Ketorolac Tromethamine (Ketorolac 30 Mg/Ml Sdv) 30 mg IVPUSH ONETIME ONE Stop: 04/25/20 14:49 Last Admin: 04/25/20 15:19 Dose: 30 mg Documented by: Potassium Chloride (Potassium Chloride 20 Meq Tab.Er) 40 meq PO ONETIME ONE Stop: 04/28/20 12:01 Last Admin: 04/28/20 11:20 Dose: 40 meq Documented by: Sodium Chloride (Sodium Chloride 0.9% 10 Ml Syringe) 10 ml FLUSH ONETIME ONE Stop: 04/25/20 13:05 Last Admin: 04/25/20 14:11 Dose: 10 ml Documented by: Sodium Chloride (Sodium Chloride 0.9% 10 Ml Syringe) 10 ml FLUSH ONETIME PRN PRN Reason: IV FLUSH Last Admin: 04/30/20 09:14 Dose: 10 ml Documented by: - Exam Quality Assessment: Supplemental Oxygen (3L), DVT Prophylaxis. No: Urine Catheter General: Alert, Oriented, Cooperative, No Acute Distress HEENT: Pupils Equal, Pupils Reactive, Mucous Membr. Moist/[place] Neck: Supple, Trachea Midline Lungs: Normal Respiratory Effort (bases ), Decreased Breath Sounds, Crackles Cardiovascular: Regular Rate, Regular Rhythm GI/Abdominal Exam: Normal Bowel Sounds, Soft, Non-Tender, No Distention, No Abnormal Bruit (Male) Exam: Deferred Back Exam: Normal Inspection, Full Range of Motion Extremities: Normal Inspection, Normal Range of Motion, Non-Tender, No Pedal E christina, Normal Capillary Refill Peripheral Pulses: 2+: Radial (L), Radial (R), Dorsalis Pedis (L), Dorsalis Pedis (R) Skin: Warm, Dry, Intact Neurological: No New Focal Deficit Psy/Mental Status: Alert, Normal Affect, Normal Mood - Patient Data Lab Results Last 24 hrs: Laboratory Results - last 24 hr 04/30/20 04/30/20 04/30/20 Range/Units 13:10 17:26 20:05 WBC (4.23-9.07) K/mm3 RBC (4.63-6.08) M/mm3 Hgb (13.7-17.5) gm/dl Hct (40.1-51.0) % MCV (79.0-92.2) fl MCH (25.7-32.2) pg MCHC (32.2-35.5) g/dl RDW Std Deviation (35.1-43.9) fL Plt Count (163-337) K/mm3 MPV (9.4-12.3) fl Neut % (Auto) (34.0-67.9) % Lymph % (Auto) (21.8-53.1) % [place] % (Auto) (5.3-12.2) % Eos % (Auto) (0.8-7.0) Baso % (Auto) (0.1-1.2) % Neut # (Auto) (1.78-5.38) K/mm3 Lymph # (Auto) (1.32-3.57) K/mm3 [place] # (Auto) (0.30-0.82) K/mm3 Eos # (Auto) (0.04-0.54) K/mm3 Baso # (Auto) (0.01-0.08) K/mm3 Sodium (136-145) mEq/L Potassium (3.5-5.1) mEq/L Chloride (98-107) mEq/L Carbon Dioxide (21-32) mEq/L Anion Gap (5-15) BUN (7-18) mg/dL Creatinine (0.7-1.3) mg/dL Est Cr Clr Drug Dosing mL/min Estimated GFR (MDRD) (>60) mL/min BUN/Creatinine Ratio (14-18) Glucose (83-115) mg/dL POC Glucose 117 H 159 H 150 H (83-110) mg/dL Calcium (8.5-10.1) mg/dL Magnesium (1.8-2.4) mg/dl Total Bilirubin (0.2-1.0) mg/dL AST (15-37) U/L ALT (16-63) U/L Alkaline Phosphatase (46-116) U/L Total Protein (6.4-8.2) g/dl Albumin (3.4-5.0) g/dl Globulin gm/dL Albumin/Globulin Ratio (1-2) 05/01/20 05/01/20 05/01/20 Range/Units 06:28 07:42 07:42 WBC 9.20 H (4.23-9.07) K/mm3 RBC 4.97 (4.63-6.08) M/mm3 Hgb 14.2 (13.7-17.5) gm/dl Hct 42.8 (40.1-51.0) % MCV 86.1 (79.0-92.2) fl MCH 28.6 (25.7-32.2) pg MCHC 33.2 (32.2-35.5) g/dl RDW Std Deviation 43.2 (35.1-43.9) fL Plt Count 221 (163-337) K/mm3 MPV 10.5 (9.4-12.3) fl Neut % (Auto) 82.0 H (34.0-67.9) % Lymph % (Auto) 8.8 L (21.8-53.1) % [place] % (Auto) 8.2 (5.3-12.2) % Eos % (Auto) 0 L (0.8-7.0) Baso % (Auto) 0.2 (0.1-1.2) % Neut # (Auto) 7.55 H (1.78-5.38) K/mm3 Lymph # (Auto) 0.81 L (1.32-3.57) K/mm3 [place] # (Auto) 0.75 (0.30-0.82) K/mm3 Eos # (Auto) 0.00 L (0.04-0.54) K/mm3 Baso # (Auto) 0.02 (0.01-0.08) K/mm3 Sodium 141 (136-145) mEq/L Potassium 4.0 (3.5-5.1) mEq/L Chloride 108 H (98-107) mEq/L Carbon Dioxide 25 (21-32) mEq/L Anion Gap 12.0 (5-15) BUN 28 H (7-18) mg/dL Creatinine 1.0 (0.7-1.3) mg/dL Est Cr Clr Drug Dosing 69.03 mL/min Estimated GFR (MDRD) > 60 (>60) mL/min BUN/Creatinine Ratio 28.0 H (14-18) Glucose 96 (83-115) mg/dL POC Glucose 104 (83-110) mg/dL Calcium 8.6 (8.5-10.1) mg/dL Magnesium 2.1 (1.8-2.4) mg/dl Total Bilirubin 0.6 (0.2-1.0) mg/dL AST 26 (15-37) U/L ALT 68 H (16-63) U/L Alkaline Phosphatase 128 H (46-116) U/L Total Protein 5.6 L (6.4-8.2) g/dl Albumin 2.3 L (3.4-5.0) g/dl Globulin 3.3 gm/dL Albumin/Globulin Ratio 0.7 L (1-2) Result Diagrams: 05/01/20 07:42 05/01/20 07:42 Sepsis Event Note - Evaluation Sepsis Screening Result: No Definite Risk - Focused Exam Vital Signs: Vital Signs Temp Resp BP Pulse Ox Pulse Ox 05/01/20 07:39 91 L 05/01/20 06:25 91 L 05/01/20 06:20 99 05/01/20 06:00 92 L 05/01/20 05:00 93 L 05/01/20 04:29 92 L 05/01/20 04:00 97.3 F 20 143/83 H 90 L 05/01/20 03:00 97 05/01/20 02:00 95 05/01/20 01:00 97 04/30/20 23:37 97.4 F 20 149/81 H 92 L 04/30/20 23:05 92 L 04/30/20 23:00 91 L 04/30/20 22:00 98 04/30/20 21:00 99 - Problem List & Annotations (1) HLD (hyperlipidemia) SNOMED Code(s): 40276478 Code(s): E78.5 - HYPERLIPIDEMIA, UNSPECIFIED Status: Chronic Priority: Low Current Visit: No Qualifiers: Hyperlipidemia type: unspecified Qualified Code(s): E78.5 - Hyperlipidemia, unspecified (2) HTN (hypertension) SNOMED Code(s): 91439977 Code(s): I10 - ESSENTIAL (PRIMARY) HYPERTENSION Status: Chronic Priority: Medium Current Visit: No Qualifiers: Hypertension type: unspecified Qualified Code(s): I10 - Essential (primary) hypertension (3) History of coronary artery stent placement SNOMED Code(s): 922153063, 717407193 Code(s): Z95.5 - PRESENCE OF CORONARY ANGIOPLASTY IMPLANT AND GRAFT Status: Chronic Priority: Medium Current Visit: No (4) CAD (coronary artery disease) SNOMED Code(s): 34397647 Code(s): I25.10 - ATHSCL HEART DISEASE OF [place] CORONARY ARTERY W/O ANG PCTRS Status: Chronic Priority: Medium Current Visit: No Qualifiers: Coronary Disease-Associated Artery/Lesion type: [place] artery [place] vs. tr ansplanted heart: [place] heart Associated angina: angina presence unspecified Qualified Code(s): I25.10 - Atherosclerotic heart disease of [place] coronary artery without angina pectoris (5) COVID-19 SNOMED Code(s): 554030970 Code(s): U07.1 - COVID-19 Status: Acute Priority: High Current Visit: Yes (6) Hypoxia SNOMED Code(s): 120320196 Code(s): R09.02 - HYPOXEMIA Status: Acute Priority: High Current Visit: Yes (7) Elevated d-dimer SNOMED Code(s): 058118955 Code(s): R79.89 - OTHER SPECIFIED ABNORMAL FINDINGS OF BLOOD CHEMISTRY Status: Acute Priority: High Current Visit: Yes (8) Cardiomegaly SNOMED Code(s): 1149585 Code(s): I51.7 - CARDIOMEGALY Status: Chronic Priority: Low Current Visit: No (9) Pulmonary embolism SNOMED Code(s): 88847197 Code(s): I26.99 - OTHER PULMONARY EMBOLISM WITHOUT ACUTE COR PULMONALE Status: Acute Priority: High Current Visit: Yes Qualifiers: Pulmonary embolism type: multiple subsegmental (without acute cor pulmonale) Qualified Code(s): I26.94 - Multiple subsegmental pulmonary emboli without acute cor pulmonale - Problem List Review Problem List Initiated/Reviewed/Updated: Yes - My Orders Last 24 Hours: My Active Orders 04/30/20 07:29 Patient Status [ADT] Routine 04/30/20 08:00 Enoxaparin [Lovenox] 88 mg SUBCUT Q12H 04/30/20 08:08 Consult to Case Management/Nutritional Assistant [CONS] Routine 05/01/20 07:42 DD [D-DIMER QUANTITATIVE] [COAG] Routine 05/01/20 08:19 DD [D-DIMER QUANTITATIVE] [COAG] DAILY 05/02/20 05:11 CMP [COMPREHENSIVE METABOLIC PN,CMP] [CHEM] AM CRP [C-REACTIVE PROTEIN] [CHEM] AM MAGNESIUM [CHEM] AM 05/02/20 08:19 DD [D-DIMER QUANTITATIVE] [COAG] DAILY 05/03/20 05:11 CBC WITH AUTO DIFF [HEME] Q48H CMP [COMPREHENSIVE METABOLIC PN,CMP] [CHEM] AM CRP [C-REACTIVE PROTEIN] [CHEM] AM MAGNESIUM [CHEM] AM 05/03/20 08:19 DD [D-DIMER QUANTITATIVE] [COAG] DAILY 05/04/20 05:11 CMP [COMPREHENSIVE METABOLIC PN,CMP] [CHEM] AM CRP [C-REACTIVE PROTEIN] [CHEM] AM MAGNESIUM [CHEM] AM 05/04/20 08:19 DD [D-DIMER QUANTITATIVE] [COAG] DAILY 05/05/20 05:11 CBC WITH AUTO DIFF [HEME] Q48H CRP [C-REACTIVE PROTEIN] [CHEM] AM MAGNESIUM [CHEM] AM - Assessment Assessment:: 04/26/20 In to see Mao. He is laying in bed and is now on 2 L of oxygen. He reports he is feeling pretty good and only notes dyspnea when he is up moving around. He said he will occasionally cough and that will cause his saturations to drop as well. Reports it is a dry cough. He has no current concerns. We discussed plan of care and how he will likely need to remain hospitalized for the next 5 days to complete treatment. We discussed proning and patient reports that this is impossible for him because he has had neck surgery. We did discuss Acapella and incentive spirometry and he reports that he will continue working with this. Otherwise labs continue to look good. CRP has decreased and kidney function has improved. D-dimer remained stable. Leukopenia noted. we will continue current treatment plan. Likely discharge Wednesday pending continued improvement as I will be the day he completes treatment. 04/27/20 Patient is experiencing SOB with pleuritic CP. Will be transferred to ICU; ABG is pending. PCXR documents SARS-COV-2 PNA. 04/28/2020 Patient is improving. He was on room air with oxygen saturations in the low 90s while proning today. Otherwise he is on 3 L. D-dimer did increase up to 2.78 which is a significant change. He is on Lovenox 40 mg twice daily. We will continue to monitor D-dimer, shortness of breath, lower extremity signs and symptoms. Since he is improving I would not get a CTA at this time. Blood sugars this morning are up to 160, therefore will start fingerstick blood sugars and sliding scale insulin to keep his blood sugars less than 200 if possible. This is likely secondary to dexamethasone. Mild hypokalemia and given 40 mEq of potassium orally. Blood pressure is well controlled with blood pressures mostly less than 150 except for an occasional systolic blood pressure in the 150s. Patient has not received Actemra, but will hold off on treatment unless he has significant worsening in oxygen requirements. 04/29/20 In to see Mao. He is currently on 4 L. He continues to work on proning and utilize his incentive spirometer and Acapella. Potassium is improved. WBC is increasing but this is likely secondary to steroid use. Otherwise he remained stable. He states he gets very short of breath when he gets up to use the restroom and has been having coughing fits. We will add dextromethorphan/guaifenesin as needed. No other nursing or patient concerns. Patient will remain hospitalized till he finishes his Covid treatment and is weaned down on oxygen. 04/30/20 In to see Mao. He is proning in the bed and doing quite well. He has improved to 3 L. When proning he is noted to have saturations in the upper 90s however with movement he drops into the 80s. He continues to utilize his incentive spirometer and Acapella. We discussed his chronic back pain which is exacerbated by proning. Discussed pain medications for this and how important proning, along with his Acapella and incentive spirometry are. He stated how he feels like he gets winded so quick when ambulating. CTA yesterday showed very small pulmonary embolisms and he was started on 1 mg/kg Lovenox twice daily. Bi lateral lower extremity ultrasounds were negative for any DVT. Nursing reports they are going to try to encourage more proning today with the patient. Goal is to increase endurance and decrease oxygen needed to 2 L or less prior to discharge. Labs today: WBC 9.20. Hemoglobin 14.2. Platelet 221. Neutrophils elevated at 7.55. D-dimer down to 9.52. Sodium 141. Potassium 4.0. Anion gap 12.0. BUN 28, creatinine 1.0, GFR greater than 60. Glucose 96. AST 26, ALT 68, alkaline phosphatase 128. - Plan Plan:: COVID-19 Hypoxia Elevated D-Dimer Pulmonary embolism * O2 as needed to keep saturations 88-96% * Completed azithromycin * Completed Rocephin * Completed Remdisivir * Continue dexamethasone 6mg PO - Day 6 of 10 * Given Actemra due to worsening saturations * PRN albuterol inhaler * Consult RT * IS/Acapella * Prone whenever able * Airborne/contact precautions * Monitor labs * OT/PT consult * Zinc supplementation * Telemetry/continuous pulse oximeter * Continue Lovenox to 88mg BID due to D-Dimer of 10/PEs * CTA for elevated D-Dimer * Bilateral lower extremity US HLD (hyperlipidemia) HTN (hypertension) History of coronary artery stent placement CAD (coronary artery disease) Cardiomegaly * Continue home medications as directed * Telemetry Code status: Full Code PCP: Nano Guzman NP DVT prophylaxis: Lovenox Social: Patient resides in [facility] Disposition: Patient upgraded to ICU status due to worsening SOB, Elevated D- dimer, Worsening oxygen saturations. LOS>96 Hrs due to need for continued COVID-19 treatment, Hypoxia.
[2020-05-01] MEDS: Enoxaparin 100 MG/1 ML Syringe SUBCUT SCH ×2 (08:39→20:14)
[2020-05-01] MEDS: Dexamethasone 4 MG Tab PO SCH (08:40)
[2020-05-01] MEDS: guaiFENesin 600 MG Tab.ER PO SCH ×2 (08:40→21:00)
[2020-05-01] MEDS: Pantoprazole 40 MG Tab.CR PO SCH (08:41)
[2020-05-01] MEDS: Cholecalciferol (Vitamin D3) 25 MCG Tab PO SCH (08:41)
[2020-05-01] MEDS: atorvaSTATin 20 MG Tab PO SCH (08:41)
[2020-05-01] MEDS: Zinc Sulfate 220 MG Cap PO SCH (08:41)
[2020-05-01] MEDS: Aspirin 81 MG Tab.EC PO SCH (08:43)
[2020-05-01] MEDS: Fluticasone Propionate Nasal Spray 16 GM Bottle NASBOTH SCH (08:44)
[2020-05-01] MEDS: Doxazosin 2 MG Tab PO SCH (08:44)
[2020-05-01] MEDS: Acetaminophen/HYDROcodone 325-5 MG Tab PO PRN (11:02)
[2020-05-01] MEDS: Albuterol 0.083% 2.5 MG/3 ML Neb Soln NEB PRN ×3 (11:48→23:30)
[2020-05-02] MEDS: Acetaminophen/HYDROcodone 325-5 MG Tab PO PRN ×2 (00:31→13:33)
[2020-05-02] MEDS: Albuterol 0.083% 2.5 MG/3 ML Neb Soln NEB PRN ×3 (05:38→13:23)
--- NOTE | 2020-05-02 07:20 | PCM.PN ---
- General Info Date of Service: 05/02/20 Admission Dx/Problem (Free Text): Admission Diagnosis/Problem Admission Diagnosis/Problem Hypoxia Subjective Update: In to see Mao. He is sitting up in bed. He is up to 3.5 L of oxygen currently. He has been utilizing incentive spirometry and Acapella and proning occasionally. We discussed the importance of this again. We discussed pain control when proning due to his chronic back pain. D-dimer today has improved significantly to 5.2. CMP is grossly stable and CRP is 1.4. We will continue dexamethasone and working with patient on respiratory exercises. We will downgraded to MedSurg status today as he remains grossly stable. Per dietitian his intake has been very good. Continue current treatment plan with goal to decrease oxygen demand to below 2 L prior to discharge and build endurance. Functional Status: Reports: Pain Controlled, Tolerating Diet, Ambulating, Urinating, Incentive Spirometry, Other (Acapella ). Denies: New Symptoms - Review of Systems General: Reports: Weakness (improving ), Appetite. Denies: Fever, Fatigue, Malaise, Chills HEENT: Reports: No Symptoms. Denies: Headaches, Sore Throat Pulmonary: Reports: No Symptoms, Shortness of Breath, Cough. Denies: Pleuritic Chest Pain, Sputum, Wheezing Cardiovascular: Reports: No Symptoms, Dyspnea on Exertion. Denies: Chest Pain, Palpitations, Lightheadedness Gastrointestinal: Reports: No Symptoms. Denies: Abdominal Pain, Constipation, Diarrhea, Nausea, Vomiting Genitourinary: Reports: No Symptoms. Denies: Pain Musculoskeletal: Reports: Back Pain (chronic ) Skin: Reports: No Symptoms. Denies: Cyanosis Neurological: Reports: Weakness. Denies: Confusion, Pre-Existing Deficit, Difficulty Walking, Gait Disturbance Psychiatric: Reports: No Symptoms - Patient Data Vitals - Most Recent: Last Vital Signs Temp 97.8 F 05/02/20 04:00 Pulse 55 L 04/30/20 15:54 Resp 15 05/02/20 04:00 BP 138/79 05/02/20 00:00 Pulse Ox 87 L 05/02/20 06:00 Weight - Most Recent: 183 lb 4.8 oz I&O - Last 24 Hours: Intake & Output 05/01/20 05/02/20 05/02/20 22:59 06:59 14:59 Intake Total 1110 860 Output Total 1100 250 Balance 10 610 Lab Results Last 24 Hours: Laboratory Results - last 24 hr 05/01/20 05/01/20 05/01/20 Range/Units 07:42 07:42 07:42 WBC 9.20 H (4.23-9.07) K/mm3 RBC 4.97 (4.63-6.08) M/mm3 Hgb 14.2 (13.7-17.5) gm/dl Hct 42.8 (40.1-51.0) % MCV 86.1 (79.0-92.2) fl MCH 28.6 (25.7-32.2) pg MCHC 33.2 (32.2-35.5) g/dl RDW Std Deviation 43.2 (35.1-43.9) fL Plt Count 221 (163-337) K/mm3 MPV 10.5 (9.4-12.3) fl Neut % (Auto) 82.0 H (34.0-67.9) % Lymph % (Auto) 8.8 L (21.8-53.1) % Howard % (Auto) 8.2 (5.3-12.2) % Eos % (Auto) 0 L (0.8-7.0) Baso % (Auto) 0.2 (0.1-1.2) % Neut # (Auto) 7.55 H (1.78-5.38) K/mm3 Lymph # (Auto) 0.81 L (1.32-3.57) K/mm3 Howard # (Auto) 0.75 (0.30-0.82) K/mm3 Eos # (Auto) 0.00 L (0.04-0.54) K/mm3 Baso # (Auto) 0.02 (0.01-0.08) K/mm3 D-Dimer, Quantitative 9.52 H (0.19-0.50) mg/L Sodium 141 (136-145) mEq/L Potassium 4.0 (3.5-5.1) mEq/L Chloride 108 H (98-107) mEq/L Carbon Dioxide 25 (21-32) mEq/L Anion Gap 12.0 (5-15) BUN 28 H (7-18) mg/dL Creatinine 1.0 (0.7-1.3) mg/dL Est Cr Clr Drug Dosing 69.03 mL/min Estimated GFR (MDRD) > 60 (>60) mL/min BUN/Creatinine Ratio 28.0 H (14-18) Glucose 96 (83-115) mg/dL POC Glucose (83-110) mg/dL Calcium 8.6 (8.5-10.1) mg/dL Magnesium 2.1 (1.8-2.4) mg/dl Total Bilirubin 0.6 (0.2-1.0) mg/dL AST 26 (15-37) U/L ALT 68 H (16-63) U/L Alkaline Phosphatase 128 H (46-116) U/L Total Protein 5.6 L (6.4-8.2) g/dl Albumin 2.3 L (3.4-5.0) g/dl Globulin 3.3 gm/dL Albumin/Globulin Ratio 0.7 L (1-2) 03/17/ Range/Units 17:58 WBC (4.23-9.07) K/mm3 RBC (4.63-6.08) M/mm3 Hgb (13.7-17.5) gm/dl Hct (40.1-51.0) % MCV (79.0-92.2) fl MCH (25.7-32.2) pg MCHC (32.2-35.5) g/dl RDW Std Deviation (35.1-43.9) fL Plt Count (163-337) K/mm3 MPV (9.4-12.3) fl Neut % (Auto) (34.0-67.9) % Lymph % (Auto) (21.8-53.1) % Howard % (Auto) (5.3-12.2) % Eos % (Auto) (0.8-7.0) Baso % (Auto) (0.1-1.2) % Neut # (Auto) (1.78-5.38) K/mm3 Lymph # (Auto) (1.32-3.57) K/mm3 Howard # (Auto) (0.30-0.82) K/mm3 Eos # (Auto) (0.04-0.54) K/mm3 Baso # (Auto) (0.01-0.08) K/mm3 D-Dimer, Quantitative (0.19-0.50) mg/L Sodium (136-145) mEq/L Potassium (3.5-5.1) mEq/L Chloride (98-107) mEq/L Carbon Dioxide (21-32) mEq/L Anion Gap (5-15) BUN (7-18) mg/dL Creatinine (0.7-1.3) mg/dL Est Cr Clr Drug Dosing mL/min Estimated GFR (MDRD) (>60) mL/min BUN/Creatinine Ratio (14-18) Glucose (83-115) mg/dL POC Glucose 169 H (83-110) mg/dL Calcium (8.5-10.1) mg/dL Magnesium (1.8-2.4) mg/dl Total Bilirubin (0.2-1.0) mg/dL AST (15-37) U/L ALT (16-63) U/L Alkaline Phosphatase (46-116) U/L Total Protein (6.4-8.2) g/dl Albumin (3.4-5.0) g/dl Globulin gm/dL Albumin/Globulin Ratio (1-2) Med Orders - Current: Current Medications Acetaminophen (Acetaminophen 325 Mg Tab) 650 mg PO Q6H PRN PRN Reason: Pain/Fever Last Admin: 04/26/20 19:23 Dose: 650 mg Documented by: Hydrocodone Bitart/Acetaminophen (Acetaminophen/Hydrocodone 325-5 Mg Tab) 2 tab PO Q12H PRN PRN Reason: Pain Last Admin: 05/02/20 00:31 Dose: 2 tab Documented by: Albuterol (Albuterol 0.083% 2.5 Mg/3 Ml Neb Soln) 2.5 mg NEB Q4HRRT PRN PRN Reason: Shortness of Breath Last Admin: 05/02/20 05:38 Dose: 2.5 mg Documented by: Aspirin (Aspirin 81 Mg Tab.Ec) 81 mg PO DAILY [facility] Last Admin: 05/01/20 08:43 Dose: 81 mg Documented by: Atorvastatin Calcium (Atorvastatin 20 Mg Tab) 10 mg PO DAILY [facility] Last Admin: 05/01/20 08:41 Dose: 10 mg Documented by: Cholecalciferol (Cholecalciferol (Vitamin D3) 25 Mcg Tab) 50 mcg PO DAILY [facility] Last Admin: 05/01/20 08:41 Dose: 50 mcg Documented by: Dexamethasone (Dexamethasone 4 Mg Tab) 6 mg PO DAILY [facility] Stop: 05/05/20 09:01 Last Admin: 05/01/20 08:40 Dose: 6 mg Documented by: Doxazosin Mesylate (Doxazosin 2 Mg Tab) 6 mg PO DAILY [facility] Last Admin: 05/01/20 08:44 Dose: 6 mg Documented by: Enoxaparin Sodium (Enoxaparin 100 Mg/1 Ml Syringe) 88 mg SUBCUT Q12H [facility] Last Admin: 05/01/20 20:14 Dose: 88 mg Documented by: Fluticasone Propionate (Fluticasone Propionate Nasal [place] 16 Gm Bottle) 0 gm NASBOTH DAILY [facility] Last Admin: 05/01/20 08:44 Dose: Not Given Documented by: Guaifenesin (Guaifenesin 600 Mg Tab.Er) 600 mg PO BID [facility] Last Admin: 05/01/20 21:00 Dose: 600 mg Documented by: Guaifenesin/Phenylephrine HCl (Guaifenesin/Dextromethorphan 100-10 Mg/5 Ml Soln 5 Ml Cup) 10 ml PO Q6H PRN PRN Reason: Cough Last Admin: 04/30/20 20:00 Dose: 10 ml Documented by: Pantoprazole Sodium (Pantoprazole 40 Mg Tab.Cr) 40 mg PO DAILY [facility] Last Admin: 05/01/20 08:41 Dose: 40 mg Documented by: Sodium Chloride (Sodium Chloride 0.9% 10 Ml Syringe) 10 ml FLUSH ASDIRECTED PRN PRN Reason: Keep Vein Open Last Admin: 04/25/20 11:17 Dose: 10 ml Documented by: Trazodone HCl (Trazodone 50 Mg Tab) 50 mg PO BEDTIME PRN PRN Reason: Sleep Last Admin: 04/27/20 21:22 Dose: 50 mg Documented by: Zinc Sulfate (Zinc Sulfate 220 Mg Cap) 220 mg PO DAILY [facility] Last Admin: 05/01/20 08:41 Dose: 220 mg Documented by: Discontinued Medications Albuterol (Albuterol 6.7 Gm Inhaler) 0 gm INH Q4H PRN PRN Reason: SOB/Wheezing Albuterol/Ipratropium (Albuterol/Ipratropium 3.0-0.5 Mg/3 Ml Neb Soln) 3 ml NEB Q6HRRT [facility] Last Admin: 04/28/20 03:22 Dose: 3 ml Documented by: Dexamethasone (Dexamethasone 4 Mg Tab) 6 mg PO ONETIME ONE Stop: 04/25/20 11:57 Last Admin: 04/25/20 12:14 Dose: 6 mg Documented by: Doxazosin Mesylate (Doxazosin 2 Mg Tab) 6 mg PO DAILY [facility] Last Admin: 04/26/20 12:16 Dose: Not Given Documented by: Enoxaparin Sodium (Enoxaparin 40 Mg/0.4 Ml Syringe) 40 mg SUBCUT Q12H [facility] Last Admin: 04/27/20 05:23 Dose: 40 mg Documented by: Enoxaparin Sodium (Enoxaparin 40 Mg/0.4 Ml Syringe) 40 mg SUBCUT BID [facility] Last Admin: 04/29/20 20:23 Dose: 40 mg Documented by: Sodium Chloride (Normal Saline) 100 mls @ 60 mls/hr IV ASDIRECTED [facility] Last Admin: 04/25/20 14:12 Dose: 60 mls/hr Documented by: Azithromycin 500 mg/ Sodium (Chloride) 250 mls @ 250 mls/hr IV ONETIME ONE Stop: 04/25/20 15:46 Last Admin: 04/25/20 15:20 Dose: 250 mls/hr Documented by: Ceftriaxone Sodium 2 gm/ (Sodium Chloride) 100 mls @ 200 mls/hr IV Q24H [facility] Stop: 04/29/20 17:29 Last Admin: 04/26/20 17:24 Dose: 200 mls/hr Documented by: Azithromycin 500 mg/ Sodium (Chloride) 250 mls @ 250 mls/hr IV Q24H [facility] Stop: 04/27/20 15:59 Last Admin: 04/27/20 14:54 Dose: 250 mls/hr Documented by: Remdesivir 200 mg/ Sodium (Chloride) 250 mls @ 250 mls/hr IV ONETIME ONE Stop: 04/26/20 12:59 Last Admin: 04/26/20 12:48 Dose: 250 mls/hr Documented by: Remdesivir 100 mg/ Sodium (Chloride) 100 mls @ 100 mls/hr IV Q24H [facility] Stop: 04/30/20 12:59 Last Admin: 04/30/20 12:06 Dose: 100 mls/hr Documented by: Ceftriaxone Sodium 2 gm/ (Sodium Chloride) 100 mls @ 200 mls/hr IV Q24H [facility] Stop: 04/29/20 21:29 Last Admin: 04/29/20 20:23 Dose: 200 mls/hr Documented by: Sodium Chloride (Normal Saline) 100 mls @ 75 mls/hr IV ASDIRECTED [facility] Stop: 04/30/20 11:00 Last Admin: 04/30/20 09:15 Dose: 75 mls/hr Documented by: Tocilizumab 800 mg/ Sodium (Chloride) 100 mls @ 100 mls/hr IV ONETIME ONE Stop: 04/30/20 09:29 Last Admin: 04/30/20 08:03 Dose: 100 mls/hr Documented by: Insulin Human Lispro (Insulin Lispro 100 Unit/Ml) 0 unit SUBCUT QIDACANDBED [facility]; Protocol Last Admin: 05/01/20 06:37 Dose: Not Given Documented by: Iopamidol (Iopamidol 755 Mg/Ml 100 Ml Bottle) 100 ml IVPUSH ONETIME ONE Stop: 04/25/20 13:05 Last Admin: 04/25/20 14:11 Dose: 100 ml Documented by: Iopamidol (Iopamidol 755 Mg/Ml 100 Ml Bottle) 100 ml IVPUSH ONETIME ONE Stop: 04/30/20 07:32 Last Admin: 04/30/20 09:14 Dose: 100 ml Documented by: Ketorolac Tromethamine (Ketorolac 30 Mg/Ml Sdv) 30 mg IVPUSH ONETIME ONE Stop: 04/25/20 14:49 Last Admin: 04/25/20 15:19 Dose: 30 mg Documented by: Potassium Chloride (Potassium Chloride 20 Meq Tab.Er) 40 meq PO ONETIME ONE Stop: 04/28/20 12:01 Last Admin: 04/28/20 11:20 Dose: 40 meq Documented by: Sodium Chloride (Sodium Chloride 0.9% 10 Ml Syringe) 10 ml FLUSH ONETIME ONE Stop: 04/25/20 13:05 Last Admin: 04/25/20 14:11 Dose: 10 ml Documented by: Sodium Chloride (Sodium Chloride 0.9% 10 Ml Syringe) 10 ml FLUSH ONETIME PRN PRN Reason: IV FLUSH Last Admin: 04/30/20 09:14 Dose: 10 ml Documented by: - Patient Data Lab Results Last 24 hrs: Laboratory Results - last 24 hr 05/01/20 05/01/20 05/01/20 Range/Units 07:42 07:42 07:42 WBC 9.20 H (4.23-9.07) K/mm3 RBC 4.97 (4.63-6.08) M/mm3 Hgb 14.2 (13.7-17.5) gm/dl Hct 42.8 (40.1-51.0) % MCV 86.1 (79.0-92.2) fl MCH 28.6 (25.7-32.2) pg MCHC 33.2 (32.2-35.5) g/dl RDW Std Deviation 43.2 (35.1-43.9) fL Plt Count 221 (163-337) K/mm3 MPV 10.5 (9.4-12.3) fl Neut % (Auto) 82.0 H (34.0-67.9) % Lymph % (Auto) 8.8 L (21.8-53.1) % Howard % (Auto) 8.2 (5.3-12.2) % Eos % (Auto) 0 L (0.8-7.0) Baso % (Auto) 0.2 (0.1-1.2) % Neut # (Auto) 7.55 H (1.78-5.38) K/mm3 Lymph # (Auto) 0.81 L (1.32-3.57) K/mm3 Howard # (Auto) 0.75 (0.30-0.82) K/mm3 Eos # (Auto) 0.00 L (0.04-0.54) K/mm3 Baso # (Auto) 0.02 (0.01-0.08) K/mm3 D-Dimer, Quantitative 9.52 H (0.19-0.50) mg/L Sodium 141 (136-145) mEq/L Potassium 4.0 (3.5-5.1) mEq/L Chloride 108 H (98-107) mEq/L Carbon Dioxide 25 (21-32) mEq/L Anion Gap 12.0 (5-15) BUN 28 H (7-18) mg/dL Creatinine 1.0 (0.7-1.3) mg/dL Est Cr Clr Drug Dosing 69.03 mL/min Estimated GFR (MDRD) > 60 (>60) mL/min BUN/Creatinine Ratio 28.0 H (14-18) Glucose 96 (83-115) mg/dL POC Glucose (83-110) mg/dL Calcium 8.6 (8.5-10.1) mg/dL Magnesium 2.1 (1.8-2.4) mg/dl Total Bilirubin 0.6 (0.2-1.0) mg/dL AST 26 (15-37) U/L ALT 68 H (16-63) U/L Alkaline Phosphatase 128 H (46-116) U/L Total Protein 5.6 L (6.4-8.2) g/dl Albumin 2.3 L (3.4-5.0) g/dl Globulin 3.3 gm/dL Albumin/Globulin Ratio 0.7 L (1-2) / Range/Units 17:58 WBC (4.23-9.07) K/mm3 RBC (4.63-6.08) M/mm3 Hgb (13.7-17.5) gm/dl Hct (40.1-51.0) % MCV (79.0-92.2) fl MCH (25.7-32.2) pg MCHC (32.2-35.5) g/dl RDW Std Deviation (35.1-43.9) fL Plt Count (163-337) K/mm3 MPV (9.4-12.3) fl Neut % (Auto) (34.0-67.9) % Lymph % (Auto) (21.8-53.1) % Howard % (Auto) (5.3-12.2) % Eos % (Auto) (0.8-7.0) Baso % (Auto) (0.1-1.2) % Neut # (Auto) (1.78-5.38) K/mm3 Lymph # (Auto) (1.32-3.57) K/mm3 Howard # (Auto) (0.30-0.82) K/mm3 Eos # (Auto) (0.04-0.54) K/mm3 Baso # (Auto) (0.01-0.08) K/mm3 D-Dimer, Quantitative (0.19-0.50) mg/L Sodium (136-145) mEq/L Potassium (3.5-5.1) mEq/L Chloride (98-107) mEq/L Carbon Dioxide (21-32) mEq/L Anion Gap (5-15) BUN (7-18) mg/dL Creatinine (0.7-1.3) mg/dL Est Cr Clr Drug Dosing mL/min Estimated GFR (MDRD) (>60) mL/min BUN/Creatinine Ratio (14-18) Glucose (83-115) mg/dL POC Glucose 169 H (83-110) mg/dL Calcium (8.5-10.1) mg/dL Magnesium (1.8-2.4) mg/dl Total Bilirubin (0.2-1.0) mg/dL AST (15-37) U/L ALT (16-63) U/L Alkaline Phosphatase (46-116) U/L Total Protein (6.4-8.2) g/dl Albumin (3.4-5.0) g/dl Globulin gm/dL Albumin/Globulin Ratio (1-2) Result Diagrams: 05/01/20 07:42 05/02/20 06:43 Sepsis Event Note - Evaluation Sepsis Screening Result: No Definite Risk - Focused Exam Vital Signs: Vital Signs Temp Resp BP Pulse Ox Pulse Ox 05/02/20 06:00 87 L 05/02/20 05:38 88 L 05/02/20 04:00 97.8 F 15 91 L 05/02/20 00:51 86 L 05/02/20 00:00 97.8 F 16 138/79 90 L 05/01/20 23:32 90 L 05/01/20 23:30 87 L 05/01/20 20:50 91 L 05/01/20 20:00 97.4 F 18 148/83 H 89 L - Problem List & Annotations (1) HLD (hyperlipidemia) SNOMED Code(s): 07578257 Code(s): E78.5 - HYPERLIPIDEMIA, UNSPECIFIED Status: Chronic Priority: Low Current Visit: No Qualifiers: Hyperlipidemia type: unspecified Qualified Code(s): E78.5 - Hyperlipidemia, unspecified (2) HTN (hypertension) SNOMED Code(s): 12245723 Code(s): I10 - ESSENTIAL (PRIMARY) HYPERTENSION Status: Chronic Priority: Medium Current Visit: No Qualifiers: Hypertension type: unspecified Qualified Code(s): I10 - Essential (primary) hypertension (3) History of coronary artery stent placement SNOMED Code(s): 615382339, 568366900 Code(s): Z95.5 - PRESENCE OF CORONARY ANGIOPLASTY IMPLANT AND GRAFT Status: Chronic Priority: Medium Current Visit: No (4) CAD (coronary artery disease) SNOMED Code(s): 03425122 Code(s): I25.10 - ATHSCL HEART DISEASE OF [place] CORONARY ARTERY W/O ANG PCTRS Status: Chronic Priority: Medium Current Visit: No Qualifiers: Coronary Disease-Associated Artery/Lesion type: [place] artery [place] vs. transplanted heart: [place] heart Associated angina: angina presence unspecified Qualified Code(s): I25.10 - Atherosclerotic heart disease of [place] coronary artery without angina pectoris (5) COVID-19 SNOMED Code(s): 361059358 Code(s): U07.1 - COVID-19 Status: Acute Priority: High Current Visit: Yes (6) Hypoxia SNOMED Code(s): 676003353 Code(s): R09.02 - HYPOXEMIA Status: Acute Priority: High Current Visit: Yes (7) Elevated d-dimer SNOMED Code(s): 151656642 Code(s): R79.89 - OTHER SPECIFIED ABNORMAL FINDINGS OF BLOOD CHEMISTRY Status: Acute Priority: High Current Visit: Yes (8) Cardiomegaly SNOMED Code(s): 3741258 Code(s): I51.7 - CARDIOMEGALY Status: Chronic Priority: Low Current Visit: No (9) Pulmonary embolism SNOMED Code(s): 73112488 Code(s): I26.99 - OTHER PULMONARY EMBOLISM WITHOUT ACUTE COR PULMONALE Status: Acute Priority: High Current Visit: Yes Qualifiers: Pulmonary embolism type: multiple subsegmental (without acute cor pulmonale) Qualified Code(s): I26.94 - Multiple subsegmental pulmonary emboli without acute cor pulmonale - Problem List Review Problem List Initiated/Reviewed/Updated: Yes - My Orders Last 24 Hours: My Active Orders 05/02/20 06:43 CMP [COMPREHENSIVE METABOLIC PN,CMP] [CHEM] AM CRP [C-REACTIVE PROTEIN] [CHEM] AM DD [D-DIMER QUANTITATIVE] [COAG] DAILY MAGNESIUM [CHEM] AM 05/03/20 05:11 CBC WITH AUTO DIFF [HEME] Q48H CMP [COMPREHENSIVE METABOLIC PN,CMP] [CHEM] AM CRP [C-REACTIVE PROTEIN] [CHEM] AM MAGNESIUM [CHEM] AM 05/03/20 08:19 DD [D-DIMER QUANTITATIVE] [COAG] DAILY 05/04/20 05:11 CMP [COMPREHENSIVE METABOLIC PN,CMP] [CHEM] AM CRP [C-REACTIVE PROTEIN] [CHEM] AM MAGNESIUM [CHEM] AM 05/04/20 08:19 DD [D-DIMER QUANTITATIVE] [COAG] DAILY 05/05/20 05:11 CBC WITH AUTO DIFF [HEME] Q48H CRP [C-REACTIVE PROTEIN] [CHEM] AM MAGNESIUM [CHEM] AM - Assessment Assessment:: 04/26/20 In to see Mao. He is laying in bed and is now on 2 L of oxygen. He reports he is feeling pretty good and only notes dyspnea when he is up moving around. He said he will occasionally cough and that will cause his saturations to drop as well. Reports it is a dry cough. He has no current concerns. We discussed plan of care and how he will likely need to remain hospitalized for the next 5 days to complete treatment. We discussed proning and patient reports that this is impossible for him because he has had neck surgery. We did discuss Acapella and incentive spirometry and he reports that he will continue working with this. Otherwise labs continue to look good. CRP has decreased and kidney function calabrese s improved. D-dimer remained stable. Leukopenia noted. we will continue current treatment plan. Likely discharge Wednesday pending continued improvement as I will be the day he completes treatment. 04/27/20 Patient is experiencing SOB with pleuritic CP. Will be transferred to ICU; ABG is pending. PCXR documents SARS-COV-2 PNA. 04/28/2020 Patient is improving. He was on room air with oxygen saturations in the low 90s while proning today. Otherwise he is on 3 L. D-dimer did increase up to 2.78 which is a significant change. He is on Lovenox 40 mg twice daily. We will continue to monitor D-dimer, shortness of breath, lower extremity signs and symptoms. Since he is improving I would not get a CTA at this time. Blood sugars this morning are up to 160, therefore will start fingerstick blood sugars and sliding scale insulin to keep his blood sugars less than 200 if possible. This is likely secondary to dexamethasone. Mild hypokalemia and given 40 mEq of potassium orally. Blood pressure is well controlled with blood pressures mostly less than 150 except for an occasional systolic blood pressure in the 150s. Patient has not received Actemra, but will hold off on treatment unless he has significant worsening in oxygen requirements. 04/29/20 In to see Mao. He is currently on 4 L. He continues to work on proning and utilize his incentive spirometer and Acapella. Potassium is improved. WBC is increasing but this is likely secondary to steroid use. Otherwise he remained stable. He states he gets very short of breath when he gets up to use the restroom and has been having coughing fits. We will add dextromethorphan/ guaifenesin as needed. No other nursing or patient concerns. Patient will remain hospitalized till he finishes his Covid treatment and is weaned down on oxygen. 04/30/20 In to see Mao. He is proning in the bed and doing quite well. He has improved to 3 L. When proning he is noted to have saturations in the upper 90s however with movement he drops into the 80s. He continues to utilize his incentive spirometer and Acapella. We discussed his chronic back pain which is exacerbated by proning. Discussed pain medications for this and how important proning, along with his Acapella and incentive spirometry are. He stated how he feels like he gets winded so quick when ambulating. CTA yesterday showed very small pulmonary embolisms and he was started on 1 mg/kg Lovenox twice daily. Bilateral lower extremity ultrasounds were negative for any DVT. Nursing repor ts they are going to try to encourage more proning today with the patient. Goal is to increase endurance and decrease oxygen needed to 2 L or less prior to discharge. Labs today: WBC 9.20. Hemoglobin 14.2. Platelet 221. Neutrophils elevated at 7.55. D-dimer down to 9.52. Sodium 141. Potassium 4.0. Anion gap 12.0. BUN 28, creatinine 1.0, GFR greater than 60. Glucose 96. AST 26, ALT 68, alkaline phosphatase 128. 05/01/20 In to see Mao. He is proning in the bed currently. He reports he feels a little better and he is down to 3 L on oxygen. He does note that he has significant shortness of breath when getting up to use the bathroom still. We discussed his scan results indicating very small pulmonary embolisms. Discussed how he has shown improvement when he is proning and utilizing his incentive spirometer and Acapella. He agrees to continue to do this. Nursing will push with this as well. He reports back pain due to to compression fractures which is chronic for him and exacerbated by proning. We discussed pain medications to assist with this and how there has to be some [id number]. Otherwise he is doing better today. We will continue current treatment plan with goal to decrease oxygen demand to 2 L or less prior to discharge. 05/02/20 In to see Mao. He is on 3.5 L of oxygen and is laying in bed. He has been proning and utilizing his incentive spirometer and Acapella. Continues to have worsening dyspnea with exertion but states he feels like he is getting some better energy. We will downgrade him today to MedSurg status as he is remained quite stable. D-dimer today 5.20. Sodium 144. Potassium 4.1. Chloride 108. Carbon oxide 25. Anion gap is up to 15.1. BUN 31, creatinine 1.0, GFR greater than 60. Glucose 10 7-1 69. Magnesium 2.2. Bilirubin 0.5. AST 20, ALT 60, alkaline phosphatase 117. CRP is 1.4. Albumin is up to 2.4. Continue current treatment plan. Goal remains improvement of oxygenation to requiring less than 2 L and building of endurance. - Plan Plan:: COVID-19 Hypoxia Elevated D-Dimer Pulmonary embolism * O2 as needed to keep saturations 88-96% * Completed azithromycin * Completed Rocephin * Completed Remdisivir * Continue dexamethasone 6mg PO - Day 8 of 10 * Given Actemra due to worsening saturations * PRN albuterol inhaler * Consult RT * IS/Acapella * Prone whenever able * Airborne/contact precautions * Monitor labs * OT/PT consult * Zinc supplementation * Telemetry/continuous pulse oximeter * Continue Lovenox to 88mg BID due to D-Dimer of 10/PEs * CTA for elevated D-Dimer * Bilateral lower extremity US HLD (hyperlipidemia) HTN (hypertension) History of coronary artery stent placement CAD (coronary artery disease) Cardiomegaly * Continue home medications as directed * Telemetry Code status: Full Code PCP: Nano Guzman NP DVT prophylaxis: Lovenox Social: Patient resides in [facility] Disposition: Patient upgraded to ICU status due to worsening SOB, Elevated D- dimer, Worsening oxygen saturations. LOS>96 Hrs due to need for continued COVID-19 treatment, Hypoxia.
[2020-05-02] MEDS: Dexamethasone 4 MG Tab PO SCH (08:25)
[2020-05-02] MEDS: Pantoprazole 40 MG Tab.CR PO SCH (08:25)
[2020-05-02] MEDS: Doxazosin 2 MG Tab PO SCH (08:26)
[2020-05-02] MEDS: Zinc Sulfate 220 MG Cap PO SCH (08:27)
[2020-05-02] MEDS: guaiFENesin 600 MG Tab.ER PO SCH ×2 (08:27→21:39)
[2020-05-02] MEDS: Fluticasone Propionate Nasal Spray 16 GM Bottle NASBOTH SCH (08:27)
[2020-05-02] MEDS: Aspirin 81 MG Tab.EC PO SCH (08:27)
[2020-05-02] MEDS: Cholecalciferol (Vitamin D3) 25 MCG Tab PO SCH (08:28)
[2020-05-02] MEDS: atorvaSTATin 20 MG Tab PO SCH (08:28)
[2020-05-02] MEDS: Enoxaparin 100 MG/1 ML Syringe SUBCUT SCH ×2 (08:32→21:39)
[2020-05-03] MEDS: Acetaminophen/HYDROcodone 325-5 MG Tab PO PRN ×3 (03:36→22:50)
[2020-05-03] MEDS: Albuterol 0.083% 2.5 MG/3 ML Neb Soln NEB PRN ×2 (03:52→20:23)
--- NOTE | 2020-05-03 07:21 | PCM.PN ---
- General Info Date of Service: 05/03/20 Admission Dx/Problem (Free Text): Admission Diagnosis/Problem Admission Diagnosis/Problem Hypoxia Subjective Update: In to see Mao. He is laying in bed and preparing to prone. He reports he feels good however he is up to 5 L to keep his saturations within goal. Per nursing yesterday patient had acute episode of desaturations and is requiring 6 L. He does not feel short of breath until he starts to exert himself. Denies any current pain. Reports an occasional dry cough. Otherwise states he is doing fairly well. We will continue current treatment plan and he was encouraged to prone often and utilize incentive spirometry and Acapella. Unknown length of stay due to continued need for increased oxygen. Functional Status: Reports: Pain Controlled, Tolerating Diet, Ambulating, Urinating, Incentive Spirometry, Other (Acapella ). Denies: New Symptoms - Review of Systems General: Reports: No Symptoms. Denies: Fever, Weakness, Fatigue, Malaise, C [place] HEENT: Reports: No Symptoms. Denies: Headaches, Sore Throat Pulmonary: Reports: No Symptoms, Cough. Denies: Shortness of Breath, Pleuritic Chest Pain, Sputum, Wheezing Cardiovascular: Reports: No Symptoms, Dyspnea on Exertion. Denies: Chest Pain, Palpitations, Edema Gastrointestinal: Reports: No Symptoms. Denies: Abdominal Pain, Constipation, Diarrhea, Nausea, Vomiting Genitourinary: Reports: No Symptoms. Denies: Pain Musculoskeletal: Reports: No Symptoms Skin: Reports: No Symptoms. Denies: Cyanosis Neurological: Reports: No Symptoms. Denies: Confusion, Pre-Existing Deficit, Difficulty Walking, Weakness, Gait Disturbance Psychiatric: Reports: No Symptoms - Patient Data Vitals - Most Recent: Last Vital Signs Temp 97.5 F 05/03/20 03:22 Pulse 54 L 05/03/20 03:22 Resp 18 05/03/20 03:22 BP 147/88 H 05/03/20 03:22 Pulse Ox 93 L 05/03/20 06:30 Weight - Most Recent: 183 lb 4.8 oz I&O - Last 24 Hours: Intake & Output 05/02/20 05/03/20 05/03/20 22:59 06:59 14:59 Intake Total 660 Output Total 200 200 Balance 460 -200 Lab Results Last 24 Hours: Laboratory Results - last 24 hr 05/02/20 05/02/20 05/02/20 Range/Units 06:43 06:43 17:32 WBC (4.23-9.07) K/mm3 RBC (4.63-6.08) M/mm3 Hgb (13.7-17.5) gm/dl Hct (40.1-51.0) % MCV (79.0-92.2) fl MCH (25.7-32.2) pg MCHC (32.2-35.5) g/dl RDW Std Deviation (35.1-43.9) fL Plt Count (163-337) K/mm3 MPV (9.4-12.3) fl Neut % (Auto) (34.0-67.9) % Lymph % (Auto) (21.8-53.1) % Burke % (Auto) (5.3-12.2) % Eos % (Auto) (0.8-7.0) Baso % (Auto) (0.1-1.2) % Neut # (Auto) (1.78-5.38) K/mm3 Lymph # (Auto) (1.32-3.57) K/mm3 [place] # (Auto) (0.30-0.82) K/mm3 Eos # (Auto) (0.04-0.54) K/mm3 Baso # (Auto) (0.01-0.08) K/mm3 Manual Slide Review D-Dimer, Quantitative 5.20 H (0.19-0.50) mg/L Sodium 144 (136-145) mEq/L Potassium 4.1 (3.5-5.1) mEq/L Chloride 108 H (98-107) mEq/L Carbon Dioxide 25 (21-32) mEq/L Anion Gap 15.1 H (5-15) BUN 31 H (7-18) mg/dL Creatinine 1.0 (0.7-1.3) mg/dL Est Cr Clr Drug Dosing 69.03 mL/min Estimated GFR (MDRD) > 60 (>60) mL/min BUN/Creatinine Ratio 31.0 H (14-18) Glucose 107 (83-115) mg/dL POC Glucose 122 H (83-110) mg/dL Calcium 8.5 (8.5-10.1) mg/dL Magnesium 2.2 (1.8-2.4) mg/dl Total Bilirubin 0.5 (0.2-1.0) mg/dL AST 20 (15-37) U/L ALT 60 (16-63) U/L Alkaline Phosphatase 117 H (46-116) U/L C-Reactive Protein 1.4 H* (<1.0) mg/dL Total Protein 5.8 L (6.4-8.2) g/dl Albumin 2.4 L (3.4-5.0) g/dl Globulin 3.4 gm/dL Albumin/Globulin Ratio 0.7 L (1-2) 05/03/20 05/03/20 05/03/20 Range/Units 05:27 05:27 05:27 WBC 11.81 H (4.23-9.07) K/mm3 RBC 4.87 (4.63-6.08) M/mm3 Hgb 13.9 (13.7-17.5) gm/dl Hct 42.4 (40.1-51.0) % MCV 87.1 (79.0-92.2) fl MCH 28.5 (25.7-32.2) pg MCHC 32.8 (32.2-35.5) g/dl RDW Std Deviation 44.8 H (35.1-43.9) fL Plt Count 277 (163-337) K/mm3 MPV 10.7 (9.4-12.3) fl Neut % (Auto) 86.1 H (34.0-67.9) % Lymph % (Auto) 4.4 L (21.8-53.1) % [place] % (Auto) 8.7 (5.3-12.2) % Eos % (Auto) 0 L (0.8-7.0) Baso % (Auto) 0.0 L (0.1-1.2) % Neut # (Auto) 10.16 H (1.78-5.38) K/mm3 Lymph # (Auto) 0.52 L (1.32-3.57) K/mm3 [place] # (Auto) 1.03 H (0.30-0.82) K/mm3 Eos # (Auto) 0.00 L (0.04-0.54) K/mm3 Baso # (Auto) 0.00 L (0.01-0.08) K/mm3 Manual Slide Review Abnormal smear D-Dimer, Quantitative 4.11 H (0.19-0.50) mg/L Sodium 143 (136-145) mEq/L Potassium 4.3 (3.5-5.1) mEq/L Chloride 109 H (98-107) mEq/L Carbon Dioxide 23 (21-32) mEq/L Anion Gap 15.3 H (5-15) BUN 28 H (7-18) mg/dL Creatinine 1.0 (0.7-1.3) mg/dL Est Cr Clr Drug Dosing 69.03 mL/min Estimated GFR (MDRD) > 60 (>60) mL/min BUN/Creatinine Ratio 28.0 H (14-18) Glucose 106 (83-115) mg/dL POC Glucose (83-110) mg/dL Calcium 8.6 (8.5-10.1) mg/dL Magnesium 2.1 (1.8-2.4) mg/dl Total Bilirubin 0.6 (0.2-1.0) mg/dL AST 17 (15-37) U/L ALT 49 (16-63) U/L Alkaline Phosphatase 109 (46-116) U/L C-Reactive Protein 0.7 (<1.0) mg/dL Total Protein 5.5 L (6.4-8.2) g/dl Albumin 2.4 L (3.4-5.0) g/dl Globulin 3.1 gm/dL Albumin/Globulin Ratio 0.8 L (1-2) Med Orders - Current: Current Medications Acetaminophen (Acetaminophen 325 Mg Tab) 650 mg PO Q6H PRN PRN Reason: Pain/Fever Last Admin: 04/26/20 19:23 Dose: 650 mg Documented by: Hydrocodone Bitart/Acetaminophen (Acetaminophen/Hydrocodone 325-5 Mg Tab) 2 tab PO Q12H PRN PRN Reason: Pain Last Admin: 05/03/20 03:36 Dose: 2 tab Documented by: Albuterol (Albuterol 0.083% 2.5 Mg/3 Ml Neb Soln) 2.5 mg NEB Q4HRRT PRN PRN Reason: Shortness of Breath Last Admin: 05/03/20 03:52 Dose: 2.5 mg Documented by: Aspirin (Aspirin 81 Mg Tab.Ec) 81 mg PO DAILY [facility] Last Admin: 05/02/20 08:27 Dose: 81 mg Documented by: Atorvastatin Calcium (Atorvastatin 20 Mg Tab) 10 mg PO DAILY [facility] Last Admin: 05/02/20 08:28 Dose: 10 mg Documented by: Cholecalciferol (Cholecalciferol (Vitamin D3) 25 Mcg Tab) 50 mcg PO DAILY [facility] Last Admin: 05/02/20 08:28 Dose: 50 mcg Documented by: Dexamethasone (Dexamethasone 4 Mg Tab) 6 mg PO DAILY [facility] Stop: 05/05/20 09:01 Last Admin: 05/02/20 08:25 Dose: 6 mg Documented by: Doxazosin Mesylate (Doxazosin 2 Mg Tab) 6 mg PO DAILY [facility] Last Admin: 05/02/20 08:26 Dose: 6 mg Documented by: Enoxaparin Sodium (Enoxaparin 100 Mg/1 Ml Syringe) 88 mg SUBCUT Q12H [facility] Last Admin: 05/02/20 21:39 Dose: 88 mg Documented by: Fluticasone Propionate (Fluticasone Propionate Nasal [place] 16 Gm Bottle) 0 gm NASBOTH DAILY [facility] Last Admin: 05/02/20 08:27 Dose: 1 spray Documented by: Guaifenesin (Guaifenesin 600 Mg Tab.Er) 600 mg PO BID [facility] Last Admin: 05/02/20 21:39 Dose: 600 mg Documented by: Guaifenesin/Phenylephrine HCl (Guaifenesin/Dextromethorphan 100-10 Mg/5 Ml Soln 5 Ml Cup) 10 ml PO Q6H PRN PRN Reason: Cough Last Admin: 04/30/20 20:00 Dose: 10 ml Documented by: Pantoprazole Sodium (Pantoprazole 40 Mg Tab.Cr) 40 mg PO DAILY [facility] Last Admin: 05/02/20 08:25 Dose: 40 mg Documented by: Sodium Chloride (Sodium Chloride 0.9% 10 Ml Syringe) 10 ml FLUSH ASDIRECTED PRN PRN Reason: Keep Vein Open Last Admin: 04/25/20 11:17 Dose: 10 ml Documented by: Trazodone HCl (Trazodone 50 Mg Tab) 50 mg PO BEDTIME PRN PRN Reason: Sleep Last Admin: 04/27/20 21:22 Dose: 50 mg Documented by: Zinc Sulfate (Zinc Sulfate 220 Mg Cap) 220 mg PO DAILY [facility] Last Admin: 05/02/20 08:27 Dose: 220 mg Documented by: Discontinued Medications Albuterol (Albuterol 6.7 Gm Inhaler) 0 gm INH Q4H PRN PRN Reason: SOB/Wheezing Albuterol/Ipratropium (Albuterol/Ipratropium 3.0-0.5 Mg/3 Ml Neb Soln) 3 ml NEB Q6HRRT [facility] Last Admin: 04/28/20 03:22 Dose: 3 ml Documented by: Dexamethasone (Dexamethasone 4 Mg Tab) 6 mg PO ONETIME ONE Stop: 04/25/20 11:57 Last Admin: 04/25/20 12:14 Dose: 6 mg Documented by: Doxazosin Mesylate (Doxazosin 2 Mg Tab) 6 mg PO DAILY [facility] Last Admin: 04/26/20 12:16 Dose: Not Given Documented by: Enoxaparin Sodium (Enoxaparin 40 Mg/0.4 Ml Syringe) 40 mg SUBCUT Q12H [facility] Last Admin: 04/27/20 05:23 Dose: 40 mg Documented by: Enoxaparin Sodium (Enoxaparin 40 Mg/0.4 Ml Syringe) 40 mg SUBCUT BID [facility] Last Admin: 04/29/20 20:23 Dose: 40 mg Documented by: Sodium Chloride (Normal Saline) 100 mls @ 60 mls/hr IV ASDIRECTED [facility] Last Admin: 04/25/20 14:12 Dose: 60 mls/hr Documented by: Azithromycin 500 mg/ Sodium (Chloride) 250 mls @ 250 mls/hr IV ONETIME ONE Stop: 04/25/20 15:46 Last Admin: 04/25/20 15:20 Dose: 250 mls/hr Documented by: Ceftriaxone Sodium 2 gm/ (Sodium Chloride) 100 mls @ 200 mls/hr IV Q24H [facility] Stop: 04/29/20 17:29 Last Admin: 04/26/20 17:24 Dose: 200 mls/hr Documented by: Azithromycin 500 mg/ Sodium (Chloride) 250 mls @ 250 mls/hr IV Q24H [facility] Stop: 04/27/20 15:59 Last Admin: 04/27/20 14:54 Dose: 250 mls/hr Documented by: Remdesivir 200 mg/ Sodium (Chloride) 250 mls @ 250 mls/hr IV ONETIME ONE Stop: 04/26/20 12:59 Last Admin: 04/26/20 12:48 Dose: 250 mls/hr Documented by: Remdesivir 100 mg/ Sodium (Chloride) 100 mls @ 100 mls/hr IV Q24H [facility] Stop: 04/30/20 12:59 Last Admin: 04/30/20 12:06 Dose: 100 mls/hr Documented by: Ceftriaxone Sodium 2 gm/ (Sodium Chloride) 100 mls @ 200 mls/hr IV Q24H [facility] Stop: 04/29/20 21:29 Last Admin: 04/29/20 20:23 Dose: 200 mls/hr Documented by: Sodium Chloride (Normal Saline) 100 mls @ 75 mls/hr IV ASDIRECTED [facility] Stop: 04/30/20 11:00 Last Admin: 04/30/20 09:15 Dose: 75 mls/hr Documented by: Tocilizumab 800 mg/ Sodium (Chloride) 100 mls @ 100 mls/hr IV ONETIME ONE Stop: 04/30/20 09:29 Last Admin: 04/30/20 08:03 Dose: 100 mls/hr Documented by: Insulin Human Lispro (Insulin Lispro 100 Unit/Ml) 0 unit SUBCUT QIDACANDBED [facility]; Protocol Last Admin: 05/01/20 06:37 Dose: Not Given Documented by: Iopamidol (Iopamidol 755 Mg/Ml 100 Ml Bottle) 100 ml IVPUSH ONETIME ONE Stop: 04/25/20 13:05 Last Admin: 04/25/20 14:11 Dose: 100 ml Documented by: Iopamidol (Iopamidol 755 Mg/Ml 100 Ml Bottle) 100 ml IVPUSH ONETIME ONE Stop: 04/30/20 07:32 Last Admin: 04/30/20 09:14 Dose: 100 ml Documented by: Ketorolac Tromethamine (Ketorolac 30 Mg/Ml Sdv) 30 mg IVPUSH ONETIME ONE Stop: 04/25/20 14:49 Last Admin: 04/25/20 15:19 Dose: 30 mg Documented by: Potassium Chloride (Potassium Chloride 20 Meq Tab.Er) 40 meq PO ONETIME ONE Stop: 04/28/20 12:01 Last Admin: 04/28/20 11:20 Dose: 40 meq Documented by: Sodium Chloride (Sodium Chloride 0.9% 10 Ml Syringe) 10 ml FLUSH ONETIME ONE Stop: 04/25/20 13:05 Last Admin: 04/25/20 14:11 Dose: 10 ml Documented by: Sodium Chloride (Sodium Chloride 0.9% 10 Ml Syringe) 10 ml FLUSH ONETIME PRN PRN Reason: IV FLUSH Last Admin: 04/30/20 09:14 Dose: 10 ml Documented by: - Exam Quality Assessment: Supplemental Oxygen (5L), DVT Prophylaxis. No: Urine Catheter General: Alert, Oriented, Cooperative, No Acute Distress HEENT: Pupils Equal, Pupils Reactive, Mucous Membr. Moist/[place] Neck: Supple, Trachea Midline Lungs: Normal Respiratory Effort, Decreased Breath Sounds, Crackles (bibasilar ) Cardiovascular: Regular Rate, Regular Rhythm GI/Abdominal Exam: Normal Bowel Sounds, Soft, Non-Tender, No Distention (Male) Exam: Deferred Back Exam: Normal Inspection, Full Range of Motion Extremities: Normal Inspection, Normal Range of Motion, Non-Tender, No Pedal Edema, Normal Capillary Refill Peripheral Pulses: 2+: Radial (L), Radial (R), Dorsalis Pedis (L), Dorsalis Pedis (R) Skin: Warm, Dry, Intact Neurological: No New Focal Deficit Psy/Mental Status: Alert, Normal Affect, Normal Mood - Patient Data Lab Results Last 24 hrs: Laboratory Results - last 24 hr 05/02/20 05/02/20 05/02/20 Range/Units 06:43 06:43 17:32 WBC (4.23-9.07) K/mm3 RBC (4.63-6.08) M/mm3 Hgb (13.7-17.5) gm/dl Hct (40.1-51.0) % MCV (79.0-92.2) fl MCH (25.7-32.2) pg MCHC (32.2-35.5) g/dl RDW Std Deviation (35.1-43.9) fL Plt Count (163-337) K/mm3 MPV (9.4-12.3) fl Neut % (Auto) (34.0-67.9) % Lymph % (Auto) (21.8-53.1) % [place] % (Auto) (5.3-12.2) % Eos % (Auto) (0.8-7.0) Baso % (Auto) (0.1-1.2) % Neut # (Auto) (1.78-5.38) K/mm3 Lymph # (Auto) (1.32-3.57) K/mm3 [place] # (Auto) (0.30-0.82) K/mm3 Eos # (Auto) (0.04-0.54) K/mm3 Baso # (Auto) (0.01-0.08) K/mm3 Manual Slide Review D-Dimer, Quantitative 5.20 H (0.19-0.50) mg/L Sodium 144 (136-145) mEq/L Potassium 4.1 (3.5-5.1) mEq/L Chloride 108 H (98-107) mEq/L Carbon Dioxide 25 (21-32) mEq/L Anion Gap 15.1 H (5-15) BUN 31 H (7-18) mg/dL Creatinine 1.0 (0.7-1.3) mg/dL Est Cr Clr Drug Dosing 69.03 mL/min Estimated GFR (MDRD) > 60 (>60) mL/min BUN/Creatinine Ratio 31.0 H (14-18) Glucose 107 (83-115) mg/dL POC Glucose 122 H (83-110) mg/dL Calcium 8.5 (8.5-10.1) mg/dL Magnesium 2.2 (1.8-2.4) mg/dl Total Bilirubin 0.5 (0.2-1.0) mg/dL AST 20 (15-37) U/L ALT 60 (16-63) U/L Alkaline Phosphatase 117 H (46-116) U/L C-Reactive Protein 1.4 H* (<1.0) mg/dL Total Protein 5.8 L (6.4-8.2) g/dl Albumin 2.4 L (3.4-5.0) g/dl Globulin 3.4 gm/dL Albumin/Globulin Ratio 0.7 L (1-2) 05/03/20 05/03/20 05/03/20 Range/Units 05:27 05:27 05:27 WBC 11.81 H (4.23-9.07) K/mm3 RBC 4.87 (4.63-6.08) M/mm3 Hgb 13.9 (13.7-17.5) gm/dl Hct 42.4 (40.1-51.0) % MCV 87.1 (79.0-92.2) fl MCH 28.5 (25.7-32.2) pg MCHC 32.8 (32.2-35.5) g/dl RDW Std Deviation 44.8 H (35.1-43.9) fL Plt Count 277 (163-337) K/mm3 MPV 10.7 (9.4-12.3) fl Neut % (Auto) 86.1 H (34.0-67.9) % Lymph % (Auto) 4.4 L (21.8-53.1) % [place] % (Auto) 8.7 (5.3-12.2) % Eos % (Auto) 0 L (0.8-7.0) Baso % (Auto) 0.0 L (0.1-1.2) % Neut # (Auto) 10.16 H (1.78-5.38) K/mm3 Lymph # (Auto) 0.52 L (1.32-3.57) K/mm3 [place] # (Auto) 1.03 H (0.30-0.82) K/mm3 Eos # (Auto) 0.00 L (0.04-0.54) K/mm3 Baso # (Auto) 0.00 L (0.01-0.08) K/mm3 Manual Slide Review Abnormal smear D-Dimer, Quantitative 4.11 H (0.19-0.50) mg/L Sodium 143 (136-145) mEq/L Potassium 4.3 (3.5-5.1) mEq/L Chloride 109 H (98-107) mEq/L Carbon Dioxide 23 (21-32) mEq/L Anion Gap 15.3 H (5-15) BUN 28 H (7-18) mg/dL Creatinine 1.0 (0.7-1.3) mg/dL Est Cr Clr Drug Dosing 69.03 mL/min Estimated GFR (MDRD) > 60 (>60) mL/min BUN/Creatinine Ratio 28.0 H (14-18) Glucose 106 (83-115) mg/dL POC Glucose (83-110) mg/dL Calcium 8.6 (8.5-10.1) mg/dL Magnesium 2.1 (1.8-2.4) mg/dl Total Bilirubin 0.6 (0.2-1.0) mg/dL AST 17 (15-37) U/L ALT 49 (16-63) U/L Alkaline Phosphatase 109 (46-116) U/L C-Reactive Protein 0.7 (<1.0) mg/dL Total Protein 5.5 L (6.4-8.2) g/dl Albumin 2.4 L (3.4-5.0) g/dl Globulin 3.1 gm/dL Albumin/Globulin Ratio 0.8 L (1-2) Result Diagrams: 05/03/20 05:27 05/03/20 05:27 Sepsis Event Note - Evaluation Sepsis Screening Result: No Definite Risk - Focused Exam Vital Signs: Vital Signs Temp Pulse Resp BP Pulse Ox Pulse Ox 05/03/20 06:30 93 L 05/03/20 06:20 94 L 05/03/20 06:00 97 05/03/20 03:52 93 L 05/03/20 03:40 83 L 05/03/20 03:22 97.5 F 54 L 18 147/88 H 90 L 05/03/20 03:06 95 05/03/20 01:40 83 L 05/02/20 21:45 91 L 05/02/20 20:00 97.6 F 20 149/75 H 89 L - Problem List & Annotations (1) HLD (hyperlipidemia) SNOMED Code(s): 59282675 Code(s): E78.5 - HYPERLIPIDEMIA, UNSPECIFIED Status: Chronic Priority: Low Current Visit: No Qualifiers: Hyperlipidemia type: unspecified Qualified Code(s): E78.5 - Hyperlipidemia, unspecified (2) HTN (hypertension) SNOMED Code(s): 09499290 Code(s): I10 - ESSENTIAL (PRIMARY) HYPERTENSION Status: Chronic Priority: Medium Current Visit: No Qualifiers: Hypertension type: unspecified Qualified Code(s): I10 - Essential (primary) hypertension (3) History of coronary artery stent placement SNOMED Code(s): 480404181, 506304372 Code(s): Z95.5 - PRESENCE OF CORONARY ANGIOPLASTY IMPLANT AND GRAFT Status: Chronic Priority: Medium Current Visit: No (4) CAD (coronary artery disease) SNOMED Code(s): 80089595 Code(s): I25.10 - ATHSCL HEART DISEASE OF [place] CORONARY ARTERY W/O ANG PCTRS Status: Chronic Priority: Medium Current Visit: No Qualifiers: Coronary Disease-Associated Artery/Lesion type: [place] artery [place] vs. transplanted heart: [place] heart Associated angina: angina presence unspecified Qualified Code(s): I25.10 - Atherosclerotic heart disease of [place] coronary artery without angina pectoris (5) COVID-19 SNOMED Code(s): 649582266 Code(s): U07.1 - COVID-19 Status: Acute Priority: High Current Visit: Yes (6) Hypoxia SNOMED Code(s): 174068686 Code(s): R09.02 - HYPOXEMIA Status: Acute Priority: High Current Visit: Yes (7) Elevated d-dimer SNOMED Code(s): 564322266 Code(s): R79.89 - OTHER SPECIFIED ABNORMAL FINDINGS OF BLOOD CHEMISTRY Status: Acute Priority: High Current Visit: Yes (8) Cardiomegaly SNOMED Code(s): 1359321 Code(s): I51.7 - CARDIOMEGALY Status: Chronic Priority: Low Current Visit: No (9) Pulmonary embolism SNOMED Code(s): 23811864 Code(s): I26.99 - OTHER PULMONARY EMBOLISM WITHOUT ACUTE COR PULMONALE Status: Acute Priority: High Current Visit: Yes Qualifiers: Pulmonary embolism type: multiple subsegmental (without acute cor pulmonale) Qualified Code(s): I26.94 - Multiple subsegmental pulmonary emboli without acute cor pulmonale - Problem List Review Problem List Initiated/Reviewed/Updated: Yes - My Orders Last 24 Hours: My Active Orders 05/02/20 09:51 Up to Chair [RC] ASDIRECTED 05/02/20 10:01 Patient Status [ADT] Routine 05/03/20 08:00 Chest 1V Frontal [CR] Routine 05/04/20 05:11 CMP [COMPREHENSIVE METABOLIC PN,CMP] [CHEM] AM CRP [C-REACTIVE PROTEIN] [CHEM] AM MAGNESIUM [CHEM] AM 05/04/20 08:19 DD [D-DIMER QUANTITATIVE] [COAG] DAILY 05/05/20 05:11 CBC WITH AUTO DIFF [HEME] Q48H CRP [C-REACTIVE PROTEIN] [CHEM] AM MAGNESIUM [CHEM] AM - Assessment Assessment:: 04/26/20 In to see Mao. He is laying in bed and is now on 2 L of oxygen. He reports he is feeling pretty good and only notes dyspnea when he is up moving around. He said he will occasionally cough and that will cause his saturations to drop as well. Reports it is a dry cough. He has no current concerns. We discussed plan of care and how he will likely need to remain hospitalized for the next 5 days to complete treatment. We discussed proning and patient reports that this is impossible for him because he has had neck surgery. We did discuss Acapella and incentive spirometry and he reports that he will continue working with this. Otherwise labs continue to look good. CRP has decreased and kidney function has improved. D-dimer remained stable. Leukopenia noted. we will continue current treatment plan. Likely discharge Wednesday pending continued improvement as I will be the day he completes treatment. 04/27/20 Patient is experiencing SOB with pleuritic CP. Will be transferred to ICU; ABG is pending. PCXR documents SARS-COV-2 PNA. 04/28/2020 Patient is improving. He was on room air with oxygen saturations in the low 90s while proning today. Otherwise he is on 3 L. D-dimer did increase up to 2.78 which is a significant change. He is on Lovenox 40 mg twice daily. We will continue to monitor D-dimer, shortness of breath, lower extremity signs and symptoms. Since he is improving I would not get a CTA at this time. Blood sugars this morning are up to 160, therefore will start fingerstick blood sugars and sliding scale insulin to keep his blood sugars less than 200 if possible. This is likely secondary to dexamethasone. Mild hypokalemia and given 40 mEq of potassium orally. Blood pressure is well controlled with blood pressures mostly less than 150 except for an occasional systolic blood pressure in the 150s. Patient has not received Actemra, but will hold off on treatment unless he has significant worsening in oxygen requirements. 04/29/20 In to see Mao. He is currently on 4 L. He continues to work on proning and utilize his incentive spirometer and Acapella. Potassium is improved. WBC is increasing but this is likely secondary to steroid use. Otherwise he remained stable. He states he gets very short of breath when he gets up to use the restroom and has been having coughing fits. We will add dextromethorphan/guaifenesin as needed. No other nursing or patient concerns. Patient will remain hospitalized till he finishes his Covid treatment and is wea william down on oxygen. 04/30/20 In to see Mao. He is proning in the bed and doing quite well. He has improved to 3 L. When proning he is noted to have saturations in the upper 90s however with movement he drops into the 80s. He continues to utilize his incentive spirometer and Acapella. We discussed his chronic back pain which is exacerbated by proning. Discussed pain medications for this and how important proning, along with his Acapella and incentive spirometry are. He stated how he feels like he gets winded so quick when ambulating. CTA yesterday showed very small pulmonary embolisms and he was started on 1 mg/kg Lovenox twice daily. Bilateral lower extremity ultrasounds were negative for any DVT. Nursing reports they are going to try to encourage more proning today with the patient. Goal is to increase endurance and decrease oxygen needed to 2 L or less prior to discharge. Labs today: WBC 9.20. Hemoglobin 14.2. Platelet 221. Neutrophils elevated at 7.55. D-dimer down to 9.52. Sodium 141. Potassium 4.0. Anion gap 12.0. BUN 28, creatinine 1.0, GFR greater than 60. Glucose 96. AST 26, ALT 68, alkaline phosphatase 128. 05/01/20 In to see Mao. He is proning in the bed currently. He reports he feels a little better and he is down to 3 L on oxygen. He does note that he has significant shortness of breath when getting up to use the bathroom still. We discussed his scan results indicating very small pulmonary embolisms. Discussed how he has shown improvement when he is proning and utilizing his incentive spirometer and Acapella. He agrees to continue to do this. Nursing will push with this as well. He reports back pain due to to compression fractures which is chronic for him and exacerbated by proning. We discussed pain medications to assist with this and how there has to be some [id number]. Otherwise he is doing better today. We will continue current treatment plan with goal to decrease oxygen demand to 2 L or less prior to discharge. 05/02/20 In to see Mao. He is on 3.5 L of oxygen and is laying in bed. He has been proning and utilizing his incentive spirometer and Acapella. Continues to have worsening dyspnea with exertion but states he feels like he is getting some better energy. We will downgrade him today to MedSurg status as he is remained quite stable. D-dimer today 5.20. Sodium 144. Potassium 4.1. Chloride 108. Carbon oxide 25. Anion gap is up to 15.1. BUN 31, creatinine 1.0, GFR greater than 60. Glucose 10 7-1 69. Magnesium 2.2. Bilirubin 0.5. AST 20, ALT 60, alkaline phosphatase 117. CRP is 1.4. Albumin is up to 2.4. Continue current treatment plan. Goal remains improvement of oxygenation to requiring less than 2 L and building of endurance. 05/03/20 In to see Mao. Per nursing he had an episode of desaturation last night and was requiring 6 L to keep his saturations within goal. Since then he has been fluctuating but is currently at 5 L. He reports that he still feels pretty good, denies any pain, and states he is only short of breath with exertion. Repeat chest x-ray today was stable to worse. Intake remains good. He continues to prone and utilize his incentive spirometer and Acapella. This was encouraged again. Labs today show a leukocytosis of 11.81. He is receiving steroids but this is something we will monitor. Neutrophils are elevated 86.1. D-dimer is down to 4.11. Sodium is 143. Potassium 4.3. Carbon dioxide 23. Anion gap is 15.3. BUN is 28. Creatinine 1.0. GFR greater than 60. Glucose has been stable. Magnesium is 2.1. Bilirubin 0.6. AST 17, ALT 49, alkaline phosphatase 109. Albumin is down to 2.4. Unknown length of stay due to fluctuations in patient's oxygen demand. We will continue current treatment plan and monitor for signs of a secondary infection. - Plan Plan:: COVID-19 Hypoxia Elevated D-Dimer Pulmonary embolism * O2 as needed to keep saturations 88-96% * Completed Azithromycin * Completed Rocephin * Completed Remdisivir * Continue dexamethasone 6mg PO - Day 9 of 10 * Given Actemra due to worsening saturations * PRN albuterol inhaler * Consult RT * IS/Acapella * Prone whenever able * Airborne/contact precautions * Monitor labs * OT/PT consult * Zinc supplementation * Telemetry/continuous pulse oximeter * Continue Lovenox to 88mg BID due to D-Dimer of 10/PEs * CTA for elevated D-Dimer * Bilateral lower extremity US HLD (hyperlipidemia) HTN (hypertension) History of coronary artery stent placement CAD (coronary artery disease) Cardiomegaly * Continue home medications as directed * Telemetry Code status: Full Code PCP: Nano Guzman NP DVT prophylaxis: Lovenox Social: Patient resides in [facility] Disposition: Patient upgraded to ICU status due to worsening SOB, Elevated D- dimer, Worsening oxygen saturations. LOS>96 Hrs due to need for continued COVID-19 treatment, Hypoxia.
--- NOTE | 2020-05-03 08:29 | CR ---
Chest: Portable view of the chest was obtained. Comparison: Prior chest x-ray of 04/28/[address] study of 04/30/20. Increasing density is seen peripherally within both lungs. This is increased from prior chest x-ray. Heart size and mediastinum are stable. Previous cervical spine surgery is noted. No acute osseous finding is seen. Impression: 1. Parenchymal densities on both sides of the chest most likely representing so-called COVID pneumonia. This finding has increased from prior chest x-ray. Diagnostic code #3
[2020-05-03] MEDS: Cholecalciferol (Vitamin D3) 25 MCG Tab PO SCH (09:07)
[2020-05-03] MEDS: Dexamethasone 4 MG Tab PO SCH (09:07)
[2020-05-03] MEDS: guaiFENesin 600 MG Tab.ER PO SCH ×2 (09:07→20:06)
[2020-05-03] MEDS: Pantoprazole 40 MG Tab.CR PO SCH (09:08)
[2020-05-03] MEDS: Zinc Sulfate 220 MG Cap PO SCH (09:08)
[2020-05-03] MEDS: Aspirin 81 MG Tab.EC PO SCH (09:08)
[2020-05-03] MEDS: atorvaSTATin 20 MG Tab PO SCH (09:08)
[2020-05-03] MEDS: Fluticasone Propionate Nasal Spray 16 GM Bottle NASBOTH SCH (09:09)
[2020-05-03] MEDS: Enoxaparin 100 MG/1 ML Syringe SUBCUT SCH ×2 (09:09→20:02)
[2020-05-03] MEDS: Doxazosin 2 MG Tab PO SCH (09:10)
[2020-05-04] MEDS: Albuterol 0.083% 2.5 MG/3 ML Neb Soln NEB PRN ×2 (05:43→15:55)
[2020-05-04] MEDS: Pantoprazole 40 MG Tab.CR PO SCH (08:29)
[2020-05-04] MEDS: Dexamethasone 4 MG Tab PO SCH (08:30)
[2020-05-04] MEDS: atorvaSTATin 20 MG Tab PO SCH (08:30)
[2020-05-04] MEDS: Cholecalciferol (Vitamin D3) 25 MCG Tab PO SCH (08:31)
[2020-05-04] MEDS: Doxazosin 2 MG Tab PO SCH (08:32)
[2020-05-04] MEDS: guaiFENesin 600 MG Tab.ER PO SCH ×2 (08:33→20:39)
[2020-05-04] MEDS: Aspirin 81 MG Tab.EC PO SCH (08:33)
[2020-05-04] MEDS: Zinc Sulfate 220 MG Cap PO SCH (08:33)
[2020-05-04] MEDS: Enoxaparin 100 MG/1 ML Syringe SUBCUT SCH ×2 (08:34→20:39)
[2020-05-04] MEDS: Fluticasone Propionate Nasal Spray 16 GM Bottle NASBOTH SCH (08:37)
--- NOTE | 2020-05-04 16:47 | PCM.PN ---
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 Patient still complains of occasional dry cough. Otherwise denies nausea, vomiting, fever, or chills. encouraged to prone often and utilize incentive spirometry and Acapella. Patient is now on 4 L CRP 0.4 and D-dimer 3.96 - Review of Systems General: Reports: Fatigue HEENT: Reports: No Symptoms Pulmonary: Reports: Cough Cardiovascular: Reports: No Symptoms Gastrointestinal: Reports: No Symptoms Genitourinary: Reports: No Symptoms Musculoskeletal: Reports: No Symptoms Skin: Reports: No Symptoms Neurological: Reports: No Symptoms Psychiatric: Reports: No Symptoms - Patient Data Vitals - Most Recent: Last Vital Signs Temp 36.7 C 05/04/20 15:28 Pulse 58 L 05/04/20 15:28 Resp 20 05/04/20 15:28 BP 96/84 05/04/20 15:28 Pulse Ox 91 L 05/04/20 15:57 Weight - Most Recent: 83.28 kg I&O - Last 24 Hours: Intake & Output 05/04/20 05/04/20 05/04/20 06:59 14:59 22:59 Intake Total 700 620 500 Output Total 350 975 Balance 350 -355 500 Lab Results Last 24 Hours: Laboratory Results - last 24 hr 05/04/20 05/04/20 Range/Units 05:40 05:40 D-Dimer, Quantitative 3.96 H (0.19-0.50) mg/L Sodium 142 (136-145) mEq/L Potassium 4.3 (3.5-5.1) mEq/L Chloride 107 (98-107) mEq/L Carbon Dioxide 23 (21-32) mEq/L Anion Gap 16.3 H (5-15) BUN 26 H (7-18) mg/dL Creatinine 0.9 (0.7-1.3) mg/dL Est Cr Clr Drug Dosing 76.69 mL/min Estimated GFR (MDRD) > 60 (>60) mL/min BUN/Creatinine Ratio 28.9 H (14-18) Glucose 121 H (83-115) mg/dL Calcium 8.3 L (8.5-10.1) mg/dL Magnesium 2.1 (1.8-2.4) mg/dl Total Bilirubin 0.6 (0.2-1.0) mg/dL AST 18 (15-37) U/L ALT 48 (16-63) U/L Alkaline Phosphatase 106 (46-116) U/L C-Reactive Protein 0.4 (<1.0) mg/dL Total Protein 5.5 L (6.4-8.2) g/dl Albumin 2.4 L (3.4-5.0) g/dl Globulin 3.1 gm/dL Albumin/Globulin Ratio 0.8 L (1-2) Med Orders - Current: Current Medications Acetaminophen (Acetaminophen 325 Mg Tab) 650 mg PO Q6H PRN PRN Reason: Pain/Fever Last Admin: 04/26/20 19:23 Dose: 650 mg Documented by: Hydrocodone Bitart/Acetaminophen (Acetaminophen/Hydrocodone 325-5 Mg Tab) 2 tab PO Q12H PRN PRN Reason: Pain Last Admin: 05/03/20 22:50 Dose: 2 tab Documented by: Albuterol (Albuterol 0.083% 2.5 Mg/3 Ml Neb Soln) 2.5 mg NEB Q4HRRT PRN PRN Reason: Shortness of Breath Last Admin: 05/04/20 15:55 Dose: 2.5 mg Documented by: Aspirin (Aspirin 81 Mg Tab.Ec) 81 mg PO DAILY [facility] Last Admin: 05/04/20 08:33 Dose: 81 mg Documented by: Atorvastatin Calcium (Atorvastatin 20 Mg Tab) 10 mg PO DAILY [facility] Last Admin: 05/04/20 08:30 Dose: 10 mg Documented by: Cholecalciferol (Cholecalciferol (Vitamin D3) 25 Mcg Tab) 50 mcg PO DAILY [facility] Last Admin: 05/04/20 08:31 Dose: 50 mcg Documented by: Doxazosin Mesylate (Doxazosin 2 Mg Tab) 6 mg PO DAILY [facility] Last Admin: 05/04/20 08:32 Dose: 6 mg Documented by: Enoxaparin Sodium (Enoxaparin 100 Mg/1 Ml Syringe) 88 mg SUBCUT Q12H [facility] Last Admin: 05/04/20 08:34 Dose: 88 mg Documented by: Fluticasone Propionate (Fluticasone Propionate Nasal [place] 16 Gm Bottle) 0 gm NASBOTH DAILY [facility] Last Admin: 05/04/20 08:37 Dose: Not Given Documented by: Guaifenesin (Guaifenesin 600 Mg Tab.Er) 600 mg PO BID [facility] Last Admin: 05/04/20 08:33 Dose: 600 mg Documented by: Guaifenesin/Phenylephrine HCl (Guaifenesin/Dextromethorphan 100-10 Mg/5 Ml Soln 5 Ml Cup) 10 ml PO Q6H PRN PRN Reason: Cough Last Admin: 04/30/20 20:00 Dose: 10 ml Documented by: Pantoprazole Sodium (Pantoprazole 40 Mg Tab.Cr) 40 mg PO DAILY [facility] Last Admin: 05/04/20 08:29 Dose: 40 mg Documented by: Sodium Chloride (Sodium Chloride 0.9% 10 Ml Syringe) 10 ml FLUSH ASDIRECTED PRN PRN Reason: Keep Vein Open Last Admin: 04/25/20 11:17 Dose: 10 ml Documented by: Trazodone HCl (Trazodone 50 Mg Tab) 50 mg PO BEDTIME PRN PRN Reason: Sleep Last Admin: 04/27/20 21:22 Dose: 50 mg Documented by: Zinc Sulfate (Zinc Sulfate 220 Mg Cap) 220 mg PO DAILY [facility] Last Admin: 05/04/20 08:33 Dose: 220 mg Documented by: Discontinued Medications Albuterol (Albuterol 6.7 Gm Inhaler) 0 gm INH Q4H PRN PRN Reason: SOB/Wheezing Albuterol/Ipratropium (Albuterol/Ipratropium 3.0-0.5 Mg/3 Ml Neb Soln) 3 ml NEB Q6HRRT [facility] Last Admin: 04/28/20 03:22 Dose: 3 ml Documented by: Dexamethasone (Dexamethasone 4 Mg Tab) 6 mg PO ONETIME ONE Stop: 04/25/20 11:57 Last Admin: 04/25/20 12:14 Dose: 6 mg Documented by: Dexamethasone (Dexamethasone 4 Mg Tab) 6 mg PO DAILY [facility] Stop: 05/04/20 09:01 Last Admin: 05/04/20 08:30 Dose: 6 mg Documented by: Doxazosin Mesylate (Doxazosin 2 Mg Tab) 6 mg PO DAILY [facility] Last Admin: 04/26/20 12:16 Dose: Not Given Documented by: Enoxaparin Sodium (Enoxaparin 40 Mg/0.4 Ml Syringe) 40 mg SUBCUT Q12H [facility] Last Admin: 04/27/20 05:23 Dose: 40 mg Documented by: Enoxaparin Sodium (Enoxaparin 40 Mg/0.4 Ml Syringe) 40 mg SUBCUT BID [facility] Last Admin: 04/29/20 20:23 Dose: 40 mg Documented by: Sodium Chloride (Normal Saline) 100 mls @ 60 mls/hr IV ASDIRECTED [facility] Last Admin: 04/25/20 14:12 Dose: 60 mls/hr Documented by: Azithromycin 500 mg/ Sodium (Chloride) 250 mls @ 250 mls/hr IV ONETIME ONE Stop: 04/25/20 15:46 Last Admin: 04/25/20 15:20 Dose: 250 mls/hr Documented by: Ceftriaxone Sodium 2 gm/ (Sodium Chloride) 100 mls @ 200 mls/hr IV Q24H [facility] Stop: 04/29/20 17:29 Last Admin: 04/26/20 17:24 Dose: 200 mls/hr Documented by: Azithromycin 500 mg/ Sodium (Chloride) 250 mls @ 250 mls/hr IV Q24H [facility] Stop: 04/27/20 15:59 Last Admin: 04/27/20 14:54 Dose: 250 mls/hr Documented by: Remdesivir 200 mg/ Sodium (Chloride) 250 mls @ 250 mls/hr IV ONETIME ONE Stop: 04/26/20 12:59 Last Admin: 04/26/20 12:48 Dose: 250 mls/hr Documented by: Remdesivir 100 mg/ Sodium (Chloride) 100 mls @ 100 mls/hr IV Q24H [facility] Stop: 04/30/20 12:59 Last Admin: 04/30/20 12:06 Dose: 100 mls/hr Documented by: Ceftriaxone Sodium 2 gm/ (Sodium Chloride) 100 mls @ 200 mls/hr IV Q24H [facility] Stop: 04/29/20 21:29 Last Admin: 04/29/20 20:23 Dose: 200 mls/hr Documented by: Sodium Chloride (Normal Saline) 100 mls @ 75 mls/hr IV ASDIRECTED [facility] Stop: 04/30/20 11:00 Last Admin: 04/30/20 09:15 Dose: 75 mls/hr Documented by: Tocilizumab 800 mg/ Sodium (Chloride) 100 mls @ 100 mls/hr IV ONETIME ONE Stop: 04/30/20 09:29 Last Admin: 04/30/20 08:03 Dose: 100 mls/hr Documented by: Insulin Human Lispro (Insulin Lispro 100 Unit/Ml) 0 unit SUBCUT QIDACANDBED [facility]; Protocol Last Admin: 05/01/20 06:37 Dose: Not Given Documented by: Iopamidol (Iopamidol 755 Mg/Ml 100 Ml Bottle) 100 ml IVPUSH ONETIME ONE Stop: 04/25/20 13:05 Last Admin: 04/25/20 14:11 Dose: 100 ml Documented by: Iopamidol (Iopamidol 755 Mg/Ml 100 Ml Bottle) 100 ml IVPUSH ONETIME ONE Stop: 04/30/20 07:32 Last Admin: 04/30/20 09:14 Dose: 100 ml Documented by: Ketorolac Tromethamine (Ketorolac 30 Mg/Ml Sdv) 30 mg IVPUSH ONETIME ONE Stop: 04/25/20 14:49 Last Admin: 04/25/20 15:19 Dose: 30 mg Documented by: Potassium Chloride (Potassium Chloride 20 Meq Tab.Er) 40 meq PO ONETIME ONE Stop: 04/28/20 12:01 Last Admin: 04/28/20 11:20 Dose: 40 meq Documented by: Sodium Chloride (Sodium Chloride 0.9% 10 Ml Syringe) 10 ml FLUSH ONETIME ONE Stop: 04/25/20 13:05 Last Admin: 04/25/20 14:11 Dose: 10 ml Documented by: Sodium Chloride (Sodium Chloride 0.9% 10 Ml Syringe) 10 ml FLUSH ONETIME PRN PRN Reason: IV FLUSH Last Admin: 04/30/20 09:14 Dose: 10 ml Documented by: - Exam Physical Findings Comments:: General: Alert, Oriented, Cooperative, No Acute Distress HEENT: Pupils Equal, Pupils Reactive, Mucous Membr. Moist/[place] Neck: Supple, Trachea Midline Lungs: Normal Respiratory Effort (bases ), Decreased Breath Sounds, Crackles Cardiovascular: Regular Rate, Regular Rhythm GI/Abdominal Exam: Normal Bowel Sounds, Soft, Non-Tender, No Distention, No Abnormal Bruit (Male) Exam: Deferred Back Exam: Normal Inspection, Full Range of Motion Extremities: Normal Inspection, Normal Range of Motion, Non-Tender, No Pedal Edema, Normal Capillary Refill Peripheral Pulses: 2+: Radial (L), Radial (R), Dorsalis Pedis (L), Dorsalis Pedis (R) Skin: Warm, Dry, Intact Neurological: No New Focal Deficit Psy/Mental Status: Alert, Normal Affect, Normal Mood - Patient Data Lab Results Last 24 hrs: Laboratory Results - last 24 hr 05/04/20 05/04/20 Range/Units 05:40 05:40 D-Dimer, Quantitative 3.96 H (0.19-0.50) mg/L Sodium 142 (136-145) mEq/L Potassium 4.3 (3.5-5.1) mEq/L Chloride 107 (98-107) mEq/L Carbon Dioxide 23 (21-32) mEq/L Anion Gap 16.3 H (5-15) BUN 26 H (7-18) mg/dL Creatinine 0.9 (0.7-1.3) mg/dL Est Cr Clr Drug Dosing 76.69 mL/min Estimated GFR (MDRD) > 60 (>60) mL/min BUN/Creatinine Ratio 28.9 H (14-18) Glucose 121 H (83-115) mg/dL Calcium 8.3 L (8.5-10.1) mg/dL Magnesium 2.1 (1.8-2.4) mg/dl Total Bilirubin 0.6 (0.2-1.0) mg/dL AST 18 (15-37) U/L ALT 48 (16-63) U/L Alkaline Phosphatase 106 (46-116) U/L C-Reactive Protein 0.4 (<1.0) mg/dL Total Protein 5.5 L (6.4-8.2) g/dl Albumin 2.4 L (3.4-5.0) g/dl Globulin 3.1 gm/dL Albumin/Globulin Ratio 0.8 L (1-2) Result Diagrams: 05/03/20 05:27 05/04/20 05:40 Sepsis Event Note - Evaluation Sepsis Screening Result: No Definite Risk - Focused Exam Vital Signs: Vital Signs Temp Pulse Resp BP BP Pulse Ox Pulse Ox 05/04/20 15:57 91 L 05/04/20 15:28 36.7 C 58 L 20 96/84 89 L 05/04/20 12:00 36.2 C 61 20 128/69 89 L 05/04/20 09:11 94 L 05/04/20 08:32 141/83 H 05/04/20 07:29 36.1 C 54 L 18 141/83 H 90 L 05/04/20 06:00 93 L 05/04/20 05:44 96 05/04/20 05:00 100 - Problem List Review Problem List Initiated/Reviewed/Updated: Yes - My Orders Last 24 Hours: My Active Orders 05/05/20 05:00 CMP [COMPREHENSIVE METABOLIC PN,CMP] [CHEM] DAILY 05/06/20 05:00 CBC WITH AUTO DIFF [HEME] DAILY CMP [COMPREHENSIVE METABOLIC PN,CMP] [CHEM] DAILY 05/07/20 05:00 CBC WITH AUTO DIFF [HEME] DAILY CMP [COMPREHENSIVE METABOLIC PN,CMP] [CHEM] DAILY 05/08/20 05:00 CBC WITH AUTO DIFF [HEME] DAILY CMP [COMPREHENSIVE METABOLIC PN,CMP] [CHEM] DAILY 05/09/20 05:00 CBC WITH AUTO DIFF [HEME] DAILY CMP [COMPREHENSIVE METABOLIC PN,CMP] [CHEM] DAILY 05/10/20 05:00 CBC WITH AUTO DIFF [HEME] DAILY CMP [COMPREHENSIVE METABOLIC PN,CMP] [CHEM] DAILY 05/11/20 05:00 CMP [COMPREHENSIVE METABOLIC PN,CMP] [CHEM] DAILY - Assessment Assessment:: 04/26/20 In to see Mao. He is laying in bed and is now on 2 L of oxygen. He reports he is feeling pretty good and only notes dyspnea when he is up moving around. He said he will occasionally cough and that will cause his saturations to drop as well. Reports it is a dry cough. He has no current concerns. We discussed plan of care and how he will likely need to remain hospitalized for the next 5 days to complete treatment. We discussed proning and patient reports that this is impossible for him because he has had neck surgery. We did discuss Acapella and incentive spirometry and he reports that he will continue working with this. Otherwise labs continue to look good. CRP has decreased and kidney function has improved. D-dimer remained stable. Leukopenia noted. we will continue current treatment plan. Likely discharge Wednesday pending continued improvement as I will be the day he completes treatment. 04/27/20 Patient is experiencing SOB with pleuritic CP. Will be transferred to ICU; ABG is pending. PCXR documents SARS-COV-2 PNA. 04/28/2020 Patient is improving. He was on room air with oxygen saturations in the low 90s while proning today. Otherwise he is on 3 L. D-dimer did increase up to 2.78 which is a significant change. He is on Lovenox 40 mg twice daily. We will continue to monitor D-dimer, shortness of breath, lower extremity signs and symptoms. Since he is improving I would not get a CTA at this time. Blood sugars this morning are up to 160, therefore will start fingerstick blood sugars and sliding scale insulin to keep his blood sugars less than 200 if possible. This is likely secondary to dexamethasone. Mild hypokalemia and given 40 mEq of potassium orally. Blood pressure is well controlled with blood pressures mostly less than 150 except for an occasional systolic blood pressure in the 150s. Patient has not received Actemra, but will hold off on treatment unless he has significant worsening in oxygen requirements. 04/29/20 In to see Mao. He is currently on 4 L. He continues to work on proning and utilize his incentive spirometer and Acapella. Potassium is improved. WBC is increasing but this is likely secondary to steroid use. Otherwise he remained stable. He states he gets very short of breath when he gets up to use the restroom and has been having coughing fits. We will add dextromet horphan/guaifenesin as needed. No other nursing or patient concerns. Patient will remain hospitalized till he finishes his Covid treatment and is weaned down on oxygen. 04/30/20 In to see Mao. He is proning in the bed and doing quite well. He has improved to 3 L. When proning he is noted to have saturations in the upper 90s however with movement he drops into the 80s. He continues to utilize his incentive spirometer and Acapella. We discussed his chronic back pain which is exacerbated by proning. Discussed pain medications for this and how important proning, along with his Acapella and incentive spirometry are. He stated how he feels like he gets winded so quick when ambulating. CTA yesterday showed very small pulmonary embolisms and he was started on 1 mg/kg Lovenox twice daily. Bilateral lower extremity ultrasounds were negative for any DVT. Nursing reports they are going to try to encourage more proning today with the patient. Goal is to increase endurance and decrease oxygen needed to 2 L or less prior to discharge. Labs today: WBC 9.20. Hemoglobin 14.2. Platelet 221. Neutrophils elevated at 7.55. D-dimer down to 9.52. Sodium 141. Potassium 4.0. Anion gap 12.0. BUN 28, creatinine 1.0, GFR greater than 60. Glucose 96. AST 26, ALT 68, alkaline phosphatase 128. 05/01/20 In to see Mao. He is proning in the bed currently. He reports he feels a little better and he is down to 3 L on oxygen. He does note that he has significant shortness of breath when getting up to use the bathroom still. We discussed his scan results indicating very small pulmonary embolisms. Discussed how he has shown improvement when he is proning and utilizing his incentive spirometer and Acapella. He agrees to continue to do this. Nursing will push with this as well. He reports back pain due to to compression fractures which is chronic for him and exacerbated by proning. We discussed pain medications to assist with this and how there has to be some [id number]. Otherwise he is doing better today. We will continue current treatment plan with goal to decrease oxygen demand to 2 L or less prior to discharge. 05/02/20 In to see Mao. He is on 3.5 L of oxygen and is laying in bed. He has been proning and utilizing his incentive spirometer and Acapella. Continues to have worsening dyspnea with exertion but states he feels like he is getting some better energy. We will downgrade him today to MedSurg status as he is remained quite stable. D-dimer today 5.20. Sodium 144. Potassium 4.1. Chloride 108. Carbon oxide 25. Anion gap is up to 15.1. BUN 31, creatinine 1.0, GFR greater than 60. Glucose 10 7-1 69. Magnesium 2.2. Bilirubin 0.5. AST 20, ALT 60, alkaline phosphatase 117. CRP is 1.4. Albumin is up to 2.4. Continue current treatment plan. Goal remains improvement of oxygenation to requiring less than 2 L and building of endurance. 05/03/20 In to see Mao. Per nursing he had an episode of desaturation last night and was requiring 6 L to keep his saturations within goal. Since then he has been fluctuating but is currently at 5 L. He reports that he still feels pretty good, denies any pain, and states he is only short of breath with exertion. Repeat chest x-ray today was stable to worse. Intake remains good. He andrea nues to prone and utilize his incentive spirometer and Acapella. This was encouraged again. Labs today show a leukocytosis of 11.81. He is receiving steroids but this is something we will monitor. Neutrophils are elevated 86.1. D-dimer is down to 4.11. Sodium is 143. Potassium 4.3. Carbon dioxide 23. Anion gap is 15.3. BUN is 28. Creatinine 1.0. GFR greater than 60. Glucose has been stable. Magnesium is 2.1. Bilirubin 0.6. AST 17, ALT 49, alkaline phosphatase 109. Albumin is down to 2.4. Unknown length of stay due to fluctuations in patient's oxygen demand. We will continue current treatment plan and monitor for signs of a secondary infection. 05/04/2020 74 year old pro with fever/chills/body aches tested positive for COVID-19 and was admitted for covid 19 pneumonia on 04/25/2020. Patient still complains of occasional dry cough. Otherwise denies nausea, vomiting, fever, or chills. encouraged to prone often and utilize incentive spirometry and Acapella. Patient is now on 4 L CRP 0.4 and D-dimer 3.96 - Plan Plan:: COVID-19 Hypoxia Elevated D-Dimer Pulmonary embolism * CT angio chest -several small pulmonary emboli reviewed and subsegmental branches of leaving the right lower lung. * O2 as needed to keep saturations 88-96% * Pt has completed courses of Azithromycin, Rocephin, Remdisivir and dexamethasone * Given Actemra due to worsening saturations * PRN albuterol inhaler * Consult RT * IS/Acapella * Prone whenever able * Airborne/contact precautions * Monitor labs * OT/PT consult * Zinc supplementation * Telemetry/continuous pulse oximeter * Continue Lovenox to 88mg BID due to D-Dimer of PEs. Will change to NOAC. * Bilateral lower extremity US - No evidence of PE HLD (hyperlipidemia) HTN (hypertension) History of coronary artery stent placement CAD (coronary artery disease) Cardiomegaly * Continue home medications as directed * Telemetry Code status: Full Code PCP: Nano Guzman NP DVT prophylaxis: Lovenox Social: Patient resides in [facility] Disposition: Patient upgraded to ICU status due to worsening SOB, Elevated D- dimer, Worsening oxygen saturations. LOS>96 Hrs due to need for continued COVID-19 treatment, Hypoxia.
[2020-05-04] MEDS ORDERED: hydrALAZINE 20 MG/ML SDV IVPUSH PRN (21:51)
[2020-05-04] MEDS: amLODIPine 5 MG Tab PO SCH (22:06)
[2020-05-04] MEDS: Acetaminophen/HYDROcodone 325-5 MG Tab PO PRN (22:07)
[2020-05-05] MEDS: traZODone 50 MG Tab PO PRN ×2 (04:55→21:05)
[2020-05-05] MEDS: Zinc Sulfate 220 MG Cap PO SCH (08:04)
[2020-05-05] MEDS: Pantoprazole 40 MG Tab.CR PO SCH (08:04)
[2020-05-05] MEDS: Cholecalciferol (Vitamin D3) 25 MCG Tab PO SCH (08:04)
[2020-05-05] MEDS: Aspirin 81 MG Tab.EC PO SCH (08:05)
[2020-05-05] MEDS: Fluticasone Propionate Nasal Spray 16 GM Bottle NASBOTH SCH (08:05)
[2020-05-05] MEDS: amLODIPine 5 MG Tab PO SCH (08:05)
[2020-05-05] MEDS: guaiFENesin 600 MG Tab.ER PO SCH ×2 (08:05→21:03)
[2020-05-05] MEDS: Doxazosin 2 MG Tab PO SCH (08:05)
[2020-05-05] MEDS: atorvaSTATin 20 MG Tab PO SCH (08:05)
[2020-05-05] MEDS: Enoxaparin 100 MG/1 ML Syringe SUBCUT SCH ×2 (08:05→21:00)
[2020-05-05] MEDS: Acetaminophen/HYDROcodone 325-5 MG Tab PO PRN ×2 (09:33→21:04)
--- NOTE | 2020-05-05 15:04 | PCM.PN ---
- General Info Date of Service: 05/05/20 Admission Dx/Problem (Free Text): Admission Diagnosis/Problem Admission Diagnosis/Problem Hypoxia Subjective Update: 74 year old pro with fever/chills/body aches tested positive for COVID-19 and was admitted for covid 19 pneumonia on 04/25/2020. Patient feels much better but still complains of occasional dry cough. Oth erwise denies nausea, vomiting, fever, or chills. encouraged to prone often and utilize incentive spirometry and Acapella. Patient is now still on 4 L CRP 0.7 - Review of Systems Systems Review Comment:: General: Reports: Fatigue HEENT: Reports: No Symptoms Pulmonary: Reports: Cough Cardiovascular: Reports: No Symptoms Gastrointestinal: Reports: No Symptoms Genitourinary: Reports: No Symptoms Musculoskeletal: Reports: No Symptoms Skin: Reports: No Symptoms Neurological: Reports: No Symptoms Psychiatric: Reports: No Symptoms - Patient Data Vitals - Most Recent: Last Vital Signs Temp 36.2 C 05/05/20 12:45 Pulse 64 05/05/20 12:45 Resp 16 05/05/20 12:45 BP 124/95 H 05/05/20 12:45 Pulse Ox 95 05/05/20 12:45 Weight - Most Recent: 83.098 kg I&O - Last 24 Hours: Intake & Output 05/04/20 05/05/20 05/05/20 22:59 06:59 14:59 Intake Total 500 500 360 Output Total 650 Balance 500 -150 360 Lab Results Last 24 Hours: Laboratory Results - last 24 hr 05/05/20 05/05/20 05/05/20 Range/Units 05:10 05:10 05:10 WBC 12.03 H (4.23-9.07) K/mm3 RBC 5.26 (4.63-6.08) M/mm3 Hgb 15.1 (13.7-17.5) gm/dl Hct 45.5 (40.1-51.0) % MCV 86.5 (79.0-92.2) fl MCH 28.7 (25.7-32.2) pg MCHC 33.2 (32.2-35.5) g/dl RDW Std Deviation 45.1 H (35.1-43.9) fL Plt Count 263 (163-337) K/mm3 MPV 10.9 (9.4-12.3) fl Neut % (Auto) 85.0 H (34.0-67.9) % Lymph % (Auto) 5.5 L (21.8-53.1) % [place] % (Auto) 8.6 (5.3-12.2) % Eos % (Auto) 0 L (0.8-7.0) Baso % (Auto) 0.0 L (0.1-1.2) % Neut # (Auto) 10.23 H (1.78-5.38) K/mm3 Lymph # (Auto) 0.66 L (1.32-3.57) K/mm3 [place] # (Auto) 1.03 H (0.30-0.82) K/mm3 Eos # (Auto) 0.00 L (0.04-0.54) K/mm3 Baso # (Auto) 0.00 L (0.01-0.08) K/mm3 Manual Slide Review Abnormal smear Sodium 144 (136-145) mEq/L Potassium 4.2 (3.5-5.1) mEq/L Chloride 108 H (98-107) mEq/L Carbon Dioxide 22 (21-32) mEq/L Anion Gap 18.2 H (5-15) BUN 25 H (7-18) mg/dL Creatinine 0.9 (0.7-1.3) mg/dL Est Cr Clr Drug Dosing 76.69 mL/min Estimated GFR (MDRD) > 60 (>60) mL/min BUN/Creatinine Ratio 27.8 H (14-18) Glucose 99 (83-115) mg/dL Calcium 8.5 (8.5-10.1) mg/dL Magnesium 2.2 (1.8-2.4) mg/dl Total Bilirubin 0.6 (0.2-1.0) mg/dL AST 18 (15-37) U/L ALT 47 (16-63) U/L Alkaline Phosphatase 102 (46-116) U/L C-Reactive Protein < 0.2 (<1.0) mg/dL Total Protein 5.8 L (6.4-8.2) g/dl Albumin 2.6 L (3.4-5.0) g/dl Globulin 3.2 gm/dL Albumin/Globulin Ratio 0.8 L (1-2) Med Orders - Current: Current Medications Acetaminophen (Acetaminophen 325 Mg Tab) 650 mg PO Q6H PRN PRN Reason: Pain/Fever Last Admin: 04/26/20 19:23 Dose: 650 mg Documented by: Hydrocodone Bitart/Acetaminophen (Acetaminophen/Hydrocodone 325-5 Mg Tab) 2 tab PO Q8H PRN PRN Reason: Pain Albuterol (Albuterol 0.083% 2.5 Mg/3 Ml Neb Soln) 2.5 mg NEB Q4HRRT PRN PRN Reason: Shortness of Breath Last Admin: 05/04/20 15:55 Dose: 2.5 mg Documented by: Amlodipine Besylate (Amlodipine 5 Mg Tab) 5 mg PO DAILY [facility] Last Admin: 05/05/20 08:05 Dose: 5 mg Documented by: Aspirin (Aspirin 81 Mg Tab.Ec) 81 mg PO DAILY [facility] Last Admin: 05/05/20 08:05 Dose: 81 mg Documented by: Atorvastatin Calcium (Atorvastatin 20 Mg Tab) 10 mg PO DAILY [facility] Last Admin: 05/05/20 08:05 Dose: 10 mg Documented by: Cholecalciferol (Cholecalciferol (Vitamin D3) 25 Mcg Tab) 50 mcg PO DAILY [facility] Last Admin: 05/05/20 08:04 Dose: 50 mcg Documented by: Doxazosin Mesylate (Doxazosin 2 Mg Tab) 6 mg PO DAILY [facility] Last Admin: 05/05/20 08:05 Dose: 6 mg Documented by: Enoxaparin Sodium (Enoxaparin 100 Mg/1 Ml Syringe) 88 mg SUBCUT Q12H [facility] Last Admin: 05/05/20 08:05 Dose: 88 mg Documented by: Fluticasone Propionate (Fluticasone Propionate Nasal [place] 16 Gm Bottle) 0 gm NASBOTH DAILY [facility] Last Admin: 05/05/20 08:05 Dose: Not Given Documented by: Guaifenesin (Guaifenesin 600 Mg Tab.Er) 600 mg PO BID [facility] Last Admin: 05/05/20 08:05 Dose: 600 mg Documented by: Guaifenesin/Phenylephrine HCl (Guaifenesin/Dextromethorphan 100-10 Mg/5 Ml Soln 5 Ml Cup) 10 ml PO Q6H PRN PRN Reason: Cough Last Admin: 04/30/20 20:00 Dose: 10 ml Documented by: Hydralazine HCl (Hydralazine 20 Mg/Ml Sdv) 10 mg IVPUSH Q4H PRN PRN Reason: Hypertention Last Admin: 05/05/20 00:10 Dose: 10 mg Documented by: Pantoprazole Sodium (Pantoprazole 40 Mg Tab.Cr) 40 mg PO DAILY [facility] Last Admin: 05/05/20 08:04 Dose: 40 mg Documented by: Sodium Chloride (Sodium Chloride 0.9% 10 Ml Syringe) 10 ml FLUSH ASDIRECTED PRN PRN Reason: Keep Vein Open Last Admin: 04/25/20 11:17 Dose: 10 ml Documented by: Trazodone HCl (Trazodone 50 Mg Tab) 50 mg PO BEDTIME PRN PRN Reason: Sleep Last Admin: 05/05/20 04:55 Dose: 50 mg Documented by: Zinc Sulfate (Zinc Sulfate 220 Mg Cap) 220 mg PO DAILY [facility] Last Admin: 05/05/20 08:04 Dose: 220 mg Documented by: Discontinued Medications Hydrocodone Bitart/Acetaminophen (Acetaminophen/Hydrocodone 325-5 Mg Tab) 2 tab PO Q12H PRN PRN Reason: Pain Last Admin: 05/05/20 09:33 Dose: 2 tab Documented by: Albuterol (Albuterol 6.7 Gm Inhaler) 0 gm INH Q4H PRN PRN Reason: SOB/Wheezing Albuterol/Ipratropium (Albuterol/Ipratropium 3.0-0.5 Mg/3 Ml Neb Soln) 3 ml NEB Q6HRRT [facility] Last Admin: 04/28/20 03:22 Dose: 3 ml Documented by: Dexamethasone (Dexamethasone 4 Mg Tab) 6 mg PO ONETIME ONE Stop: 04/25/20 11:57 Last Admin: 04/25/20 12:14 Dose: 6 mg Documented by: Dexamethasone (Dexamethasone 4 Mg Tab) 6 mg PO DAILY [facility] Stop: 05/04/20 09:01 Last Admin: 05/04/20 08:30 Dose: 6 mg Documented by: Doxazosin Mesylate (Doxazosin 2 Mg Tab) 6 mg PO DAILY [facility] Last Admin: 04/26/20 12:16 Dose: Not Given Documented by: Enoxaparin Sodium (Enoxaparin 40 Mg/0.4 Ml Syringe) 40 mg SUBCUT Q12H [facility] Last Admin: 04/27/20 05:23 Dose: 40 mg Documented by: Enoxaparin Sodium (Enoxaparin 40 Mg/0.4 Ml Syringe) 40 mg SUBCUT BID [facility] Last Admin: 04/29/20 20:23 Dose: 40 mg Documented by: Sodium Chloride (Normal Saline) 100 mls @ 60 mls/hr IV ASDIRECTED [facility] Last Admin: 04/25/20 14:12 Dose: 60 mls/hr Documented by: Azithromycin 500 mg/ Sodium (Chloride) 250 mls @ 250 mls/hr IV ONETIME ONE Stop: 04/25/20 15:46 Last Admin: 04/25/20 15:20 Dose: 250 mls/hr Documented by: Ceftriaxone Sodium 2 gm/ (Sodium Chloride) 100 mls @ 200 mls/hr IV Q24H [facility] Stop: 04/29/20 17:29 Last Admin: 04/26/20 17:24 Dose: 200 mls/hr Documented by: Azithromycin 500 mg/ Sodium (Chloride) 250 mls @ 250 mls/hr IV Q24H [facility] Stop: 04/27/20 15:59 Last Admin: 04/27/20 14:54 Dose: 250 mls/hr Documented by: Remdesivir 200 mg/ Sodium (Chloride) 250 mls @ 250 mls/hr IV ONETIME ONE Stop: 04/26/20 12:59 Last Admin: 04/26/20 12:48 Dose: 250 mls/hr Documented by: Remdesivir 100 mg/ Sodium (Chloride) 100 mls @ 100 mls/hr IV Q24H [facility] Stop: 04/30/20 12:59 Last Admin: 04/30/20 12:06 Dose: 100 mls/hr Documented by: Ceftriaxone Sodium 2 gm/ (Sodium Chloride) 100 mls @ 200 mls/hr IV Q24H [facility] Stop: 04/29/20 21:29 Last Admin: 04/29/20 20:23 Dose: 200 mls/hr Documented by: Sodium Chloride (Normal Saline) 100 mls @ 75 mls/hr IV ASDIRECTED [facility] Stop: 04/30/20 11:00 Last Admin: 04/30/20 09:15 Dose: 75 mls/hr Documented by: Tocilizumab 800 mg/ Sodium (Chloride) 100 mls @ 100 mls/hr IV ONETIME ONE Stop: 04/30/20 09:29 Last Admin: 04/30/20 08:03 Dose: 100 mls/hr Documented by: Insulin Human Lispro (Insulin Lispro 100 Unit/Ml) 0 unit SUBCUT QIDACANDBED [facility]; Protocol Last Admin: 05/01/20 06:37 Dose: Not Given Documented by: Iopamidol (Iopamidol 755 Mg/Ml 100 Ml Bottle) 100 ml IVPUSH ONETIME ONE Stop: 04/25/20 13:05 Last Admin: 04/25/20 14:11 Dose: 100 ml Documented by: Iopamidol (Iopamidol 755 Mg/Ml 100 Ml Bottle) 100 ml IVPUSH ONETIME ONE Stop: 04/30/20 07:32 Last Admin: 04/30/20 09:14 Dose: 100 ml Documented by: Ketorolac Tromethamine (Ketorolac 30 Mg/Ml Sdv) 30 mg IVPUSH ONETIME ONE Stop: 04/25/20 14:49 Last Admin: 04/25/20 15:19 Dose: 30 mg Documented by: Potassium Chloride (Potassium Chloride 20 Meq Tab.Er) 40 meq PO ONETIME ONE Stop: 04/28/20 12:01 Last Admin: 04/28/20 11:20 Dose: 40 meq Documented by: Sodium Chloride (Sodium Chloride 0.9% 10 Ml Syringe) 10 ml FLUSH ONETIME ONE Stop: 04/25/20 13:05 Last Admin: 04/25/20 14:11 Dose: 10 ml Documented by: Sodium Chloride (Sodium Chloride 0.9% 10 Ml Syringe) 10 ml FLUSH ONETIME PRN PRN Reason: IV FLUSH Last Admin: 04/30/20 09:14 Dose: 10 ml Documented by: - Exam Physical Findings Comments:: General: Alert, Oriented, Cooperative, No Acute Distress HEENT: Pupils Equal, Pupils Reactive, Mucous Membr. Moist/[place] Neck: Supple, Trachea Midline Lungs: Normal Respiratory Effort (bases ), Decreased Breath Sounds, Crackles Cardiovascular: Regular Rate, Regular Rhythm GI/Abdominal Exam: Normal Bowel Sounds, Soft, Non-Tender, No Distention, No Abnormal Bruit (Male) Exam: Deferred Back Exam: Normal Inspection, Full Range of Motion Extremities: Normal Inspection, Normal Range of Motion, Non-Tender, No Pedal Edema, Normal Capillary Refill Peripheral Pulses: 2+: Radial (L), Radial (R), Dorsalis Pedis (L), Dorsalis Pedis (R) Skin: Warm, Dry, Intact Neurological: No New Focal Deficit Psy/Mental Status: Alert, Normal Affect, Normal Mood - Patient Data Lab Results Last 24 hrs: Laboratory Results - last 24 hr 05/05/20 05/05/20 05/05/20 Range/Units 05:10 05:10 05:10 WBC 12.03 H (4.23-9.07) K/mm3 RBC 5.26 (4.63-6.08) M/mm3 Hgb 15.1 (13.7-17.5) gm/dl Hct 45.5 (40.1-51.0) % MCV 86.5 (79.0-92.2) fl MCH 28.7 (25.7-32.2) pg MCHC 33.2 (32.2-35.5) g/dl RDW Std Deviation 45.1 H (35.1-43.9) fL Plt Count 263 (163-337) K/mm3 MPV 10.9 (9.4-12.3) fl Neut % (Auto) 85.0 H (34.0-67.9) % Lymph % (Auto) 5.5 L (21.8-53.1) % [place] % (Auto) 8.6 (5.3-12.2) % Eos % (Auto) 0 L (0.8-7.0) Baso % (Auto) 0.0 L (0.1-1.2) % Neut # (Auto) 10.23 H (1.78-5.38) K/mm3 Lymph # (Auto) 0.66 L (1.32-3.57) K/mm3 [place] # (Auto) 1.03 H (0.30-0.82) K/mm3 Eos # (Auto) 0.00 L (0.04-0.54) K/mm3 Baso # (Auto) 0.00 L (0.01-0.08) K/mm3 Manual Slide Review Abnormal smear Sodium 144 (136-145) mEq/L Potassium 4.2 (3.5-5.1) mEq/L Chloride 108 H (98-107) mEq/L Carbon Dioxide 22 (21-32) mEq/L Anion Gap 18.2 H (5-15) BUN 25 H (7-18) mg/dL Creatinine 0.9 (0.7-1.3) mg/dL Est Cr Clr Drug Dosing 76.69 mL/min Estimated GFR (MDRD) > 60 (>60) mL/min BUN/Creatinine Ratio 27.8 H (14-18) Glucose 99 (83-115) mg/dL Calcium 8.5 (8.5-10.1) mg/dL Magnesium 2.2 (1.8-2.4) mg/dl Total Bilirubin 0.6 (0.2-1.0) mg/dL AST 18 (15-37) U/L ALT 47 (16-63) U/L Alkaline Phosphatase 102 (46-116) U/L C-Reactive Protein < 0.2 (<1.0) mg/dL Total Protein 5.8 L (6.4-8.2) g/dl Albumin 2.6 L (3.4-5.0) g/dl Globulin 3.2 gm/dL Albumin/Globulin Ratio 0.8 L (1-2) Result Diagrams: 05/05/20 05:10 05/05/20 05:10 Sepsis Event Note - Evaluation Sepsis Screening Result: No Definite Risk - Focused Exam Vital Signs: Vital Signs Temp Pulse Resp BP BP Pulse Ox Pulse Ox 05/05/20 12:45 36.2 C 64 16 124/95 H 95 05/05/20 09:09 92 L 05/05/20 08:05 131/62 05/05/20 08:00 36.2 C 62 16 131/62 90 L 05/05/20 07:00 93 L 05/05/20 06:00 95 05/05/20 05:00 94 L 05/05/20 04:50 36.3 C 49 L 18 135/93 H 135/93 H 93 L 05/05/20 04:49 92 L 05/05/20 04:00 91 L 05/05/20 03:00 89 L - Problem List Review Problem List Initiated/Reviewed/Updated: Yes - My Orders Last 24 Hours: My Active Orders 05/04/20 21:51 hydrALAZINE [Apresoline] 10 mg IVPUSH Q4H PRN 05/04/20 22:00 amLODIPine [Norvasc] 5 mg PO DAILY 05/05/20 10:15 Acetaminophen/HYDROcodone [[place] 325-5 MG] 2 tab PO Q8H PRN 05/06/20 05:00 CBC WITH AUTO DIFF [HEME] DAILY CMP [COMPREHENSIVE METABOLIC PN,CMP] [CHEM] DAILY 05/07/20 05:00 CBC WITH AUTO DIFF [HEME] DAILY CMP [COMPREHENSIVE METABOLIC PN,CMP] [CHEM] DAILY 05/08/20 05:00 CBC WITH AUTO DIFF [HEME] DAILY CMP [COMPREHENSIVE METABOLIC PN,CMP] [CHEM] DAILY 05/09/20 05:00 CBC WITH AUTO DIFF [HEME] DAILY CMP [COMPREHENSIVE METABOLIC PN,CMP] [CHEM] DAILY 05/10/20 05:00 CBC WITH AUTO DIFF [HEME] DAILY CMP [COMPREHENSIVE METABOLIC PN,CMP] [CHEM] DAILY 05/11/20 05:00 CMP [COMPREHENSIVE METABOLIC PN,CMP] [CHEM] DAILY - Assessment Assessment:: 04/26/20 In to see Mao. He is laying in bed and is now on 2 L of oxygen. He reports he is feeling pretty good and only notes dyspnea when he is up moving around. He said he will occasionally cough and that will cause his saturations to drop as well. Reports it is a dry cough. He has no current concerns. We discussed plan of care and how he will likely need to remain hospitalized for the next 5 days to complete treatment. We discussed proning and patient reports that this is impossible for him because he has had neck surgery. We did discuss Acapella and incentive spirometry and he reports that he will continue working with this. Otherwise labs continue to look good. CRP has decreased and kidney function has improved. D-dimer remained stable. Leukopenia noted. we will continue current treatment plan. Likely discharge Wednesday pending continued improvement as I will be the day he completes treatment. 04/27/20 Patient is experiencing SOB with pleuritic CP. Will be transferred to ICU; ABG is pending. PCXR documents SARS-COV-2 PNA. 04/28/2020 Patient is improving. He was on room air with oxygen saturations in the low 90s while proning today. Otherwise he is on 3 L. D-dimer did increase up to 2.78 which is a significant change. He is on Lovenox 40 mg twice daily. We will continue to monitor D-dimer, shortness of breath, lower extremity signs and symptoms. Since he is improving I would not get a CTA at this time. Blood s ugars this morning are up to 160, therefore will start fingerstick blood sugars and sliding scale insulin to keep his blood sugars less than 200 if possible. This is likely secondary to dexamethasone. Mild hypokalemia and given 40 mEq of potassium orally. Blood pressure is well controlled with blood pressures mostly less than 150 except for an occasional systolic blood pressure in the 150s. Patient has not received Actemra, but will hold off on treatment unless he has significant worsening in oxygen requirements. 04/29/20 In to see Mao. He is currently on 4 L. He continues to work on proning and utilize his incentive spirometer and Acapella. Potassium is improved. WBC is increasing but this is likely secondary to steroid use. Otherwise he remained stable. He states he gets very short of breath when he gets up to use the restroom and has been having coughing fits. We will add dextromethorphan/guaifenesin as needed. No other nursing or patient concerns. Patient will remain hospitalized till he finishes his Covid treatment and is weaned down on oxygen. 04/30/20 In to see Mao. He is proning in the bed and doing quite well. He has improved to 3 L. When proning he is noted to have saturations in the upper 90s however with movement he drops into the 80s. He continues to utilize his incentive spirometer and Acapella. We discussed his chronic back pain which is exacerbated by proning. Discussed pain medications for this and how important proning, along with his Acapella and incentive spirometry are. He stated how he feels like he gets winded so quick when ambulating. CTA yesterday showed very small pulmonary embolisms and he was started on 1 mg/kg Lovenox twice daily. Bilateral lower extremity ultrasounds were negative for any DVT. Nursing reports they are going to try to encourage more proning today with the patient. Goal is to increase endurance and decrease oxygen needed to 2 L or less prior to discharge. Labs today: WBC 9.20. Hemoglobin 14.2. Platelet 221. Neutrophils elevated at 7.55. D-dimer down to 9.52. Sodium 141. Potassium 4.0. Anion gap 12.0. BUN 28, creatinine 1.0, GFR greater than 60. Glucose 96. AST 26, ALT 68, alkaline phosphatase 128. 3/17/21 In to see Mao. He is proning in the bed currently. He reports he feels a little better and he is down to 3 L on oxygen. He does note that he has significant shortness of breath when getting up to use the bathroom still. We discussed his scan results indicating very small pulmonary embolisms. Discussed how he has shown improvement when he is proning and utilizing his incentive spirometer and Acapella. He agrees to continue to do this. Nursing will push with this as well. He reports back pain due to to compression fractures which is chronic for him and exacerbated by proning. We discussed pain medications to assist with this and how there has to be some [id number]. Otherwise he is doing better today. We will continue current treatment plan with goal to decrease oxygen demand to 2 L or less prior to discharge. 05/02/20 In to see Mao. He is on 3.5 L of oxygen and is laying in bed. He has been proning and utilizing his incentive spirometer and Acapella. Continues to have worsening dyspnea with exertion but states he feels like he is getting some better energy. We will downgrade him today to MedSurg status as he is remained quite stable. D-dimer today 5.20. Sodium 144. Potassium 4.1. Chloride 108. Carbon oxide 25. Anion gap is up to 15.1. BUN 31, creatinine 1.0, GFR greater than 60. Glucose 10 7-1 69. Magnesium 2.2. Bilirubin 0.5. AST 20, ALT 60, alkaline phosphatase 117. CRP is 1.4. Albumin is up to 2.4. Continue current treatment plan. Goal remains improvement of oxygenation to requiring less than 2 L and building of endurance. 05/03/20 In to see Mao. Per nursing he had an episode of desaturation last night and was requiring 6 L to keep his saturations within goal. Since then he has been fluctuating but is currently at 5 L. He reports that he still feels pretty good, denies any pain, and states he is only short of breath with exertion. Repeat chest x-ray today was stable to worse. Intake remains good. He continues to prone and utilize his incentive spirometer and Acapella. This was encouraged again. Labs today show a leukocytosis of 11.81. He is receiving steroids but this is something we will monitor. Neutrophils are elevated 86.1. D-dimer is down to 4.11. Sodium is 143. Potassium 4.3. Carbon dioxide 23. Anion gap is 15.3. BUN is 28. Creatinine 1.0. GFR greater than 60. Glucose has been stable. Magnesium is 2.1. Bilirubin 0.6. AST 17, ALT 49, alkaline phosphatase 109. Albumin is down to 2.4. Unknown length of stay due to fluctuations in patient's oxygen demand. We will continue current treatment plan and monitor for signs of a secondary infection. 05/04/2020 74 year old pro with fever/chills/body aches tested positive for COVID-19 and was admitted for covid 19 pneumonia on 04/25/2020. Patient still complains of occasional dry cough. Otherwise denies nausea, vomiting, fever, or chills. encouraged to prone often and utilize incentive spirometry and Acapella. Patient is now on 4 L CRP 0.4 and D-dimer 3.96 05/05/2020 74 year old pro with fever/chills/body aches tested positive for COVID-19 and was admitted for covid 19 pneumonia on 04/25/2020. Patient feels much better but still complains of occasional dry cough. Otherwise denies nausea, vomiting, fever, or chills. encouraged to prone often and utilize incentive spirometry and Acapella. Patient is now still on 4 L CRP 0.7 - Plan Plan:: COVID-19 Hypoxia Elevated D-Dimer Pulmonary embolism * CT angio chest -several small pulmonary emboli reviewed and subsegmental branches of leaving the right lower lung. * O2 as needed to keep saturations 88-96% * Pt has completed courses of Azithromycin, Rocephin, Remdisivir and dexamethasone * Given Actemra due to worsening saturations * PRN albuterol inhaler * Consult RT * IS/Acapella * Prone whenever able * Airborne/contact precautions * Monitor labs * OT/PT consult * Zinc supplementation * Telemetry/continuous pulse oximeter * Continue Lovenox to 88mg BID due to D-Dimer of PEs. Will change to NOAC. * Bilateral lower extremity US - No evidence of PE HLD (hyperlipidemia) HTN (hypertension) History of coronary artery stent placement CAD (coronary artery disease) Cardiomegaly * Continue home medications as directed * Telemetry Code status: Full Code PCP: Nano Guzman NP DVT prophylaxis: Lovenox Social: Patient resides in [facility] Disposition: Patient upgraded to ICU status due to worsening SOB, Elevated D- dimer, Worsening oxygen saturations. LOS>96 Hrs due to need for continued COVID-19 treatment, Hypoxia.
--- NOTE | 2020-05-06 08:57 | PCM.PN ---
- General Info Date of Service: 05/06/20 Admission Dx/Problem (Free Text): Admission Diagnosis/Problem Admission Diagnosis/Problem Hypoxia Functional Status: Reports: Pain Controlled, Tolerating Diet, Ambulating, Urinating, Incentive Spirometry, Other (Acapella ). Denies: New Symptoms - Review of Systems General: Reports: Weakness, Fatigue, Other (Very deconditioned). Denies: Fever, Malaise, Chills HEENT: Reports: No Symptoms. Denies: Headaches, Visual Changes Pulmonary: Reports: Shortness of Breath, Cough. Denies: Pleuritic Chest Pain, Sputum, Wheezing Cardiovascular: Reports: No Symptoms, Dyspnea on Exertion. Denies: Chest Pain, Palpitations, Edema Gastrointestinal: Reports: No Symptoms. Denies: Abdominal Pain, Constipation, Diarrhea, Nausea, Vomiting Genitourinary: Reports: No Symptoms. Denies: Pain Musculoskeletal: Reports: Back Pain (chronic ) Skin: Reports: No Symptoms. Denies: Cyanosis Neurological: Reports: Difficulty Walking, Weakness, Gait Disturbance. Denies: Confusion, Dizziness, Headache, Numbness, Pre-Existing Deficit, Seizure, Syncope, Tingling, Tremors, Trouble Speaking, Change in Speech Psychiatric: Reports: No Symptoms - Patient Data Vitals - Most Recent: Last Vital Signs Temp 97.3 F 05/06/20 04:00 Pulse 49 L 05/06/20 00:00 Resp 14 05/06/20 04:00 BP 91/57 L 05/06/20 04:00 Pulse Ox 93 L 05/06/20 04:00 Weight - Most Recent: 186 lb 8 oz I&O - Last 24 Hours: Intake & Output 05/05/20 05/06/20 05/06/20 22:59 06:59 14:59 Intake Total 490 240 Output Total 600 550 Balance -110 -310 Lab Results Last 24 Hours: Laboratory Results - last 24 hr 05/06/20 05/06/20 Range/Units 05:27 05:27 WBC 8.20 (4.23-9.07) K/mm3 RBC 5.15 (4.63-6.08) M/mm3 Hgb 14.8 (13.7-17.5) gm/dl Hct 45.5 (40.1-51.0) % MCV 88.3 (79.0-92.2) fl MCH 28.7 (25.7-32.2) pg MCHC 32.5 (32.2-35.5) g/dl RDW Std Deviation 47.0 H (35.1-43.9) fL Plt Count 268 (163-337) K/mm3 MPV 10.9 (9.4-12.3) fl Neut % (Auto) 76.9 H (34.0-67.9) % Lymph % (Auto) 10.5 L (21.8-53.1) % [place] % (Auto) 9.6 (5.3-12.2) % Eos % (Auto) 2.1 (0.8-7.0) Baso % (Auto) 0.0 L (0.1-1.2) % Neut # (Auto) 6.31 H (1.78-5.38) K/mm3 Lymph # (Auto) 0.86 L (1.32-3.57) K/mm3 [place] # (Auto) 0.79 (0.30-0.82) K/mm3 Eos # (Auto) 0.17 (0.04-0.54) K/mm3 Baso # (Auto) 0.00 L (0.01-0.08) K/mm3 Sodium 145 (136-145) mEq/L Potassium 4.2 (3.5-5.1) mEq/L Chloride 110 H (98-107) mEq/L Carbon Dioxide 23 (21-32) mEq/L Anion Gap 16.2 H (5-15) BUN 32 H (7-18) mg/dL Creatinine 1.1 (0.7-1.3) mg/dL Est Cr Clr Drug Dosing 62.75 mL/min Estimated GFR (MDRD) > 60 (>60) mL/min BUN/Creatinine Ratio 29.1 H (14-18) Glucose 88 (83-115) mg/dL Calcium 8.3 L (8.5-10.1) mg/dL Total Bilirubin 0.9 (0.2-1.0) mg/dL AST 21 (15-37) U/L ALT 47 (16-63) U/L Alkaline Phosphatase 93 (46-116) U/L Total Protein 5.2 L (6.4-8.2) g/dl Albumin 2.4 L (3.4-5.0) g/dl Globulin 2.8 gm/dL Albumin/Globulin Ratio 0.9 L (1-2) Med Orders - Current: Current Medications Acetaminophen (Acetaminophen 325 Mg Tab) 650 mg PO Q6H PRN PRN Reason: Pain/Fever Last Admin: 04/26/20 19:23 Dose: 650 mg Documented by: Hydrocodone Bitart/Acetaminophen (Acetaminophen/Hydrocodone 325-5 Mg Tab) 2 tab PO Q8H PRN PRN Reason: Pain Last Admin: 05/05/20 21:04 Dose: 2 tab Documented by: Albuterol (Albuterol 0.083% 2.5 Mg/3 Ml Neb Soln) 2.5 mg NEB Q4HRRT PRN PRN Reason: Shortness of Breath Last Admin: 05/04/20 15:55 Dose: 2.5 mg Documented by: Amlodipine Besylate (Amlodipine 5 Mg Tab) 5 mg PO DAILY [facility] Last Admin: 05/05/20 08:05 Dose: 5 mg Documented by: Aspirin (Aspirin 81 Mg Tab.Ec) 81 mg PO DAILY [facility] Last Admin: 05/05/20 08:05 Dose: 81 mg Documented by: Atorvastatin Calcium (Atorvastatin 20 Mg Tab) 10 mg PO DAILY [facility] Last Admin: 05/05/20 08:05 Dose: 10 mg Documented by: Cholecalciferol (Cholecalciferol (Vitamin D3) 25 Mcg Tab) 50 mcg PO DAILY [facility] Last Admin: 05/05/20 08:04 Dose: 50 mcg Documented by: Doxazosin Mesylate (Doxazosin 2 Mg Tab) 6 mg PO DAILY [facility] Last Admin: 05/05/20 08:05 Dose: 6 mg Documented by: Enoxaparin Sodium (Enoxaparin 100 Mg/1 Ml Syringe) 88 mg SUBCUT Q12H [facility] Last Admin: 05/05/20 21:00 Dose: 88 mg Documented by: Fluticasone Propionate (Fluticasone Propionate Nasal [place] 16 Gm Bottle) 0 gm NASBOTH DAILY [facility] Last Admin: 05/05/20 08:05 Dose: Not Given Documented by: Guaifenesin (Guaifenesin 600 Mg Tab.Er) 600 mg PO BID [facility] Last Admin: 05/05/20 21:03 Dose: 600 mg Documented by: Guaifenesin/Phenylephrine HCl (Guaifenesin/Dextromethorphan 100-10 Mg/5 Ml Soln 5 Ml Cup) 10 ml PO Q6H PRN PRN Reason: Cough Last Admin: 04/30/20 20:00 Dose: 10 ml Documented by: Hydralazine HCl (Hydralazine 20 Mg/Ml Sdv) 10 mg IVPUSH Q4H PRN PRN Reason: Hypertention Last Admin: 05/05/20 00:10 Dose: 10 mg Documented by: Pantoprazole Sodium (Pantoprazole 40 Mg Tab.Cr) 40 mg PO DAILY [facility] Last Admin: 05/05/20 08:04 Dose: 40 mg Documented by: Sodium Chloride (Sodium Chloride 0.9% 10 Ml Syringe) 10 ml FLUSH ASDIRECTED PRN PRN Reason: Keep Vein Open Last Admin: 04/25/20 11:17 Dose: 10 ml Documented by: Trazodone HCl (Trazodone 50 Mg Tab) 50 mg PO BEDTIME PRN PRN Reason: Sleep Last Admin: 05/05/20 21:05 Dose: 50 mg Documented by: Zinc Sulfate (Zinc Sulfate 220 Mg Cap) 220 mg PO DAILY [facility] Last Admin: 05/05/20 08:04 Dose: 220 mg Documented by: Discontinued Medications Hydrocodone Bitart/Acetaminophen (Acetaminophen/Hydrocodone 325-5 Mg Tab) 2 tab PO Q12H PRN PRN Reason: Pain Last Admin: 05/05/20 09:33 Dose: 2 tab Documented by: Albuterol (Albuterol 6.7 Gm Inhaler) 0 gm INH Q4H PRN PRN Reason: SOB/Wheezing Albuterol/Ipratropium (Albuterol/Ipratropium 3.0-0.5 Mg/3 Ml Neb Soln) 3 ml NEB Q6HRRT [facility] Last Admin: 04/28/20 03:22 Dose: 3 ml Documented by: Dexamethasone (Dexamethasone 4 Mg Tab) 6 mg PO ONETIME ONE Stop: 04/25/20 11:57 Last Admin: 04/25/20 12:14 Dose: 6 mg Documented by: Dexamethasone (Dexamethasone 4 Mg Tab) 6 mg PO DAILY [facility] Stop: 05/04/20 09:01 Last Admin: 05/04/20 08:30 Dose: 6 mg Documented by: Doxazosin Mesylate (Doxazosin 2 Mg Tab) 6 mg PO DAILY [facility] Last Admin: 04/26/20 12:16 Dose: Not Given Documented by: Enoxaparin Sodium (Enoxaparin 40 Mg/0.4 Ml Syringe) 40 mg SUBCUT Q12H [facility] Last Admin: 04/27/20 05:23 Dose: 40 mg Documented by: Enoxaparin Sodium (Enoxaparin 40 Mg/0.4 Ml Syringe) 40 mg SUBCUT BID [facility] Last Admin: 04/29/20 20:23 Dose: 40 mg Documented by: Sodium Chloride (Normal Saline) 100 mls @ 60 mls/hr IV ASDIRECTED [facility] Last Admin: 04/25/20 14:12 Dose: 60 mls/hr Documented by: Azithromycin 500 mg/ Sodium (Chloride) 250 mls @ 250 mls/hr IV ONETIME ONE Stop: 04/25/20 15:46 Last Admin: 04/25/20 15:20 Dose: 250 mls/hr Documented by: Ceftriaxone Sodium 2 gm/ (Sodium Chloride) 100 mls @ 200 mls/hr IV Q24H [facility] Stop: 04/29/20 17:29 Last Admin: 04/26/20 17:24 Dose: 200 mls/hr Documented by: Azithromycin 500 mg/ Sodium (Chloride) 250 mls @ 250 mls/hr IV Q24H [facility] Stop: 04/27/20 15:59 Last Admin: 04/27/20 14:54 Dose: 250 mls/hr Documented by: Remdesivir 200 mg/ Sodium (Chloride) 250 mls @ 250 mls/hr IV ONETIME ONE Stop: 04/26/20 12:59 Last Admin: 04/26/20 12:48 Dose: 250 mls/hr Documented by: Remdesivir 100 mg/ Sodium (Chloride) 100 mls @ 100 mls/hr IV Q24H [facility] Stop: 04/30/20 12:59 Last Admin: 04/30/20 12:06 Dose: 100 mls/hr Documented by: Ceftriaxone Sodium 2 gm/ (Sodium Chloride) 100 mls @ 200 mls/hr IV Q24H [facility] Stop: 04/29/20 21:29 Last Admin: 04/29/20 20:23 Dose: 200 mls/hr Documented by: Sodium Chloride (Normal Saline) 100 mls @ 75 mls/hr IV ASDIRECTED [facility] Stop: 04/30/20 11:00 Last Admin: 04/30/20 09:15 Dose: 75 mls/hr Documented by: Tocilizumab 800 mg/ Sodium (Chloride) 100 mls @ 100 mls/hr IV ONETIME ONE Stop: 04/30/20 09:29 Last Admin: 04/30/20 08:03 Dose: 100 mls/hr Documented by: Insulin Human Lispro (Insulin Lispro 100 Unit/Ml) 0 unit SUBCUT QIDACANDBED [facility]; Protocol Last Admin: 05/01/20 06:37 Dose: Not Given Documented by: Iopamidol (Iopamidol 755 Mg/Ml 100 Ml Bottle) 100 ml IVPUSH ONETIME ONE Stop: 04/25/20 13:05 Last Admin: 04/25/20 14:11 Dose: 100 ml Documented by: Iopamidol (Iopamidol 755 Mg/Ml 100 Ml Bottle) 100 ml IVPUSH ONETIME ONE Stop: 04/30/20 07:32 Last Admin: 04/30/20 09:14 Dose: 100 ml Documented by: Ketorolac Tromethamine (Ketorolac 30 Mg/Ml Sdv) 30 mg IVPUSH ONETIME ONE Stop: 04/25/20 14:49 Last Admin: 04/25/20 15:19 Dose: 30 mg Documented by: Potassium Chloride (Potassium Chloride 20 Meq Tab.Er) 40 meq PO ONETIME ONE Stop: 04/28/20 12:01 Last Admin: 04/28/20 11:20 Dose: 40 meq Documented by: Sodium Chloride (Sodium Chloride 0.9% 10 Ml Syringe) 10 ml FLUSH ONETIME ONE Stop: 04/25/20 13:05 Last Admin: 04/25/20 14:11 Dose: 10 ml Documented by: Sodium Chloride (Sodium Chloride 0.9% 10 Ml Syringe) 10 ml FLUSH ONETIME PRN PRN Reason: IV FLUSH Last Admin: 04/30/20 09:14 Dose: 10 ml Documented by: - Exam Quality Assessment: Supplemental Oxygen (4L ), DVT Prophylaxis General: Alert, Oriented, Cooperative, No Acute Distress HEENT: Pupils Equal, Pupils Reactive, Mucous Membr. Moist/[place] Neck: Supple, Trachea Midline Lungs: Normal Respiratory Effort, Decreased Breath Sounds, Crackles (bases ) Cardiovascular: Regular Rate, Regular Rhythm GI/Abdominal Exam: Normal Bowel Sounds, No Distention (Male) Exam: Deferred Back Exam: Normal Inspection, Full Range of Motion Extremities: Normal Inspection, Normal Range of Motion, Non-Tender, No Pedal Edema, Normal Capillary Refill Skin: Warm, Dry, Intact Neurological: No New Focal Deficit Psy/Mental Status: Alert, Normal Affect, Normal Mood - Patient Data Lab Results Last 24 hrs: Laboratory Results - last 24 hr 05/06/20 05/06/20 Range/Units 05:27 05:27 WBC 8.20 (4.23-9.07) K/mm3 RBC 5.15 (4.63-6.08) M/mm3 Hgb 14.8 (13.7-17.5) gm/dl Hct 45.5 (40.1-51.0) % MCV 88.3 (79.0-92.2) fl MCH 28.7 (25.7-32.2) pg MCHC 32.5 (32.2-35.5) g/dl RDW Std Deviation 47.0 H (35.1-43.9) fL Plt Count 268 (163-337) K/mm3 MPV 10.9 (9.4-12.3) fl Neut % (Auto) 76.9 H (34.0-67.9) % Lymph % (Auto) 10.5 L (21.8-53.1) % [place] % (Auto) 9.6 (5.3-12.2) % Eos % (Auto) 2.1 (0.8-7.0) Baso % (Auto) 0.0 L (0.1-1.2) % Neut # (Auto) 6.31 H (1.78-5.38) K/mm3 Lymph # (Auto) 0.86 L (1.32-3.57) K/mm3 [place] # (Auto) 0.79 (0.30-0.82) K/mm3 Eos # (Auto) 0.17 (0.04-0.54) K/mm3 Baso # (Auto) 0.00 L (0.01-0.08) K/mm3 Sodium 145 (136-145) mEq/L Potassium 4.2 (3.5-5.1) mEq/L Chloride 110 H (98-107) mEq/L Carbon Dioxide 23 (21-32) mEq/L Anion Gap 16.2 H (5-15) BUN 32 H (7-18) mg/dL Creatinine 1.1 (0.7-1.3) mg/dL Est Cr Clr Drug Dosing 62.75 mL/min Estimated GFR (MDRD) > 60 (>60) mL/min BUN/Creatinine Ratio 29.1 H (14-18) Glucose 88 (83-115) mg/dL Calcium 8.3 L (8.5-10.1) mg/dL Total Bilirubin 0.9 (0.2-1.0) mg/dL AST 21 (15-37) U/L ALT 47 (16-63) U/L Alkaline Phosphatase 93 (46-116) U/L Total Protein 5.2 L (6.4-8.2) g/dl Albumin 2.4 L (3.4-5.0) g/dl Globulin 2.8 gm/dL Albumin/Globulin Ratio 0.9 L (1-2) Result Diagrams: 05/06/20 05:27 05/06/20 05:27 Sepsis Event Note - Evaluation Sepsis Screening Result: No Definite Risk - Focused Exam Vital Signs: Vital Signs Temp Pulse Resp BP Pulse Ox 05/06/20 04:00 97.3 F 14 91/57 L 93 L 05/06/20 00:00 97.1 F 49 L 14 102/50 L 95 - Problem List & Annotations (1) HLD (hyperlipidemia) SNOMED Code(s): 07218468 Code(s): E78.5 - HYPERLIPIDEMIA, UNSPECIFIED Status: Chronic Priority: Low Current Visit: No Qualifiers: Hyperlipidemia type: unspecified Qualified Code(s): E78.5 - Hyperlipidemia, unspecified (2) HTN (hypertension) SNOMED Code(s): 72978780 Code(s): I10 - ESSENTIAL (PRIMARY) HYPERTENSION Status: Chronic Priority: Medium Current Visit: No Qualifiers: Hypertension type: unspecified Qualified Code(s): I10 - Essential (primary) hypertension (3) History of coronary artery stent placement SNOMED Code(s): 657857713, 826017146 Code(s): Z95.5 - PRESENCE OF CORONARY ANGIOPLASTY IMPLANT AND GRAFT Status: Chronic Priority: Medium Current Visit: No (4) CAD (coronary artery disease) SNOMED Code(s): 77674885 Code(s): I25.10 - ATHSCL HEART DISEASE OF [place] CORONARY ARTERY W/O ANG PCTRS Status: Chronic Priority: Medium Current Visit: No Qualifiers: Coronary Disease-Associated Artery/Lesion type: [place] artery [place] vs. transplanted heart: [place] heart Associated angina: angina presence unspecified Qualified Code(s): I25.10 - Atherosclerotic heart disease of [place] coronary artery without angina pectoris (5) COVID-19 SNOMED Code(s): 451180391 Code(s): U07.1 - COVID-19 Status: Acute Priority: High Current Visit: Yes (6) Hypoxia SNOMED Code(s): 528523906 Code(s): R09.02 - HYPOXEMIA Status: Acute Priority: High Current Visit: Yes (7) Elevated d-dimer SNOMED Code(s): 216289421 Code(s): R79.89 - OTHER SPECIFIED ABNORMAL FINDINGS OF BLOOD CHEMISTRY Status: Acute Priority: High Current Visit: Yes (8) Cardiomegaly SNOMED Code(s): 7479593 Code(s): I51.7 - CARDIOMEGALY Status: Chronic Priority: Low Current Visit: No (9) Pulmonary embolism SNOMED Code(s): 25253748 Code(s): I26.99 - OTHER PULMONARY EMBOLISM WITHOUT ACUTE COR PULMONALE Status: Acute Priority: High Current Visit: Yes Qualifiers: Pulmonary embolism type: multiple subsegmental (without acute cor pulmonale) Qualified Code(s): I26.94 - Multiple subsegmental pulmonary emboli without acute cor pulmonale - Problem List Review Problem List Initiated/Reviewed/Updated: Yes - Assessment Assessment:: 04/26/20 In to see Mao. He is laying in bed and is now on 2 L of oxygen. He reports he is feeling pretty good and only notes dyspnea when he is up moving around. He said he will occasionally cough and that will cause his saturations to drop as well. Reports it is a dry cough. He has no current concerns. We discussed plan of care and how he will likely need to remain hospitalized for the next 5 days to complete treatment. We discussed proning and patient reports that this is impossible for him because he has had neck surgery. We did discuss Acapella and incentive spirometry and he reports that he will continue working with this. Otherwise labs continue to look good. CRP has decreased and kidney function has improved. D-dimer remained stable. Leukopenia noted. we will continue current treatment plan. Likely discharge Wednesday pending continued improvement as I will be the day he completes treatment. 04/27/20 Patient is experiencing SOB with pleuritic CP. Will be transferred to ICU; ABG is pending. PCXR documents SARS-COV-2 PNA. 04/28/2020 Patient is improving. He was on room air with oxygen saturations in the low 90s while proning today. Otherwise he is on 3 L. D-dimer did increase up to 2.78 which is a significant change. He is on Lovenox 40 mg twice daily. We will continue to monitor D-dimer, shortness of breath, lower extremity signs and symptoms. Since he is improving I would not get a CTA at this time. Blood sugars this morning are up to 160, therefore will start fingerstick blood sugars and sliding scale insulin to keep his blood sugars less than 200 if possible. This is likely secondary to dexamethasone. Mild hypokalemia and given 40 mEq of potassium orally. Blood pressure is well controlled with blood pressures mostly less than 150 except for an occasional systolic blood pressure in the 150s. Patient has not received Actemra, but will hold off on treatment unless he has significant worsening in oxygen requirements. 04/29/20 In to see Mao. He is currently on 4 L. He continues to work on proning and utilize his incentive spirometer and Acapella. Potassium is improved. WBC is increasing but this is likely secondary to steroid use. Otherwise he remained stable. He states he gets very short of breath when he gets up to use the restroom and has been having coughing fits. We will add dextromethorphan/guaifenesin as needed. No other nursing or patient concerns. Patient will remain hospitalized till he finishes his Covid treatment and is weaned down on oxygen. 04/30/20 In to see Mao. He is proning in the bed and doing quite well. He has improved to 3 L. When proning he is noted to have saturations in the upper 90s however with movement he drops into the 80s. He continues to utilize his incentive spirometer and Acapella. We discussed his chronic back pain which is exacerbated by proning. Discussed pain medications for this and how important proning, along with his Acapella and incentive spirometry are. He stated how he feels like he gets winded so quick when ambulating. CTA yesterday showed very small pulmonary embolisms and he was started on 1 mg/kg Lovenox twice daily. Bilateral lower extremity ultrasounds were negative for any DVT. Nursing reports they are going to try to encourage more proning today with the patient. Goal is to increase endurance and decrease oxygen needed to 2 L or less prior to discharge. Labs today: WBC 9.20. Hemoglobin 14.2. Platelet 221. Neutrophils elevated at 7.55. D-dimer down to 9.52. Sodium 141. Potassium 4.0. Anion gap 12.0. BUN 28, creatinine 1.0, GFR greater than 60. Glucose 96. AST 26, ALT 68, alkaline phosphatase 128. 05/01/20 In to see Mao. He is proning in the bed currently. He reports he feels a little better and he is down to 3 L on oxygen. He does note that he has sign ificant shortness of breath when getting up to use the bathroom still. We discussed his scan results indicating very small pulmonary embolisms. Discussed how he has shown improvement when he is proning and utilizing his incentive spirometer and Acapella. He agrees to continue to do this. Nursing will push with this as well. He reports back pain due to to compression fractures which is chronic for him and exacerbated by proning. We discussed pain medications to assist with this and how there has to be some [id number]. Otherwise he is doing better today. We will continue current treatment plan with goal to decrease oxygen demand to 2 L or less prior to discharge. 05/02/20 In to see Mao. He is on 3.5 L of oxygen and is laying in bed. He has been proning and utilizing his incentive spirometer and Acapella. Continues to have worsening dyspnea with exertion but states he feels like he is getting some better energy. We will downgrade him today to MedSurg status as he is remained quite stable. D-dimer today 5.20. Sodium 144. Potassium 4.1. Chloride 108. Carbon oxide 25. Anion gap is up to 15.1. BUN 31, creatinine 1.0, GFR greater than 60. Glucose 10 7-1 69. Magnesium 2.2. Bilirubin 0.5. AST 20, ALT 60, alkaline phosphatase 117. CRP is 1.4. Albumin is up to 2.4. Continue current treatment plan. Goal remains improvement of oxygenation to requiring less than 2 L and building of endurance. 05/03/20 In to see Mao. Per nursing he had an episode of desaturation last night and was requiring 6 L to keep his saturations within goal. Since then he has been fluctuating but is currently at 5 L. He reports that he still feels pretty good, denies any pain, and states he is only short of breath with exertion. Repeat chest x-ray today was stable to worse. Intake remains good. He continues to prone and utilize his incentive spirometer and Acapella. This was encouraged again. Labs today show a leukocytosis of 11.81. He is receiving steroids but this is something we will monitor. Neutrophils are elevated 86.1. D-dimer is down to 4.11. Sodium is 143. Potassium 4.3. Carbon dioxide 23. Anion gap is 15.3. BUN is 28. Creatinine 1.0. GFR greater than 60. Glucose has been stable. Magnesium is 2.1. Bilirubin 0.6. AST 17, ALT 49, alkaline phosphatase 109. Albumin is down to 2.4. Unknown length of stay due to fluctuations in patient's oxygen demand. We will continue current treatment plan and monitor for signs of a secondary infection. 05/04/2020 74 year old pro with fever/chills/body aches tested positive for COVID-19 and was admitted for covid 19 pneumonia on 04/25/2020. Patient still complains of occasional dry cough. Otherwise denies nausea, vomiting, fever, or chills. encouraged to prone often and utilize incentive spirometry and Acapella. Patient is now on 4 L CRP 0.4 and D-dimer 3.96 05/05/2020 74 year old pro with fever/chills/body aches tested positive for COVID-19 and was admitted for covid 19 pneumonia on 04/25/2020. Patient feels much better but still complains of occasional dry cough. Otherwise denies nausea, vomiting, fever, or chills. encouraged to prone often and utilize incentive spirometry and Acapella. Patient is now still on 4 L CRP 0.7 05/06/2020 In to see Mao. He sitting up in the chair after we moved him from ICU to room 20. He now has a window. PT/OT worked with him as he is quite severely deconditioned. He was only able to walk a very short distance out of his room. He is requiring 3 to 4 L of oxygen. He is completed his Covid treatment. We will switch him over from Lovenox to Xarelto today for his DVTs. Labs otherwise continue to look good. He was started on Norvasc due to his noted elevated blood pressures however patient has been quite low today with systolic in the 90s. We will therefore hold this and see how he does. He was very strongly encouraged to continue proning and utilizing his incentive spirometry and Acapella. He will now begin ambulating more frequently. Order placed for 3 times daily ambulation. Discussed potential need for SNF rehab stay versus assisted living facility and patient does not want to have that direction at this time. We will continue to encourage frequent pulmonary exercises. - Plan Plan:: COVID-19 Hypoxia Elevated D-Dimer Pulmonary embolism * CT angio chest -several small pulmonary emboli reviewed and subsegmental branches of leaving the right lower lung. * O2 as needed to keep saturations 88-96% * Pt has completed courses of Azithromycin, Rocephin, Remdisivir and dexamethasone * Given Actemra due to worsening saturations * PRN albuterol inhaler * Consult RT * IS/Acapella * Prone whenever able * Discontinued Airborne/contact precautions - patient +20 days from symptoms onset * Monitor labs * OT/PT consult * Zinc supplementation * Telemetry/continuous pulse oximeter * Discontinue lovenox and start xarelto 15mg BID for 21 days, then 20mg daily thereafter * Bilateral lower extremity US - No evidence of PE HLD (hyperlipidemia) HTN (hypertension) History of coronary artery stent placement CAD (coronary artery disease) Cardiomegaly * Continue home medications as directed * Telemetry * Started on norvasc - hold today for hypotension Code status: Full Code PCP: Nano Guzman NP DVT prophylaxis: Lovenox Social: Patient resides in [place] alone Disposition: Patient upgraded to ICU status due to worsening SOB, Elevated D- dimer, Worsening oxygen saturations. LOS>96 Hrs due to need for continued COVID-19 treatment, Hypoxia.
[2020-05-06] MEDS: Pantoprazole 40 MG Tab.CR PO SCH (09:07)
[2020-05-06] MEDS: Doxazosin 2 MG Tab PO SCH (09:07)
[2020-05-06] MEDS: Zinc Sulfate 220 MG Cap PO SCH (09:07)
[2020-05-06] MEDS: Rivaroxaban 15 MG Tab PO SCH ×2 (09:07→16:54)
[2020-05-06] MEDS: guaiFENesin 600 MG Tab.ER PO SCH ×2 (09:07→20:07)
[2020-05-06] MEDS: atorvaSTATin 20 MG Tab PO SCH (09:09)
[2020-05-06] MEDS: amLODIPine 5 MG Tab PO SCH (09:09)
[2020-05-06] MEDS: Aspirin 81 MG Tab.EC PO SCH (09:09)
[2020-05-06] MEDS: Cholecalciferol (Vitamin D3) 25 MCG Tab PO SCH (09:09)
[2020-05-06] MEDS: Enoxaparin 100 MG/1 ML Syringe SUBCUT SCH (09:10)
[2020-05-06] MEDS: Fluticasone Propionate Nasal Spray 16 GM Bottle NASBOTH SCH (09:10)
[2020-05-06] MEDS: Acetaminophen/HYDROcodone 325-5 MG Tab PO PRN (20:07)
[2020-05-07] MEDS: Rivaroxaban 15 MG Tab PO SCH ×2 (06:10→17:42)
--- NOTE | 2020-05-07 07:56 | PCM.PN ---
- General Info Date of Service: 05/07/20 Admission Dx/Problem (Free Text): Admission Diagnosis/Problem Admission Diagnosis/Problem Hypoxia Functional Status: Reports: Pain Controlled, Tolerating Diet, Ambulating, Urinating, Incentive Spirometry, Other (Acapella ). Denies: New Symptoms - Review of Systems General: Reports: Weakness. Denies: Fever, Fatigue, Malaise, Chills HEENT: Reports: No Symptoms. Denies: Headaches, Sore Throat Pulmonary: Reports: Shortness of Breath, Cough. Denies: Pleuritic Chest Pain, Sputum, Wheezing Cardiovascular: Reports: Dyspnea on Exertion. Denies: Chest Pain, Palpitations, Edema Gastrointestinal: Reports: No Symptoms. Denies: Abdominal Pain, Constipation, Diarrhea, Nausea, Vomiting Genitourinary: Reports: No Symptoms. Denies: Pain Musculoskeletal: Reports: No Symptoms Skin: Reports: No Symptoms. Denies: Cyanosis Neurological: Reports: Difficulty Walking, Weakness, Gait Disturbance. Denies: Confusion, Pre-Existing Deficit Psychiatric: Reports: No Symptoms - Patient Data Vitals - Most Recent: Last Vital Signs Temp 97.9 F 05/07/20 03:09 Pulse 63 05/07/20 03:09 Resp 14 05/07/20 03:09 BP 136/86 05/07/20 03:09 Pulse Ox 94 L 05/07/20 03:09 Weight - Most Recent: 183 lb 6.4 oz I&O - Last 24 Hours: Intake & Output 05/06/20 05/07/20 05/07/20 22:59 06:59 14:59 Intake Total 980 400 Output Total 400 350 Balance 580 50 Lab Results Last 24 Hours: Laboratory Results - last 24 hr 05/07/20 05/07/20 Range/Units 06:24 06:24 WBC 7.02 (4.23-9.07) K/mm3 RBC 5.12 (4.63-6.08) M/mm3 Hgb 14.7 (13.7-17.5) gm/dl Hct 45.3 (40.1-51.0) % MCV 88.5 (79.0-92.2) fl MCH 28.7 (25.7-32.2) pg MCHC 32.5 (32.2-35.5) g/dl RDW Std Deviation 46.5 H (35.1-43.9) fL Plt Count 244 (163-337) K/mm3 MPV 10.4 (9.4-12.3) fl Neut % (Auto) 73.4 H (34.0-67.9) % Lymph % (Auto) 11.1 L (21.8-53.1) % [place] % (Auto) 12.3 H (5.3-12.2) % Eos % (Auto) 2.6 (0.8-7.0) Baso % (Auto) 0.0 L (0.1-1.2) % Neut # (Auto) 5.16 (1.78-5.38) K/mm3 Lymph # (Auto) 0.78 L (1.32-3.57) K/mm3 [place] # (Auto) 0.86 H (0.30-0.82) K/mm3 Eos # (Auto) 0.18 (0.04-0.54) K/mm3 Baso # (Auto) 0.00 L (0.01-0.08) K/mm3 Sodium 144 (136-145) mEq/L Potassium 4.2 (3.5-5.1) mEq/L Chloride 110 H (98-107) mEq/L Carbon Dioxide 25 (21-32) mEq/L Anion Gap 13.2 (5-15) BUN 31 H (7-18) mg/dL Creatinine 1.1 (0.7-1.3) mg/dL Est Cr Clr Drug Dosing 62.75 mL/min Estimated GFR (MDRD) > 60 (>60) mL/min BUN/Creatinine Ratio 28.2 H (14-18) Glucose 88 (83-115) mg/dL Calcium 8.2 L (8.5-10.1) mg/dL Total Bilirubin 0.6 (0.2-1.0) mg/dL AST 22 (15-37) U/L ALT 50 (16-63) U/L Alkaline Phosphatase 94 (46-116) U/L Total Protein 5.2 L (6.4-8.2) g/dl Albumin 2.4 L (3.4-5.0) g/dl Globulin 2.8 gm/dL Albumin/Globulin Ratio 0.9 L (1-2) Med Orders - Current: Current Medications Acetaminophen (Acetaminophen 325 Mg Tab) 650 mg PO Q6H PRN PRN Reason: Pain/Fever Last Admin: 04/26/20 19:23 Dose: 650 mg Documented by: Hydrocodone Bitart/Acetaminophen (Acetaminophen/Hydrocodone 325-5 Mg Tab) 2 tab PO Q8H PRN PRN Reason: Pain Last Admin: 05/06/20 20:07 Dose: 2 tab Documented by: Albuterol (Albuterol 0.083% 2.5 Mg/3 Ml Neb Soln) 2.5 mg NEB Q4HRRT PRN PRN Reason: Shortness of Breath Last Admin: 05/04/20 15:55 Dose: 2.5 mg Documented by: Aspirin (Aspirin 81 Mg Tab.Ec) 81 mg PO DAILY COUNTS INCLUDE 234 BEDS AT [facility] Last Admin: 05/06/20 09:09 Dose: 81 mg Documented by: Atorvastatin Calcium (Atorvastatin 20 Mg Tab) 10 mg PO DAILY COUNTS INCLUDE 234 BEDS AT THE [facility] Last Admin: 05/06/20 09:09 Dose: 10 mg Documented by: Cholecalciferol (Cholecalciferol (Vitamin D3) 25 Mcg Tab) 50 mcg PO DAILY COUNTS INCLUDE 234 BEDS AT THE [facility] Last Admin: 05/06/20 09:09 Dose: 50 mcg Documented by: Doxazosin Mesylate (Doxazosin 2 Mg Tab) 6 mg PO DAILY COUNTS INCLUDE 234 BEDS AT THE [facility] Last Admin: 05/06/20 09:07 Dose: 6 mg Documented by: Fluticasone Propionate (Fluticasone Propionate Nasal [place] 16 Gm Bottle) 0 gm NASBOTH DAILY COUNTS INCLUDE 234 BEDS AT THE [facility] Last Admin: 05/06/20 09:10 Dose: Not Given Documented by: Guaifenesin (Guaifenesin 600 Mg Tab.Er) 600 mg PO BID COUNTS INCLUDE 234 BEDS AT [facility] Last Admin: 05/06/20 20:07 Dose: 600 mg Documented by: Guaifenesin/Phenylephrine HCl (Guaifenesin/Dextromethorphan 100-10 Mg/5 Ml Soln 5 Ml Cup) 10 ml PO Q6H PRN PRN Reason: Cough Last Admin: 04/30/20 20:00 Dose: 10 ml Documented by: Hydralazine HCl (Hydralazine 20 Mg/Ml Sdv) 10 mg IVPUSH Q4H PRN PRN Reason: Hypertention Last Admin: 05/05/20 00:10 Dose: 10 mg Documented by: Pantoprazole Sodium (Pantoprazole 40 Mg Tab.Cr) 40 mg PO DAILY COUNTS INCLUDE 234 BEDS AT [facility] Last Admin: 05/06/20 09:07 Dose: 40 mg Documented by: Rivaroxaban (Rivaroxaban 15 Mg Tab) 15 mg PO BIDMEALS COUNTS INCLUDE 234 BEDS AT [facility] Stop: 05/26/20 17:01 Last Admin: 05/07/20 06:10 Dose: 15 mg Documented by: Sodium Chloride (Sodium Chloride 0.9% 10 Ml Syringe) 10 ml FLUSH ASDIRECTED PRN PRN Reason: Keep Vein Open Last Admin: 04/25/20 11:17 Dose: 10 ml Documented by: Trazodone HCl (Trazodone 50 Mg Tab) 50 mg PO BEDTIME PRN PRN Reason: Sleep Last Admin: 05/05/20 21:05 Dose: 50 mg Documented by: Zinc Sulfate (Zinc Sulfate 220 Mg Cap) 220 mg PO DAILY COUNTS INCLUDE 234 BEDS AT [facility] Last Admin: 05/06/20 09:07 Dose: 220 mg Documented by: Discontinued Medications Hydrocodone Bitart/Acetaminophen (Acetaminophen/Hydrocodone 325-5 Mg Tab) 2 tab PO Q12H PRN PRN Reason: Pain Last Admin: 05/05/20 09:33 Dose: 2 tab Documented by: Albuterol (Albuterol 6.7 Gm Inhaler) 0 gm INH Q4H PRN PRN Reason: SOB/Wheezing Albuterol/Ipratropium (Albuterol/Ipratropium 3.0-0.5 Mg/3 Ml Neb Soln) 3 ml NEB Q6HRRT COUNTS INCLUDE 234 BEDS AT [facility] Last Admin: 04/28/20 03:22 Dose: 3 ml Documented by: Amlodipine Besylate (Amlodipine 5 Mg Tab) 5 mg PO DAILY COUNTS INCLUDE 234 BEDS AT [facility] Last Admin: 05/06/20 09:09 Dose: Not Given Documented by: Dexamethasone (Dexamethasone 4 Mg Tab) 6 mg PO ONETIME ONE Stop: 04/25/20 11:57 Last Admin: 04/25/20 12:14 Dose: 6 mg Documented by: Dexamethasone (Dexamethasone 4 Mg Tab) 6 mg PO DAILY COUNTS INCLUDE 234 BEDS AT [facility] Stop: 05/04/20 09:01 Last Admin: 05/04/20 08:30 Dose: 6 mg Documented by: Doxazosin Mesylate (Doxazosin 2 Mg Tab) 6 mg PO DAILY COUNTS INCLUDE 234 BEDS AT [facility] Last Admin: 04/26/20 12:16 Dose: Not Given Documented by: Enoxaparin Sodium (Enoxaparin 40 Mg/0.4 Ml Syringe) 40 mg SUBCUT Q12H COUNTS INCLUDE 234 BEDS AT THE [facility] Last Admin: 04/27/20 05:23 Dose: 40 mg Documented by: Enoxaparin Sodium (Enoxaparin 40 Mg/0.4 Ml Syringe) 40 mg SUBCUT BID COUNTS INCLUDE 234 BEDS AT [facility] Last Admin: 04/29/20 20:23 Dose: 40 mg Documented by: Enoxaparin Sodium (Enoxaparin 100 Mg/1 Ml Syringe) 88 mg SUBCUT Q12H COUNTS INCLUDE 234 BEDS AT [facility] Last Admin: 05/06/20 09:10 Dose: Not Given Documented by: Sodium Chloride (Normal Saline) 100 mls @ 60 mls/hr IV ASDIRECTED COUNTS INCLUDE 234 BEDS AT [facility] Last Admin: 04/25/20 14:12 Dose: 60 mls/hr Documented by: Azithromycin 500 mg/ Sodium (Chloride) 250 mls @ 250 mls/hr IV ONETIME ONE Stop: 04/25/20 15:46 Last Admin: 04/25/20 15:20 Dose: 250 mls/hr Documented by: Ceftriaxone Sodium 2 gm/ (Sodium Chloride) 100 mls @ 200 mls/hr IV Q24H COUNTS INCLUDE 234 BEDS AT THE [facility] Stop: 04/29/20 17:29 Last Admin: 04/26/20 17:24 Dose: 200 mls/hr Documented by: Azithromycin 500 mg/ Sodium (Chloride) 250 mls @ 250 mls/hr IV Q24H COUNTS INCLUDE 234 BEDS AT THE [facility] Stop: 04/27/20 15:59 Last Admin: 04/27/20 14:54 Dose: 250 mls/hr Documented by: Remdesivir 200 mg/ Sodium (Chloride) 250 mls @ 250 mls/hr IV ONETIME ONE Stop: 04/26/20 12:59 Last Admin: 04/26/20 12:48 Dose: 250 mls/hr Documented by: Remdesivir 100 mg/ Sodium (Chloride) 100 mls @ 100 mls/hr IV Q24H COUNTS INCLUDE 234 BEDS AT [facility] Stop: 04/30/20 12:59 Last Admin: 04/30/20 12:06 Dose: 100 mls/hr Documented by: Ceftriaxone Sodium 2 gm/ (Sodium Chloride) 100 mls @ 200 mls/hr IV Q24H COUNTS INCLUDE 234 BEDS AT THE [facility] Stop: 04/29/20 21:29 Last Admin: 04/29/20 20:23 Dose: 200 mls/hr Documented by: Sodium Chloride (Normal Saline) 100 mls @ 75 mls/hr IV ASDIRECTED COUNTS INCLUDE 234 BEDS AT THE [facility] Stop: 04/30/20 11:00 Last Admin: 04/30/20 09:15 Dose: 75 mls/hr Documented by: Tocilizumab 800 mg/ Sodium (Chloride) 100 mls @ 100 mls/hr IV ONETIME ONE Stop: 04/30/20 09:29 Last Admin: 04/30/20 08:03 Dose: 100 mls/hr Documented by: Insulin Human Lispro (Insulin Lispro 100 Unit/Ml) 0 unit SUBCUT QIDACANDBED COUNTS INCLUDE 234 BEDS AT THE [facility]; Protocol Last Admin: 05/01/20 06:37 Dose: Not Given Documented by: Iopamidol (Iopamidol 755 Mg/Ml 100 Ml Bottle) 100 ml IVPUSH ONETIME ONE Stop: 04/25/20 13:05 Last Admin: 04/25/20 14:11 Dose: 100 ml Documented by: Iopamidol (Iopamidol 755 Mg/Ml 100 Ml Bottle) 100 ml IVPUSH ONETIME ONE Stop: 04/30/20 07:32 Last Admin: 04/30/20 09:14 Dose: 100 ml Documented by: Ketorolac Tromethamine (Ketorolac 30 Mg/Ml Sdv) 30 mg IVPUSH ONETIME ONE Stop: 04/25/20 14:49 Last Admin: 04/25/20 15:19 Dose: 30 mg Documented by: Potassium Chloride (Potassium Chloride 20 Meq Tab.Er) 40 meq PO ONETIME ONE Stop: 04/28/20 12:01 Last Admin: 04/28/20 11:20 Dose: 40 meq Documented by: Sodium Chloride (Sodium Chloride 0.9% 10 Ml Syringe) 10 ml FLUSH ONETIME ONE Stop: 04/25/20 13:05 Last Admin: 04/25/20 14:11 Dose: 10 ml Documented by: Sodium Chloride (Sodium Chloride 0.9% 10 Ml Syringe) 10 ml FLUSH ONETIME PRN PRN Reason: IV FLUSH Last Admin: 04/30/20 09:14 Dose: 10 ml Documented by: - Exam Quality Assessment: Supplemental Oxygen (4L ), DVT Prophylaxis General: Alert, Oriented, Cooperative, No Acute Distress HEENT: Pupils Equal, Pupils Reactive, Mucous Membr. Moist/[place] Neck: Supple, Trachea Midline Lungs: Normal Respiratory Effort, Decreased Breath Sounds Cardiovascular: Regular Rate, Regular Rhythm GI/Abdominal Exam: Normal Bowel Sounds, No Distention (Male) Exam: Deferred Back Exam: Normal Inspection, Full Range of Motion Extremities: Normal Inspection, Normal Range of Motion, Non-Tender, No Pedal Edema, Normal Capillary Refill Skin: Warm, Dry, Intact Neurological: No New Focal Deficit Psy/Mental Status: Alert, Normal Affect, Normal Mood - Patient Data Lab Results Last 24 hrs: Laboratory Results - last 24 hr 05/07/20 05/07/20 Range/Units 06:24 06:24 WBC 7.02 (4.23-9.07) K/mm3 RBC 5.12 (4.63-6.08) M/mm3 Hgb 14.7 (13.7-17.5) gm/dl Hct 45.3 (40.1-51.0) % MCV 88.5 (79.0-92.2) fl MCH 28.7 (25.7-32.2) pg MCHC 32.5 (32.2-35.5) g/dl RDW Std Deviation 46.5 H (35.1-43.9) fL Plt Count 244 (163-337) K/mm3 MPV 10.4 (9.4-12.3) fl Neut % (Auto) 73.4 H (34.0-67.9) % Lymph % (Auto) 11.1 L (21.8-53.1) % [place] % (Auto) 12.3 H (5.3-12.2) % Eos % (Auto) 2.6 (0.8-7.0) Baso % (Auto) 0.0 L (0.1-1.2) % Neut # (Auto) 5.16 (1.78-5.38) K/mm3 Lymph # (Auto) 0.78 L (1.32-3.57) K/mm3 [place] # (Auto) 0.86 H (0.30-0.82) K/mm3 Eos # (Auto) 0.18 (0.04-0.54) K/mm3 Baso # (Auto) 0.00 L (0.01-0.08) K/mm3 Sodium 144 (136-145) mEq/L Potassium 4.2 (3.5-5.1) mEq/L Chloride 110 H (98-107) mEq/L Carbon Dioxide 25 (21-32) mEq/L Anion Gap 13.2 (5-15) BUN 31 H (7-18) mg/dL Creatinine 1.1 (0.7-1.3) mg/dL Est Cr Clr Drug Dosing 62.75 mL/min Estimated GFR (MDRD) > 60 (>60) mL/min BUN/Creatinine Ratio 28.2 H (14-18) Glucose 88 (83-115) mg/dL Calcium 8.2 L (8.5-10.1) mg/dL Total Bilirubin 0.6 (0.2-1.0) mg/dL AST 22 (15-37) U/L ALT 50 (16-63) U/L Alkaline Phosphatase 94 (46-116) U/L Total Protein 5.2 L (6.4-8.2) g/dl Albumin 2.4 L (3.4-5.0) g/dl Globulin 2.8 gm/dL Albumin/Globulin Ratio 0.9 L (1-2) Result Diagrams: 05/07/20 06:24 05/07/20 06:24 Sepsis Event Note - Evaluation Sepsis Screening Result: No Definite Risk - Focused Exam Vital Signs: Vital Signs Temp Pulse Resp BP Pulse Ox 05/07/20 03:09 97.9 F 63 14 136/86 94 L 05/06/20 20:09 87 94 L 05/06/20 19:57 98.1 F 79 16 123/77 91 L - Problem List & Annotations (1) HLD (hyperlipidemia) SNOMED Code(s): 57122517 Code(s): E78.5 - HYPERLIPIDEMIA, UNSPECIFIED Status: Chronic Priority: Low Current Visit: No Qualifiers: Hyperlipidemia type: unspecified Qualified Code(s): E78.5 - Hyperlipidemia, unspecified (2) HTN (hypertension) SNOMED Code(s): 24219197 Code(s): I10 - ESSENTIAL (PRIMARY) HYPERTENSION Status: Chronic Priority: Medium Current Visit: No Qualifiers: Hypertension type: unspecified Qualified Code(s): I10 - Essential (primary) hypertension (3) History of coronary artery stent placement SNOMED Code(s): 960701243, 842000032 Code(s): Z95.5 - PRESENCE OF CORONARY ANGIOPLASTY IMPLANT AND GRAFT Status: Chronic Priority: Medium Current Visit: No (4) CAD (coronary artery disease) SNOMED Code(s): 59869626 Code(s): I25.10 - ATHSCL HEART DISEASE OF [place] CORONARY ARTERY W/O ANG PCTRS Status: Chronic Priority: Medium Current Visit: No Qualifiers: Coronary Disease-Associated Artery/Lesion type: lummi artery [place] vs. transplanted heart: lummi heart Associated angina: angina presence unspecified Qualified Code(s): I25.10 - Atherosclerotic heart disease of [place] coronary artery without angina pectoris (5) COVID-19 SNOMED Code(s): 720337297 Code(s): U07.1 - COVID-19 Status: Acute Priority: High Current Visit: Yes (6) Hypoxia SNOMED Code(s): 149196468 Code(s): R09.02 - HYPOXEMIA Status: Acute Priority: High Current Visit: Yes (7) Elevated d-dimer SNOMED Code(s): 700397593 Code(s): R79.89 - OTHER SPECIFIED ABNORMAL FINDINGS OF BLOOD CHEMISTRY Status: Acute Priority: High Current Visit: Yes (8) Cardiomegaly SNOMED Code(s): 4810676 Code(s): I51.7 - CARDIOMEGALY Status: Chronic Priority: Low Current Visit: No (9) Pulmonary embolism SNOMED Code(s): 20754337 Code(s): I26.99 - OTHER PULMONARY EMBOLISM WITHOUT ACUTE COR PULMONALE Status: Acute Priority: High Current Visit: Yes Qualifiers: Pulmonary embolism type: multiple subsegmental (without acute cor pulmonale) Qualified Code(s): I26.94 - Multiple subsegmental pulmonary emboli without acute cor pulmonale - Problem List Review Problem List Initiated/Reviewed/Updated: Yes - My Orders Last 24 Hours: My Active Orders 05/06/20 09:00 Rivaroxaban [Xarelto] 15 mg PO BIDMEALS 05/06/20 09:20 Ambulate [RC] ASDIRECTED 05/09/20 07:39 BASIC METABOLIC PANEL,BMP [CHEM] Q48H CBC WITH AUTO DIFF [HEME] Q48H 05/11/20 07:39 BASIC METABOLIC PANEL,BMP [CHEM] Q48H CBC WITH AUTO DIFF [HEME] Q48H 05/13/20 07:39 BASIC METABOLIC PANEL,BMP [CHEM] Q48H - Assessment Assessment:: 04/26/20 In to see Mao. He is laying in bed and is now on 2 L of oxygen. He reports he is feeling pretty good and only notes dyspnea when he is up moving around. He said he will occasionally cough and that will cause his saturations to drop as well. Reports it is a dry cough. He has no current concerns. We discussed plan of care and how he will likely need to remain hospitalized for the next 5 days to complete treatment. We discussed proning and patient reports that this is impossible for him because he has had neck surgery. We did discuss Acapella and incentive spirometry and he reports that he will continue working with this. Otherwise labs continue to look good. CRP has decreased and kidney function has improved. D-dimer remained stable. Leukopenia noted. we will continue current treatment plan. Likely discharge Wednesday pending continued improvement as I will be the day he completes treatment. 04/27/20 Patient is experiencing SOB with pleuritic CP. Will be transferred to ICU; ABG is pending. PCXR documents SARS-COV-2 PNA. 04/28/2020 Patient is improving. He was on room air with oxygen saturations in the low 90s while proning today. Otherwise he is on 3 L. D-dimer did increase up to 2.78 which is a significant change. He is on Lovenox 40 mg twice daily. We will continue to monitor D-dimer, shortness of breath, lower extremity signs and symptoms. Since he is improving I would not get a CTA at this time. Blood sugars this morning are up to 160, therefore will start fingerstick blood sugars and sliding scale insulin to keep his blood sugars less than 200 if possible. This is likely secondary to dexamethasone. Mild hypokalemia and given 40 mEq of potassium orally. Blood pressure is well controlled with blood pressures mostly less than 150 except for an occasional systolic blood pressure in the 150s. Patient has not received Actemra, but will hold off on treatment unless he has significant worsening in oxygen requirements. 04/29/20 In to see Mao. He is currently on 4 L. He continues to work on proning and utilize his incentive spirometer and Acapella. Potassium is improved. WBC is increasing but this is likely secondary to steroid use. Otherwise he remained stable. He states he gets very short of breath when he gets up to use the restroom and has been having coughing fits. We will add dextrometh orphan/guaifenesin as needed. No other nursing or patient concerns. Patient will remain hospitalized till he finishes his Covid treatment and is weaned down on oxygen. 04/30/20 In to see Mao. He is proning in the bed and doing quite well. He has improved to 3 L. When proning he is noted to have saturations in the upper 90s however with movement he drops into the 80s. He continues to utilize his incentive spirometer and Acapella. We discussed his chronic back pain which is exacerbated by proning. Discussed pain medications for this and how important proning, along with his Acapella and incentive spirometry are. He stated how he feels like he gets winded so quick when ambulating. CTA yesterday showed very small pulmonary embolisms and he was started on 1 mg/kg Lovenox twice daily. Bilateral lower extremity ultrasounds were negative for any DVT. Nursing reports they are going to try to encourage more proning today with the patient. Goal is to increase endurance and decrease oxygen needed to 2 L or less prior to discharge. Labs today: WBC 9.20. Hemoglobin 14.2. Platelet 221. Neutrophils elevated at 7.55. D-dimer down to 9.52. Sodium 141. Potassium 4.0. Anion gap 12.0. BUN 28, creatinine 1.0, GFR greater than 60. Glucose 96. AST 26, ALT 68, alkaline phosphatase 128. 05/01/20 In to see Mao. He is proning in the bed currently. He reports he feels a little better and he is down to 3 L on oxygen. He does note that he has significant shortness of breath when getting up to use the bathroom still. We discussed his scan results indicating very small pulmonary embolisms. Discussed how he has shown improvement when he is proning and utilizing his incentive spirometer and Acapella. He agrees to continue to do this. Nursing will push with this as well. He reports back pain due to to compression fractures which is chronic for him and exacerbated by proning. We discussed pain medications to assist with this and how there has to be some [id number]. Otherwise he is doing better today. We will continue current treatment plan with goal to decrease oxygen demand to 2 L or less prior to discharge. 05/02/20 In to see Mao. He is on 3.5 L of oxygen and is laying in bed. He has been proning and utilizing his incentive spirometer and Acapella. Continues to have worsening dyspnea with exertion but states he feels like he is getting some better energy. We will downgrade him today to MedSur status as he is remained quite stable. D-dimer today 5.20. Sodium 144. Potassium 4.1. Chloride 108. Carbon oxide 25. Anion gap is up to 15.1. BUN 31, creatinine 1.0, GFR greater than 60. Glucose 10 7-1 69. Magnesium 2.2. Bilirubin 0.5. AST 20, ALT 60, alkaline phosphatase 117. CRP is 1.4. Albumin is up to 2.4. Continue current treatment plan. Goal remains improvement of oxygenation to requiring less than 2 L and building of endurance. 05/03/20 In to see Mao. Per nursing he had an episode of desaturation last night and was requiring 6 L to keep his saturations within goal. Since then he has been fluctuating but is currently at 5 L. He reports that he still feels pretty good, denies any pain, and states he is only short of breath with exertion. Repeat chest x-ray today was stable to worse. Intake remains good. He contin ues to prone and utilize his incentive spirometer and Acapella. This was encouraged again. Labs today show a leukocytosis of 11.81. He is receiving steroids but this is something we will monitor. Neutrophils are elevated 86.1. D-dimer is down to 4.11. Sodium is 143. Potassium 4.3. Carbon dioxide 23. Anion gap is 15.3. BUN is 28. Creatinine 1.0. GFR greater than 60. Glucose has been stable. Magnesium is 2.1. Bilirubin 0.6. AST 17, ALT 49, alkaline phosphatase 109. Albumin is down to 2.4. Unknown length of stay due to fluctuations in patient's oxygen demand. We will continue current treatment plan and monitor for signs of a secondary infection. 05/04/2020 74 year old pro with fever/chills/body aches tested positive for COVID-19 and was admitted for covid 19 pneumonia on 04/25/2020. Patient still complains of occasional dry cough. Otherwise denies nausea, vomiting, fever, or chills. encouraged to prone often and utilize incentive spirometry and Acapella. Patient is now on 4 L CRP 0.4 and D-dimer 3.96 05/05/2020 74 year old pro with fever/chills/body aches tested positive for COVID-19 and was admitted for covid 19 pneumonia on 04/25/2020. Patient feels much better but still complains of occasional dry cough. Otherwise denies nausea, vomiting, fever, or chills. encouraged to prone often and utilize incentive spirometry and Acapella. Patient is now still on 4 L CRP 0.7 05/06/2020 In to see Mao. He sitting up in the chair after we moved him from ICU to room 20. He now has a window. PT/OT worked with him as he is quite severely deconditioned. He was only able to walk a very short distance out of his room. He is requiring 3 to 4 L of oxygen. He is completed his Covid treatment. We will switch him over from Lovenox to Xarelto today for his DVTs. Labs otherwise continue to look good. He was started on Norvasc due to his noted elevated blood pressures however patient has been quite low today with systolic in the 90s. We will therefore hold this and see how he does. He was very strongly encouraged to continue proning and utilizing his incentive spirometry and Acapella. He will now begin ambulating more frequently. Order placed for 3 times daily ambulation. Discussed potential need for SNF rehab stay versus assisted living facility and patient does not want to have that direction at this time. We will continue to encourage frequent pulmonary exercises. 05/07/2020 In to see Mao. He is sitting up in the chair and just finished with therapies. He is quite excited as he was able to walk to the door. He reports his symptoms are overall improving and he feels much less short of breath. He has been requiring 4 to 5 L of oxygen but he is moving more now. Continues to utilize his incentive spirometer and Acapella. Continues to tolerate Xarelto and remains quite stable. We will switch his lab draws to every 48 hours over concerns of iatrogenic anemia and because his labs have been so stable. Blood pressures have been good and his Norvasc yesterday was held. We will discontinue this over fear of him being hypotensive. Unknown length of stay pending stability of oxygenation and improvement with endurance. Goal is to get patient down to 2L and improve activity tolerance prior to discharge. - Plan Plan:: COVID-19 Hypoxia Elevated D-Dimer Pulmonary embolism * CT angio chest -several small pulmonary emboli reviewed and subsegmental branches of leaving the right lower lung. * O2 as needed to keep saturations 88-96% * Pt has completed courses of Azithromycin, Rocephin, Remdisivir and dexamethasone * Given Actemra due to worsening saturations * PRN albuterol inhaler * Consult RT * IS/Acapella * Prone whenever able * Discontinued Airborne/contact precautions - patient +20 days from symptoms onset * Monitor labs * OT/PT consult * Zinc supplementation * Telemetry/continuous pulse oximeter * Continue xarelto 15mg BID for 21 days, then 20mg daily thereafter * Bilateral lower extremity US - No evidence of PE HLD (hyperlipidemia) HTN (hypertension) History of coronary artery stent placement CAD (coronary artery disease) Cardiomegaly * Continue home medications as directed * Telemetry * Discontinue Norvasc as BP has been stable and it was held yesterday. Code status: Full Code PCP: Nano Guzman NP DVT prophylaxis: Lovenox Social: Patient resides in [facility] Disposition: Patient upgraded to ICU status due to worsening SOB, Elevated D- dimer, Worsening oxygen saturations. LOS>96 Hrs due to need for continued COVID-19 treatment, Hypoxia.
[2020-05-07] MEDS: Aspirin 81 MG Tab.EC PO SCH (09:39)
[2020-05-07] MEDS: Doxazosin 2 MG Tab PO SCH (09:39)
[2020-05-07] MEDS: guaiFENesin 600 MG Tab.ER PO SCH ×2 (09:40→21:04)
[2020-05-07] MEDS: atorvaSTATin 20 MG Tab PO SCH (09:40)
[2020-05-07] MEDS: Pantoprazole 40 MG Tab.CR PO SCH (09:41)
[2020-05-07] MEDS: Cholecalciferol (Vitamin D3) 25 MCG Tab PO SCH (09:41)
[2020-05-07] MEDS: Zinc Sulfate 220 MG Cap PO SCH (09:41)
[2020-05-07] MEDS: Fluticasone Propionate Nasal Spray 16 GM Bottle NASBOTH SCH (09:41)
[2020-05-07] MEDS: Acetaminophen/HYDROcodone 325-5 MG Tab PO PRN (21:03)
[2020-05-07] MEDS: traZODone 50 MG Tab PO PRN (21:05)
[2020-05-08] MEDS: Rivaroxaban 15 MG Tab PO SCH ×2 (06:31→16:50)
--- NOTE | 2020-05-08 07:18 | PCM.PN ---
- General Info Date of Service: 05/08/20 Admission Dx/Problem (Free Text): Admission Diagnosis/Problem Admission Diagnosis/Problem Hypoxia Functional Status: Reports: Pain Controlled, Tolerating Diet, Ambulating, Urinating, Incentive Spirometry, Other (Acapella ). Denies: New Symptoms - Review of Systems General: Reports: Weakness. Denies: Fever, Fatigue, Malaise, Chills HEENT: Reports: No Symptoms. Denies: Headaches, Visual Changes Pulmonary: Reports: Shortness of Breath, Cough. Denies: Pleuritic Chest Pain, Sputum, Wheezing Cardiovascular: Reports: Dyspnea on Exertion. Denies: Chest Pain, Palpitations, Edema Gastrointestinal: Reports: No Symptoms. Denies: Abdominal Pain, Constipation, Diarrhea, Nausea, Vomiting Genitourinary: Reports: No Symptoms. Denies: Pain Musculoskeletal: Reports: No Symptoms Skin: Reports: No Symptoms. Denies: Cyanosis Neurological: Reports: Difficulty Walking, Weakness, Gait Disturbance. Denies: Confusion, Pre-Existing Deficit Psychiatric: Reports: No Symptoms - Patient Data Vitals - Most Recent: Last Vital Signs Temp 97.5 F 05/08/20 05:36 Pulse 57 L 05/08/20 05:36 Resp 20 05/08/20 05:36 BP 135/74 05/08/20 05:36 Pulse Ox 92 L 05/08/20 05:36 Weight - Most Recent: 184 lb 4.8 oz I&O - Last 24 Hours: Intake & Output 05/07/20 05/08/20 05/08/20 22:59 06:59 14:59 Intake Total 620 500 Output Total 175 650 Balance 445 -150 Med Orders - Current: Current Medications Acetaminophen (Acetaminophen 325 Mg Tab) 650 mg PO Q6H PRN PRN Reason: Pain/Fever Last Admin: 04/26/20 19:23 Dose: 650 mg Documented by: Hydrocodone Bitart/Acetaminophen (Acetaminophen/Hydrocodone 325-5 Mg Tab) 2 tab PO Q8H PRN PRN Reason: Pain Last Admin: 05/07/20 21:03 Dose: 2 tab Documented by: Albuterol (Albuterol 0.083% 2.5 Mg/3 Ml Neb Soln) 2.5 mg NEB Q4HRRT PRN PRN Reason: Shortness of Breath Last Admin: 05/04/20 15:55 Dose: 2.5 mg Documented by: Aspirin (Aspirin 81 Mg Tab.Ec) 81 mg PO DAILY [facility] Last Admin: 05/07/20 09:39 Dose: 81 mg Documented by: Atorvastatin Calcium (Atorvastatin 20 Mg Tab) 10 mg PO DAILY [facility] Last Admin: 05/07/20 09:40 Dose: 10 mg Documented by: Cholecalciferol (Cholecalciferol (Vitamin D3) 25 Mcg Tab) 50 mcg PO DAILY [facility] Last Admin: 05/07/20 09:41 Dose: 50 mcg Documented by: Doxazosin Mesylate (Doxazosin 2 Mg Tab) 6 mg PO DAILY [facility] Last Admin: 05/07/20 09:39 Dose: 6 mg Documented by: Fluticasone Propionate (Fluticasone Propionate Nasal [place] 16 Gm Bottle) 0 gm NASBOTH DAILY [facility] Last Admin: 05/07/20 09:41 Dose: 1 spray Documented by: Guaifenesin (Guaifenesin 600 Mg Tab.Er) 600 mg PO BID [facility] Last Admin: 05/07/20 21:04 Dose: 600 mg Documented by: Guaifenesin/Phenylephrine HCl (Guaifenesin/Dextromethorphan 100-10 Mg/5 Ml Soln 5 Ml Cup) 10 ml PO Q6H PRN PRN Reason: Cough Last Admin: 04/30/20 20:00 Dose: 10 ml Documented by: Hydralazine HCl (Hydralazine 20 Mg/Ml Sdv) 10 mg IVPUSH Q4H PRN PRN Reason: Hypertention Last Admin: 05/05/20 00:10 Dose: 10 mg Documented by: Pantoprazole Sodium (Pantoprazole 40 Mg Tab.Cr) 40 mg PO DAILY [facility] Last Admin: 05/07/20 09:41 Dose: 40 mg Documented by: Rivaroxaban (Rivaroxaban 15 Mg Tab) 15 mg PO BIDMEALS [facility] Stop: 05/26/20 17:01 Last Admin: 05/08/20 06:31 Dose: 15 mg Documented by: Sodium Chloride (Sodium Chloride 0.9% 10 Ml Syringe) 10 ml FLUSH ASDIRECTED PRN PRN Reason: Keep Vein Open Last Admin: 04/25/20 11:17 Dose: 10 ml Documented by: Trazodone HCl (Trazodone 50 Mg Tab) 50 mg PO BEDTIME PRN PRN Reason: Sleep Last Admin: 05/07/20 21:05 Dose: 50 mg Documented by: Zinc Sulfate (Zinc Sulfate 220 Mg Cap) 220 mg PO DAILY [facility] Last Admin: 05/07/20 09:41 Dose: 220 mg Documented by: Discontinued Medications Hydrocodone Bitart/Acetaminophen (Acetaminophen/Hydrocodone 325-5 Mg Tab) 2 tab PO Q12H PRN PRN Reason: Pain Last Admin: 05/05/20 09:33 Dose: 2 tab Documented by: Albuterol (Albuterol 6.7 Gm Inhaler) 0 gm INH Q4H PRN PRN Reason: SOB/Wheezing Albuterol/Ipratropium (Albuterol/Ipratropium 3.0-0.5 Mg/3 Ml Neb Soln) 3 ml NEB Q6HRRT [facility] Last Admin: 04/28/20 03:22 Dose: 3 ml Documented by: Amlodipine Besylate (Amlodipine 5 Mg Tab) 5 mg PO DAILY [facility] Last Admin: 05/06/20 09:09 Dose: Not Given Documented by: Dexamethasone (Dexamethasone 4 Mg Tab) 6 mg PO ONETIME ONE Stop: 04/25/20 11:57 Last Admin: 04/25/20 12:14 Dose: 6 mg Documented by: Dexamethasone (Dexamethasone 4 Mg Tab) 6 mg PO DAILY [facility] Stop: 05/04/20 09:01 Last Admin: 05/04/20 08:30 Dose: 6 mg Documented by: Doxazosin Mesylate (Doxazosin 2 Mg Tab) 6 mg PO DAILY [facility] Last Admin: 04/26/20 12:16 Dose: Not Given Documented by: Enoxaparin Sodium (Enoxaparin 40 Mg/0.4 Ml Syringe) 40 mg SUBCUT Q12H [facility] Last Admin: 04/27/20 05:23 Dose: 40 mg Documented by: Enoxaparin Sodium (Enoxaparin 40 Mg/0.4 Ml Syringe) 40 mg SUBCUT BID [facility] Last Admin: 04/29/20 20:23 Dose: 40 mg Documented by: Enoxaparin Sodium (Enoxaparin 100 Mg/1 Ml Syringe) 88 mg SUBCUT Q12H [facility] Last Admin: 05/06/20 09:10 Dose: Not Given Documented by: Sodium Chloride (Normal Saline) 100 mls @ 60 mls/hr IV ASDIRECTED [facility] Last Admin: 04/25/20 14:12 Dose: 60 mls/hr Documented by: Azithromycin 500 mg/ Sodium (Chloride) 250 mls @ 250 mls/hr IV ONETIME ONE Stop: 04/25/20 15:46 Last Admin: 04/25/20 15:20 Dose: 250 mls/hr Documented by: Ceftriaxone Sodium 2 gm/ (Sodium Chloride) 100 mls @ 200 mls/hr IV Q24H [facility] Stop: 04/29/20 17:29 Last Admin: 04/26/20 17:24 Dose: 200 mls/hr Documented by: Azithromycin 500 mg/ Sodium (Chloride) 250 mls @ 250 mls/hr IV Q24H [facility] Stop: 04/27/20 15:59 Last Admin: 04/27/20 14:54 Dose: 250 mls/hr Documented by: Remdesivir 200 mg/ Sodium (Chloride) 250 mls @ 250 mls/hr IV ONETIME ONE Stop: 04/26/20 12:59 Last Admin: 04/26/20 12:48 Dose: 250 mls/hr Documented by: Remdesivir 100 mg/ Sodium (Chloride) 100 mls @ 100 mls/hr IV Q24H [facility] Stop: 04/30/20 12:59 Last Admin: 04/30/20 12:06 Dose: 100 mls/hr Documented by: Ceftriaxone Sodium 2 gm/ (Sodium Chloride) 100 mls @ 200 mls/hr IV Q24H [facility] Stop: 04/29/20 21:29 Last Admin: 04/29/20 20:23 Dose: 200 mls/hr Documented by: Sodium Chloride (Normal Saline) 100 mls @ 75 mls/hr IV ASDIRECTED [facility] Stop: 04/30/20 11:00 Last Admin: 04/30/20 09:15 Dose: 75 mls/hr Documented by: Tocilizumab 800 mg/ Sodium (Chloride) 100 mls @ 100 mls/hr IV ONETIME ONE Stop: 04/30/20 09:29 Last Admin: 04/30/20 08:03 Dose: 100 mls/hr Documented by: Insulin Human Lispro (Insulin Lispro 100 Unit/Ml) 0 unit SUBCUT QIDACANDBED [facility]; Protocol Last Admin: 05/01/20 06:37 Dose: Not Given Documented by: Iopamidol (Iopamidol 755 Mg/Ml 100 Ml Bottle) 100 ml IVPUSH ONETIME ONE Stop: 04/25/20 13:05 Last Admin: 04/25/20 14:11 Dose: 100 ml Documented by: Iopamidol (Iopamidol 755 Mg/Ml 100 Ml Bottle) 100 ml IVPUSH ONETIME ONE Stop: 04/30/20 07:32 Last Admin: 04/30/20 09:14 Dose: 100 ml Documented by: Ketorolac Tromethamine (Ketorolac 30 Mg/Ml Sdv) 30 mg IVPUSH ONETIME ONE Stop: 04/25/20 14:49 Last Admin: 04/25/20 15:19 Dose: 30 mg Documented by: Potassium Chloride (Potassium Chloride 20 Meq Tab.Er) 40 meq PO ONETIME ONE Stop: 04/28/20 12:01 Last Admin: 04/28/20 11:20 Dose: 40 meq Documented by: Sodium Chloride (Sodium Chloride 0.9% 10 Ml Syringe) 10 ml FLUSH ONETIME ONE Stop: 04/25/20 13:05 Last Admin: 04/25/20 14:11 Dose: 10 ml Documented by: Sodium Chloride (Sodium Chloride 0.9% 10 Ml Syringe) 10 ml FLUSH ONETIME PRN PRN Reason: IV FLUSH Last Admin: 04/30/20 09:14 Dose: 10 ml Documented by: - Exam Quality Assessment: Supplemental Oxygen (3L), DVT Prophylaxis General: Alert, Oriented, Cooperative, No Acute Distress HEENT: Pupils Equal, Pupils Reactive, Mucous Membr. Moist/[place] Neck: Supple, Trachea Midline Lungs: Normal Respiratory Effort, Decreased Breath Sounds Cardiovascular: Regular Rate, Regular Rhythm GI/Abdominal Exam: Normal Bowel Sounds, Soft, Non-Tender, No Distention (Male) Exam: Deferred Back Exam: Normal Inspection, Full Range of Motion Extremities: Normal Inspection, Normal Range of Motion, Non-Tender, No Pedal Edema, Normal Capillary Refill Skin: Warm, Dry, Intact Neurological: No New Focal Deficit Psy/Mental Status: Alert, Normal Affect, Normal Mood - Patient Data Result Diagrams: 05/07/20 06:24 05/07/20 06:24 Sepsis Event Note - Evaluation Sepsis Screening Result: No Definite Risk - Focused Exam Vital Signs: Vital Signs Temp Pulse Resp BP Pulse Ox Pulse Ox 05/08/20 05:36 97.5 F 57 L 20 135/74 92 L 05/08/20 00:07 97.9 F 62 14 119/82 92 L 05/07/20 21:02 97.9 F 65 16 107/70 96 05/07/20 20:32 91 L 05/07/20 20:04 97.9 F 76 104/56 L 94 L - Problem List & Annotations (1) HLD (hyperlipidemia) SNOMED Code(s): 00179606 Code(s): E78.5 - HYPERLIPIDEMIA, UNSPECIFIED Status: Chronic Priority: Low Current Visit: No Qualifiers: Hyperlipidemia type: unspecified Qualified Code(s): E78.5 - Hyperlipidemia, unspecified (2) HTN (hypertension) SNOMED Code(s): 94561712 Code(s): I10 - ESSENTIAL (PRIMARY) HYPERTENSION Status: Chronic Priority: Medium Current Visit: No Qualifiers: Hypertension type: unspecified Qualified Code(s): I10 - Essential (primary) hypertension (3) History of coronary artery stent placement SNOMED Code(s): 411969531, 480059457 Code(s): Z95.5 - PRESENCE OF CORONARY ANGIOPLASTY IMPLANT AND GRAFT Status: Chronic Priority: Medium Current Visit: No (4) CAD (coronary artery disease) SNOMED Code(s): 09616092 Code(s): I25.10 - ATHSCL HEART DISEASE OF [place] CORONARY ARTERY W/O ANG PCTRS Status: Chronic Priority: Medium Current Visit: No Qualifiers: Coronary Disease-Associated Artery/Lesion type: [place] artery [place] vs. transplanted heart: [place] heart Associated angina: angina presence unspe cified Qualified Code(s): I25.10 - Atherosclerotic heart disease of [place] coronary artery without angina pectoris (5) COVID-19 SNOMED Code(s): 050386559 Code(s): U07.1 - COVID-19 Status: Acute Priority: High Current Visit: Yes (6) Hypoxia SNOMED Code(s): 797029146 Code(s): R09.02 - HYPOXEMIA Status: Acute Priority: High Current Visit: Yes (7) Elevated d-dimer SNOMED Code(s): 343983605 Code(s): R79.89 - OTHER SPECIFIED ABNORMAL FINDINGS OF BLOOD CHEMISTRY Status: Acute Priority: High Current Visit: Yes (8) Cardiomegaly SNOMED Code(s): 6356673 Code(s): I51.7 - CARDIOMEGALY Status: Chronic Priority: Low Current Visit: No (9) Pulmonary embolism SNOMED Code(s): 47142126 Code(s): I26.99 - OTHER PULMONARY EMBOLISM WITHOUT ACUTE COR PULMONALE Status: Acute Priority: High Current Visit: Yes Qualifiers: Pulmonary embolism type: multiple subsegmental (without acute cor pulmonale) Qualified Code(s): I26.94 - Multiple subsegmental pulmonary emboli without a cute cor pulmonale - Problem List Review Problem List Initiated/Reviewed/Updated: Yes - My Orders Last 24 Hours: My Active Orders 05/09/20 07:39 BASIC METABOLIC PANEL,BMP [CHEM] Q48H CBC WITH AUTO DIFF [HEME] Q48H 05/11/20 07:39 BASIC METABOLIC PANEL,BMP [CHEM] Q48H CBC WITH AUTO DIFF [HEME] Q48H 05/13/20 07:39 BASIC METABOLIC PANEL,BMP [CHEM] Q48H - Assessment Assessment:: 04/26/20 In to see Mao. He is laying in bed and is now on 2 L of oxygen. He reports he is feeling pretty good and only notes dyspnea when he is up moving around. He said he will occasionally cough and that will cause his saturations to drop as well. Reports it is a dry cough. He has no current concerns. We discussed plan of care and how he will likely need to remain hospitalized for the next 5 days to complete treatment. We discussed proning and patient reports that this is impossible for him because he has had neck surgery. We did discuss Acapella and incentive spirometry and he reports that he will continue working with this. Otherwise labs continue to look good. CRP has decreased and kidney function has improved. D-dimer remained stable. Leukopenia noted. we will continue current treatment plan. Likely discharge Wednesday pending continued improvement as I will be the day he completes treatment. 04/27/20 Patient is experiencing SOB with pleuritic CP. Will be transferred to ICU; ABG is pending. PCXR documents SARS-COV-2 PNA. 04/28/2020 Patient is improving. He was on room air with oxygen saturations in the low 90s while proning today. Otherwise he is on 3 L. D-dimer did increase up to 2.78 which is a significant change. He is on Lovenox 40 mg twice daily. We will continue to monitor D-dimer, shortness of breath, lower extremity signs and symptoms. Since he is improving I would not get a CTA at this time. Blood sugars this morning are up to 160, therefore will start fingerstick blood sugars and sliding scale insulin to keep his blood sugars less than 200 if possible. This is likely secondary to dexamethasone. Mild hypokalemia and given 40 mEq of potassium orally. Blood pressure is well controlled with blood pressures mostly less than 150 except for an occasional systolic blood pressure in the 150s. Patient has not received Actemra, but will hold off on treatment unless he has significant worsening in oxygen requirements. 04/29/20 In to see Mao. He is currently on 4 L. He continues to work on proning and utilize his incentive spirometer and Acapella. Potassium is improved. WBC is increasing but this is likely secondary to steroid use. Otherwise he remained stable. He states he gets very short of breath when he gets up to use the restroom and has been having coughing fits. We will add dextromethorphan/guaifenesin as needed. No other nursing or patient concerns. Patient will remain hospitalized till he finishes his Covid treatment and is weaned down on oxygen. 04/30/20 In to see Mao. He is proning in the bed and doing quite well. He has improved to 3 L. When proning he is noted to have saturations in the upper 90s however with movement he drops into the 80s. He continues to utilize his incentive spirometer and Acapella. We discussed his chronic back pain which is exacerbated by proning. Discussed pain medications for this and how important proning, along with his Acapella and incentive spirometry are. He stated how he feels like he gets winded so quick when ambulating. CTA yesterday showed very small pulmonary embolisms and he was started on 1 mg/kg Lovenox twice daily. Bilateral lower extremity ultrasounds were negative for any DVT. Nursing reports they are going to try to encourage more proning today with the patient. Goal is to increase endurance and decrease oxygen needed to 2 L or less prior to discharge. Labs today: WBC 9.20. Hemoglobin 14.2. Platelet 221. Neutrophils elevated at 7.55. D-dimer down to 9.52. Sodium 141. Potassium 4.0. Anion gap 12.0. BUN 28, creatinine 1.0, GFR greater than 60. Glucose 96. AST 26, ALT 68, alkaline phosphatase 128. 05/01/20 In to see Mao. He is proning in the bed currently. He reports he feels a little better and he is down to 3 L on oxygen. He does note that he has significant shortness of breath when getting up to use the bathroom still. We discussed his scan results indicating very small pulmonary embolisms. Discussed how he has shown improvement when he is proning and utilizing his incentive spirometer and Acapella. He agrees to continue to do this. Nursing will push with this as well. He reports back pain due to to compression fractures which is chronic for him and exacerbated by proning. We discussed pain medications to assist with this and how there has to be some [id number]. Otherwise he is doing better today. We will continue current treatment plan with goal to decrease oxygen demand to 2 L or less prior to discharge. 05/02/20 In to see Mao. He is on 3.5 L of oxygen and is laying in bed. He has been proning and utilizing his incentive spirometer and Acapella. Continues to have worsening dyspnea with exertion but states he feels like he is getting some bet ter energy. We will downgrade him today to MedSurg status as he is remained quite stable. D-dimer today 5.20. Sodium 144. Potassium 4.1. Chloride 108. Carbon oxide 25. Anion gap is up to 15.1. BUN 31, creatinine 1.0, GFR greater than 60. Glucose 10 7-1 69. Magnesium 2.2. Bilirubin 0.5. AST 20, ALT 60, alkaline phosphatase 117. CRP is 1.4. Albumin is up to 2.4. Continue current treatment plan. Goal remains improvement of oxygenation to requiring less than 2 L and building of endurance. 05/03/20 In to see Mao. Per nursing he had an episode of desaturation last night and was requiring 6 L to keep his saturations within goal. Since then he has been fluctuating but is currently at 5 L. He reports that he still feels pretty good, denies any pain, and states he is only short of breath with exertion. Repeat chest x-ray today was stable to worse. Intake remains good. He continues to prone and utilize his incentive spirometer and Acapella. This was encouraged again. Labs today show a leukocytosis of 11.81. He is receiving steroids but this is something we will monitor. Neutrophils are elevated 86.1. D-dimer is down to 4.11. Sodium is 143. Potassium 4.3. Carbon dioxide 23. Anion gap is 15.3. BUN is 28. Creatinine 1.0. GFR greater than 60. Glucose has been stable. Magnesium is 2.1. Bilirubin 0.6. AST 17, ALT 49, alkaline phosphatase 109. Albumin is down to 2.4. Unknown length of stay due to fluctuations in patient's oxygen demand. We will continue current treatment plan and monitor for signs of a secondary infection. 05/04/2020 74 year old pro with fever/chills/body aches tested positive for COVID-19 and was admitted for covid 19 pneumonia on 04/25/2020. Patient still complains of occasional dry cough. Otherwise denies nausea, vomiting, fever, or chills. encouraged to prone often and utilize incentive spirometry and Acapella. Patient is now on 4 L CRP 0.4 and D-dimer 3.96 05/05/2020 74 year old pro with fever/chills/body aches tested positive for COVID-19 and was admitted for covid 19 pneumonia on 04/25/2020. Patient feels much better but still complains of occasional dry cough. Otherwise denies nausea, vomiting, fever, or chills. encouraged to prone often and utilize incentive spirometry and Acapella. Patient is now still on 4 L CRP 0.7 05/06/2020 In to see Mao. He sitting up in the chair after we moved him from ICU to room 20. He now has a window. PT/OT worked with him as he is quite severely deconditioned. He was only able to walk a very short distance out of his room. He is requiring 3 to 4 L of oxygen. He is completed his Covid treatment. We will switch him over from Lovenox to Xarelto today for his DVTs. Labs otherwise continue to look good. He was started on Norvasc due to his noted elevated blood pressures however patient has been quite low today with systolic in the 90s. We will therefore hold this and see how he does. He was very strongly encouraged to continue proning and utilizing his incentive spirometry and Acapella. He will now begin ambulating more frequently. Order placed for 3 times daily ambulation. Discussed potential need for SNF rehab stay versus assisted living facility and patient does not want to have that direction at this time. We will continue to encourage frequent pulmonary exercises. 05/07/2020 In to see Mao. He is sitting up in the chair and just finished with therapies. He is quite excited as he was able to walk to the door. He reports his symptoms are overall improving and he feels much less short of breath. He has been requiring 4 to 5 L of oxygen but he is moving more now. Continues to utilize his incentive spirometer and Acapella. Continues to tolerate Xarelto and remains quite stable. We will switch his lab draws to every 48 hours over concerns of iatrogenic anemia and because his labs have been so stable. Blood pressures have been good and his Norvasc yesterday was held. We will discontinue this over fear of him being hypotensive. Unknown length of stay pending stability of oxygenation and improvement with endurance. Goal is to get patient down to 2L and improve activity tolerance prior to discharge. 05/08/2020 To see Mao. He is in her chair and states that he is quite winded after a trip to the bathroom to have a BM. States BM was appropriate and not hard or difficult. He is down to 3 L with saturations in the low 90s. Continues to utilize incentive spirometer and Acapella. Continues to work with therapies. Vital signs remained stable. No labs were drawn today. No patient or nursing concerns. Continue to attempt to wean oxygen and improve patient endurance. Unknown length of stay. - Plan Plan:: COVID-19 Hypoxia Elevated D-Dimer Pulmonary embolism * CT angio chest -several small pulmonary emboli reviewed and subsegmental branches of leaving the right lower lung. * O2 as needed to keep saturations 88-96% * Pt has completed courses of Azithromycin, Rocephin, Remdisivir and dexamethaso ne * Given Actemra due to worsening saturations * PRN albuterol inhaler * Consult RT * IS/Acapella * Prone whenever able * Discontinued Airborne/contact precautions - patient +20 days from symptoms onset * Monitor labs * OT/PT consult * Zinc supplementation * Telemetry/continuous pulse oximeter * Continue xarelto 15mg BID for 21 days, then 20mg daily thereafter * Bilateral lower extremity US - No evidence of PE HLD (hyperlipidemia) HTN (hypertension) History of coronary artery stent placement CAD (coronary artery disease) Cardiomegaly * Continue home medications as directed * Telemetry * Discontinue Norvasc as BP has been stable and it was held yesterday. Code status: Full Code PCP: Nano Guzman NP DVT prophylaxis: Lovenox Social: Patient resides in [facility] Disposition: Patient upgraded to ICU status due to worsening SOB, Elevated D- dimer, Worsening oxygen saturations. LOS>96 Hrs due to need for continued COVID-19 treatment, Hypoxia.
[2020-05-08] MEDS: Zinc Sulfate 220 MG Cap PO SCH (09:54)
[2020-05-08] MEDS: Aspirin 81 MG Tab.EC PO SCH (09:54)
[2020-05-08] MEDS: Cholecalciferol (Vitamin D3) 25 MCG Tab PO SCH (09:54)
[2020-05-08] MEDS: atorvaSTATin 20 MG Tab PO SCH (09:57)
[2020-05-08] MEDS: Pantoprazole 40 MG Tab.CR PO SCH (10:02)
[2020-05-08] MEDS: guaiFENesin 600 MG Tab.ER PO SCH ×2 (10:02→20:23)
[2020-05-08] MEDS: Doxazosin 2 MG Tab PO SCH (10:03)
[2020-05-08] MEDS: Fluticasone Propionate Nasal Spray 16 GM Bottle NASBOTH SCH (10:05)
[2020-05-08] MEDS: Acetaminophen/HYDROcodone 325-5 MG Tab PO PRN (21:37)
--- NOTE | 2020-05-09 07:33 | PCM.PN ---
- General Info Date of Service: 05/09/20 Admission Dx/Problem (Free Text): Admission Diagnosis/Problem Admission Diagnosis/Problem Hypoxia Functional Status: Reports: Pain Controlled, Tolerating Diet, Ambulating, Urinating, Incentive Spirometry, Other ([place] ). Denies: New Symptoms - Review of Systems General: Reports: Weakness (improving ). Denies: Fever, Fatigue, Malaise, Chills HEENT: Reports: No Symptoms. Denies: Headaches, Sore Throat Pulmonary: Reports: No Symptoms, Cough. Denies: Shortness of Breath, Pleuritic Chest Pain, Sputum Cardiovascular: Reports: No Symptoms, Dyspnea on Exertion. Denies: Chest Pain, Palpitations Gastrointestinal: Reports: No Symptoms. Denies: Abdominal Pain, Constipation, Diarrhea, Nausea, Vomiting Genitourinary: Reports: No Symptoms. Denies: Pain Musculoskeletal: Reports: No Symptoms Skin: Reports: No Symptoms. Denies: Cyanosis Neurological: Reports: Difficulty Walking, Weakness. Denies: Confusion, Dizziness, Headache, Numbness, Pre-Existing Deficit, Tingling, Gait Disturbance Psychiatric: Reports: No Symptoms - Patient Data Vitals - Most Recent: Last Vital Signs Temp 98.1 F 05/09/20 03:20 Pulse 50 L 05/09/20 03:21 Resp 20 05/09/20 03:20 BP 100/50 L 05/09/20 03:21 Pulse Ox 95 05/09/20 03:21 Weight - Most Recent: 189 lb 6.4 oz I&O - Last 24 Hours: Intake & Output 05/08/20 05/09/20 05/09/20 22:59 06:59 14:59 Intake Total 950 500 Output Total 225 675 Balance 725 -175 Med Orders - Current: Current Medications Acetaminophen (Acetaminophen 325 Mg Tab) 650 mg PO Q6H PRN PRN Reason: Pain/Fever Last Admin: 04/26/20 19:23 Dose: 650 mg Documented by: Hydrocodone Bitart/Acetaminophen (Acetaminophen/Hydrocodone 325-5 Mg Tab) 2 tab PO Q8H PRN PRN Reason: Pain Last Admin: 05/08/20 21:37 Dose: 2 tab Documented by: Albuterol (Albuterol 0.083% 2.5 Mg/3 Ml Neb Soln) 2.5 mg NEB Q4HRRT PRN PRN Reason: Shortness of Breath Last Admin: 05/04/20 15:55 Dose: 2.5 mg Documented by: Aspirin (Aspirin 81 Mg Tab.Ec) 81 mg PO DAILY [facility] Last Admin: 05/08/20 09:54 Dose: 81 mg Documented by: Atorvastatin Calcium (Atorvastatin 20 Mg Tab) 10 mg PO DAILY [facility] Last Admin: 05/08/20 09:57 Dose: 10 mg Documented by: Cholecalciferol (Cholecalciferol (Vitamin D3) 25 Mcg Tab) 50 mcg PO DAILY [facility] Last Admin: 05/08/20 09:54 Dose: 50 mcg Documented by: Doxazosin Mesylate (Doxazosin 2 Mg Tab) 6 mg PO DAILY [facility] Last Admin: 05/08/20 10:03 Dose: Not Given Documented by: Fluticasone Propionate (Fluticasone Propionate Nasal [place] 16 Gm Bottle) 0 gm NASBOTH DAILY [facility] Last Admin: 05/08/20 10:05 Dose: Not Given Documented by: Guaifenesin (Guaifenesin 600 Mg Tab.Er) 600 mg PO BID [facility] Last Admin: 05/08/20 20:23 Dose: 600 mg Documented by: Guaifenesin/Phenylephrine HCl (Guaifenesin/Dextromethorphan 100-10 Mg/5 Ml Soln 5 Ml Cup) 10 ml PO Q6H PRN PRN Reason: Cough Last Admin: 04/30/20 20:00 Dose: 10 ml Documented by: Hydralazine HCl (Hydralazine 20 Mg/Ml Sdv) 10 mg IVPUSH Q4H PRN PRN Reason: Hypertention Last Admin: 05/05/20 00:10 Dose: 10 mg Documented by: Pantoprazole Sodium (Pantoprazole 40 Mg Tab.Cr) 40 mg PO DAILY [facility] Last Admin: 05/08/20 10:02 Dose: 40 mg Documented by: Rivaroxaban (Rivaroxaban 15 Mg Tab) 15 mg PO BIDMEALS [facility] Stop: 05/26/20 17:01 Last Admin: 05/08/20 16:50 Dose: 15 mg Documented by: Sodium Chloride (Sodium Chloride 0.9% 10 Ml Syringe) 10 ml FLUSH ASDIRECTED PRN PRN Reason: Keep Vein Open Last Admin: 04/25/20 11:17 Dose: 10 ml Documented by: Trazodone HCl (Trazodone 50 Mg Tab) 50 mg PO BEDTIME PRN PRN Reason: Sleep Last Admin: 05/07/20 21:05 Dose: 50 mg Documented by: Zinc Sulfate (Zinc Sulfate 220 Mg Cap) 220 mg PO DAILY [facility] Last Admin: 05/08/20 09:54 Dose: 220 mg Documented by: Discontinued Medications Hydrocodone Bitart/Acetaminophen (Acetaminophen/Hydrocodone 325-5 Mg Tab) 2 tab PO Q12H PRN PRN Reason: Pain Last Admin: 05/05/20 09:33 Dose: 2 tab Documented by: Albuterol (Albuterol 6.7 Gm Inhaler) 0 gm INH Q4H PRN PRN Reason: SOB/Wheezing Albuterol/Ipratropium (Albuterol/Ipratropium 3.0-0.5 Mg/3 Ml Neb Soln) 3 ml NEB Q6HRRT [facility] Last Admin: 04/28/20 03:22 Dose: 3 ml Documented by: Amlodipine Besylate (Amlodipine 5 Mg Tab) 5 mg PO DAILY [facility] Last Admin: 05/06/20 09:09 Dose: Not Given Documented by: Dexamethasone (Dexamethasone 4 Mg Tab) 6 mg PO ONETIME ONE Stop: 04/25/20 11:57 Last Admin: 04/25/20 12:14 Dose: 6 mg Documented by: Dexamethasone (Dexamethasone 4 Mg Tab) 6 mg PO DAILY [facility] Stop: 05/04/20 09:01 Last Admin: 05/04/20 08:30 Dose: 6 mg Documented by: Doxazosin Mesylate (Doxazosin 2 Mg Tab) 6 mg PO DAILY [facility] Last Admin: 04/26/20 12:16 Dose: Not Given Documented by: Enoxaparin Sodium (Enoxaparin 40 Mg/0.4 Ml Syringe) 40 mg SUBCUT Q12H [facility] Last Admin: 04/27/20 05:23 Dose: 40 mg Documented by: Enoxaparin Sodium (Enoxaparin 40 Mg/0.4 Ml Syringe) 40 mg SUBCUT BID [facility] Last Admin: 04/29/20 20:23 Dose: 40 mg Documented by: Enoxaparin Sodium (Enoxaparin 100 Mg/1 Ml Syringe) 88 mg SUBCUT Q12H [facility] Last Admin: 05/06/20 09:10 Dose: Not Given Documented by: Sodium Chloride (Normal Saline) 100 mls @ 60 mls/hr IV ASDIRECTED [facility] Last Admin: 04/25/20 14:12 Dose: 60 mls/hr Documented by: Azithromycin 500 mg/ Sodium (Chloride) 250 mls @ 250 mls/hr IV ONETIME ONE Stop: 04/25/20 15:46 Last Admin: 04/25/20 15:20 Dose: 250 mls/hr Documented by: Ceftriaxone Sodium 2 gm/ (Sodium Chloride) 100 mls @ 200 mls/hr IV Q24H [facility] Stop: 04/29/20 17:29 Last Admin: 04/26/20 17:24 Dose: 200 mls/hr Documented by: Azithromycin 500 mg/ Sodium (Chloride) 250 mls @ 250 mls/hr IV Q24H [facility] Stop: 04/27/20 15:59 Last Admin: 04/27/20 14:54 Dose: 250 mls/hr Documented by: Remdesivir 200 mg/ Sodium (Chloride) 250 mls @ 250 mls/hr IV ONETIME ONE Stop: 04/26/20 12:59 Last Admin: 04/26/20 12:48 Dose: 250 mls/hr Documented by: Remdesivir 100 mg/ Sodium (Chloride) 100 mls @ 100 mls/hr IV Q24H [facility] Stop: 04/30/20 12:59 Last Admin: 04/30/20 12:06 Dose: 100 mls/hr Documented by: Ceftriaxone Sodium 2 gm/ (Sodium Chloride) 100 mls @ 200 mls/hr IV Q24H [facility] Stop: 04/29/20 21:29 Last Admin: 04/29/20 20:23 Dose: 200 mls/hr Documented by: Sodium Chloride (Normal Saline) 100 mls @ 75 mls/hr IV ASDIRECTED [facility] Stop: 04/30/20 11:00 Last Admin: 04/30/20 09:15 Dose: 75 mls/hr Documented by: Tocilizumab 800 mg/ Sodium (Chloride) 100 mls @ 100 mls/hr IV ONETIME ONE Stop: 04/30/20 09:29 Last Admin: 04/30/20 08:03 Dose: 100 mls/hr Documented by: Insulin Human Lispro (Insulin Lispro 100 Unit/Ml) 0 unit SUBCUT QIDACANDBED [facility]; Protocol Last Admin: 05/01/20 06:37 Dose: Not Given Documented by: Iopamidol (Iopamidol 755 Mg/Ml 100 Ml Bottle) 100 ml IVPUSH ONETIME ONE Stop: 04/25/20 13:05 Last Admin: 04/25/20 14:11 Dose: 100 ml Documented by: Iopamidol (Iopamidol 755 Mg/Ml 100 Ml Bottle) 100 ml IVPUSH ONETIME ONE Stop: 04/30/20 07:32 Last Admin: 04/30/20 09:14 Dose: 100 ml Documented by: Ketorolac Tromethamine (Ketorolac 30 Mg/Ml Sdv) 30 mg IVPUSH ONETIME ONE Stop: 04/25/20 14:49 Last Admin: 04/25/20 15:19 Dose: 30 mg Documented by: Potassium Chloride (Potassium Chloride 20 Meq Tab.Er) 40 meq PO ONETIME ONE Stop: 04/28/20 12:01 Last Admin: 04/28/20 11:20 Dose: 40 meq Documented by: Sodium Chloride (Sodium Chloride 0.9% 10 Ml Syringe) 10 ml FLUSH ONETIME ONE Stop: 04/25/20 13:05 Last Admin: 04/25/20 14:11 Dose: 10 ml Documented by: Sodium Chloride (Sodium Chloride 0.9% 10 Ml Syringe) 10 ml FLUSH ONETIME PRN PRN Reason: IV FLUSH Last Admin: 04/30/20 09:14 Dose: 10 ml Documented by: - Exam Quality Assessment: Supplemental Oxygen (3L ), DVT Prophylaxis General: Alert, Oriented, Cooperative, No Acute Distress HEENT: Pupils Equal, Pupils Reactive, Mucous Membr. Moist/[place] Neck: Supple, Trachea Midline Lungs: Normal Respiratory Effort, Decreased Breath Sounds Cardiovascular: Regular Rate, Regular Rhythm GI/Abdominal Exam: Normal Bowel Sounds, Soft, Non-Tender, No Distention (Male) Exam: Deferred Back Exam: Normal Inspection, Full Range of Motion Extremities: Normal Inspection, Normal Range of Motion, Non-Tender, No Pedal Edema, Normal Capillary Refill Skin: Warm, Dry, Intact Neurological: No New Focal Deficit Psy/Mental Status: Alert, Normal Affect, Normal Mood - Patient Data Result Diagrams: 05/09/20 08:10 05/09/20 08:10 Sepsis Event Note - Evaluation Sepsis Screening Result: No Definite Risk - Focused Exam Vital Signs: Vital Signs Temp Pulse Resp BP Pulse Ox Pulse Ox 05/09/20 03:21 50 L 100/50 L 95 05/09/20 03:20 98.1 F 55 L 20 98/48 L 95 05/09/20 00:34 57 L 129/86 93 L 05/09/20 00:33 98.1 F 61 20 142/105 H 91 L 05/08/20 20:29 95 05/08/20 19:51 97.9 F 73 20 130/89 93 L - Problem List & Annotations (1) HLD (hyperlipidemia) SNOMED Code(s): 18970303 Code(s): E78.5 - HYPERLIPIDEMIA, UNSPECIFIED Status: Chronic Priority: Low Current Visit: No Qualifiers: Hyperlipidemia type: unspecified Qualified Code(s): E78.5 - Hyperlipidemia, unspecified (2) HTN (hypertension) SNOMED Code(s): 42856092 Code(s): I10 - ESSENTIAL (PRIMARY) HYPERTENSION Status: Chronic Priority: Medium Current Visit: No Qualifiers: Hypertension type: unspecified Qualified Code(s): I10 - Essential (primary) hypertension (3) History of coronary artery stent placement SNOMED Code(s): 300549814, 925378469 Code(s): Z95.5 - PRESENCE OF CORONARY ANGIOPLASTY IMPLANT AND GRAFT Status: Chronic Priority: Medium Current Visit: No (4) CAD (coronary artery disease) SNOMED Code(s): 09380074 Code(s): I25.10 - ATHSCL HEART DISEASE OF [place] CORONARY ARTERY W/O ANG PCTRS Status: Chronic Priority: Medium Current Visit: No Qualifiers: Coronary Disease-Associated Artery/Lesion type: [place] artery [place] vs. transplanted heart: [place] heart Associated angina: angina presence u nspecified Qualified Code(s): I25.10 - Atherosclerotic heart disease of [place] coronary artery without angina pectoris (5) COVID-19 SNOMED Code(s): 516679394 Code(s): U07.1 - COVID-19 Status: Acute Priority: High Current Visit: Yes (6) Hypoxia SNOMED Code(s): 390168081 Code(s): R09.02 - HYPOXEMIA Status: Acute Priority: High Current Visit: Yes (7) Elevated d-dimer SNOMED Code(s): 250282732 Code(s): R79.89 - OTHER SPECIFIED ABNORMAL FINDINGS OF BLOOD CHEMISTRY Status: Acute Priority: High Current Visit: Yes (8) Cardiomegaly SNOMED Code(s): 7253246 Code(s): I51.7 - CARDIOMEGALY Status: Chronic Priority: Low Current Visit: No (9) Pulmonary embolism SNOMED Code(s): 68619416 Code(s): I26.99 - OTHER PULMONARY EMBOLISM WITHOUT ACUTE COR PULMONALE Status: Acute Priority: High Current Visit: Yes Qualifiers: Pulmonary embolism type: multiple subsegmental (without acute cor pulmonale) Qualified Code(s): I26.94 - Multiple subsegmental pulmonary emboli without acute cor pulmonale - Problem List Review Problem List Initiated/Reviewed/Updated: Yes - My Orders Last 24 Hours: My Active Orders 05/09/20 07:39 BASIC METABOLIC PANEL,BMP [CHEM] Q48H CBC WITH AUTO DIFF [HEME] Q48H 05/11/20 07:39 BASIC METABOLIC PANEL,BMP [CHEM] Q48H CBC WITH AUTO DIFF [HEME] Q48H 05/13/20 07:39 BASIC METABOLIC PANEL,BMP [CHEM] Q48H - Assessment Assessment:: 04/26/20 In to see Mao. He is laying in bed and is now on 2 L of oxygen. He reports he is feeling pretty good and only notes dyspnea when he is up moving around. He said he will occasionally cough and that will cause his saturations to drop as well. Reports it is a dry cough. He has no current concerns. We discussed plan of care and how he will likely need to remain hospitalized for the next 5 days to complete treatment. We discussed proning and patient reports that this is impossible for him because he has had neck surgery. We did discuss Acapella and incentive spirometry and he reports that he will continue working with this. Otherwise labs continue to look good. CRP has decreased and kidney function has improved. D-dimer remained stable. Leukopenia noted. we will continue current treatment plan. Likely discharge Wednesday pending continued improvement as I will be the day he completes treatment. 04/27/20 Patient is experiencing SOB with pleuritic CP. Will be transferred to ICU; ABG is pending. PCXR documents SARS-COV-2 PNA. 04/28/2020 Patient is improving. He was on room air with oxygen saturations in the low 90s while proning today. Otherwise he is on 3 L. D-dimer did increase up to 2.78 which is a significant change. He is on Lovenox 40 mg twice daily. We will continue to monitor D-dimer, shortness of breath, lower extremity signs and symptoms. Since he is improving I would not get a CTA at this time. Blood suga rs this morning are up to 160, therefore will start fingerstick blood sugars and sliding scale insulin to keep his blood sugars less than 200 if possible. This is likely secondary to dexamethasone. Mild hypokalemia and given 40 mEq of potassium orally. Blood pressure is well controlled with blood pressures mostly less than 150 except for an occasional systolic blood pressure in the 150s. Patient has not received Actemra, but will hold off on treatment unless he has significant worsening in oxygen requirements. 04/29/20 In to see Mao. He is currently on 4 L. He continues to work on proning and utilize his incentive spirometer and Acapella. Potassium is improved. WBC is increasing but this is likely secondary to steroid use. Otherwise he remained stable. He states he gets very short of breath when he gets up to use the restroom and has been having coughing fits. We will add dextromethorphan/guaifenesin as needed. No other nursing or patient concerns. Patient will remain hospitalized till he finishes his Covid treatment and is weaned down on oxygen. 04/30/20 In to see Mao. He is proning in the bed and doing quite well. He has improved to 3 L. When proning he is noted to have saturations in the upper 90s however with movement he drops into the 80s. He continues to utilize his incentive spirometer and Acapella. We discussed his chronic back pain which is exacerbated by proning. Discussed pain medications for this and how important proning, along with his Acapella and incentive spirometry are. He stated how he feels like he gets winded so quick when ambulating. CTA yesterday showed very small pulmonary embolisms and he was started on 1 mg/kg Lovenox twice daily. Bilateral lower extremity ultrasounds were negative for any DVT. Nursing reports they are going to try to encourage more proning today with the patient. Goal is to increase endurance and decrease oxygen needed to 2 L or less prior to discharge. Labs today: WBC 9.20. Hemoglobin 14.2. Platelet 221. Neutrophils elevated at 7.55. D-dimer down to 9.52. Sodium 141. Potassium 4.0. Anion gap 12.0. BUN 28, creatinine 1.0, GFR greater than 60. Glucose 96. AST 26, ALT 68, alkaline phosphatase 128. 05/01/20 In to see Mao. He is proning in the bed currently. He reports he feels a little better and he is down to 3 L on oxygen. He does note that he has significant shortness of breath when getting up to use the bathroom still. We discussed his scan results indicating very small pulmonary embolisms. Discussed how he has shown improvement when he is proning and utilizing his incentive spirometer and Acapella. He agrees to continue to do this. Nursing will push with this as well. He reports back pain due to to compression fractures which is chronic for him and exacerbated by proning. We discussed pain medications to assist with this and how there has to be some [id number]. Otherwise he is doing better today. We will continue current treatment plan with goal to decrease oxygen demand to 2 L or less prior to discharge. 05/02/20 In to see Mao. He is on 3.5 L of oxygen and is laying in bed. He has been proning and utilizing his incentive spirometer and Acapella. Continues to have worsening dyspnea with exertion but states he feels like he is getting some better energy. We will downgrade him today to MedSurg status as he is remained quite stable. D-dimer today 5.20. Sodium 144. Potassium 4.1. Chloride 108. Carbon oxide 25. Anion gap is up to 15.1. BUN 31, creatinine 1.0, GFR greater than 60. Glucose 10 7-1 69. Magnesium 2.2. Bilirubin 0.5. AST 20, ALT 60, alkaline phosphatase 117. CRP is 1.4. Albumin is up to 2.4. Continue current treatment plan. Goal remains improvement of oxygenation to requiring less than 2 L and building of endurance. 05/03/20 In to see Mao. Per nursing he had an episode of desaturation last night and was requiring 6 L to keep his saturations within goal. Since then he has been fluctuating but is currently at 5 L. He reports that he still feels pretty good, denies any pain, and states he is only short of breath with exertion. Repeat chest x-ray today was stable to worse. Intake remains good. He continues to prone and utilize his incentive spirometer and Acapella. This was encouraged again. Labs today show a leukocytosis of 11.81. He is receiving steroids but this is something we will monitor. Neutrophils are elevated 86.1. D-dimer is down to 4.11. Sodium is 143. Potassium 4.3. Carbon dioxide 23. Anion gap is 15.3. BUN is 28. Creatinine 1.0. GFR greater than 60. Glucose has been stable. Magnesium is 2.1. Bilirubin 0.6. AST 17, ALT 49, alkaline ph osphatase 109. Albumin is down to 2.4. Unknown length of stay due to fluctuations in patient's oxygen demand. We will continue current treatment plan and monitor for signs of a secondary infection. 05/04/2020 74 year old pro with fever/chills/body aches tested positive for COVID-19 and was admitted for covid 19 pneumonia on 04/25/2020. Patient still complains of occasional dry cough. Otherwise denies nausea, vomiting, fever, or chills. encouraged to prone often and utilize incentive spirometry and Acapella. Patient is now on 4 L CRP 0.4 and D-dimer 3.96 05/05/2020 74 year old pro with fever/chills/body aches tested positive for COVID-19 and was admitted for covid 19 pneumonia on 04/25/2020. Patient feels much better but still complains of occasional dry cough. Otherwise denies nausea, vomiting, fever, or chills. encouraged to prone often and utilize incentive spirometry and Acapella. Patient is now still on 4 L CRP 0.7 05/06/2020 In to see Mao. He sitting up in the chair after we moved him from ICU to room 20. He now has a window. PT/OT worked with him as he is quite severely decond itioned. He was only able to walk a very short distance out of his room. He is requiring 3 to 4 L of oxygen. He is completed his Covid treatment. We will switch him over from Lovenox to Xarelto today for his DVTs. Labs otherwise continue to look good. He was started on Norvasc due to his noted elevated blood pressures however patient has been quite low today with systolic in the 90s. We will therefore hold this and see how he does. He was very strongly encouraged to continue proning and utilizing his incentive spirometry and Acapella. He will now begin ambulating more frequently. Order placed for 3 times daily ambulation. Discussed potential need for SNF rehab stay versus assisted living facility and patient does not want to have that direction at this time. We will continue to encourage frequent pulmonary exercises. 05/07/2020 In to see Mao. He is sitting up in the chair and just finished with therapies. He is quite excited as he was able to walk to the door. He reports his symptoms are overall improving and he feels much less short of breath. He has been requiring 4 to 5 L of oxygen but he is moving more now. Continues to utilize his incentive spirometer and Acapella. Continues to tolerate Xarelto and remains quite stable. We will switch his lab draws to every 48 hours over concerns of iatrogenic anemia and because his labs have been so stable. Blood pressures have been good and his Norvasc yesterday was held. We will disconti nue this over fear of him being hypotensive. Unknown length of stay pending stability of oxygenation and improvement with endurance. Goal is to get patient down to 2L and improve activity tolerance prior to discharge. 05/08/2020 To see Mao. He is in her chair and states that he is quite winded after a trip to the bathroom to have a BM. States BM was appropriate and not hard or difficult. He is down to 3 L with saturations in the low 90s. Continues to utilize incentive spirometer and Acapella. Continues to work with therapies. Vital signs remained stable. No labs were drawn today. No patient or nursing concerns. Continue to attempt to wean oxygen and improve patient endurance. Unknown length of stay. 05/09/2020 In to see Mao. Sitting in the chair and reports that he had a little bit of a rough morning again. Last night he was up walking in the halls and doing quite well. He is weaned down to 3 L and his saturations continue in the low 90s. Continues to utilize his incentive spirometer and Acapella and work with ther apies. Labs were drawn today and were grossly unremarkable. No patient or nursing concerns. Will hold off drawing labs again tomorrow as he has been so stable. Continue attempt wean oxygen improve endurance. Hopeful for discharge this weekend pending continued improvement. - Plan Plan:: COVID-19 Hypoxia Elevated D-Dimer Pulmonary embolism * CT angio chest -several small pulmonary emboli reviewed and subsegmental branches of leaving the right lower lung. * O2 as needed to keep saturations 88-96% * Pt has completed courses of Azithromycin, Rocephin, Remdisivir and dexamethasone * Given Actemra due to worsening saturations * PRN albuterol inhaler * Consult RT * IS/Acapella * Prone whenever able * Discontinued Airborne/contact precautions - patient +20 days from symptoms onset * Monitor labs * OT/PT consult * Zinc supplementation * Telemetry/continuous pulse oximeter * Continue xarelto 15mg BID for 21 days, then 20mg daily thereafter * Bilateral lower extremity US - No evidence of PE HLD (hyperlipidemia) HTN (hypertension) History of coronary artery stent placement CAD (coronary artery disease) Cardiomegaly * Continue home medications as directed * Telemetry * Discontinue Norvasc as BP has been stable and it was held yesterday. Code status: Full Code PCP: Nano Guzman NP DVT prophylaxis: Lovenox Social: Patient resides in [facility] Disposition: Patient upgraded to ICU status due to worsening SOB, Elevated D- dimer, Worsening oxygen saturations. LOS>96 Hrs due to need for continued COVID-19 treatment, Hypoxia. Hopeful for discharge in next 2-3 days.
[2020-05-09] MEDS: Aspirin 81 MG Tab.EC PO SCH (08:54)
[2020-05-09] MEDS: Rivaroxaban 15 MG Tab PO SCH ×2 (08:54→18:04)
[2020-05-09] MEDS: Doxazosin 2 MG Tab PO SCH (08:54)
[2020-05-09] MEDS: atorvaSTATin 20 MG Tab PO SCH (08:55)
[2020-05-09] MEDS: Pantoprazole 40 MG Tab.CR PO SCH (08:56)
[2020-05-09] MEDS: guaiFENesin 600 MG Tab.ER PO SCH ×2 (08:56→20:56)
[2020-05-09] MEDS: Fluticasone Propionate Nasal Spray 16 GM Bottle NASBOTH SCH (08:56)
[2020-05-09] MEDS: Cholecalciferol (Vitamin D3) 25 MCG Tab PO SCH (08:57)
[2020-05-09] MEDS: Zinc Sulfate 220 MG Cap PO SCH (08:57)
[2020-05-09] MEDS: Acetaminophen/HYDROcodone 325-5 MG Tab PO PRN (22:08)
[2020-05-10] MEDS: Rivaroxaban 15 MG Tab PO SCH ×3 (05:35→16:34)
--- NOTE | 2020-05-10 07:28 | PCM.PN ---
- General Info Date of Service: 05/10/20 Admission Dx/Problem (Free Text): Admission Diagnosis/Problem Admission Diagnosis/Problem Hypoxia Functional Status: Reports: Pain Controlled, Tolerating Diet, Ambulating, Urinating, Incentive Spirometry, Other (Acapella ). Denies: New Symptoms - Review of Systems General: Reports: No Symptoms, Weakness (improving ). Denies: Fever, Fatigue, Malaise, Chills HEENT: Reports: No Symptoms. Denies: Headaches, Sore Throat Pulmonary: Reports: Shortness of Breath, Pleuritic Chest Pain, Cough. Denies: Sputum, Wheezing Cardiovascular: Reports: Chest Pain (with inspiration or palpation ), Dyspnea on Exertion. Denies: Palpitations, Edema Gastrointestinal: Reports: No Symptoms. Denies: Abdominal Pain, Constipation, Diarrhea, Nausea, Vomiting Genitourinary: Reports: No Symptoms. Denies: Pain Musculoskeletal: Reports: No Symptoms Skin: Reports: No Symptoms. Denies: Cyanosis Neurological: Reports: Difficulty Walking, Weakness. Denies: Confusion, Dizziness, Headache, Numbness, Pre-Existing Deficit, Tingling, Gait Disturbance Psychiatric: Reports: No Symptoms - Patient Data Vitals - Most Recent: Last Vital Signs Temp 97.9 F 05/10/20 04:29 Pulse 56 L 05/10/20 04:29 Resp 18 05/10/20 04:29 BP 99/52 L 05/10/20 04:29 Pulse Ox 92 L 05/10/20 06:23 Weight - Most Recent: 184 lb 1.6 oz I&O - Last 24 Hours: Intake & Output 05/09/20 05/10/20 05/10/20 22:59 06:59 14:59 Intake Total 490 400 Output Total 975 775 Balance -485 -375 Lab Results Last 24 Hours: Laboratory Results - last 24 hr 05/09/20 05/09/20 Range/Units 08:10 08:10 WBC 6.68 (4.23-9.07) K/mm3 RBC 5.07 (4.63-6.08) M/mm3 Hgb 14.6 (13.7-17.5) gm/dl Hct 44.9 (40.1-51.0) % MCV 88.6 (79.0-92.2) fl MCH 28.8 (25.7-32.2) pg MCHC 32.5 (32.2-35.5) g/dl RDW Std Deviation 46.1 H (35.1-43.9) fL Plt Count 243 (163-337) K/mm3 MPV 10.1 (9.4-12.3) fl Neut % (Auto) 73.9 H (34.0-67.9) % Lymph % (Auto) 11.8 L (21.8-53.1) % [place] % (Auto) 12.1 (5.3-12.2) % Eos % (Auto) 1.9 (0.8-7.0) Baso % (Auto) 0.0 L (0.1-1.2) % Neut # (Auto) 4.93 (1.78-5.38) K/mm3 Lymph # (Auto) 0.79 L (1.32-3.57) K/mm3 [place] # (Auto) 0.81 (0.30-0.82) K/mm3 Eos # (Auto) 0.13 (0.04-0.54) K/mm3 Baso # (Auto) 0.00 L (0.01-0.08) K/mm3 Sodium 141 (136-145) mEq/L Potassium 4.2 (3.5-5.1) mEq/L Chloride 108 H (98-107) mEq/L Carbon Dioxide 25 (21-32) mEq/L Anion Gap 12.2 (5-15) BUN 24 H (7-18) mg/dL Creatinine 1.0 (0.7-1.3) mg/dL Est Cr Clr Drug Dosing 69.03 mL/min Estimated GFR (MDRD) > 60 (>60) mL/min BUN/Creatinine Ratio 24.0 H (14-18) Glucose 90 (83-115) mg/dL Calcium 8.2 L (8.5-10.1) mg/dL Med Orders - Current: Current Medications Acetaminophen (Acetaminophen 325 Mg Tab) 650 mg PO Q6H PRN PRN Reason: Pain/Fever Last Admin: 04/26/20 19:23 Dose: 650 mg Documented by: Hydrocodone Bitart/Acetaminophen (Acetaminophen/Hydrocodone 325-5 Mg Tab) 2 tab PO Q8H PRN PRN Reason: Pain Last Admin: 05/09/20 22:08 Dose: 2 tab Documented by: Albuterol (Albuterol 0.083% 2.5 Mg/3 Ml Neb Soln) 2.5 mg NEB Q4HRRT PRN PRN Reason: Shortness of Breath Last Admin: 05/04/20 15:55 Dose: 2.5 mg Documented by: Aspirin (Aspirin 81 Mg Tab.Ec) 81 mg PO DAILY [facility] Last Admin: 05/09/20 08:54 Dose: 81 mg Documented by: Atorvastatin Calcium (Atorvastatin 20 Mg Tab) 10 mg PO DAILY [facility] Last Admin: 05/09/20 08:55 Dose: 10 mg Documented by: Cholecalciferol (Cholecalciferol (Vitamin D3) 25 Mcg Tab) 50 mcg PO DAILY [facility] Last Admin: 05/09/20 08:57 Dose: 50 mcg Documented by: Doxazosin Mesylate (Doxazosin 2 Mg Tab) 6 mg PO DAILY [facility] Last Admin: 05/09/20 08:54 Dose: 6 mg Documented by: Fluticasone Propionate (Fluticasone Propionate Nasal [place] 16 Gm Bottle) 0 gm NASBOTH DAILY [facility] Last Admin: 05/09/20 08:56 Dose: Not Given Documented by: Guaifenesin (Guaifenesin 600 Mg Tab.Er) 600 mg PO BID [facility] Last Admin: 05/09/20 20:56 Dose: 600 mg Documented by: Guaifenesin/Phenylephrine HCl (Guaifenesin/Dextromethorphan 100-10 Mg/5 Ml Soln 5 Ml Cup) 10 ml PO Q6H PRN PRN Reason: Cough Last Admin: 04/30/20 20:00 Dose: 10 ml Documented by: Hydralazine HCl (Hydralazine 20 Mg/Ml Sdv) 10 mg IVPUSH Q4H PRN PRN Reason: Hypertention Last Admin: 05/05/20 00:10 Dose: 10 mg Documented by: Pantoprazole Sodium (Pantoprazole 40 Mg Tab.Cr) 40 mg PO DAILY [facility] Last Admin: 05/09/20 08:56 Dose: 40 mg Documented by: Rivaroxaban (Rivaroxaban 15 Mg Tab) 15 mg PO BIDMEALS [facility] Stop: 05/26/20 17:01 Last Admin: 05/10/20 06:15 Dose: Not Given Documented by: Sodium Chloride (Sodium Chloride 0.9% 10 Ml Syringe) 10 ml FLUSH ASDIRECTED PRN PRN Reason: Keep Vein Open Last Admin: 04/25/20 11:17 Dose: 10 ml Documented by: Trazodone HCl (Trazodone 50 Mg Tab) 50 mg PO BEDTIME PRN PRN Reason: Sleep Last Admin: 05/07/20 21:05 Dose: 50 mg Documented by: Zinc Sulfate (Zinc Sulfate 220 Mg Cap) 220 mg PO DAILY [facility] Last Admin: 05/09/20 08:57 Dose: 220 mg Documented by: Discontinued Medications Hydrocodone Bitart/Acetaminophen (Acetaminophen/Hydrocodone 325-5 Mg Tab) 2 tab PO Q12H PRN PRN Reason: Pain Last Admin: 05/05/20 09:33 Dose: 2 tab Documented by: Albuterol (Albuterol 6.7 Gm Inhaler) 0 gm INH Q4H PRN PRN Reason: SOB/Wheezing Albuterol/Ipratropium (Albuterol/Ipratropium 3.0-0.5 Mg/3 Ml Neb Soln) 3 ml NEB Q6HRRT [facility] Last Admin: 04/28/20 03:22 Dose: 3 ml Documented by: Amlodipine Besylate (Amlodipine 5 Mg Tab) 5 mg PO DAILY [facility] Last Admin: 05/06/20 09:09 Dose: Not Given Documented by: Dexamethasone (Dexamethasone 4 Mg Tab) 6 mg PO ONETIME ONE Stop: 04/25/20 11:57 Last Admin: 04/25/20 12:14 Dose: 6 mg Documented by: Dexamethasone (Dexamethasone 4 Mg Tab) 6 mg PO DAILY [facility] Stop: 05/04/20 09:01 Last Admin: 05/04/20 08:30 Dose: 6 mg Documented by: Doxazosin Mesylate (Doxazosin 2 Mg Tab) 6 mg PO DAILY [facility] Last Admin: 04/26/20 12:16 Dose: Not Given Documented by: Enoxaparin Sodium (Enoxaparin 40 Mg/0.4 Ml Syringe) 40 mg SUBCUT Q12H [facility] Last Admin: 04/27/20 05:23 Dose: 40 mg Documented by: Enoxaparin Sodium (Enoxaparin 40 Mg/0.4 Ml Syringe) 40 mg SUBCUT BID [facility] Last Admin: 04/29/20 20:23 Dose: 40 mg Documented by: Enoxaparin Sodium (Enoxaparin 100 Mg/1 Ml Syringe) 88 mg SUBCUT Q12H [facility] Last Admin: 05/06/20 09:10 Dose: Not Given Documented by: Sodium Chloride (Normal Saline) 100 mls @ 60 mls/hr IV ASDIRECTED [facility] Last Admin: 04/25/20 14:12 Dose: 60 mls/hr Documented by: Azithromycin 500 mg/ Sodium (Chloride) 250 mls @ 250 mls/hr IV ONETIME ONE Stop: 04/25/20 15:46 Last Admin: 04/25/20 15:20 Dose: 250 mls/hr Documented by: Ceftriaxone Sodium 2 gm/ (Sodium Chloride) 100 mls @ 200 mls/hr IV Q24H [facility] Stop: 04/29/20 17:29 Last Admin: 04/26/20 17:24 Dose: 200 mls/hr Documented by: Azithromycin 500 mg/ Sodium (Chloride) 250 mls @ 250 mls/hr IV Q24H [facility] Stop: 04/27/20 15:59 Last Admin: 04/27/20 14:54 Dose: 250 mls/hr Documented by: Remdesivir 200 mg/ Sodium (Chloride) 250 mls @ 250 mls/hr IV ONETIME ONE Stop: 04/26/20 12:59 Last Admin: 04/26/20 12:48 Dose: 250 mls/hr Documented by: Remdesivir 100 mg/ Sodium (Chloride) 100 mls @ 100 mls/hr IV Q24H [facility] Stop: 04/30/20 12:59 Last Admin: 04/30/20 12:06 Dose: 100 mls/hr Documented by: Ceftriaxone Sodium 2 gm/ (Sodium Chloride) 100 mls @ 200 mls/hr IV Q24H [facility] Stop: 04/29/20 21:29 Last Admin: 04/29/20 20:23 Dose: 200 mls/hr Documented by: Sodium Chloride (Normal Saline) 100 mls @ 75 mls/hr IV ASDIRECTED [facility] Stop: 04/30/20 11:00 Last Admin: 04/30/20 09:15 Dose: 75 mls/hr Documented by: Tocilizumab 800 mg/ Sodium (Chloride) 100 mls @ 100 mls/hr IV ONETIME ONE Stop: 04/30/20 09:29 Last Admin: 04/30/20 08:03 Dose: 100 mls/hr Documented by: Insulin Human Lispro (Insulin Lispro 100 Unit/Ml) 0 unit SUBCUT QIDACANDBED [facility]; Protocol Last Admin: 05/01/20 06:37 Dose: Not Given Documented by: Iopamidol (Iopamidol 755 Mg/Ml 100 Ml Bottle) 100 ml IVPUSH ONETIME ONE Stop: 04/25/20 13:05 Last Admin: 04/25/20 14:11 Dose: 100 ml Documented by: Iopamidol (Iopamidol 755 Mg/Ml 100 Ml Bottle) 100 ml IVPUSH ONETIME ONE Stop: 04/30/20 07:32 Last Admin: 04/30/20 09:14 Dose: 100 ml Documented by: Ketorolac Tromethamine (Ketorolac 30 Mg/Ml Sdv) 30 mg IVPUSH ONETIME ONE Stop: 04/25/20 14:49 Last Admin: 04/25/20 15:19 Dose: 30 mg Documented by: Potassium Chloride (Potassium Chloride 20 Meq Tab.Er) 40 meq PO ONETIME ONE Stop: 04/28/20 12:01 Last Admin: 04/28/20 11:20 Dose: 40 meq Documented by: Sodium Chloride (Sodium Chloride 0.9% 10 Ml Syringe) 10 ml FLUSH ONETIME ONE Stop: 04/25/20 13:05 Last Admin: 04/25/20 14:11 Dose: 10 ml Documented by: Sodium Chloride (Sodium Chloride 0.9% 10 Ml Syringe) 10 ml FLUSH ONETIME PRN PRN Reason: IV FLUSH Last Admin: 04/30/20 09:14 Dose: 10 ml Documented by: - Exam Quality Assessment: Supplemental Oxygen (2.5L), DVT Prophylaxis General: Alert, Oriented, Cooperative, No Acute Distress HEENT: Pupils Equal, Pupils Reactive, Mucous Membr. Moist/[place] Neck: Supple, Trachea Midline Lungs: Normal Respiratory Effort, Decreased Breath Sounds. No: Rhonchi, Wheezing Cardiovascular: Regular Rate, Regular Rhythm GI/Abdominal Exam: Normal Bowel Sounds, Soft, Non-Tender, No Distention (Male) Exam: Deferred Back Exam: Normal Inspection, Full Range of Motion Extremities: Normal Inspection, Normal Range of Motion, Non-Tender, No Pedal Edema, Normal Capillary Refill Peripheral Pulses: 2+: Radial (L), Radial (R), Dorsalis Pedis (L), Dorsalis Pedis (R) Skin: Warm, Dry, Intact Neurological: No New Focal Deficit Psy/Mental Status: Alert, Normal Affect, Normal Mood - Patient Data Lab Results Last 24 hrs: Laboratory Results - last 24 hr 05/09/20 05/09/20 Range/Units 08:10 08:10 WBC 6.68 (4.23-9.07) K/mm3 RBC 5.07 (4.63-6.08) M/mm3 Hgb 14.6 (13.7-17.5) gm/dl Hct 44.9 (40.1-51.0) % MCV 88.6 (79.0-92.2) fl MCH 28.8 (25.7-32.2) pg MCHC 32.5 (32.2-35.5) g/dl RDW Std Deviation 46.1 H (35.1-43.9) fL Plt Count 243 (163-337) K/mm3 MPV 10.1 (9.4-12.3) fl Neut % (Auto) 73.9 H (34.0-67.9) % Lymph % (Auto) 11.8 L (21.8-53.1) % [place] % (Auto) 12.1 (5.3-12.2) % Eos % (Auto) 1.9 (0.8-7.0) Baso % (Auto) 0.0 L (0.1-1.2) % Neut # (Auto) 4.93 (1.78-5.38) K/mm3 Lymph # (Auto) 0.79 L (1.32-3.57) K/mm3 [place] # (Auto) 0.81 (0.30-0.82) K/mm3 Eos # (Auto) 0.13 (0.04-0.54) K/mm3 Baso # (Auto) 0.00 L (0.01-0.08) K/mm3 Sodium 141 (136-145) mEq/L Potassium 4.2 (3.5-5.1) mEq/L Chloride 108 H (98-107) mEq/L Carbon Dioxide 25 (21-32) mEq/L Anion Gap 12.2 (5-15) BUN 24 H (7-18) mg/dL Creatinine 1.0 (0.7-1.3) mg/dL Est Cr Clr Drug Dosing 69.03 mL/min Estimated GFR (MDRD) > 60 (>60) mL/min BUN/Creatinine Ratio 24.0 H (14-18) Glucose 90 (83-115) mg/dL Calcium 8.2 L (8.5-10.1) mg/dL Result Diagrams: 05/09/20 08:10 05/09/20 08:10 Sepsis Event Note - Evaluation Sepsis Screening Result: No Definite Risk - Focused Exam Vital Signs: Vital Signs Temp Pulse Resp BP Pulse Ox Pulse Ox 05/10/20 06:23 92 L 05/10/20 04:29 97.9 F 56 L 18 99/52 L 97 05/09/20 19:52 98.2 F 73 20 131/96 H 95 - Problem List & Annotations (1) HLD (hyperlipidemia) SNOMED Code(s): 02577538 Code(s): E78.5 - HYPERLIPIDEMIA, UNSPECIFIED Status: Chronic Priority: Low Current Visit: No Qualifiers: Hyperlipidemia type: unspecified Qualified Code(s): E78.5 - Hyperlipidemia, unspecified (2) HTN (hypertension) SNOMED Code(s): 23501837 Code(s): I10 - ESSENTIAL (PRIMARY) HYPERTENSION Status: Chronic Priority: Medium Current Visit: No Qualifiers: Hypertension type: unspecified Qualified Code(s): I10 - Essential (primary) hypertension (3) History of coronary artery stent placement SNOMED Code(s): 535755695, 860924903 Code(s): Z95.5 - PRESENCE OF CORONARY ANGIOPLASTY IMPLANT AND GRAFT Status: Chronic Priority: Medium Current Visit: No (4) CAD (coronary artery disease) SNOMED Code(s): 90615623 Code(s): I25.10 - ATHSCL HEART DISEASE OF [place] CORONARY ARTERY W/O ANG P [employer] Status: Chronic Priority: Medium Current Visit: No Qualifiers: Coronary Disease-Associated Artery/Lesion type: [place] artery [place] vs. transplanted heart: [place] heart Associated angina: angina presence unspecified Qualified Code(s): I25.10 - Atherosclerotic heart disease of [place] coronary artery without angina pectoris (5) COVID-19 SNOMED Code(s): 805097522 Code(s): U07.1 - COVID-19 Status: Acute Priority: High Current Visit: Yes (6) Hypoxia SNOMED Code(s): 287388916 Code(s): R09.02 - HYPOXEMIA Status: Acute Priority: High Current Visit: Yes (7) Elevated d-dimer SNOMED Code(s): 947148776 Code(s): R79.89 - OTHER SPECIFIED ABNORMAL FINDINGS OF BLOOD CHEMISTRY Status: Acute Priority: High Current Visit: Yes (8) Cardiomegaly SNOMED Code(s): 1035032 Code(s): I51.7 - CARDIOMEGALY Status: Chronic Priority: Low Current Visit: No (9) Pulmonary embolism SNOMED Code(s): 53904837 Code(s): I26.99 - OTHER PULMONARY EMBOLISM WITHOUT ACUTE COR PULMONALE Status: Acute Priority: High Current Visit: Yes Qualifiers: Pulmonary embolism type: multiple subsegmental (without acute cor pulmonale) Qualified Code(s): I26.94 - Multiple subsegmental pulmonary emboli without acute cor pulmonale - Problem List Review Problem List Initiated/Reviewed/Updated: Yes - My Orders Last 24 Hours: My Active Orders 05/11/20 07:39 BASIC METABOLIC PANEL,BMP [CHEM] Q48H CBC WITH AUTO DIFF [HEME] Q48H 05/13/20 07:39 BASIC METABOLIC PANEL,BMP [CHEM] Q48H - Assessment Assessment:: 04/26/20 In to see Mao. He is laying in bed and is now on 2 L of oxygen. He reports he is feeling pretty good and only notes dyspnea when he is up moving around. He said he will occasionally cough and that will cause his saturations to drop as well. Reports it is a dry cough. He has no current concerns. We discussed plan of care and how he will likely need to remain hospitalized for the next 5 days to complete treatment. We discussed proning and patient reports that this is impossible for him because he has had neck surgery. We did discuss Acapella and incentive spirometry and he reports that he will continue working with this. Otherwise labs continue to look good. CRP has decreased and kidney function has improved. D-dimer remained stable. Leukopenia noted. we will continue current treatment plan. Likely discharge Wednesday pending continued improvement as I will be the day he completes treatment. 04/27/20 Patient is experiencing SOB with pleuritic CP. Will be transferred to ICU; ABG is pending. PCXR documents SARS-COV-2 PNA. 04/28/2020 Patient is improving. He was on room air with oxygen saturations in the low 90s while proning today. Otherwise he is on 3 L. D-dimer did increase up to 2.78 which is a significant change. He is on Lovenox 40 mg twice daily. We will continue to monitor D-dimer, shortness of breath, lower extremity signs and symptoms. Since he is improving I would not get a CTA at this time. Blood sugars this morning are up to 160, therefore will start fingerstick blood sugars and sliding scale insulin to keep his blood sugars less than 200 if possible. This is likely secondary to dexamethasone. Mild hypokalemia and given 40 mEq of potassium orally. Blood pressure is well controlled with blood pressures mostly less than 150 except for an occasional systolic blood pressure in the 150s. Patient has not received Actemra, but will hold off on treatment unless he has significant worsening in oxygen requirements. 04/29/20 In to see Mao. He is currently on 4 L. He continues to work on proning and utilize his incentive spirometer and Acapella. Potassium is improved. WBC is increasing but this is likely secondary to steroid use. Otherwise he remained stable. He states he gets very short of breath when he gets up to use the restroom and has been having coughing fits. We will add dextromethorphan/guaifenesin as needed. No other nursing or patient concerns. Patient will remain hospitalized till he finishes his Covid treatment and is weaned down on oxygen. 04/30/20 In to see Mao. He is proning in the bed and doing quite well. He has i mproved to 3 L. When proning he is noted to have saturations in the upper 90s however with movement he drops into the 80s. He continues to utilize his incentive spirometer and Acapella. We discussed his chronic back pain which is exacerbated by proning. Discussed pain medications for this and how important proning, along with his Acapella and incentive spirometry are. He stated how he feels like he gets winded so quick when ambulating. CTA yesterday showed very small pulmonary embolisms and he was started on 1 mg/kg Lovenox twice daily. Bilateral lower extremity ultrasounds were negative for any DVT. Nursing reports they are going to try to encourage more proning today with the patient. Goal is to increase endurance and decrease oxygen needed to 2 L or less prior to discharge. Labs today: WBC 9.20. Hemoglobin 14.2. Platelet 221. Neutrophils elevated at 7.55. D-dimer down to 9.52. Sodium 141. Potassium 4.0. Anion gap 12.0. BUN 28, creatinine 1.0, GFR greater than 60. Glucose 96. AST 26, ALT 68, alkaline phosphatase 128. 05/01/20 In to see Mao. He is proning in the bed currently. He reports he feels a little better and he is down to 3 L on oxygen. He does note that he has significant shortness of breath when getting up to use the bathroom still. We discussed his scan results indicating very small pulmonary embolisms. Discussed how he has shown improvement when he is proning and utilizing his incentive spirometer and Acapella. He agrees to continue to do this. Nursing will push with this as well. He reports back pain due to to compression fractures which is chronic for him and exacerbated by proning. We discussed pain medications to assist with this and how there has to be some [id number]. Otherwise he is doing better today. We will continue current treatment plan with goal to decrease oxygen demand to 2 L or less prior to discharge. 05/02/20 In to see Mao. He is on 3.5 L of oxygen and is laying in bed. He has been proning and utilizing his incentive spirometer and Acapella. Continues to have worsening dyspnea with exertion but states he feels like he is getting some better energy. We will downgrade him today to MedSurg status as he is remained quite stable. D-dimer today 5.20. Sodium 144. Potassium 4.1. Chloride 108. Carbon oxide 25. Anion gap is up to 15.1. BUN 31, creatinine 1.0, GFR greater than 60. Glucose 10 7-1 69. Magnesium 2.2. Bilirubin 0.5. AST 20, ALT 60, alkaline phosphatase 117. CRP is 1.4. Albumin is up to 2.4. Continue current treatment plan. Goal remains improvement of oxygenation to requiring less than 2 L and building of endurance. 05/03/20 In to see Mao. Per nursing he had an episode of desaturation last night and was requiring 6 L to keep his saturations within goal. Since then he has been fluctuating but is currently at 5 L. He reports that he still feels pretty good, denies any pain, and states he is only short of breath with exertion. Repeat chest x-ray today was stable to worse. Intake remains good. He continues to prone and utilize his incentive spirometer and Acapella. This was encouraged again. Labs today show a leukocytosis of 11.81. He is receiving steroids but this is something we will monitor. Neutrophils are elevated 86.1. D-dimer is down to 4.11. Sodium is 143. Potassium 4.3. Carbon dioxide 23. Anion gap is 15.3. BUN is 28. Creatinine 1.0. GFR greater than 60. Glucose has been stable. Magnesium is 2.1. Bilirubin 0.6. AST 17, ALT 49, alkaline phosphatase 109. Albumin is down to 2.4. Unknown length of stay due to fluctuations in patient's oxygen demand. We will continue current treatment plan and monitor for signs of a secondary infection. 05/04/2020 74 year old pro with fever/chills/body aches tested positive for COVID-19 and was admitted for covid 19 pneumonia on 04/25/2020. Patient still complains of occasional dry cough. Otherwise denies nausea, vomiting, fever, or chills. encouraged to prone often and utilize incentive spirometry and Acapella. Patient is now on 4 L CRP 0.4 and D-dimer 3.96 05/05/2020 74 year old pro with fever/chills/body aches tested positive for COVID-19 and was admitted for covid 19 pneumonia on 04/25/2020. Patient feels much better but still complains of occasional dry cough. Otherwise denies nausea, vomiting, fever, or chills. encouraged to prone often and utilize incentive spirometry and Acapella. Patient is now still on 4 L CRP 0.7 05/06/2020 In to see Mao. He sitting up in the chair after we moved him from ICU to room 20. He now has a window. PT/OT worked with him as he is quite severely deconditioned. He was only able to walk a very short distance out of his room. He is requiring 3 to 4 L of oxygen. He is completed his Covid treatment. We will switch him over from Lovenox to Xarelto today for his DVTs. Labs otherwise continue to look good. He was started on Norvasc due to his noted elevated blood pressures however patient has been quite low today with systolic in the 90s. We will therefore hold this and see how he does. He was very strongly encouraged to continue proning and utilizing his incentive spirometry and Acapella. He will now begin ambulating more frequently. Order placed for 3 times daily ambulation. Discussed potential need for SNF rehab stay versus assisted living facility and patient does not want to have that direction at this time. We will continue to encourage frequent pulmonary exercises. 05/07/2020 In to see Mao. He is sitting up in the chair and just finished with therapies. He is quite excited as he was able to walk to the door. He reports his symptoms are overall improving and he feels much less short of breath. He has been requiring 4 to 5 L of oxygen but he is moving more now. Continues to utilize his incentive spirometer and Acapella. Continues to tolerate Xarelto and remains quite stable. We will switch his lab draws to every 48 hours over concerns of iatrogenic anemia and because his labs have been so stable. Blood pressures have been good and his Norvasc yesterday was held. We will discontinue this over fear of him being hypotensive. Unknown length of stay pending stability of oxygenation and improvement with endurance. Goal is to get patient down to 2L and improve activity tolerance prior to discharge. 05/08/2020 To see Mao. He is in her chair and states that he is quite winded after a trip to the bathroom to have a BM. States BM was appropriate and not hard or difficult. He is down to 3 L with saturations in the low 90s. Continues to utilize incentive spirometer and Acapella. Continues to work with therapies. Vital signs remained stable. No labs were drawn today. No patient or nursing concerns. Continue to attempt to wean oxygen and improve patient endurance. Unknown length of stay. 05/09/2020 In to see Mao. Sitting in the chair and reports that he had a little bit of a rough morning again. Last night he was up walking in the halls and doing quite well. He is weaned down to 3 L and his saturations continue in the low 90s. Continues to utilize his incentive spirometer and Acapella and work with therapies. Labs were drawn today and were grossly unremarkable. No patient or nursing concerns. Will hold off drawing labs again tomorrow as he has been so stable. Continue attempt wean oxygen improve endurance. Hopeful for discharge this weekend pending continued improvement. 05/10/2020 In to see Mao. He is laying in bed. He has been on 2.5 L of oxygen today although he was requiring 5 L yesterday evening. Chest x-ray was obtained today and shows worsening infiltrates. They are noted to be denser than before. He reports left-sided chest pain, especially present on deep inspiration or with palpation. Will obtain twelve-lead EKG, troponin, CK-MB, and D-dimer to ensure no cardiac involvement. He ambulated approximately 100 feet today with therapies, and although this is his furthest distance yet, he remains quite weak. We discussed exploring possible placement at discharge. Patient is quite adamant that he does not want to go to a residential facility or swing bed. He does have a grandson who would be willing to come watch him and help around the house. He is also willing to be placed at [facility]. Twelve-lead EKG shows a sinus rhythm at 80 bpm with several unifocal PVCs and a right bundle branch block. Q waves are noted in inferior leads. We will repeat labs tomorrow. Patient reports that his lungs today feel better than they have thus far. He continues to have occasional cough. Unknown discharge plan as patient continues to wax and wane with his symptoms and oxygen demand. - Plan Plan:: COVID-19 Hypoxia Elevated D-Dimer Pulmonary embolism * CT angio chest -several small pulmonary emboli reviewed and subsegmental branches of leaving the right lower lung. * O2 as needed to keep saturations 88-96% * Pt has completed courses of Azithromycin, Rocephin, Remdisivir and dexamethasone * Given Actemra due to worsening saturations * PRN albuterol inhaler * Consult RT * IS/Acapella * Prone whenever able * Discontinued Airborne/contact precautions - patient +20 days from symptoms onset * Monitor labs * OT/PT consult * Zinc supplementation * Telemetry/continuous pulse oximeter * Continue xarelto 15mg BID for 21 days, then 20mg daily thereafter * Bilateral lower extremity US - No evidence of PE HLD (hyperlipidemia) HTN (hypertension) History of coronary artery stent placement CAD (coronary artery disease) Cardiomegaly * Continue home medications as directed * Telemetry * Discontinue Norvasc as BP has been stable and it was held yesterday. Code status: Full Code PCP: Nano Guzman NP DVT prophylaxis: Lovenox Social: Patient resides in [facility] Disposition: Patient upgraded to ICU status due to worsening SOB, Elevated D-dim er, Worsening oxygen saturations. Patient has had up and down saturations and endurance. Consider swing-bed placement. It is felt the patient would not do well discharging home at this time. LOS>96 Hrs due to need for continued COVID-19 treatment, Hypoxia.
[2020-05-10] MEDS: atorvaSTATin 20 MG Tab PO SCH (09:24)
[2020-05-10] MEDS: guaiFENesin 600 MG Tab.ER PO SCH ×2 (09:24→20:12)
[2020-05-10] MEDS: Zinc Sulfate 220 MG Cap PO SCH (09:24)
[2020-05-10] MEDS: Doxazosin 2 MG Tab PO SCH (09:25)
[2020-05-10] MEDS: Aspirin 81 MG Tab.EC PO SCH (09:25)
[2020-05-10] MEDS: Cholecalciferol (Vitamin D3) 25 MCG Tab PO SCH (09:25)
[2020-05-10] MEDS: Pantoprazole 40 MG Tab.CR PO SCH (09:26)
[2020-05-10] MEDS: Fluticasone Propionate Nasal Spray 16 GM Bottle NASBOTH SCH (09:26)
--- NOTE | 2020-05-10 09:57 | CR ---
Chest: 2 views of the chest were obtained. Comparison: Prior chest x-ray of 05/03/20. Increasing density is seen within the periphery of both lungs. Distribution of this finding is similar to prior chest x-ray. Heart size and mediastinum are stable. Bony structures are grossly intact. Prior cervical spine surgery is noted. Impression: 1. Increasing density within both sides of the chest peripherally. Distribution is similar but density is increased compatible with worsening COVID pneumonia. Diagnostic code #3
[2020-05-10] MEDS: Acetaminophen/HYDROcodone 325-5 MG Tab PO PRN ×2 (11:49→20:12)
[2020-05-11] MEDS: traZODone 50 MG Tab PO PRN (01:06)
[2020-05-11] MEDS: Acetaminophen/HYDROcodone 325-5 MG Tab PO PRN ×2 (05:42→13:30)
[2020-05-11] MEDS: Rivaroxaban 15 MG Tab PO SCH ×3 (05:54→17:26)
[2020-05-11] MEDS: Albuterol 0.083% 2.5 MG/3 ML Neb Soln NEB PRN (08:56)
[2020-05-11] MEDS: Cholecalciferol (Vitamin D3) 25 MCG Tab PO SCH (09:19)
[2020-05-11] MEDS: Aspirin 81 MG Tab.EC PO SCH (09:19)
[2020-05-11] MEDS: Pantoprazole 40 MG Tab.CR PO SCH (09:20)
[2020-05-11] MEDS: atorvaSTATin 20 MG Tab PO SCH (09:20)
[2020-05-11] MEDS: guaiFENesin 600 MG Tab.ER PO SCH ×2 (09:21→20:42)
[2020-05-11] MEDS: Zinc Sulfate 220 MG Cap PO SCH (09:22)
[2020-05-11] MEDS: Doxazosin 2 MG Tab PO SCH (09:22)
[2020-05-11] MEDS: Fluticasone Propionate Nasal Spray 16 GM Bottle NASBOTH SCH (09:23)
--- NOTE | 2020-05-11 11:33 | PCM.PN ---
- General Info Date of Service: 05/11/20 Admission Dx/Problem (Free Text): Admission Diagnosis/Problem Admission Diagnosis/Problem Hypoxia Subjective Update: 74 year old pro with fever/chills/body aches tested positive for COVID-19 and was admitted for covid 19 pneumonia on 04/25/2020. Does not have any new complaints. denies nausea, vomiting, fever, or chills. encouraged to prone often and utilize incentive spirometry and Acapella. Patient is now on 3 L. Patient had a 1 episode oxygen desaturation yesterday evening, 85% on 2.5 L Discussed and explained to him about the complication of coronavirus infection. D-dimer 1.77 CRP<0.2 on May 05 - Review of Systems General: Reports: No Symptoms HEENT: Reports: No Symptoms Pulmonary: Reports: Shortness of Breath, Cough Cardiovascular: Reports: No Symptoms Gastrointestinal: Reports: No Symptoms Genitourinary: Reports: No Symptoms Musculoskeletal: Reports: No Symptoms Skin: Reports: No Symptoms Neurological: Reports: No Symptoms Psychiatric: Reports: No Symptoms - Patient Data Vitals - Most Recent: Last Vital Signs Temp 36.7 C 05/11/20 11:13 Pulse 92 05/11/20 11:13 Resp 24 H 05/11/20 11:13 BP 113/89 05/11/20 11:13 Pulse Ox 91 L 05/11/20 11:13 Weight - Most Recent: 84.005 kg I&O - Last 24 Hours: Intake & Output 05/10/20 05/11/20 05/11/20 22:59 06:59 14:59 Intake Total 1380 480 Output Total 700 1050 Balance 680 -570 Lab Results Last 24 Hours: Laboratory Results - last 24 hr 05/10/20 05/10/20 05/11/20 Range/Units 15:30 15:30 05:29 WBC 6.87 (4.23-9.07) K/mm3 RBC 4.25 L (4.63-6.08) M/mm3 Hgb 12.2 L D (13.7-17.5) gm/dl Hct 38.5 L (40.1-51.0) % MCV 90.6 (79.0-92.2) fl MCH 28.7 (25.7-32.2) pg MCHC 31.7 L (32.2-35.5) g/dl RDW Std Deviation 47.4 H (35.1-43.9) fL Plt Count 224 (163-337) K/mm3 MPV 9.9 (9.4-12.3) fl Neut % (Auto) 71.7 H (34.0-67.9) % Lymph % (Auto) 13.5 L (21.8-53.1) % [place] % (Auto) 12.7 H (5.3-12.2) % Eos % (Auto) 1.9 (0.8-7.0) Baso % (Auto) 0.1 (0.1-1.2) % Neut # (Auto) 4.92 (1.78-5.38) K/mm3 Lymph # (Auto) 0.93 L (1.32-3.57) K/mm3 [place] # (Auto) 0.87 H (0.30-0.82) K/mm3 Eos # (Auto) 0.13 (0.04-0.54) K/mm3 Baso # (Auto) 0.01 (0.01-0.08) K/mm3 D-Dimer, Quantitative 1.77 H (0.19-0.50) mg/L Sodium (136-145) mEq/L Potassium (3.5-5.1) mEq/L Chloride (98-107) mEq/L Carbon Dioxide (21-32) mEq/L Anion Gap (5-15) BUN (7-18) mg/dL Creatinine (0.7-1.3) mg/dL Est Cr Clr Drug Dosing mL/min Estimated GFR (MDRD) (>60) mL/min BUN/Creatinine Ratio (14-18) Glucose (83-115) mg/dL Calcium (8.5-10.1) mg/dL CK-MB (CK-2) 2.1 (0-3.6) ng/ml Troponin I < 0.017 (0.00-0.056) ng/mL 05/11/20 Range/Units 05:29 WBC (4.23-9.07) K/mm3 RBC (4.63-6.08) M/mm3 Hgb (13.7-17.5) gm/dl Hct (40.1-51.0) % MCV (79.0-92.2) fl MCH (25.7-32.2) pg MCHC (32.2-35.5) g/dl RDW Std Deviation (35.1-43.9) fL Plt Count (163-337) K/mm3 MPV (9.4-12.3) fl Neut % (Auto) (34.0-67.9) % Lymph % (Auto) (21.8-53.1) % [place] % (Auto) (5.3-12.2) % Eos % (Auto) (0.8-7.0) Baso % (Auto) (0.1-1.2) % Neut # (Auto) (1.78-5.38) K/mm3 Lymph # (Auto) (1.32-3.57) K/mm3 [place] # (Auto) (0.30-0.82) K/mm3 Eos # (Auto) (0.04-0.54) K/mm3 Baso # (Auto) (0.01-0.08) K/mm3 D-Dimer, Quantitative (0.19-0.50) mg/L Sodium 142 (136-145) mEq/L Potassium 4.3 (3.5-5.1) mEq/L Chloride 109 H (98-107) mEq/L Carbon Dioxide 25 (21-32) mEq/L Anion Gap 12.3 (5-15) BUN 20 H (7-18) mg/dL Creatinine 1.0 (0.7-1.3) mg/dL Est Cr Clr Drug Dosing 69.03 mL/min Estimated GFR (MDRD) > 60 (>60) mL/min BUN/Creatinine Ratio 20.0 H (14-18) Glucose 104 (83-115) mg/dL Calcium 8.1 L (8.5-10.1) mg/dL CK-MB (CK-2) (0-3.6) ng/ml Troponin I (0.00-0.056) ng/mL Med Orders - Current: Current Medications Acetaminophen (Acetaminophen 325 Mg Tab) 650 mg PO Q6H PRN PRN Reason: Pain/Fever Last Admin: 04/26/20 19:23 Dose: 650 mg Documented by: Hydrocodone Bitart/Acetaminophen (Acetaminophen/Hydrocodone 325-5 Mg Tab) 2 tab PO Q8H PRN PRN Reason: Pain Last Admin: 05/11/20 05:42 Dose: 2 tab Documented by: Albuterol (Albuterol 0.083% 2.5 Mg/3 Ml Neb Soln) 2.5 mg NEB Q4HRRT PRN PRN Reason: Shortness of Breath Last Admin: 05/11/20 08:56 Dose: 2.5 mg Documented by: Aspirin (Aspirin 81 Mg Tab.Ec) 81 mg PO DAILY [facility] Last Admin: 05/11/20 09:19 Dose: 81 mg Documented by: Atorvastatin Calcium (Atorvastatin 20 Mg Tab) 10 mg PO DAILY [facility] Last Admin: 05/11/20 09:20 Dose: 10 mg Documented by: Cholecalciferol (Cholecalciferol (Vitamin D3) 25 Mcg Tab) 50 mcg PO DAILY [facility] Last Admin: 05/11/20 09:19 Dose: 50 mcg Documented by: Doxazosin Mesylate (Doxazosin 2 Mg Tab) 6 mg PO DAILY [facility] Last Admin: 05/11/20 09:22 Dose: 6 mg Documented by: Fluticasone Propionate (Fluticasone Propionate Nasal [place] 16 Gm Bottle) 0 gm NASBOTH DAILY [facility] Last Admin: 05/11/20 09:23 Dose: Not Given Documented by: Guaifenesin (Guaifenesin 600 Mg Tab.Er) 600 mg PO BID [facility] Last Admin: 05/11/20 09:21 Dose: 600 mg Documented by: Guaifenesin/Phenylephrine HCl (Guaifenesin/Dextromethorphan 100-10 Mg/5 Ml Soln 5 Ml Cup) 10 ml PO Q6H PRN PRN Reason: Cough Last Admin: 04/30/20 20:00 Dose: 10 ml Documented by: Hydralazine HCl (Hydralazine 20 Mg/Ml Sdv) 10 mg IVPUSH Q4H PRN PRN Reason: Hypertention Last Admin: 05/05/20 00:10 Dose: 10 mg Documented by: Pantoprazole Sodium (Pantoprazole 40 Mg Tab.Cr) 40 mg PO DAILY [facility] Last Admin: 05/11/20 09:20 Dose: 40 mg Documented by: Rivaroxaban (Rivaroxaban 15 Mg Tab) 15 mg PO BIDMEALS [facility] Stop: 05/26/20 17:01 Last Admin: 05/11/20 07:14 Dose: Not Given Documented by: Sodium Chloride (Sodium Chloride 0.9% 10 Ml Syringe) 10 ml FLUSH ASDIRECTED PRN PRN Reason: Keep Vein Open Last Admin: 04/25/20 11:17 Dose: 10 ml Documented by: Trazodone HCl (Trazodone 50 Mg Tab) 50 mg PO BEDTIME PRN PRN Reason: Sleep Last Admin: 05/11/20 01:06 Dose: 50 mg Documented by: Zinc Sulfate (Zinc Sulfate 220 Mg Cap) 220 mg PO DAILY [facility] Last Admin: 05/11/20 09:22 Dose: 220 mg Documented by: Discontinued Medications Hydrocodone Bitart/Acetaminophen (Acetaminophen/Hydrocodone 325-5 Mg Tab) 2 tab PO Q12H PRN PRN Reason: Pain Last Admin: 05/05/20 09:33 Dose: 2 tab Documented by: Albuterol (Albuterol 6.7 Gm Inhaler) 0 gm INH Q4H PRN PRN Reason: SOB/Wheezing Albuterol/Ipratropium (Albuterol/Ipratropium 3.0-0.5 Mg/3 Ml Neb Soln) 3 ml NEB Q6HRRT [facility] Last Admin: 04/28/20 03:22 Dose: 3 ml Documented by: Amlodipine Besylate (Amlodipine 5 Mg Tab) 5 mg PO DAILY [facility] Last Admin: 05/06/20 09:09 Dose: Not Given Documented by: Dexamethasone (Dexamethasone 4 Mg Tab) 6 mg PO ONETIME ONE Stop: 04/25/20 11:57 Last Admin: 04/25/20 12:14 Dose: 6 mg Documented by: Dexamethasone (Dexamethasone 4 Mg Tab) 6 mg PO DAILY [facility] Stop: 05/04/20 09:01 Last Admin: 05/04/20 08:30 Dose: 6 mg Documented by: Doxazosin Mesylate (Doxazosin 2 Mg Tab) 6 mg PO DAILY [facility] Last Admin: 04/26/20 12:16 Dose: Not Given Documented by: Enoxaparin Sodium (Enoxaparin 40 Mg/0.4 Ml Syringe) 40 mg SUBCUT Q12H [facility] Last Admin: 04/27/20 05:23 Dose: 40 mg Documented by: Enoxaparin Sodium (Enoxaparin 40 Mg/0.4 Ml Syringe) 40 mg SUBCUT BID [facility] Last Admin: 04/29/20 20:23 Dose: 40 mg Documented by: Enoxaparin Sodium (Enoxaparin 100 Mg/1 Ml Syringe) 88 mg SUBCUT Q12H [facility] Last Admin: 05/06/20 09:10 Dose: Not Given Documented by: Sodium Chloride (Normal Saline) 100 mls @ 60 mls/hr IV ASDIRECTED [facility] Last Admin: 04/25/20 14:12 Dose: 60 mls/hr Documented by: Azithromycin 500 mg/ Sodium (Chloride) 250 mls @ 250 mls/hr IV ONETIME ONE Stop: 04/25/20 15:46 Last Admin: 04/25/20 15:20 Dose: 250 mls/hr Documented by: Ceftriaxone Sodium 2 gm/ (Sodium Chloride) 100 mls @ 200 mls/hr IV Q24H [facility] Stop: 04/29/20 17:29 Last Admin: 04/26/20 17:24 Dose: 200 mls/hr Documented by: Azithromycin 500 mg/ Sodium (Chloride) 250 mls @ 250 mls/hr IV Q24H [facility] Stop: 04/27/20 15:59 Last Admin: 04/27/20 14:54 Dose: 250 mls/hr Documented by: Remdesivir 200 mg/ Sodium (Chloride) 250 mls @ 250 mls/hr IV ONETIME ONE Stop: 04/26/20 12:59 Last Admin: 04/26/20 12:48 Dose: 250 mls/hr Documented by: Remdesivir 100 mg/ Sodium (Chloride) 100 mls @ 100 mls/hr IV Q24H [facility] Stop: 04/30/20 12:59 Last Admin: 04/30/20 12:06 Dose: 100 mls/hr Documented by: Ceftriaxone Sodium 2 gm/ (Sodium Chloride) 100 mls @ 200 mls/hr IV Q24H [facility] Stop: 04/29/20 21:29 Last Admin: 04/29/20 20:23 Dose: 200 mls/hr Documented by: Sodium Chloride (Normal Saline) 100 mls @ 75 mls/hr IV ASDIRECTED [facility] Stop: 04/30/20 11:00 Last Admin: 04/30/20 09:15 Dose: 75 mls/hr Documented by: Tocilizumab 800 mg/ Sodium (Chloride) 100 mls @ 100 mls/hr IV ONETIME ONE Stop: 04/30/20 09:29 Last Admin: 04/30/20 08:03 Dose: 100 mls/hr Documented by: Insulin Human Lispro (Insulin Lispro 100 Unit/Ml) 0 unit SUBCUT QIDACANDBED [facility]; Protocol Last Admin: 05/01/20 06:37 Dose: Not Given Documented by: Iopamidol (Iopamidol 755 Mg/Ml 100 Ml Bottle) 100 ml IVPUSH ONETIME ONE Stop: 04/25/20 13:05 Last Admin: 04/25/20 14:11 Dose: 100 ml Documented by: Iopamidol (Iopamidol 755 Mg/Ml 100 Ml Bottle) 100 ml IVPUSH ONETIME ONE Stop: 04/30/20 07:32 Last Admin: 04/30/20 09:14 Dose: 100 ml Documented by: Ketorolac Tromethamine (Ketorolac 30 Mg/Ml Sdv) 30 mg IVPUSH ONETIME ONE Stop: 04/25/20 14:49 Last Admin: 04/25/20 15:19 Dose: 30 mg Documented by: Potassium Chloride (Potassium Chloride 20 Meq Tab.Er) 40 meq PO ONETIME ONE Stop: 04/28/20 12:01 Last Admin: 04/28/20 11:20 Dose: 40 meq Documented by: Sodium Chloride (Sodium Chloride 0.9% 10 Ml Syringe) 10 ml FLUSH ONETIME ONE Stop: 04/25/20 13:05 Last Admin: 04/25/20 14:11 Dose: 10 ml Documented by: Sodium Chloride (Sodium Chloride 0.9% 10 Ml Syringe) 10 ml FLUSH ONETIME PRN PRN Reason: IV FLUSH Last Admin: 04/30/20 09:14 Dose: 10 ml Documented by: - Patient Data Lab Results Last 24 hrs: Laboratory Results - last 24 hr 05/10/20 05/10/20 05/11/20 Range/Units 15:30 15:30 05:29 WBC 6.87 (4.23-9.07) K/mm3 RBC 4.25 L (4.63-6.08) M/mm3 Hgb 12.2 L D (13.7-17.5) gm/dl Hct 38.5 L (40.1-51.0) % MCV 90.6 (79.0-92.2) fl MCH 28.7 (25.7-32.2) pg MCHC 31.7 L (32.2-35.5) g/dl RDW Std Deviation 47.4 H (35.1-43.9) fL Plt Count 224 (163-337) K/mm3 MPV 9.9 (9.4-12.3) fl Neut % (Auto) 71.7 H (34.0-67.9) % Lymph % (Auto) 13.5 L (21.8-53.1) % [place] % (Auto) 12.7 H (5.3-12.2) % Eos % (Auto) 1.9 (0.8-7.0) Baso % (Auto) 0.1 (0.1-1.2) % Neut # (Auto) 4.92 (1.78-5.38) K/mm3 Lymph # (Auto) 0.93 L (1.32-3.57) K/mm3 [place] # (Auto) 0.87 H (0.30-0.82) K/mm3 Eos # (Auto) 0.13 (0.04-0.54) K/mm3 Baso # (Auto) 0.01 (0.01-0.08) K/mm3 D-Dimer, Quantitative 1.77 H (0.19-0.50) mg/L Sodium (136-145) mEq/L Potassium (3.5-5.1) mEq/L Chloride (98-107) mEq/L Carbon Dioxide (21-32) mEq/L Anion Gap (5-15) BUN (7-18) mg/dL Creatinine (0.7-1.3) mg/dL Est Cr Clr Drug Dosing mL/min Estimated GFR (MDRD) (>60) mL/min BUN/Creatinine Ratio (14-18) Glucose (83-115) mg/dL Calcium (8.5-10.1) mg/dL CK-MB (CK-2) 2.1 (0-3.6) ng/ml Troponin I < 0.017 (0.00-0.056) ng/mL 05/11/20 Range/Units 05:29 WBC (4.23-9.07) K/mm3 RBC (4.63-6.08) M/mm3 Hgb (13.7-17.5) gm/dl Hct (40.1-51.0) % MCV (79.0-92.2) fl MCH (25.7-32.2) pg MCHC (32.2-35.5) g/dl RDW Std Deviation (35.1-43.9) fL Plt Count (163-337) K/mm3 MPV (9.4-12.3) fl Neut % (Auto) (34.0-67.9) % Lymph % (Auto) (21.8-53.1) % [place] % (Auto) (5.3-12.2) % Eos % (Auto) (0.8-7.0) Baso % (Auto) (0.1-1.2) % Neut # (Auto) (1.78-5.38) K/mm3 Lymph # (Auto) (1.32-3.57) K/mm3 [place] # (Auto) (0.30-0.82) K/mm3 Eos # (Auto) (0.04-0.54) K/mm3 Baso # (Auto) (0.01-0.08) K/mm3 D-Dimer, Quantitative (0.19-0.50) mg/L Sodium 142 (136-145) mEq/L Potassium 4.3 (3.5-5.1) mEq/L Chloride 109 H (98-107) mEq/L Carbon Dioxide 25 (21-32) mEq/L Anion Gap 12.3 (5-15) BUN 20 H (7-18) mg/dL Creatinine 1.0 (0.7-1.3) mg/dL Est Cr Clr Drug Dosing 69.03 mL/min Estimated GFR (MDRD) > 60 (>60) mL/min BUN/Creatinine Ratio 20.0 H (14-18) Glucose 104 (83-115) mg/dL Calcium 8.1 L (8.5-10.1) mg/dL CK-MB (CK-2) (0-3.6) ng/ml Troponin I (0.00-0.056) ng/mL Result Diagrams: 05/11/20 05:29 05/11/20 05:29 Sepsis Event Note - Evaluation Sepsis Screening Result: No Definite Risk - Focused Exam Vital Signs: Vital Signs Temp Pulse Resp BP Pulse Ox Pulse Ox 05/11/20 11:13 36.7 C 92 24 H 113/89 91 L 03/27/21 09:22 121/65 05/11/20 09:00 92 L 05/11/20 08:21 36.6 C 98 22 H 118/59 L 93 L 05/11/20 05:40 36.4 C 64 15 120/77 89 L 05/11/20 01:08 36.6 C 79 14 113/67 92 L - Problem List Review Problem List Initiated/Reviewed/Updated: Yes - My Orders Last 24 Hours: My Active Orders 05/11/20 10:22 Communication Order [RC] ASDIRECTED 05/11/20 10:51 Heat Therapy [OM.PC] Routine 05/12/20 05:00 COMPREHENSIVE METABOLIC PN,CMP [CHEM] Routine CRP [C-REACTIVE PROTEIN] [CHEM] Routine - Assessment Assessment:: 04/26/20 In to see Mao. He is laying in bed and is now on 2 L of oxygen. He reports he is feeling pretty good and only notes dyspnea when he is up moving around. He said he will occasionally cough and that will cause his saturations to drop as well. Reports it is a dry cough. He has no current concerns. We discussed plan of care and how he will likely need to remain hospitalized for the next 5 days to complete treatment. We discussed proning and patient reports that this is impossible for him because he has had neck surgery. We did discuss Acapella and incentive spirometry and he reports that he will continue working with this. Otherwise labs continue to look good. CRP has decreased and kidney function has improved. D-dimer remained stable. Leukopenia noted. we will continue current treatment plan. Likely discharge Wednesday pending continued improvement as I will be the day he completes treatment. 04/27/20 Patient is experiencing SOB with pleuritic CP. Will be transferred to ICU; ABG is pending. PCXR documents SARS-COV-2 PNA. 04/28/2020 Patient is improving. He was on room air with oxygen saturations in the low 90s while proning today. Otherwise he is on 3 L. D-dimer did increase up to 2.78 which is a significant change. He is on Lovenox 40 mg twice daily. We will continue to monitor D-dimer, shortness of breath, lower extremity signs and symptoms. Since he is improving I would not get a CTA at this time. Blood sugars this morning are up to 160, therefore will start fingerstick blood sugars and sliding scale insulin to keep his blood sugars less than 200 if possible. This is likely secondary to dexamethasone. Mild hypokalemia and given 40 mEq of potassium orally. Blood pressure is well controlled with blood pressures mostly less than 150 except for an occasional systolic blood pressure in the 150s. Patient has not received Actemra, but will hold off on treatment unless he has significant worsening in oxygen requirements. 04/29/20 In to see Mao. He is currently on 4 L. He continues to work on proning and utilize his incentive spirometer and Acapella. Potassium is improved. WBC is increasing but this is likely secondary to steroid use. Otherwise he remained stable. He states he gets very short of breath when he gets up to use the restroom and has been having coughing fits. We will add dextr omethorphan/guaifenesin as needed. No other nursing or patient concerns. Patient will remain hospitalized till he finishes his Covid treatment and is weaned down on oxygen. 04/30/20 In to see Mao. He is proning in the bed and doing quite well. He has improved to 3 L. When proning he is noted to have saturations in the upper 90s however with movement he drops into the 80s. He continues to utilize his incentive spirometer and Acapella. We discussed his chronic back pain which is exacerbated by proning. Discussed pain medications for this and how important proning, along with his Acapella and incentive spirometry are. He stated how he feels like he gets winded so quick when ambulating. CTA yesterday showed very small pulmonary embolisms and he was started on 1 mg/kg Lovenox twice daily. Bilateral lower extremity ultrasounds were negative for any DVT. Nursing reports they are going to try to encourage more proning today with the patient. Goal is to increase endurance and decrease oxygen needed to 2 L or less prior to discharge. Labs today: WBC 9.20. Hemoglobin 14.2. Platelet 221. Neutrophils elevated at 7.55. D-dimer down to 9.52. Sodium 141. Potassium 4.0. Anion gap 12.0. BUN 28, creatinine 1.0, GFR greater than 60. Glucose 96. AST 26, ALT 68, alkaline phosphatase 128. 05/01/20 In to see Mao. He is proning in the bed currently. He reports he feels a little better and he is down to 3 L on oxygen. He does note that he has significant shortness of breath when getting up to use the bathroom still. We discussed his scan results indicating very small pulmonary embolisms. Discussed how he has shown improvement when he is proning and utilizing his incentive spirometer and Acapella. He agrees to continue to do this. Nursing will push with this as well. He reports back pain due to to compression fractures which is chronic for him and exacerbated by proning. We discussed pain medications to assist with this and how there has to be some [id number]. Otherwise he is doing better today. We will continue current treatment plan with goal to decrease oxygen demand to 2 L or less prior to discharge. 05/02/20 In to see Mao. He is on 3.5 L of oxygen and is laying in bed. He has been proning and utilizing his incentive spirometer and Acapella. Continues to have worsening dyspnea with exertion but states he feels like he is getting some better energy. We will downgrade him today to MedSur status as he is remained quite stable. D-dimer today 5.20. Sodium 144. Potassium 4.1. Chloride 108. Carbon oxide 25. Anion gap is up to 15.1. BUN 31, creatinine 1.0, GFR greater than 60. Glucose 10 7-1 69. Magnesium 2.2. Bilirubin 0.5. AST 20, ALT 60, alkaline phosphatase 117. CRP is 1.4. Albumin is up to 2.4. Continue current treatment plan. Goal remains improvement of oxygenation to requiring less than 2 L and building of endurance. 05/03/20 In to see Mao. Per nursing he had an episode of desaturation last night and was requiring 6 L to keep his saturations within goal. Since then he has been fluctuating but is currently at 5 L. He reports that he still feels pretty good, denies any pain, and states he is only short of breath with exertion. Repeat chest x-ray today was stable to worse. Intake remains good. He c ontinues to prone and utilize his incentive spirometer and Acapella. This was encouraged again. Labs today show a leukocytosis of 11.81. He is receiving steroids but this is something we will monitor. Neutrophils are elevated 86.1. D-dimer is down to 4.11. Sodium is 143. Potassium 4.3. Carbon dioxide 23. Anion gap is 15.3. BUN is 28. Creatinine 1.0. GFR greater than 60. Glucose has been stable. Magnesium is 2.1. Bilirubin 0.6. AST 17, ALT 49, alkaline phosphatase 109. Albumin is down to 2.4. Unknown length of stay due to fluctuations in patient's oxygen demand. We will continue current treatment plan and monitor for signs of a secondary infection. 05/04/2020 74 year old pro with fever/chills/body aches tested positive for COVID-19 and was admitted for covid 19 pneumonia on 04/25/2020. Patient still complains of occasional dry cough. Otherwise denies nausea, vomiting, fever, or chills. encouraged to prone often and utilize incentive spirometry and Acapella. Patient is now on 4 L CRP 0.4 and D-dimer 3.96 05/05/2020 74 year old pro with fever/chills/body aches tested positive for COVID-19 and was admitted for covid 19 pneumonia on 04/25/2020. Patient feels much better but still complains of occasional dry cough. Otherwise denies nausea, vomiting, fever, or chills. encouraged to prone often and utilize incentive spirometry and Acapella. Patient is now still on 4 L CRP 0.7 05/06/2020 In to see Mao. He sitting up in the chair after we moved him from ICU to room 20. He now has a window. PT/OT worked with him as he is quite severely deconditioned. He was only able to walk a very short distance out of his room. He is requiring 3 to 4 L of oxygen. He is completed his Covid treatment. We will switch him over from Lovenox to Xarelto today for his DVTs. Labs otherwise continue to look good. He was started on Norvasc due to his noted elevated blood pressures however patient has been quite low today with systolic in the 90s. We will therefore hold this and see how he does. He was very strongly encouraged to continue proning and utilizing his incentive spirometry and Acapella. He will now begin ambulating more frequently. Order placed for 3 times daily ambulation. Discussed potential need for SNF rehab stay versus assisted living facility and patient does not want to have that direction at this time. We will continue to encourage frequent pulmonary exercises. 05/07/2020 In to see Mao. He is sitting up in the chair and just finished with therapies. He is quite excited as he was able to walk to the door. He reports his symptoms are overall improving and he feels much less short of breath. He has been requiring 4 to 5 L of oxygen but he is moving more now. Continues to utilize his incentive spirometer and Acapella. Continues to tolerate Xarelto and remains quite stable. We will switch his lab draws to every 48 hours over concerns of iatrogenic anemia and because his labs have been so stable. Blood pressures have been good and his Norvasc yesterday was held. We will discontinue this over fear of him being hypotensive. Unknown length of stay pending stability of oxygenation and improvement with endurance. Goal is to get patient down to 2L and improve activity tolerance prior to discharge. 05/08/2020 To see Mao. He is in her chair and states that he is quite winded after a trip to the bathroom to have a BM. States BM was appropriate and not hard or difficult. He is down to 3 L with saturations in the low 90s. Continues to utilize incentive spirometer and Acapella. Continues to work with therapies. Vital signs remained stable. No labs were drawn today. No patient or nursing concerns. Continue to attempt to wean oxygen and improve patient endurance. Unknown length of stay. 05/09/2020 In to see Mao. Sitting in the chair and reports that he had a little bit of a rough morning again. Last night he was up walking in the halls and doing quite well. He is weaned down to 3 L and his saturations continue in the low 90s. Continues to utilize his incentive spirometer and Acapella and work with therapies. Labs were drawn today and were grossly unremarkable. No patient or nursing concerns. Will hold off drawing labs again tomorrow as he has been so stable. Continue attempt wean oxygen improve endurance. Hopeful for discharge this weekend pending continued improvement. 05/10/2020 In to see Mao. He is laying in bed. He has been on 2.5 L of oxygen today although he was requiring 5 L yesterday evening. Chest x-ray was obtained today and shows worsening infiltrates. They are noted to be denser than before. He reports left-sided chest pain, especially present on deep inspiration or with palpation. Will obtain twelve-lead EKG, troponin, CK-MB, and D-dimer to ensure no cardiac involvement. He ambulated approximately 100 feet today with therapies, and although this is his furthest distance yet, he remains quite weak. We discussed exploring possible placement at discharge. Patient is quite adamant that he does not want to go to a usp facility or swing bed. He does have a grandson who would be willing to come watch him and help around the house. He is also willing to be placed at [facility]. Twelve-lead EKG shows a sinus rhythm at 80 bpm with several unifocal PVCs and a right bundle branch block. Q waves are noted in inferior leads. We will repeat labs t omorrow. Patient reports that his lungs today feel better than they have thus far. He continues to have occasional cough. Unknown discharge plan as patient continues to wax and wane with his symptoms and oxygen demand. 05/11/2020 Does not have any new complaints. denies nausea, vomiting, fever, or chills. encouraged to prone often and utilize incentive spirometry and Acapella. Patient is now on 3 L. Patient had a 1 episode oxygen desaturation yesterday evening, 85% on 2.5 L Discussed and explained to him about the complication of coronavirus infection. Urine output is good. Had a bowel movement x 1 CXR on 05/10 - Increasing density within both sides of the chest the peripherally. Distribution is a similar density is a increased compatible with the worsening Covid pneumonia. D-dimer 1.77 CRP<0.2 on May 05 - Plan Plan:: COVID-19 Hypoxia Elevated D-Dimer Pulmonary embolism * CT angio chest -several small pulmonary emboli reviewed and subsegmental branches of leaving the right lower lung. * O2 as needed to keep saturations 88-96% * Pt has completed courses of Azithromycin, Rocephin, Remdisivir and dexamethasone * Given Actemra due to worsening saturations * PRN albuterol inhaler * Consult RT * IS/Acapella * Prone whenever able * Discontinued Airborne/contact precautions - patient +20 days from symptoms onset * Monitor labs * OT/PT consulted * Zinc supplementation * Telemetry/continuous pulse oximeter * Continue xarelto 15mg BID for 21 days, then 20mg daily thereafter * Bilateral lower extremity US - No evidence of PE HLD (hyperlipidemia) HTN (hypertension) History of coronary artery stent placement CAD (coronary artery disease) Cardiomegaly * Continue home medications as directed * Telemetry * Discontinue Norvasc as BP has been stable and it was held yesterday. Code status: Full Code PCP: Nano Guzman NP DVT prophylaxis: Lovenox Social: Patient resides in [facility] Disposition: Consider swing-bed placement. It is felt the patient would not do well discharging home at this time. LOS>96 Hrs due to need for continued COVID-19 treatment, Hypoxia.
[2020-05-12] MEDS: Acetaminophen/HYDROcodone 325-5 MG Tab PO PRN ×3 (00:56→20:25)
[2020-05-12] MEDS: traZODone 50 MG Tab PO PRN (02:25)
[2020-05-12] MEDS: Albuterol 0.083% 2.5 MG/3 ML Neb Soln NEB PRN ×2 (04:00→09:36)
[2020-05-12] MEDS: Rivaroxaban 15 MG Tab PO SCH ×2 (06:16→17:48)
[2020-05-12] MEDS: Aspirin 81 MG Tab.EC PO SCH (08:49)
[2020-05-12] MEDS: guaiFENesin 600 MG Tab.ER PO SCH ×2 (08:50→20:24)
[2020-05-12] MEDS: Zinc Sulfate 220 MG Cap PO SCH (08:50)
[2020-05-12] MEDS: Cholecalciferol (Vitamin D3) 25 MCG Tab PO SCH (08:50)
[2020-05-12] MEDS: atorvaSTATin 20 MG Tab PO SCH (08:50)
[2020-05-12] MEDS: Doxazosin 2 MG Tab PO SCH (08:51)
[2020-05-12] MEDS: Pantoprazole 40 MG Tab.CR PO SCH (08:51)
[2020-05-12] MEDS: Fluticasone Propionate Nasal Spray 16 GM Bottle NASBOTH SCH (08:52)
--- NOTE | 2020-05-12 09:54 | PCM.PN ---
- General Info Date of Service: 05/12/20 Admission Dx/Problem (Free Text): Admission Diagnosis/Problem Admission Diagnosis/Problem Hypoxia Subjective Update: 74 year old pro with fever/chills/body aches tested positive for COVID-19 and was admitted for covid 19 pneumonia on 04/25/2020. Does not have any new complaints. But he still needs oxygen. Denies nausea, vomiting, fever, or chills. encouraged to prone often and utilize incentive spirometry and Acapella. Patient is now on 5 L. Discussed and explained to him about the complication of coronavirus infection. CRP 0.3 Creatinine 1.0 - Review of Systems Systems Review Comment:: General: Reports: No Symptoms HEENT: Reports: No Symptoms Pulmonary: Reports: Shortness of Breath, Cough Cardiovascular: Reports: No Symptoms Gastrointestinal: Reports: No Symptoms Genitourinary: Reports: No Symptoms Musculoskeletal: Reports: No Symptoms Skin: Reports: No Symptoms Neurological: Reports: No Symptoms Psychiatric: Reports: No Symptoms - Patient Data Vitals - Most Recent: Last Vital Signs Temp 36.5 C 05/12/20 07:26 Pulse 60 05/12/20 07:26 Resp 16 05/12/20 07:26 BP 128/88 05/12/20 08:51 Pulse Ox 91 L 05/12/20 07:26 Weight - Most Recent: 84.504 kg I&O - Last 24 Hours: Intake & Output 05/11/20 05/12/20 05/12/20 22:59 06:59 14:59 Intake Total 980 500 Output Total 150 450 Balance 830 50 Lab Results Last 24 Hours: Laboratory Results - last 24 hr 05/12/20 05/12/20 Range/Units 05:35 05:35 Sodium 142 (136-145) mEq/L Potassium 4.2 (3.5-5.1) mEq/L Chloride 108 H (98-107) mEq/L Carbon Dioxide 26 (21-32) mEq/L Anion Gap 12.2 (5-15) BUN 20 H (7-18) mg/dL Creatinine 1.0 (0.7-1.3) mg/dL Est Cr Clr Drug Dosing 69.03 mL/min Estimated GFR (MDRD) > 60 (>60) mL/min BUN/Creatinine Ratio 20.0 H (14-18) Glucose 100 (83-115) mg/dL Calcium 8.4 L (8.5-10.1) mg/dL Magnesium 2.0 (1.8-2.4) mg/dl Total Bilirubin 0.7 (0.2-1.0) mg/dL AST 16 (15-37) U/L ALT 42 (16-63) U/L Alkaline Phosphatase 75 (46-116) U/L C-Reactive Protein 0.3 (<1.0) mg/dL Total Protein 5.1 L (6.4-8.2) g/dl Albumin 2.5 L (3.4-5.0) g/dl Globulin 2.6 gm/dL Albumin/Globulin Ratio 1.0 (1-2) Med Orders - Current: Current Medications Acetaminophen (Acetaminophen 325 Mg Tab) 650 mg PO Q6H PRN PRN Reason: Pain/Fever Last Admin: 04/26/20 19:23 Dose: 650 mg Documented by: Hydrocodone Bitart/Acetaminophen (Acetaminophen/Hydrocodone 325-5 Mg Tab) 2 tab PO Q8H PRN PRN Reason: Pain Last Admin: 05/12/20 00:56 Dose: 2 tab Documented by: Albuterol (Albuterol 0.083% 2.5 Mg/3 Ml Neb Soln) 2.5 mg NEB Q4HRRT PRN PRN Reason: Shortness of Breath Last Admin: 05/12/20 09:36 Dose: 2.5 mg Documented by: Aspirin (Aspirin 81 Mg Tab.Ec) 81 mg PO DAILY [facility] Last Admin: 05/12/20 08:49 Dose: 81 mg Documented by: Atorvastatin Calcium (Atorvastatin 20 Mg Tab) 10 mg PO DAILY [facility] Last Admin: 05/12/20 08:50 Dose: 10 mg Documented by: Cholecalciferol (Cholecalciferol (Vitamin D3) 25 Mcg Tab) 50 mcg PO DAILY [facility] Last Admin: 05/12/20 08:50 Dose: 50 mcg Documented by: Doxazosin Mesylate (Doxazosin 2 Mg Tab) 6 mg PO DAILY [facility] Last Admin: 05/12/20 08:51 Dose: 6 mg Documented by: Fluticasone Propionate (Fluticasone Propionate Nasal [place] 16 Gm Bottle) 0 gm NASBOTH DAILY [facility] Last Admin: 05/12/20 08:52 Dose: Not Given Documented by: Guaifenesin (Guaifenesin 600 Mg Tab.Er) 600 mg PO BID [facility] Last Admin: 05/12/20 08:50 Dose: 600 mg Documented by: Guaifenesin/Phenylephrine HCl (Guaifenesin/Dextromethorphan 100-10 Mg/5 Ml Soln 5 Ml Cup) 10 ml PO Q6H PRN PRN Reason: Cough Last Admin: 04/30/20 20:00 Dose: 10 ml Documented by: Hydralazine HCl (Hydralazine 20 Mg/Ml Sdv) 10 mg IVPUSH Q4H PRN PRN Reason: Hypertention Last Admin: 05/05/20 00:10 Dose: 10 mg Documented by: Pantoprazole Sodium (Pantoprazole 40 Mg Tab.Cr) 40 mg PO DAILY [facility] Last Admin: 05/12/20 08:51 Dose: 40 mg Documented by: Rivaroxaban (Rivaroxaban 15 Mg Tab) 15 mg PO BIDMEALS [facility] Stop: 05/26/20 17:01 Last Admin: 05/12/20 06:16 Dose: 15 mg Documented by: Sodium Chloride (Sodium Chloride 0.9% 10 Ml Syringe) 10 ml FLUSH ASDIRECTED PRN PRN Reason: Keep Vein Open Last Admin: 04/25/20 11:17 Dose: 10 ml Documented by: Trazodone HCl (Trazodone 50 Mg Tab) 50 mg PO BEDTIME PRN PRN Reason: Sleep Last Admin: 05/12/20 02:25 Dose: 50 mg Documented by: Zinc Sulfate (Zinc Sulfate 220 Mg Cap) 220 mg PO DAILY [facility] Last Admin: 05/12/20 08:50 Dose: 220 mg Documented by: Discontinued Medications Hydrocodone Bitart/Acetaminophen (Acetaminophen/Hydrocodone 325-5 Mg Tab) 2 tab PO Q12H PRN PRN Reason: Pain Last Admin: 05/05/20 09:33 Dose: 2 tab Documented by: Albuterol (Albuterol 6.7 Gm Inhaler) 0 gm INH Q4H PRN PRN Reason: SOB/Wheezing Albuterol/Ipratropium (Albuterol/Ipratropium 3.0-0.5 Mg/3 Ml Neb Soln) 3 ml NEB Q6HRRT [facility] Last Admin: 04/28/20 03:22 Dose: 3 ml Documented by: Amlodipine Besylate (Amlodipine 5 Mg Tab) 5 mg PO DAILY [facility] Last Admin: 05/06/20 09:09 Dose: Not Given Documented by: Dexamethasone (Dexamethasone 4 Mg Tab) 6 mg PO ONETIME ONE Stop: 04/25/20 11:57 Last Admin: 04/25/20 12:14 Dose: 6 mg Documented by: Dexamethasone (Dexamethasone 4 Mg Tab) 6 mg PO DAILY [facility] Stop: 05/04/20 09:01 Last Admin: 05/04/20 08:30 Dose: 6 mg Documented by: Doxazosin Mesylate (Doxazosin 2 Mg Tab) 6 mg PO DAILY [facility] Last Admin: 04/26/20 12:16 Dose: Not Given Documented by: Enoxaparin Sodium (Enoxaparin 40 Mg/0.4 Ml Syringe) 40 mg SUBCUT Q12H [facility] Last Admin: 04/27/20 05:23 Dose: 40 mg Documented by: Enoxaparin Sodium (Enoxaparin 40 Mg/0.4 Ml Syringe) 40 mg SUBCUT BID [facility] Last Admin: 04/29/20 20:23 Dose: 40 mg Documented by: Enoxaparin Sodium (Enoxaparin 100 Mg/1 Ml Syringe) 88 mg SUBCUT Q12H [facility] Last Admin: 05/06/20 09:10 Dose: Not Given Documented by: Sodium Chloride (Normal Saline) 100 mls @ 60 mls/hr IV ASDIRECTED [facility] Last Admin: 04/25/20 14:12 Dose: 60 mls/hr Documented by: Azithromycin 500 mg/ Sodium (Chloride) 250 mls @ 250 mls/hr IV ONETIME ONE Stop: 04/25/20 15:46 Last Admin: 04/25/20 15:20 Dose: 250 mls/hr Documented by: Ceftriaxone Sodium 2 gm/ (Sodium Chloride) 100 mls @ 200 mls/hr IV Q24H [facility] Stop: 04/29/20 17:29 Last Admin: 04/26/20 17:24 Dose: 200 mls/hr Documented by: Azithromycin 500 mg/ Sodium (Chloride) 250 mls @ 250 mls/hr IV Q24H [facility] Stop: 04/27/20 15:59 Last Admin: 04/27/20 14:54 Dose: 250 mls/hr Documented by: Remdesivir 200 mg/ Sodium (Chloride) 250 mls @ 250 mls/hr IV ONETIME ONE Stop: 04/26/20 12:59 Last Admin: 04/26/20 12:48 Dose: 250 mls/hr Documented by: Remdesivir 100 mg/ Sodium (Chloride) 100 mls @ 100 mls/hr IV Q24H [facility] Stop: 04/30/20 12:59 Last Admin: 04/30/20 12:06 Dose: 100 mls/hr Documented by: Ceftriaxone Sodium 2 gm/ (Sodium Chloride) 100 mls @ 200 mls/hr IV Q24H [facility] Stop: 04/29/20 21:29 Last Admin: 04/29/20 20:23 Dose: 200 mls/hr Documented by: Sodium Chloride (Normal Saline) 100 mls @ 75 mls/hr IV ASDIRECTED [facility] Stop: 04/30/20 11:00 Last Admin: 04/30/20 09:15 Dose: 75 mls/hr Documented by: Tocilizumab 800 mg/ Sodium (Chloride) 100 mls @ 100 mls/hr IV ONETIME ONE Stop: 04/30/20 09:29 Last Admin: 04/30/20 08:03 Dose: 100 mls/hr Documented by: Insulin Human Lispro (Insulin Lispro 100 Unit/Ml) 0 unit SUBCUT QIDACANDBED [facility]; Protocol Last Admin: 05/01/20 06:37 Dose: Not Given Documented by: Iopamidol (Iopamidol 755 Mg/Ml 100 Ml Bottle) 100 ml IVPUSH ONETIME ONE Stop: 04/25/20 13:05 Last Admin: 04/25/20 14:11 Dose: 100 ml Documented by: Iopamidol (Iopamidol 755 Mg/Ml 100 Ml Bottle) 100 ml IVPUSH ONETIME ONE Stop: 04/30/20 07:32 Last Admin: 04/30/20 09:14 Dose: 100 ml Documented by: Ketorolac Tromethamine (Ketorolac 30 Mg/Ml Sdv) 30 mg IVPUSH ONETIME ONE Stop: 04/25/20 14:49 Last Admin: 04/25/20 15:19 Dose: 30 mg Documented by: Potassium Chloride (Potassium Chloride 20 Meq Tab.Er) 40 meq PO ONETIME ONE Stop: 04/28/20 12:01 Last Admin: 04/28/20 11:20 Dose: 40 meq Documented by: Sodium Chloride (Sodium Chloride 0.9% 10 Ml Syringe) 10 ml FLUSH ONETIME ONE Stop: 04/25/20 13:05 Last Admin: 04/25/20 14:11 Dose: 10 ml Documented by: Sodium Chloride (Sodium Chloride 0.9% 10 Ml Syringe) 10 ml FLUSH ONETIME PRN PRN Reason: IV FLUSH Last Admin: 04/30/20 09:14 Dose: 10 ml Documented by: - Exam Physical Findings Comments:: General: Alert, Oriented, Cooperative, No Acute Distress. Oxygen delivery via nasal cannula HEENT: Pupils Equal, Pupils Reactive, Mucous Membr. Moist/[place] Neck: Supple, Trachea Midline Lungs: Normal Respiratory Effort, Decreased Breath Sounds. No: Rhonchi, Wheezing Cardiovascular: Regular Rate, Regular Rhythm GI/Abdominal Exam: Normal Bowel Sounds, Soft, Non-Tender, No Distention (Male) Exam: Deferred Back Exam: Normal Inspection, Full Range of Motion Extremities: Normal Inspection, Normal Range of Motion, Non-Tender, No Pedal Edema, Normal Capillary Refill Peripheral Pulses: 2+: Radial (L), Radial (R), Dorsalis Pedis (L), Dorsalis Pedis (R) Skin: Warm, Dry, Intact Neurological: No New Focal Deficit Psy/Mental Status: Alert, Normal Affect, Normal Mood - Patient Data Lab Results Last 24 hrs: Laboratory Results - last 24 hr 05/12/20 05/12/20 Range/Units 05:35 05:35 Sodium 142 (136-145) mEq/L Potassium 4.2 (3.5-5.1) mEq/L Chloride 108 H (98-107) mEq/L Carbon Dioxide 26 (21-32) mEq/L Anion Gap 12.2 (5-15) BUN 20 H (7-18) mg/dL Creatinine 1.0 (0.7-1.3) mg/dL Est Cr Clr Drug Dosing 69.03 mL/min Estimated GFR (MDRD) > 60 (>60) mL/min BUN/Creatinine Ratio 20.0 H (14-18) Glucose 100 (83-115) mg/dL Calcium 8.4 L (8.5-10.1) mg/dL Magnesium 2.0 (1.8-2.4) mg/dl Total Bilirubin 0.7 (0.2-1.0) mg/dL AST 16 (15-37) U/L ALT 42 (16-63) U/L Alkaline Phosphatase 75 (46-116) U/L C-Reactive Protein 0.3 (<1.0) mg/dL Total Protein 5.1 L (6.4-8.2) g/dl Albumin 2.5 L (3.4-5.0) g/dl Globulin 2.6 gm/dL Albumin/Globulin Ratio 1.0 (1-2) Result Diagrams: 05/11/20 05:29 05/12/20 05:35 Sepsis Event Note - Evaluation Sepsis Screening Result: No Definite Risk - Focused Exam Vital Signs: Vital Signs Temp Pulse Resp BP Pulse Ox Pulse Ox 05/12/20 08:51 128/88 05/12/20 07:26 36.5 C 60 16 119/89 91 L 05/12/20 04:25 95 05/12/20 04:03 92 L 05/12/20 04:02 36.5 C 88 22 H 116/68 92 L 05/12/20 00:03 36.5 C 71 20 127/90 89 L - Problem List Review Problem List Initiated/Reviewed/Updated: Yes - My Orders Last 24 Hours: My Active Orders 05/11/20 10:22 Communication Order [RC] ASDIRECTED 05/11/20 10:51 Heat Therapy [OM.] Routine - Assessment Assessment:: 04/26/20 In to see Mao. He is laying in bed and is now on 2 L of oxygen. He reports he is feeling pretty good and only notes dyspnea when he is up moving around. He said he will occasionally cough and that will cause his saturations to drop as well. Reports it is a dry cough. He has no current concerns. We discussed plan of care and how he will likely need to remain hospitalized for the next 5 days to complete treatment. We discussed proning and patient reports that this is impossible for him because he has had neck surgery. We did discuss Acapella and incentive spirometry and he reports that he will continue working with this. Otherwise labs continue to look good. CRP has decreased and kidney function has improved. D-dimer remained stable. Leukopenia noted. we will continue current treatment plan. Likely discharge Wednesday pending continued improvement as I will be the day he completes treatment. 04/27/20 Patient is experiencing SOB with pleuritic CP. Will be transferred to ICU; ABG is pending. PCXR documents SARS-COV-2 PNA. 04/28/2020 Patient is improving. He was on room air with oxygen saturations in the low 90s while proning today. Otherwise he is on 3 L. D-dimer did increase up to 2.78 which is a significant change. He is on Lovenox 40 mg twice daily. We will continue to monitor D-dimer, shortness of breath, lower extremity signs and sym ptoms. Since he is improving I would not get a CTA at this time. Blood sugars this morning are up to 160, therefore will start fingerstick blood sugars and sliding scale insulin to keep his blood sugars less than 200 if possible. This is likely secondary to dexamethasone. Mild hypokalemia and given 40 mEq of potassium orally. Blood pressure is well controlled with blood pressures mostly less than 150 except for an occasional systolic blood pressure in the 150s. Patient has not received Actemra, but will hold off on treatment unless he has significant worsening in oxygen requirements. 04/29/20 In to see Mao. He is currently on 4 L. He continues to work on proning and utilize his incentive spirometer and Acapella. Potassium is improved. WBC is increasing but this is likely secondary to steroid use. Otherwise he remained stable. He states he gets very short of breath when he gets up to use the restroom and has been having coughing fits. We will add de xtromethorphan/guaifenesin as needed. No other nursing or patient concerns. Patient will remain hospitalized till he finishes his Covid treatment and is weaned down on oxygen. 04/30/20 In to see Mao. He is proning in the bed and doing quite well. He has improved to 3 L. When proning he is noted to have saturations in the upper 90s however with movement he drops into the 80s. He continues to utilize his incentive spirometer and Acapella. We discussed his chronic back pain which is exacerbated by proning. Discussed pain medications for this and how important proning, along with his Acapella and incentive spirometry are. He stated how he feels like he gets winded so quick when ambulating. CTA yesterday showed very small pulmonary embolisms and he was started on 1 mg/kg Lovenox twice daily. Bilateral lower extremity ultrasounds were negative for any DVT. Nursing reports they are going to try to encourage more proning today with the patient. Goal is to increase endurance and decrease oxygen needed to 2 L or less prior to discharge. Labs today: WBC 9.20. Hemoglobin 14.2. Platelet 221. Neutrophils elevated at 7.55. D-dimer down to 9.52. Sodium 141. Potassium 4.0. Anion gap 12.0. BUN 28, creatinine 1.0, GFR greater than 60. Glucose 96. AST 26, ALT 68, alkaline phosphatase 128. 05/01/20 In to see Mao. He is proning in the bed currently. He reports he feels a little better and he is down to 3 L on oxygen. He does note that he has significant shortness of breath when getting up to use the bathroom still. We discussed his scan results indicating very small pulmonary embolisms. Discussed how he has shown improvement when he is proning and utilizing his incentive spirometer and Acapella. He agrees to continue to do this. Nursing will push with this as well. He reports back pain due to to compression fractures which is chronic for him and exacerbated by proning. We discussed pain medications to assist with this and how there has to be some [id number]. Otherwise he is doing better today. We will continue current treatment plan with goal to decrease oxygen demand to 2 L or less prior to discharge. 05/02/20 In to see Mao. He is on 3.5 L of oxygen and is laying in bed. He has been proning and utilizing his incentive spirometer and Acapella. Continues to have worsening dyspnea with exertion but states he feels like he is getting some better energy. We will downgrade him today to MedSurg status as he is remained quite stable. D-dimer today 5.20. Sodium 144. Potassium 4.1. Chloride 108. Carbon oxide 25. Anion gap is up to 15.1. BUN 31, creatinine 1.0, GFR greater than 60. Glucose 10 7-1 69. Magnesium 2.2. Bilirubin 0.5. AST 20, ALT 60, alkaline phosphatase 117. CRP is 1.4. Albumin is up to 2.4. Continue current treatment plan. Goal remains improvement of oxygenation to requiring less than 2 L and building of endurance. 05/03/20 In to see Mao. Per nursing he had an episode of desaturation last night and was requiring 6 L to keep his saturations within goal. Since then he has been fluctuating but is currently at 5 L. He reports that he still feels pretty good, denies any pain, and states he is only short of breath with exertion. Repeat chest x-ray today was stable to worse. Intake remains good. He continues to prone and utilize his incentive spirometer and Acapella. This was encouraged again. Labs today show a leukocytosis of 11.81. He is receiving steroids but this is something we will monitor. Neutrophils are elevated 86.1. D-dimer is down to 4.11. Sodium is 143. Potassium 4.3. Carbon dioxide 23. Anion gap is 15.3. BUN is 28. Creatinine 1.0. GFR greater than 60. Glucose has been stable. Magnesium is 2.1. Bilirubin 0.6. AST 17, ALT 49, alkaline phosphatase 109. Albumin is down to 2.4. Unknown length of stay due to fluctuations in patient's oxygen demand. We will continue current treatment plan and monitor for signs of a secondary infection. 05/04/2020 74 year old pro with fever/chills/body aches tested positive for COVID-19 and was admitted for covid 19 pneumonia on 04/25/2020. Patient still complains of occasional dry cough. Otherwise denies nausea, vomiting, fever, or chills. encouraged to prone often and utilize incentive s pirometry and Acapella. Patient is now on 4 L CRP 0.4 and D-dimer 3.96 05/05/2020 74 year old pro with fever/chills/body aches tested positive for COVID-19 and was admitted for covid 19 pneumonia on 04/25/2020. Patient feels much better but still complains of occasional dry cough. Otherwise denies nausea, vomiting, fever, or chills. encouraged to prone often and utilize incentive spirometry and Acapella. Patient is now still on 4 L CRP 0.7 05/06/2020 In to see Mao. He sitting up in the chair after we moved him from ICU to room 20. He now has a window. PT/OT worked with him as he is quite severely deconditioned. He was only able to walk a very short distance out of his room. He is requiring 3 to 4 L of oxygen. He is completed his Covid treatment. We will switch him over from Lovenox to Xarelto today for his DVTs. Labs otherwise continue to look good. He was started on Norvasc due to his noted elevated blood pressures however patient has been quite low today with systolic in the 90s. We will therefore hold this and see how he does. He was very strongly encouraged to continue proning and utilizing his incentive spirometry and Acapella. He will now begin ambulating more frequently. Order placed for 3 times daily ambulation. Discussed potential need for SNF rehab stay versus assisted living facility and patient does not want to have that direction at this time. We will continue to encourage frequent pulmonary exercises. 05/07/2020 In to see Mao. He is sitting up in the chair and just finished with therapies. He is quite excited as he was able to walk to the door. He reports his symptoms are overall improving and he feels much less short of breath. He has been requiring 4 to 5 L of oxygen but he is moving more now. Continues to utilize his incentive spirometer and Acapella. Continues to tolerate Xarelto and remains quite stable. We will switch his lab draws to every 48 hours over concerns of iatrogenic anemia and because his labs have been so stable. Blood pressures have been good and his Norvasc yesterday was held. We will discontinue this over fear of him being hypotensive. Unknown length of stay pending stability of oxygenation and improvement with endurance. Goal is to get patient down to 2L and improve activity tolerance prior to discharge. 05/08/2020 To see Mao. He is in her chair and states that he is quite winded after a trip to the bathroom to have a BM. States BM was appropriate and not hard or difficult. He is down to 3 L with saturations in the low 90s. Continues to utilize incentive spirometer and Acapella. Continues to work with therapies. Vital signs remained stable. No labs were drawn today. No patient or nursing concerns. Continue to attempt to wean oxygen and improve patient endurance. Unknown length of stay. 05/09/2020 In to see Mao. Sitting in the chair and reports that he had a little bit of a rough morning again. Last night he was up walking in the halls and doing quite well. He is weaned down to 3 L and his saturations continue in the low 90s. Giovanni copelandues to utilize his incentive spirometer and Acapella and work with therapies. Labs were drawn today and were grossly unremarkable. No patient or nursing concerns. Will hold off drawing labs again tomorrow as he has been so stable. Continue attempt wean oxygen improve endurance. Hopeful for discharge this weekend pending continued improvement. 05/10/2020 In to see Mao. He is laying in bed. He has been on 2.5 L of oxygen today although he was requiring 5 L yesterday evening. Chest x-ray was obtained today and shows worsening infiltrates. They are noted to be denser than before. He reports left-sided chest pain, especially present on deep inspiration or with palpation. Will obtain twelve-lead EKG, troponin, CK-MB, and D-dimer to ensure no cardiac involvement. He ambulated approximately 100 feet today with therapies, and although this is his furthest distance yet, he remains quite weak. We discussed exploring possible placement at discharge. Patient is quite adamant that he does not want to go to a halfway facility or swing bed. He does have a grandson who would be willing to come watch him and help around the house. He is also willing to be placed at [facility]. Twelve-lead EKG shows a sinus rhythm at 80 bpm with several unifocal PVCs and a right bundle branch block. Q waves are noted in inferior leads. We will repeat labs tomorrow. Patient reports that his lungs today feel better than they have thus far. He continues to have occasional cough. Unknown discharge plan as patient continues to wax and wane with his symptoms and oxygen demand. 05/11/2020 Does not have any new complaints. denies nausea, vomiting, fever, or chills. encouraged to prone often and utilize incentive spirometry and Acapella. Patient is now on 3 L. Patient had a 1 episode oxygen desaturation yesterday evening, 85% on 2.5 L Discussed and explained to him about the complication of coronavirus infection. Urine output is good. Had a bowel movement x 1 CXR on 05/10 - Increasing density within both sides of the chest the peripherally. Distribution is a similar density is a increased compatible with the worsening Covid pneumonia. D-dimer 1.77 CRP<0.2 on May 05 05/11/2020 Does not have any new complaints. denies nausea, vomiting, fever, or chills. encouraged to prone often and utilize incentive spirometry and Acapella. Does not have any new complaints. But he still needs oxygen. Denies nausea, vomiting, fever, or chills. encouraged to prone often and utilize incentive spirometry and Acapella. Patient was now on 5 L when I saw patient this morning. Discussed and explained to him about the complication of coronavirus infection and pulmonary function test in the future. CRP 0.3 Creatinine 1.0 - Plan Plan:: COVID-19 Hypoxia Elevated D-Dimer Pulmonary embolism * CT angio chest -several small pulmonary emboli reviewed and subsegmental branches of leaving the right lower lung. * O2 as needed to keep saturations 88-96% * Pt has completed courses of Azithromycin, Rocephin, Remdisivir and de xamethasone * Given Actemra due to worsening saturations * PRN albuterol inhaler * Consult RT * IS/Acapella * Prone whenever able * Discontinued Airborne/contact precautions - patient +20 days from symptoms onset * Monitor labs * OT/PT consulted * Zinc supplementation * Telemetry/continuous pulse oximeter * Continue xarelto 15mg BID for 21 days, then 20mg daily thereafter * Bilateral lower extremity US - No evidence of PE * May have a pulmonary function test after discharged from the hospital HLD (hyperlipidemia) HTN (hypertension) History of coronary artery stent placement CAD (coronary artery disease) Cardiomegaly * Continue home medications as directed * Telemetry * Discontinue Norvasc as BP has been stable and it was held yesterday. Code status: Full Code PCP: Nano Guzman NP DVT prophylaxis: Lovenox Social: Patient resides in [place] alone Disposition: Consider swing-bed placement. It is felt the patient would not do well discharging home at this time. LOS>96 Hrs due to need for continued COVID-19 treatment, Hypoxia.
[2020-05-12] MEDS ORDERED: Morphine 2 MG/ML SYRINGE IVPUSH ONE (10:00)
--- NOTE | 2020-05-12 17:33 | CT ---
CT chest Technique: Multiple axial sections through the chest are obtained. Intravenous contrast was not utilized. Reconstructed coronal and sagittal images were obtained. Comparison: Prior chest CT study of 04/30/20 and chest x-ray of 05/10/20. Findings: Small right-sided pleural effusion is seen. Small to moderate sized left-sided pleural effusion is noted. Some of these pleural effusions are likely loculated. Heart shows coronary artery calcification with no pericardial thickening. Patchy areas of increased density on both sides of the chest which appear to be fairly stable from prior exam. Thoracic aorta shows no aneurysm. Scattered lymph nodes are seen within the mediastinum which are felt to be unchanged. Bony structure shows nothing acute. Visualized upper abdominal structures show a cyst within the right kidney. Nothing acute is otherwise seen. Impression: 1. Small right-sided pleural effusion and small to moderate size left-sided pleural effusion. Some of these pleural effusions appear to be loculated. These are an interval change from prior chest CT. 2. Patchy areas of increased density within both sides of the chest which are stable. 3. Other findings which are believed to be incidental. Diagnostic code #3
[2020-05-12] MEDS ORDERED: Metoprolol Tartrate 25 MG Tab PO SCH (19:15)
[2020-05-12] MEDS: Metoprolol Tartrate 25 MG Tab PO SCH (20:22)
[2020-05-13] MEDS: Rivaroxaban 15 MG Tab PO SCH (06:02)
[2020-05-13] MEDS: Doxazosin 2 MG Tab PO SCH (08:48)
[2020-05-13] MEDS: Cholecalciferol (Vitamin D3) 25 MCG Tab PO SCH (08:49)
[2020-05-13] MEDS: Aspirin 81 MG Tab.EC PO SCH (08:49)
[2020-05-13] MEDS: Pantoprazole 40 MG Tab.CR PO SCH (08:50)
[2020-05-13] MEDS: Zinc Sulfate 220 MG Cap PO SCH (08:50)
[2020-05-13] MEDS: atorvaSTATin 20 MG Tab PO SCH (08:50)
[2020-05-13] MEDS: Metoprolol Tartrate 25 MG Tab PO SCH (08:51)
[2020-05-13] MEDS: guaiFENesin 600 MG Tab.ER PO SCH (08:51)
--- NOTE | 2020-05-13 08:57 | PCM.DCSUM1 ---
Discharge Summary - Hospital Course HPI Initial Comments: 74 year old pro with fever/chills/body aches tested positive for COVID-19; does not have significant hypoxia. But feels SOB, weak. He will be started on ATBs and steroids. Remdesivir may be added if needed as per protocol. The patient Also complained of a headache but denied changes in sense of smell or appetite. A CTA of the chest was negative for PE, but did reveal interstitial fibrosis. it was not suggestive of COVID-19 PNA. Diagnosis: Stroke: No - Discharge Data Discharge Date: 05/13/20 (Admit date: 04/25/20) Discharge Disposition: DC/Tfer to Acute Hospital 02 Condition: Stable - Referral to Home Health Primary Care Physician: Nano Guzman NP - Discharge Diagnosis/Problem(s) (1) HLD (hyperlipidemia) SNOMED Code(s): 39378496 ICD Code: E78.5 - HYPERLIPIDEMIA, UNSPECIFIED Status: Chronic Priority: Low Current Visit: No Qualifiers: Hyperlipidemia type: unspecified Qualified Code(s): E78.5 - Hyperlipidemia, unspecified (2) HTN (hypertension) SNOMED Code(s): 60381809 ICD Code: I10 - ESSENTIAL (PRIMARY) HYPERTENSION Status: Chronic Priority: Medium Current Visit: No Qualifiers: Hypertension type: unspecified Qualified Code(s): I10 - Essential (primary) hypertension (3) History of coronary artery stent placement SNOMED Code(s): 732365763, 324947190 ICD Code: Z95.5 - PRESENCE OF CORONARY ANGIOPLASTY IMPLANT AND GRAFT Status: Chronic Priority: Medium Current Visit: No (4) CAD (coronary artery disease) SNOMED Code(s): 18333285 ICD Code: I25.10 - ATHSCL HEART DISEASE OF [place] CORONARY ARTERY W/O ANG PCTRS Status: Chronic Priority: Medium Current Visit: No Qualifiers: Coronary Disease-Associated Artery/Lesion type: [place] artery [place] vs. transplanted heart: [place] heart Associated angina: angina presence unspecified Qualified Code(s): I25.10 - Atherosclerotic heart disease of [place] coronary artery without angina pectoris (5) COVID-19 SNOMED Code(s): 837231633 ICD Code: U07.1 - COVID-19 Status: Acute Priority: High Current Visit: Yes (6) Hypoxia SNOMED Code(s): 428972071 ICD Code: R09.02 - HYPOXEMIA Status: Acute Priority: High Current Visit: Yes (7) Elevated d-dimer SNOMED Code(s): 986592565 ICD Code: R79.89 - OTHER SPECIFIED ABNORMAL FINDINGS OF BLOOD CHEMISTRY Status: Acute Priority: High Current Visit: Yes (8) Cardiomegaly SNOMED Code(s): 6614337 ICD Code: I51.7 - CARDIOMEGALY Status: Chronic Priority: Low Current Visit: No (9) Pulmonary embolism SNOMED Code(s): 43459596 ICD Code: I26.99 - OTHER PULMONARY EMBOLISM WITHOUT ACUTE COR PULMONALE Status: Acute Priority: High Current Visit: Yes Qualifiers: Pulmonary embolism type: multiple subsegmental (without acute cor pulmonale) Qualified Code(s): I26.94 - Multiple subsegmental pulmonary emboli without acute cor pulmonale - Patient Summary/Data Consults: Consultations 04/26/20 11:36 Consult to Occupational Therapy [OT Evaluation and Treatment] [CONS] Routine Consult to Physical Therapy [PT Evaluation and Treatment] [CONS] Routine 04/26/20 11:38 Consult to Respiratory Therapy [Respiratory Care Assess and Treatment] [CONS] Routine 04/30/20 08:08 Consult to Case Management/Registration Manager [CONS] Routine Labs Pending at D/C: None Hospital Course: This is a 74-year-old male who presented to ED on 04/25/20 via [facility] with shortness of breath and a known Covid diagnosis. Symptoms reportedly began on April 17 and he was diagnosed with COVID-19 on April 22. He noticed increasing cough, body aches, headaches, and shortness of breath. Carries a history of HLD, HTN, stent placement, GERD, and prostate biopsy on 01/2020. On admission twelve-lead EKG was obtained showing a sinus rhythm at 60 bpm with a right bundle branch block. D-dimer was elevated at 1.[address] angiogram was obtained showing no pulmonary embolism however diffuse interstitial changes seen within the upper and lower lungs which has the appearance of diffuse interstitial fibrosis. There is also mild emphysematous change present and sta ble megaly. Slightly prominent right hilar lymph nodes were also noted but are likely incidental as no abnormal lymph nodes were seen within the mediastinum. He subsequently admitted to the medical floor on telemetry for management of his COVID-19 pneumonia. He was given 10 days of 6 mg dexamethasone, 5 days of 2 g Rocephin, 5 days of 200mg remdesivir, and 3 days of 500 mg azithromycin. He was noted to have worsening saturations so he was given 1 dose of Actemra as well. Zinc supplementation was started and vitamin D was obtained and was within normal limits. He was placed on airborne precautions. These were discontinued 20 days after symptom onset. D-dimer was monitored every 48 and was noted to increase from 0.82 to 2.78 and then to 10.29. At this time repeat CT angiogram was obtained on 04/30/2020 showing several small pulmonary emboli within the subsegmental branches of the right lower lung. Diffuse interstitial change within both peripheral lungs was noted to increase in prominence compared to prior CTA. Venous Doppler ultrasound was obtained on bilateral lower extremities with no signs of any DVT. Patient was noted to prone, although initially he was somewhat noncompliant with this. He was also utilizing his incentive spirometer and Acapella. Throughout his stay patient had been proving overall. He was working with physical therapy and his endurance was incr easing. Oxygen saturations did tend to bounce around quite a bit. At his best he was down to 2 L and at his worst he had been up to 5 L with activity. This weekend patient was noted to have acutely worsening shortness of breath. He noted chest pain. CT of the chest was obtained showing a new small right-sided pleural effusion and small to moderate-sized left-sided pleural effusion. Some of these pleural effusions were noted to appear to be loculated. There is also patchy areas of increased density within both sides of the chest which were stable and other incidental findings. He was started on 1 mg/kg of Lovenox and ultimately transition to 18 mg twice daily Xarelto. Troponin was trended and was noted to increase from less than 0.017 to 0.053 to 0.058 and then back down to 0.048. BNP was obtained and was 78. Repeat twelve-lead EKG showed continued sinus rhythm with a right bundle branch block. Frequent PVCs are noted. Patient has had good renal function with a GFR greater than 60 throughout his stay. Given his worsening saturations, new onset loculated pleural effusions, and worsening endurance [facility] was contacted and report was given to Dr. Rodrigues, supervisor [employer] who ultimately accepts patient transfer. Given severity of patient's symptoms with rapidly increasing oxygen demand and weakness it is felt patient would benefit from air transfer [facility] Patient ultimately transferred to [facility] in stable condition. Assessment: 05/05/2020 In to see Mao. He is laying in bed and is now on 2 L of oxygen. He reports he is feeling pretty good and only notes dyspnea when he is up moving around. He said he will occasionally cough and that will cause his saturations to drop as well. Reports it is a dry cough. He has no current concerns. We discussed plan of care and how he will likely need to remain hospitalized for the next 5 days to complete treatment. We discussed proning and patient reports that this is impossible for him because he has had neck surgery. We did discuss Acapella and incentive spirometry and he reports that he will continue working with this. Otherwise labs continue to look good. CRP has decreased and kidney function has improved. D-dimer remained stable. Leukopenia noted. we will continue current treatment plan. Likely discharge Wednesday pending continued improvement as I will be the day he completes treatment. 04/27/20 Patient is experiencing SOB with pleuritic CP. Will be transferred to ICU; ABG is pending. PCXR documents SARS-COV-2 PNA. 04/28/2020 Patient is improving. He was on room air with oxygen saturations in the low 90s while proning today. Otherwise he is on 3 L. D-dimer did increase up to 2.78 which is a significant change. He is on Lovenox 40 mg twice daily. We will continue to monitor D-dimer, shortness of breath, lower extremity signs and symptoms. Since he is improving I would not get a CTA at this time. Blood sugars this morning are up to 160, therefore will start fingerstick blood sugars and sliding scale insulin to keep his blood sugars less than 200 if possible. This is likely secondary to dexamethasone. Mild hypokalemia and given 40 mEq of potassium orally. Blood pressure is well controlled with blood pressures mostly less than 150 except for an occasional systolic blood pressure in the 150s. Patient has not received Actemra, but will hold off on treatment unless he has significant worsening in oxygen requirements. 04/29/20 In to see Mao. He is currently on 4 L. He continues to work on proning and utilize his incentive spirometer and Acapella. Potassium is improved. WBC is increasing but this is likely secondary to steroid use. Otherwise he remained stable. He states he gets very short of breath when he gets up to use the restroom and has been having coughing fits. We will add dextromethorphan/guaifenesin as needed. No other nursing or patient concerns. Patient will remain hospitalized till he finishes his Covid treatment and is weaned down on oxygen. 04/30/20 In to see Mao. He is proning in the bed and doing quite well. He has improved to 3 L. When proning he is noted to have saturations in the upper 90s however with movement he drops into the 80s. He continues to utilize his incentive spirometer and Acapella. We discussed his chronic back pain which is exacerbated by proning. Discussed pain medications for this and how important proning, along with his Acapella and incentive spirometry are. He stated how he feels like he gets winded so quick when ambulating. CTA yesterday showed very small pulmonary embolisms and he was started on 1 mg/kg Lovenox twice daily. Bilateral lower extremity ultrasounds were negative for any DVT. Nursing reports they are going to try to encourage more proning today with the patient. Goal is to increase endurance and decrease oxygen needed to 2 L or less prior to discharge. Labs today: WBC 9.20. Hemoglobin 14.2. Platelet 221. Neutrophils elevated at 7.55. D-dimer down to 9.52. Sodium 141. Potassium 4.0. Anion gap 12.0. BUN 28, creatinine 1.0, GFR greater than 60. Glucose 96. AST 26, ALT 68, alkaline phosphatase 128. 05/01/20 In to see Mao. He is proning in the bed currently. He reports he feels a little better and he is down to 3 L on oxygen. He does note that he has significant shortness of breath when getting up to use the bathroom still. We discussed his scan results indicating very small pulmonary embolisms. Discussed how he has shown improvement when he is proning and utilizing his incentive spirometer and Acapella. He agrees to continue to do this. Nursing will push with this as well. He reports back pain due to to compression fractures which is chronic for him and exacerbated by proning. We discussed pain medications to assist with this and how there has to be some [id number]. Otherwise he is doing better today. We will continue current treatment plan with goal to decrease oxygen demand to 2 L or less prior to discharge. 05/02/20 In to see Mao. He is on 3.5 L of oxygen and is laying in bed. He has been proning and utilizing his incentive spirometer and Acapella. Continues to have worsening dyspnea with exertion but states he feels like he is getting some better energy. We will downgrade him today to MedSurg status as he is remained quite stable. D-dimer today 5.20. Sodium 144. Potassium 4.1. Chloride 108. Carbon oxide 25. Anion gap is up to 15.1. BUN 31, creatinine 1.0, GFR greater than 60. Glucose 10 7-1 69. Magnesium 2.2. Bilirubin 0.5. AST 20, ALT 60, alkaline phosphatase 117. CRP is 1.4. Albumin is up to 2.4. Continue current treatment plan. Goal remains improvement of oxygenation to requiring less than 2 L and building of endurance. 05/03/20 In to see Mao. Per nursing he had an episode of desaturation last night and was requiring 6 L to keep his saturations within goal. Since then he has been fluctuating but is currently at 5 L. He reports that he still feels pretty good, denies any pain, and states he is only short of breath with exertion. Repeat chest x-ray today was stable to worse. Intake remains good. He continues to prone and utilize his incentive spirometer and Acapella. This was encouraged again. Labs today show a leukocytosis of 11.81. He is receiving steroids but this is something we will monitor. Neutrophils are elevated 86.1. D-dimer is down to 4.11. Sodium is 143. Potassium 4.3. Carbon dioxide 23. Anion gap is 15.3. BUN is 28. Creatinine 1.0. GFR greater than 60. Glucose has been stable. Magnesium is 2.1. Bilirubin 0.6. AST 17, ALT 49, alkaline phosphatase 109. Albumin is down to 2.4. Unknown length of stay due to fluctuations in patient's oxygen demand. We will continue current treatment plan and monitor for signs of a secondary infection. 05/04/2020 74 year old pro with fever/chills/body aches tested positive for COVID-19 and was admitted for covid 19 pneumonia on 04/25/2020. Patient still complains of occasional dry cough. Otherwise denies nausea, vomiting, fever, or chills. encouraged to prone often and utilize incentive spirometry and Acapella. Patient is now on 4 L CRP 0.4 and D-dimer 3.96 05/05/2020 74 year old pro with fever/chills/body aches tested positive for COVID-19 and was admitted for covid 19 pneumonia on 04/25/2020. Patient feels much better but still complains of occasional dry cough. Otherwise denies nausea, vomiting, fever, or chills. encouraged to prone often and utilize incentive spirometry and Acapella. Patient is now still on 4 L CRP 0.7 05/06/2020 In to see Mao. He sitting up in the chair after we moved him from ICU to room 20. He now has a window. PT/OT worked with him as he is quite severely deconditioned. He was only able to walk a very short distance out of his room. He is requiring 3 to 4 L of oxygen. He is completed his Covid treatment. We will switch him over from Lovenox to Xarelto today for his DVTs. Labs otherwise continue to look good. He was started on Norvasc due to his noted elevated blood pressures however patient has been quite low today with systolic in the 90s. We will therefore hold this and see how he does. He was very strongly encouraged to continue proning and utilizing his incentive spirometry and Acapella. He will now begin ambulating more frequently. Order placed for 3 times daily ambulation. Discussed potential need for SNF rehab stay versus assisted living facility and patient does not want to have that direction at this time. We will continue to encourage frequent pulmonary exercises. 05/07/2020 In to see Mao. He is sitting up in the chair and just finished with therapies. He is quite excited as he was able to walk to the door. He reports his symptoms are overall improving and he feels much less short of breath. He has been requiring 4 to 5 L of oxygen but he is moving more now. Continues to utilize his incentive spirometer and Acapella. Continues to tolerate Xarelto and remains quite stable. We will switch his lab draws to every 48 hours over concerns of iatrogenic anemia and because his labs have been so stable. Blood pressures have been good and his Norvasc yesterday was held. We will discontinue this over fear of him being hypotensive. Unknown length of stay pending stability of oxygenation and improvement with endurance. Goal is to get patient down to 2L and improve activity tolerance prior to discharge. 05/08/2020 To see Mao. He is in her chair and states that he is quite winded after a trip to the bathroom to have a BM. States BM was appropriate and not hard or difficult. He is down to 3 L with saturations in the low 90s. Continues to utilize incentive spirometer and Acapella. Continues to work with therapies. Vital signs remained stable. No labs were drawn today. No patient or nursing concerns. Continue to attempt to wean oxygen and improve patient endurance. Unknown length of stay. 05/09/2020 In to see Mao. Sitting in the chair and reports that he had a little bit of a rough morning again. Last night he was up walking in the halls and doing quite well. He is weaned down to 3 L and his saturations continue in the low 90s. Continues to utilize his incentive spirometer and Acapella and work with therapies. Labs were drawn today and were grossly unremarkable. No patient or nursing concerns. Will hold off drawing labs again tomorrow as he has been so stable. Continue attempt wean oxygen improve endurance. Hopeful for discharge this weekend pending continued improvement. 05/10/2020 In to see Mao. He is laying in bed. He has been on 2.5 L of oxygen today although he was requiring 5 L yesterday evening. Chest x-ray was obtained today and shows worsening infiltrates. They are noted to be denser than before. He reports left-sided chest pain, especially present on deep inspiration or with palpation. Will obtain twelve-lead EKG, troponin, CK-MB, and D-dimer to ensure no cardiac involvement. He ambulated approximately 100 feet today with therapies, and although this is his furthest distance yet, he remains quite weak. We discussed exploring possible placement at discharge. Patient is quite adamant that he does not want to go to a senior living facility or swing bed. He does have a grandson who would be willing to come watch him and help around the house. He is also willing to be placed at [facility]. Twelve-lead EKG shows a sinus rhythm at 80 bpm with several unifocal PVCs and a right bundle branch block. Q waves are noted in inferior leads. We will repeat labs tomorrow. Patient reports that his lungs today feel better than they have thus far. He continues to have occasional cough. Unknown discharge plan as patient continues to wax and wane with his symptoms and oxygen demand. 05/11/2020 Does not have any new complaints. denies nausea, vomiting, fever, or chills. encouraged to prone often and utilize incentive spirometry and Acapella. Patient is now on 3 L. Patient had a 1 episode oxygen desaturation yesterday evening, 85% on 2.5 L Discussed and explained to him about the complication of coronavirus infection. Urine output is good. Had a bowel movement x 1 CXR on 05/10 - Increasing density within both sides of the chest the peripherally. Distribution is a similar density is a increased compatible with the worsening Covid pneumonia. D-dimer 1.77 CRP<0.2 on May 05 05/11/2020 Does not have any new complaints. denies nausea, vomiting, fever, or chills. encouraged to prone often and utilize incentive spirometry and Acapella. Does not have any new complaints. But he still needs oxygen. Denies nausea, vomiting, fever, or chills. encouraged to prone often and utilize incentive spirometry and Acapella. Patient was now on 5 L when I saw patient this morning. Discussed and explained to him about the complication of coronavirus infection and pulmonary function test in the future. CRP 0.3 Creatinine 1.0 - Plan Plan:: COVID-19 Hypoxia Elevated D-Dimer Pulmonary embolism * CT angio chest -several small pulmonary emboli reviewed and subsegmental branches of leaving the right lower lung. * O2 as needed to keep saturations 88-96% * Pt has completed courses of Azithromycin, Rocephin, Remdisivir and dexame thasone * Given Actemra due to worsening saturations * PRN albuterol inhaler * Consult RT * IS/Acapella * Prone whenever able * Discontinued Airborne/contact precautions - patient +20 days from symptoms o nset * Monitor labs * OT/PT consulted * Zinc supplementation * Telemetry/continuous pulse oximeter * Continue xarelto 15mg BID for 21 days, then 20mg daily thereafter * Bilateral lower extremity US - No evidence of PE * May have a pulmonary function test after discharged from the hospital HLD (hyperlipidemia) HTN (hypertension) History of coronary artery stent placement CAD (coronary artery disease) Cardiomegaly * Continue home medications as directed * Telemetry * Discontinue Norvasc as BP has been stable and it was held yesterday. Code status: Full Code PCP: Nano Guzamn NP DVT prophylaxis: Lovenox Social: Patient resides in [facility] Disposition: Consider swing-bed placement. It is felt the patient would not do well discharging home at this time. LOS>96 Hrs due to need for continued COVID-19 treatment, Hypoxia. - Discharge Plan *PRESCRIPTION DRUG MONITORING PROGRAM REVIEWED*: No *COPY OF PRESCRIPTION DRUG MONITORING REPORT IN PATIENT STEVEN: No Home Medications: Home Meds Aspirin [Ecotrin EC] 81 mg PO DAILY 01/19/20 [History] Cholecalciferol (Vitamin D3) [Vitamin D3] 2,000 unit PO DAILY 01/19/20 [History] Doxazosin Mesylate [Cardura] 6 mg PO DAILY 01/19/20 [History] Hydrocodone/Acetaminophen [Hydrocodone-Acetamin 5-325 mg] 1 each PO Q6H PRN #12 tablet 01/19/20 [Rx] Ibuprofen [Motrin] 800 mg PO PRN 01/19/20 [History] Pantoprazole Sodium [Protonix] 20 mg PO DAILY 01/19/20 [History] atorvaSTATin Calcium [Atorvastatin Calcium] 10 mg PO DAILY 01/19/20 [History] Oxygen Therapy Mode: Non-Rebreather Mask Maintain SPO2% less than: 95 Maintain SpO2% greater than: 88 Patient Handouts: Rivaroxaban oral tablets, Sepsis, Diagnosis, Adult, Pulmonary Embolism, COVID-19: How to Protect Yourself and Others - CDC, Smokeless Tobacco Information, Adult, Venous Thromboembolism Prevention Forms: ED Department Discharge Referrals: Nano Guzman NP [Primary Care Provider] - 05/20/20 10:20 am (Hospital follow-up appointment. ) - Discharge Summary/Plan Comment DC Time >30 min.: Yes (60 minutes ) - General Info Date of Service: 05/13/20 Admission Dx/Problem (Free Text: Admission Diagnosis/Problem Admission Diagnosis/Problem Hypoxia Functional Status: Reports: Pain Controlled, Tolerating Diet, Ambulating (minimal ), Urinating, Incentive Spirometry, Other (acapella ) - Review of Systems General: Reports: Weakness, Fatigue, Malaise. Denies: Fever, Chills HEENT: Reports: No Symptoms. Denies: Headaches, Sore Throat Pulmonary: Reports: Shortness of Breath, Pleuritic Chest Pain, Cough, Hemoptysis. Denies: Sputum, Wheezing Cardiovascular: Reports: Chest Pain, Dyspnea on Exertion. Denies: Palpitations, Edema Gastrointestinal: Reports: No Symptoms. Denies: Abdominal Pain, Constipation, Diarrhea Genitourinary: Reports: No Symptoms. Denies: Pain Musculoskeletal: Reports: Neck Pain (chronic ), Back Pain (chronic ) Skin: Reports: No Symptoms. Denies: Cyanosis Neurological: Reports: Difficulty Walking, Weakness. Denies: Confusion, Dizziness, Headache, Numbness, Pre-Existing Deficit, Seizure, Syncope, Tingling, Trouble Speaking, Gait Disturbance Psychiatric: Reports: No Symptoms - Patient Data Vitals - Most Recent: Last Vital Signs Temp 97.9 F 05/13/20 07:42 Pulse 68 05/13/20 07:42 Resp 20 05/13/20 07:42 BP 115/77 05/13/20 07:42 Pulse Ox 90 L 05/13/20 08:28 Weight - Most Recent: 186 lb 12.8 oz I&O - Last 24 hours: Intake & Output 05/12/20 05/13/20 05/13/20 22:59 06:59 14:59 Intake Total 820 400 Output Total 675 450 Balance 145 -50 Lab Results - Last 24 hrs: Laboratory Results - last 24 hr 05/12/20 05/12/20 05/13/20 Range/Units 16:28 22:05 05:25 Sodium 140 (136-145) mEq/L Potassium 4.4 (3.5-5.1) mEq/L Chloride 108 H (98-107) mEq/L Carbon Dioxide 27 (21-32) mEq/L Anion Gap 9.4 (5-15) BUN 20 H (7-18) mg/dL Creatinine 1.0 (0.7-1.3) mg/dL Est Cr Clr Drug Dosing 69.03 mL/min Estimated GFR (MDRD) > 60 (>60) mL/min BUN/Creatinine Ratio 20.0 H (14-18) Glucose 109 (83-115) mg/dL Calcium 8.3 L (8.5-10.1) mg/dL Troponin I 0.053 0.058 H* (0.00-0.056) ng/mL NT-Pro-B Natriuret Pep (0-125) pg/mL 05/13/20 05/13/20 Range/Units 05:25 05:25 Sodium (136-145) mEq/L Potassium (3.5-5.1) mEq/L Chloride (98-107) mEq/L Carbon Dioxide (21-32) mEq/L Anion Gap (5-15) BUN (7-18) mg/dL Creatinine (0.7-1.3) mg/dL Est Cr Clr Drug Dosing mL/min Estimated GFR (MDRD) (>60) mL/min BUN/Creatinine Ratio (14-18) Glucose (83-115) mg/dL Calcium (8.5-10.1) mg/dL Troponin I 0.048 (0.00-0.056) ng/mL NT-Pro-B Natriuret Pep 78 (0-125) pg/mL Med Orders - Current: Current Medications Acetaminophen (Acetaminophen 325 Mg Tab) 650 mg PO Q6H PRN PRN Reason: Pain/Fever Last Admin: 04/26/20 19:23 Dose: 650 mg Documented by: Hydrocodone Bitart/Acetaminophen (Acetaminophen/Hydrocodone 325-5 Mg Tab) 2 tab PO Q6H PRN PRN Reason: Pain Last Admin: 05/12/20 20:25 Dose: 2 tab Documented by: Albuterol (Albuterol 0.083% 2.5 Mg/3 Ml Neb Soln) 2.5 mg NEB Q4HRRT PRN PRN Reason: Shortness of Breath Last Admin: 05/12/20 09:36 Dose: 2.5 mg Documented by: Aspirin (Aspirin 81 Mg Tab.Ec) 81 mg PO DAILY [facility] Last Admin: 05/12/20 08:49 Dose: 81 mg Documented by: Atorvastatin Calcium (Atorvastatin 20 Mg Tab) 10 mg PO DAILY [facility] Last Admin: 05/12/20 08:50 Dose: 10 mg Documented by: Cholecalciferol (Cholecalciferol (Vitamin D3) 25 Mcg Tab) 50 mcg PO DAILY [facility] Last Admin: 05/12/20 08:50 Dose: 50 mcg Documented by: Doxazosin Mesylate (Doxazosin 2 Mg Tab) 6 mg PO DAILY [facility] Last Admin: 05/12/20 08:51 Dose: 6 mg Documented by: Fluticasone Propionate (Fluticasone Propionate Nasal [place] 16 Gm Bottle) 0 gm NASBOTH DAILY [facility] Last Admin: 05/12/20 08:52 Dose: Not Given Documented by: Guaifenesin (Guaifenesin 600 Mg Tab.Er) 600 mg PO BID [facility] Last Admin: 05/12/20 20:24 Dose: 600 mg Documented by: Guaifenesin/Phenylephrine HCl (Guaifenesin/Dextromethorphan 100-10 Mg/5 Ml Soln 5 Ml Cup) 10 ml PO Q6H PRN PRN Reason: Cough Last Admin: 04/30/20 20:00 Dose: 10 ml Documented by: Hydralazine HCl (Hydralazine 20 Mg/Ml Sdv) 10 mg IVPUSH Q4H PRN PRN Reason: Hypertention Last Admin: 05/05/20 00:10 Dose: 10 mg Documented by: Metoprolol Tartrate (Metoprolol Tartrate 25 Mg Tab) 12.5 mg PO BID [facility] Last Admin: 05/12/20 20:22 Dose: 12.5 mg Documented by: Pantoprazole Sodium (Pantoprazole 40 Mg Tab.Cr) 40 mg PO DAILY [facility] Last Admin: 05/12/20 08:51 Dose: 40 mg Documented by: [facility] ([facility] 15 Mg Tab) [facility] Stop: 05/26/20 17:01 Last Admin: 05/13/20 06:02 Dose: 15 mg Documented by: Sodium Chloride (Sodium Chloride 0.9% 10 Ml Syringe) 10 ml FLUSH ASDIRECTED PRN PRN Reason: Keep Vein Open Last Admin: 04/25/20 11:17 Dose: 10 ml Documented by: Trazodone HCl (Trazodone 50 Mg Tab) 50 mg PO BEDTIME PRN PRN Reason: Sleep Last Admin: 05/12/20 02:25 Dose: 50 mg Documented by: Zinc Sulfate (Zinc Sulfate 220 Mg Cap) 220 mg PO DAILY [facility] Last Admin: 05/12/20 08:50 Dose: 220 mg Documented by: Discontinued Medications Hydrocodone Bitart/Acetaminophen (Acetaminophen/Hydrocodone 325-5 Mg Tab) 2 tab PO Q12H PRN PRN Reason: Pain Last Admin: 05/05/20 09:33 Dose: 2 tab Documented by: Hydrocodone Bitart/Acetaminophen (Acetaminophen/Hydrocodone 325-5 Mg Tab) 2 tab PO Q8H PRN PRN Reason: Pain Last Admin: 05/12/20 00:56 Dose: 2 tab Documented by: Albuterol (Albuterol 6.7 Gm Inhaler) 0 gm INH Q4H PRN PRN Reason: SOB/Wheezing Albuterol/Ipratropium (Albuterol/Ipratropium 3.0-0.5 Mg/3 Ml Neb Soln) 3 ml NEB Q6HRRT [facility] Last Admin: 04/28/20 03:22 Dose: 3 ml Documented by: Amlodipine Besylate (Amlodipine 5 Mg Tab) 5 mg PO DAILY [facility] Last Admin: 05/06/20 09:09 Dose: Not Given Documented by: Dexamethasone (Dexamethasone 4 Mg Tab) 6 mg PO ONETIME ONE Stop: 04/25/20 11:57 Last Admin: 04/25/20 12:14 Dose: 6 mg Documented by: Dexamethasone (Dexamethasone 4 Mg Tab) 6 mg PO DAILY [facility] Stop: 05/04/20 09:01 Last Admin: 05/04/20 08:30 Dose: 6 mg Documented by: Doxazosin Mesylate (Doxazosin 2 Mg Tab) 6 mg PO DAILY [facility] Last Admin: 04/26/20 12:16 Dose: Not Given Documented by: Enoxaparin Sodium (Enoxaparin 40 Mg/0.4 Ml Syringe) 40 mg SUBCUT Q12H [facility] Last Admin: 04/27/20 05:23 Dose: 40 mg Documented by: Enoxaparin Sodium (Enoxaparin 40 Mg/0.4 Ml Syringe) 40 mg SUBCUT BID [facility] Last Admin: 04/29/20 20:23 Dose: 40 mg Documented by: Enoxaparin Sodium (Enoxaparin 100 Mg/1 Ml Syringe) 88 mg SUBCUT Q12H [facility] Last Admin: 05/06/20 09:10 Dose: Not Given Documented by: Sodium Chloride (Normal Saline) 100 mls @ 60 mls/hr IV ASDIRECTED [facility] Last Admin: 04/25/20 14:12 Dose: 60 mls/hr Documented by: Azithromycin 500 mg/ Sodium (Chloride) 250 mls @ 250 mls/hr IV ONETIME ONE Stop: 04/25/20 15:46 Last Admin: 04/25/20 15:20 Dose: 250 mls/hr Documented by: Ceftriaxone Sodium 2 gm/ (Sodium Chloride) 100 mls @ 200 mls/hr IV Q24H [facility] Stop: 04/29/20 17:29 Last Admin: 04/26/20 17:24 Dose: 200 mls/hr Documented by: Azithromycin 500 mg/ Sodium (Chloride) 250 mls @ 250 mls/hr IV Q24H [facility] Stop: 04/27/20 15:59 Last Admin: 04/27/20 14:54 Dose: 250 mls/hr Documented by: Remdesivir 200 mg/ Sodium (Chloride) 250 mls @ 250 mls/hr IV ONETIME ONE Stop: 04/26/20 12:59 Last Admin: 04/26/20 12:48 Dose: 250 mls/hr Documented by: Remdesivir 100 mg/ Sodium (Chloride) 100 mls @ 100 mls/hr IV Q24H [facility] Stop: 04/30/20 12:59 Last Admin: 04/30/20 12:06 Dose: 100 mls/hr Documented by: Ceftriaxone Sodium 2 gm/ (Sodium Chloride) 100 mls @ 200 mls/hr IV Q24H [facility] Stop: 04/29/20 21:29 Last Admin: 04/29/20 20:23 Dose: 200 mls/hr Documented by: Sodium Chloride (Normal Saline) 100 mls @ 75 mls/hr IV ASDIRECTED [facility] Stop: 04/30/20 11:00 Last Admin: 04/30/20 09:15 Dose: 75 mls/hr Documented by: Tocilizumab 800 mg/ Sodium (Chloride) 100 mls @ 100 mls/hr IV ONETIME ONE Stop: 04/30/20 09:29 Last Admin: 04/30/20 08:03 Dose: 100 mls/hr Documented by: Insulin Human Lispro (Insulin Lispro 100 Unit/Ml) 0 unit SUBCUT QIDACANDBED [facility]; Protocol Last Admin: 05/01/20 06:37 Dose: Not Given Documented by: Iopamidol (Iopamidol 755 Mg/Ml 100 Ml Bottle) 100 ml IVPUSH ONETIME ONE Stop: 04/25/20 13:05 Last Admin: 04/25/20 14:11 Dose: 100 ml Documented by: Iopamidol (Iopamidol 755 Mg/Ml 100 Ml Bottle) 100 ml IVPUSH ONETIME ONE Stop: 04/30/20 07:32 Last Admin: 04/30/20 09:14 Dose: 100 ml Documented by: Ketorolac Tromethamine (Ketorolac 30 Mg/Ml Sdv) 30 mg IVPUSH ONETIME ONE Stop: 04/25/20 14:49 Last Admin: 04/25/20 15:19 Dose: 30 mg Documented by: Metoprolol Tartrate (Metoprolol Tartrate 25 Mg Tab) 12.5 mg PO Q12H [facility] Last Admin: 05/12/20 20:01 Dose: Not Given Documented by: Morphine Sulfate (Morphine 2 Mg/Ml Syringe) 2 mg IVPUSH ONETIME ONE Stop: 05/12/20 10:01 Last Admin: 05/12/20 10:06 Dose: 2 mg Documented by: Potassium Chloride (Potassium Chloride 20 Meq Tab.Er) 40 meq PO ONETIME ONE Stop: 04/28/20 12:01 Last Admin: 04/28/20 11:20 Dose: 40 meq Documented by: Sodium Chloride (Sodium Chloride 0.9% 10 Ml Syringe) 10 ml FLUSH ONETIME ONE Stop: 04/25/20 13:05 Last Admin: 04/25/20 14:11 Dose: 10 ml Documented by: Sodium Chloride (Sodium Chloride 0.9% 10 Ml Syringe) 10 ml FLUSH ONETIME PRN PRN Reason: IV FLUSH Last Admin: 04/30/20 09:14 Dose: 10 ml Documented by: - Exam Quality Assessment: Reports: Supplemental Oxygen (High-Flow NC 50L/FiO2 of 50), DVT Prophylaxis. Denies: Urine Catheter General: Reports: Alert, Oriented, Cooperative, No Acute Distress HEENT: Reports: Pupils Equal, Pupils Reactive, EOMI, Mucous Membr. Moist/[place] Neck: Reports: Supple, Trachea Midline Lungs: Reports: Decreased Breath Sounds, Crackles. Denies: Normal Respiratory Effort Cardiovascular: Reports: Regular Rate, Regular Rhythm, Other (Fairly frequent PVCs. ) GI/Abdominal Exam: Normal Bowel Sounds, Soft, Non-Tender, No Distention (Male) Exam: Deferred Rectal (Males) Exam: Deferred Back Exam: Reports: Normal Inspection, Full Range of Motion Extremities: Normal Inspection, Normal Range of Motion, Non-Tender, No Pedal Edema, Normal Capillary Refill Skin: Reports: Warm, Dry, Intact Neurological: Reports: No New Focal Deficit Psy/Mental Status: Reports: Alert, Normal Affect, Anxious
[2020-05-13] MEDS: Acetaminophen/HYDROcodone 325-5 MG Tab PO PRN (09:05)
[2020-05-13] MEDS: Fluticasone Propionate Nasal Spray 16 GM Bottle NASBOTH SCH (09:39)
== END 2020-05-13 10:04 | DRG 177 ==
LOC: JD.ED 10:48 → JD.MS 14:57 → JD.ICU 04-27 08:00 → JD.MS 05-06 09:25
PROVIDERS: ADMIT Internal Medicine Cardiovascular Disease; ATTEND Internal Medicine Cardiovascular Disease
PROC: XW033E5 Introduction of Remdesivir Anti-infective into Peripheral Vein, Percutaneous Approach, New Technology Group 5 (ICD-10-PCS; principal; 2020-04-26)
DX: U07.1 COVID-19 (principal); R09.02 Hypoxemia; I26.94 Multiple subsegmental thrombotic pulmonary emboli without acute cor pulmonale; J12.82 Pneumonia due to coronavirus disease 2019; J90 Pleural effusion, not elsewhere classified; E78.5 Hyperlipidemia, unspecified; I10 Essential (primary) hypertension; Z88.8 Allergy status to other drugs, medicaments and biological substances; I25.10 Atherosclerotic heart disease of native coronary artery without angina pectoris; Z91.048 Other nonmedicinal substance allergy status; K21.9 Gastro-esophageal reflux disease without esophagitis; J43.9 Emphysema, unspecified; D72.819 Decreased white blood cell count, unspecified; H54.7 Unspecified visual loss; E78.00 Pure hypercholesterolemia, unspecified; J84.10 Pulmonary fibrosis, unspecified; R06.03 Acute respiratory distress; I51.7 Cardiomegaly; E87.6 Hypokalemia; Z99.81 Dependence on supplemental oxygen; Z95.5 Presence of coronary angioplasty implant and graft; Z91.09 Other allergy status, other than to drugs and biological substances; Z91.030 Bee allergy status; Z91.018 Allergy to other foods; Z79.82 Long term (current) use of aspirin; Z79.899 Other long term (current) drug therapy; I25.2 Old myocardial infarction
CPT/HCPCS: 36415; 36600 ×2; 71045; 71275; 80053; 82803 ×2; 83605; 84484; 85025; 85379; 86140; 93005; 99285; J8540; Q9967; 71046; 71046-26; 71250; 71250-26; 80048; 82306; 82553; 82962; 83735; 83880; 84100; 93010; 93970; 93970-26; 94640; 94667; 94668; 94760; 94762; 97110-GO; 97110-GP; 97116-GP; 97162-GP; 97165-GO; 97530-GO; 97530-GP; 97535-GO; 99222; 99232; 99233; 99239; 99284; A9270-GY; J0360; J0456; J0696; J1650; J1815-GY; J1885; J2270; J3262; J7050; J7620-GY